=== PATIENT | male | born 1950 | race Two or more races ===

== ENCOUNTER 2017-04-16 18:09 | Inpatient (IN) | payer MEDICARE, MEDICAID ==
[~2017-04-16] VITALS: Ht 170.2 cm; Wt 62.1 kg
[2017-04-16 18:10] VITALS: BP 95/57
--- NOTE | 2017-04-16 18:13 | Emergency Room Report ---
History of Present Illness Present Illness HPI 67YOM BIBEMS for AMS. Critically low glucose. No improvement with SNF trying to give juice. History of IDDM. Not on long-acting sulfon per review of SNF paperwork Glucose improved to >200 after D10 by EMS Noted rhonchi/rales by EMS. DNR but BIPAP allowed Per EMS, mental status is at baseline. No other info from EMS, SNF. Allergies: Coded Allergies: PENICILLINS (Verified Allergy, Unknown, 04/16/17) Patient History Past Medical History: DM Past Surgical History: unable to obtain Pertinent Family History: unable to obtain Social History: Denies: alcohol use, drug use, smoking Immunizations: UTD Reviewed Nursing Documentation: PMH: Agreed, PSxH: Agreed Review of Systems All Other Systems: negative except mentioned in HPI Physical Exam Sp02 EP Interpretation: reviewed, normal General Appearance: normal inspection, well appearing, no apparent distress, alert, other - Eyes closed, chronically ill, Chronically Ill Head: normocephalic, atraumatic Eyes: bilateral eye EOMI, bilateral eye PERRL ENT: normal ENT inspection, hearing grossly normal, normal voice Neck: normal inspection, full range of motion, supple, no bony tend Respiratory: normal inspection, no respiratory distress, no retraction, rales Cardiovascular #1: regular rate, rhythm, no edema Gastrointestinal: normal inspection, normal bowel sounds, non tender, soft, no guarding, no hernia Genitourinary: no CVA tenderness Musculoskeletal: normal inspection, back normal, normal range of motion, Sharan' s Sign negative Neurologic: normal inspection, alert, responsive, speech normal Skin: normal inspection, no rash, pallor Medical Decision Making Medicare Attestation I Silvino Shoemaker MD hereby attest that the medical record entry for date of service, 08/29/16 accurately reflects signatures/notations that I made in my capacity as MD when I treated/diagnosed the above listed Medicare beneficiary. I attest that this information is true, accurate and complete to the best of my knowledge. I understand that any falsification, omission, or concealment of material fact may subject me to administrative, civil, or criminal liability. This patient warrants hospital admission for extreme of age and has a condition that cannot be treated as outpatient. Diagnostic Impression: Primary Impression: Hypoglycemia Additional Impression: CHF (congestive heart failure) Qualified Codes: I50.9 - Heart failure, unspecified ER Course Hypoglycemia - Glucose stayed WNL in ED. Downtrended to 100, was given Amp glucose again. - Labs pending at time of signout. CHF - Improved on BIPAP, lasix - CXR, labs pending at time of signout Endorsed to Dr Robin covering for Dr Gupta at 7pm Asked Dr Maldonado to followup labs, CXR at 7pm EKG Diagnostic Results Rate: normal Rhythm: NSR Other Impression Qwaves in leads v2-3 ASA given to the pt in ED: No Rhythm Strip Diag. Results EP Interpretation: yes Rate: 67 Rhythm: NSR, no PVC's, no ectopy Chest X-Ray Diagnostic Results Chest X-Ray Diagnostic Results : Chest X-Ray Ordered: Yes # of Views/Limited/Complete: 1 View Indication: Shortness of Breath EP Interpretation: Yes Interpretation: no pneumothorax, other - Bilateral pulm edema Status: improved Disposition: ADMITTED INPATIENT Condition: Serious SILVINO SHOEMAKER M.D. Apr 16, 2017 18:13
[2017-04-16 19:11] VITALS: BP 100/61
[2017-04-16 19:12] LABS: BASOPHILS % (AUTO) 1.3 % (0.0-2.0); EOSINOPHILS % (AUTO) 3.4 % (0.0-3.0); LYMPHOCYTES % (AUTO) 18.8 % (20.0-45.0); MEAN CORPUSCULAR HEMOGLOBIN 33.1 PG (27.0-31.0); MEAN CORPUSCULAR HGB CONC 33.7 G/DL (32.0-36.0); MEAN CORPUSCULAR VOLUME 98 FL (80-99); MEAN PLATELET VOLUME 7.5 FL (6.5-10.1); NEUTROPHILS % (AUTO) 69.5 % (45.0-75.0); PLATELET COUNT 248 K/UL (150-450); RED BLOOD COUNT 3.45 M/UL (4.70-6.10); RED CELL DISTRIBUTION WIDTH 12.3 % (11.6-14.8); WHITE BLOOD COUNT 8.2 K/UL (4.8-10.8)
[2017-04-16 19:29] LABS: TROPONIN I < 0.30 ng/mL (<=0.30)
[2017-04-16] MEDS ORDERED: ACETAMINOPHEN325 M1 ORAL (19:31)
[2017-04-16] MEDS ORDERED: LEVOTHYROXINE100 MCG ORAL (19:31)
[2017-04-16] MEDS ORDERED: MIRTAZAPINE15 M3 ORAL (19:31)
[2017-04-16] MEDS ORDERED: FLUCONAZOLE100 MG ORAL (19:31)
[2017-04-16] MEDS ORDERED: ACETAMINOPHEN-1 EAC1 ORAL (19:31)
[2017-04-16] MEDS ORDERED: FAMOTIDINE20 MG ORAL (19:31)
[2017-04-16] MEDS ORDERED: ASPIR 8181 MG ORAL (19:31)
[2017-04-16] MEDS ORDERED: LANTUS SOL100 UNIT/1 SUBQ (19:31)
[2017-04-16] MEDS ORDERED: HUMALOG KW200 UNIT/1 SQ ×2 (19:31)
[2017-04-16] MEDS ORDERED: CARVEDILOL3.125 MG ORAL (19:31)
[2017-04-16] MEDS ORDERED: GABAPENTIN300 MG ORAL (19:31)
[2017-04-16] MEDS ORDERED: VENLAFAXINE HCL75 MG ORAL (19:31)
[2017-04-16] MEDS ORDERED: PULMICORT FLEX90 MCG IH (19:31)
[2017-04-16] MEDS ORDERED: LEVEMIR FL100 UNIT/1 SUBQ (19:31)
[2017-04-16] MEDS ORDERED: VITAMIN C500 M1 ORAL (19:31)
[2017-04-16] MEDS ORDERED: OXYCODONE-ACET1 EAC5 ORAL (19:31)
[2017-04-16] MEDS ORDERED: PANTOPRAZOLE SO40 MG ORAL (19:31)
[2017-04-16] MEDS ORDERED: ATORVASTATIN CA40 MG ORAL (19:31)
[2017-04-16 19:32] LABS: ALANINE AMINOTRANSFERASE 10 U/L (3-41); ALBUMIN/GLOBULIN RATIO 0.9 (1.0-2.7); ANION GAP 14 (5-15); ASPARTATE AMINO TRANSFERASE 21 U/L (5-40); CARBON DIOXIDE 21 mEQ/L (20-30); CHLORIDE 101 mEQ/L (98-107); CREATININE 0.9 mg/dL (0.7-1.2); GLOMERULAR FILTRATION RATE > 60 mL/min (>60); HEMOLYSIS 21; POTASSIUM 3.7 mEQ/L (3.4-4.9); SODIUM 136 mEQ/L (135-145); TOTAL PROTEIN 6.5 g/dL (6.6-8.7)
[2017-04-16 19:42] LABS: CKMB 2.4 ng/mL (< 6.7)
[2017-04-16] MEDS ORDERED: Miralax 17gm pkt ORAL PRN (20:45)
[2017-04-16] MEDS ORDERED: Nitroglycerin Subl 0.4mg tab (Bottle Of 25) SL PRN (20:45)
[2017-04-16] MEDS ORDERED: Morphine Sulfate 2mg/ml Inj IVP PRN (20:45)
[2017-04-16] MEDS ORDERED: DuoNeb 0.5-3(2.5)mg/3ml neb HHN PRN (20:45)
[2017-04-16] MEDS ORDERED: Mylanta II UD 30ml ORAL PRN (20:45)
[2017-04-16 23:00] VITALS: BP 103/61
[2017-04-16] MEDS: D5 1/2NS 1,000 ML IV SCH (23:17)
[2017-04-16] MEDS: Heparin 5000 units/ml inj SUBQ SCH (23:24)
[2017-04-17] VITALS (12 sets, daily range): BP systolic 74–114; BP diastolic 27–64
[2017-04-17] MEDS: NovoLOG Insulin Flexpen SUBQ SCH ×5 (00:36→21:06)
[2017-04-17] MEDS: Heparin 5000 units/ml inj SUBQ SCH ×2 (09:29→21:07)
--- NOTE | 2017-04-17 11:41 | Consultation ---
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 Pt sounded congested in ER, therefore he is admitted to [facility]. Currently he is awake, without any complains. doens't talk but seems to understand. Allergies: Coded Allergies: PENICILLINS (Verified Allergy, Unknown, 04/16/17) Medication History Scheduled Ascorbic Acid* (Vitamin C*), 500 MG ORAL TWICE A DAY, (Reported) Aspirin* (Aspir 81*), 81 MG ORAL DAILY, (Reported) Atorvastatin Calcium* (Atorvastatin Calcium*), 40 MG ORAL BEDTIME, (Reported) Budesonide (Pulmicort Flexhaler), Unknown Dose IH BID, (Reported) Carvedilol* (Carvedilol*), 3.125 MG ORAL EVERY 12 HOURS, (Reported) Famotidine (Famotidine), 20 MG ORAL TWICE A DAY, (Reported) Fluconazole (Fluconazole), 200 MG ORAL DAILY, (Reported) Gabapentin* (Gabapentin*), 300 MG ORAL THREE TIMES A DAY, (Reported) Insulin Detemir (Levemir Flexpen), 8 SUBQ DAILY, (Reported) Insulin Glargine (Lantus), 20 SUBQ BEDTIME, (Reported) Insulin Lispro (Humalog Kwikpen), 18 UNIT SQ AC, (Reported) Levothyroxine Sodium* (Levothyroxine Sodium*), 100 MCG ORAL DAILY, (Reported) Mirtazapine* (Mirtazapine*), 15 MG ORAL BEDTIME, (Reported) Pantoprazole* (Pantoprazole*), 40 MG ORAL DAILY, (Reported) Venlafaxine Hcl* (Venlafaxine Hcl*), 75 MG ORAL DAILY, (Reported) Scheduled PRN Acetaminophen With Codeine (T#3) (Tylenol #3 Tab*), 1 TAB ORAL Q4H PRN for For Pain, (Reported) Acetaminophen* (Acetaminophen 325MG Tablet*), 650 MG ORAL Q6H PRN for Fever/ Headache/Mild Pain, (Reported) Oxycodone Hcl/Acetaminophen 10-325* (Oxycodone-Acetaminophen 10-325*), 1 TAB ORAL TID PRN for For Pain, (Reported) Miscellaneous Medications Insulin Lispro (Humalog Kwikpen), 200 UNIT SQ, (Reported) Patient History Healthcare decision maker Jewel Feliciano,ravi Resuscitation status Do Not Resuscitate Advanced Directive on File No Past Medical/Surgical History Past Medical/Surgical History: (1) Diabetes mellitus (2) Cardiomyopathy (3) PVD (peripheral vascular disease) (4) Hx of right BKA Review of Systems All Other Systems: negative except mentioned in HPI Physical Exam General Appearance: cachetic Lines, tubes and drains: peripheral HEENT: normocephalic, atraumatic Neck: non-tender, normal alignment Respiratory/Chest: chest wall non-tender, lungs clear Breasts: no masses Cardiovascular/Chest: normal peripheral pulses, normal rate Abdomen: normal bowel sounds, non tender Genitourinary/Rectal: normal genital exam, heme negative stool Extremities: normal range of motion, non-tender Skin Exam: normal pigmentation Neurologic: outlet manager II-XII grossly normal Last 24 Hour Vital Signs Date Time Temp Pulse Resp B/P Pulse Ox O2 Delivery O2 Flow Rate FiO2 04/17/17 08:30 76 04/17/17 08:07 6.0 04/17/17 08:00 98.6 80 22 104/64 94 Nasal Cannula 5.0 04/17/17 07:35 Nasal Cannula 4.0 04/17/17 07:34 4 Nasal Cannula 94.0 04/17/17 06:00 75 26 89/45 98 Bi-pap 04/17/17 05:03 71 28 98 Facial 60 04/17/17 05:00 70 26 91/42 96 Bi-pap 04/17/17 04:00 99.6 73 29 74/41 93 Bi-pap 04/17/17 04:00 28 04/17/17 04:00 70 04/17/17 03:13 72 26 99 Facial 60 04/17/17 03:00 71 21 82/27 98 Bi-pap 04/17/17 02:00 70 20 95/36 98 Bi-pap 04/17/17 01:11 77 18 98 Facial 70 04/17/17 01:00 80 18 90/33 98 Bi-pap 04/17/17 00:00 81 04/17/17 00:00 81 18 88/45 98 Bi-pap 28 04/17/17 00:00 28 04/16/17 23:05 87 26 100 Facial 80 04/16/17 23:00 98.6 93 22 103/61 100 Bi-pap 28 04/16/17 22:15 97.5 62 15 100/61 100 Bi-pap 100 64 04/16/17 20:46 64 16 94 Facial 100 04/16/17 19:11 97.5 64 15 100/61 100 Bi-pap 100 04/16/17 18:18 68 19 98 Facial 100 04/16/17 18:18 68 19 Bi-pap 100 04/16/17 18:10 97.5 62 17 95/57 100 Bi-pap 04/16/17 18:10 62 17 Bi-pap 04/16/17 18:08 97.3 71 21 98/62 89 Non-Rebreather Intake and Output 04/16/17 04/17/17 19:00 07:00 Intake Total 0 ml 400 ml Output Total 650 ml Balance 0 ml -250 ml Intake Oral 0 ml 0 ml IV Total 400 ml Output Urine Total 650 ml Laboratory Tests Test 04/16/17 18:45 White Blood Count 8.2 K/UL (4.8-10.8) Red Blood Count 3.45 M/UL (4.70-6.10) L Hemoglobin 11.4 G/DL (14.2-18.0) L Hematocrit 33.8 % (42.0-52.0) L Mean Corpuscular Volume 98 FL (80-99) Mean Corpuscular Hemoglobin 33.1 PG (27.0-31.0) H Mean Corpuscular Hemoglobin Concent 33.7 G/DL (32.0-36.0) Red Cell Distribution Width 12.3 % (11.6-14.8) Platelet Count 248 K/UL (150-450) Mean Platelet Volume 7.5 FL (6.5-10.1) Neutrophils (%) (Auto) 69.5 % (45.0-75.0) Lymphocytes (%) (Auto) 18.8 % (20.0-45.0) L Monocytes (%) (Auto) 7.0 % (1.0-10.0) Eosinophils (%) (Auto) 3.4 % (0.0-3.0) H Basophils (%) (Auto) 1.3 % (0.0-2.0) Sodium Level 136 mEQ/L (135-145) Potassium Level 3.7 mEQ/L (3.4-4.9) Chloride Level 101 mEQ/L (98-107) Carbon Dioxide Level 21 mEQ/L (20-30) Anion Gap 14 (5-15) Blood Urea Nitrogen 12 mg/dL (7-23) Creatinine 0.9 mg/dL (0.7-1.2) Estimat Glomerular Filtration Rate > 60 mL/min (>60) Glucose Level 234 mg/dL (74-106) H Calcium Level 9.0 mg/dL (8.6-10.2) Total Bilirubin 0.3 mg/dL (0.0-1.2) Aspartate Amino Transf (AST/SGOT) 21 U/L (5-40) Alanine Aminotransferase (ALT/SGPT) 10 U/L (3-41) Alkaline Phosphatase 110 U/L (40-129) Total Creatine Kinase 118 U/L (38-174) Creatine Kinase MB 2.4 ng/mL (< 6.7) Creatine Kinase MB Relative Index 2.0 Troponin I < 0.30 ng/mL (<=0.30) Pro-B-Type Natriuretic Peptide 7829 pg/mL (0-125) H Total Protein 6.5 g/dL (6.6-8.7) L Albumin 3.1 g/dL (3.5-5.2) L Globulin 3.4 g/dL Albumin/Globulin Ratio 0.9 (1.0-2.7) L Height (Feet): 5 Height (Inches): 7.00 Weight (Pounds): 137 Medications Current Medications Medications (Trade) Dose Ordered Sig/Eliel Route PRN Reason Start Time Stop Time Status Last Admin Dose Admin Acetaminophen (Tylenol) 650 mg Q4H PRN ORAL fever 04/16/17 20:45 05/16/17 20:44 Al Hydroxide/Mg Hydroxide (Mylanta II) 30 ml Q6H PRN ORAL dyspepsia 04/16/17 20:45 05/16/17 20:44 Albuterol/ Ipratropium (DuoNeb 0.5-3(2.5)mg/3ml) 3 ml Q4H PRN HHN Shortness of Breath 04/16/17 20:45 04/21/17 20:44 Clonidine HCl 0.1 mg 0.1 mg Q4H PRN ORAL sbp more than 160 04/16/17 20:45 05/16/17 20:44 Dextrose (Dextrose 50%) STAT PRN IV Hypoglycemia 04/16/17 20:45 05/16/17 20:44 Dextrose/Sodium Chloride (D5 0.45% NS) 1,000 ml @ 50 mls/hr Q20H IV 04/16/17 21:00 05/16/17 20:59 04/16/17 23:17 Heparin Sodium (Porcine) (Heparin 5000 units/ml) 5,000 units EVERY 12 HOURS SUBQ 04/16/17 21:00 05/16/17 20:59 04/17/17 09:29 Insulin Aspart (NovoLOG) BEFORE MEALS AND HS SUBQ 04/16/17 21:00 05/16/17 20:59 04/17/17 06:52 Levothyroxine Sodium (Synthroid) 100 mcg ACBREAKFAST ORAL 04/17/17 09:00 05/17/17 08:59 04/17/17 09:27 Morphine Sulfate (Morphine Sulfate) 2 mg Q4H PRN IVP severe pain 7-10 04/16/17 20:45 04/23/17 20:44 Nitroglycerin (Ntg) 0.4 mg Q5M X 3 DOSES PRN SL Prn Chest Pain 04/16/17 20:45 05/16/17 20:44 Ondansetron HCl (Zofran) 4 mg Q6H PRN IVP Nausea & Vomiting 04/16/17 20:45 05/16/17 20:44 Polyethylene Glycol (Miralax) 17 gm HSPRN PRN ORAL Constipation 04/16/17 20:45 05/16/17 20:44 Temazepam (Restoril) 15 mg HSPRN PRN ORAL Insomnia 04/16/17 20:45 04/23/17 20:44 Assessment/Plan Problem List: (1) Hypoglycemia ICD Codes: E16.2 - Hypoglycemia, unspecified SNOMED: 504547652 (2) Diabetes mellitus ICD Codes: E11.9 - Type 2 diabetes mellitus without complications SNOMED: 54366414 (3) Cardiomyopathy ICD Codes: I42.9 - Cardiomyopathy, unspecified SNOMED: 95729571 (4) DNR (do not resuscitate) ICD Codes: Z66 - Do not resuscitate SNOMED: 893219911 (5) Polypharmacy ICD Codes: Z79.899 - Other isotope technologist (current) drug therapy SNOMED: 956877134 (6) PVD (peripheral vascular disease) ICD Codes: I73.9 - Peripheral vascular disease, unspecified SNOMED: 878567216 Assessment/Plan D5 1/2 NS optimize cardiac meds avoid tight control of DM dvt prophylaxis respiratory treatment titrate fio2 to sat of 92% med/surg repeat Echo. KRISH ADRIAN Apr 17, 2017 11:41
--- NOTE | 2017-04-17 12:07 | Diagnostic Imaging Report ---
Indication: SOB Technique: One view of the chest Comparison: none Findings: There is some poorly demonstrated opacities in the retrocardiac region. The lungs and pleural spaces are otherwise clear. The heart is upper limits normal in size. There is right paratracheal prominence. Coronary artery stents are noted. Impression: Equivocal retrocardiac opacities. Otherwise, no acute cardio pulmonary process Right paratracheal prominence, probably on the basis of ectatic vasculature Other findings as noted
[2017-04-17 12:14] LABS: BASOPHILS % (AUTO) 0.5 % (0.0-2.0); EOSINOPHILS % (AUTO) 0.3 % (0.0-3.0); LYMPHOCYTES % (AUTO) 12.1 % (20.0-45.0); MEAN CORPUSCULAR HEMOGLOBIN 33.6 PG (27.0-31.0); MEAN CORPUSCULAR HGB CONC 34.4 G/DL (32.0-36.0); MEAN CORPUSCULAR VOLUME 98 FL (80-99); MEAN PLATELET VOLUME 7.9 FL (6.5-10.1); MONOCYTES % (AUTO) 5.1 % (1.0-10.0); PLATELET COUNT 241 K/UL (150-450); RED BLOOD COUNT 3.13 M/UL (4.70-6.10); RED CELL DISTRIBUTION WIDTH 12.4 % (11.6-14.8); WHITE BLOOD COUNT 16.4 K/UL (4.8-10.8)
[2017-04-17 12:44] LABS: ALANINE AMINOTRANSFERASE 11 U/L (3-41); ALBUMIN/GLOBULIN RATIO 0.9 (1.0-2.7); ANION GAP 15 (5-15); ASPARTATE AMINO TRANSFERASE 21 U/L (5-40); CALCIUM 8.8 mg/dL (8.6-10.2); CARBON DIOXIDE 19 mEQ/L (20-30); CHLORIDE 102 mEQ/L (98-107); CHOLESTEROL 100 mg/dL (< 200); CHOLESTEROL/HDL RATIO 4.3 (3.3-4.4); CREATININE 0.8 mg/dL (0.7-1.2); GLOMERULAR FILTRATION RATE > 60 mL/min (>60); HEMOLYSIS 5; LDL CHOLESTEROL (CALC.) 49 mg/dL (60-99); POTASSIUM 3.6 mEQ/L (3.4-4.9); SODIUM 136 mEQ/L (135-145); TOTAL PROTEIN 6.1 g/dL (6.6-8.7)
[2017-04-17 12:50] LABS: HEMOGLOBIN A1C 10.2 % (< 6.0)
[2017-04-17] MEDS ORDERED: D5 1/2NS 1000ml IV ONE (16:16)
[2017-04-17] MEDS: D5 1/2NS 1,000 ML IV SCH ×2 (16:47→23:53)
--- NOTE | 2017-04-17 18:18 | History & Physical ---
History and Physical History & Physicial Joni Robin MD Apr 17, 2017 18:18
--- NOTE | 2017-04-17 22:16 | History and Physical Report ---
DATE OF ADMISSION: 04/16/2017 CHIEF COMPLAINT: Altered mental status. HISTORY OF PRESENT ILLNESS: This is a 67-year-old gentleman with past medical history significant for severe cardiomyopathy with ejection fraction of 25%, severe peripheral vascular disease, status post right BKA with chronic diabetic ulcer on the left lower extremity as well as stump infection, history of uncontrolled diabetes type 2, and hypothyroidism who presented to the hospital from a nursing facility [facility] after he was noted to have altered mental status. The patient was noted to have low blood glucose level of 20 and the patient was noted to be congested. Shortly after initial evaluation in the emergency, the patient was admitted to [facility] on D10. Currently, the patient was awake and responsive without any complaint and able to talk. PAST MEDICAL AND SURGICAL HISTORY: As above, history of hypothyroidism, diabetes type 2 insulin dependent, severe cardiomyopathy with low ejection fraction, severe peripheral vascular disease, status post right BKA and diabetic foot ulcer. MEDICATIONS: At half-way significant for ascorbic acid, aspirin, atorvastatin, budesonide, Coreg, famotidine, Diflucan, gabapentin, Levemir insulin, Lantus, Humalog insulin, levothyroxine, mirtazapine, Protonix, Effexor, Tylenol #3, codeine and [place]. ALLERGIES: Penicillin. SOCIAL HISTORY: No smoking, alcohol, or drugs at this time, it is very limited secondary to the patient's status. The patient is a poor historian. FAMILY HISTORY: Noncontributory. REVIEW OF SYSTEMS: Mostly as above. Denies any dysuria or frequency. Denies any hemoptysis or hematochezia. Complained about weakness. Denies any loss of consciousness. Denies any double vision. PHYSICAL EXAMINATION: VITAL SIGNS: Temperature 98.6, pulse 93, respiration 22, and blood pressure 103/61. GENERAL: The patient is awake, responsive, and cachectic. HEAD AND NECK: Pupils are reactive to light. Anicteric. NECK: Supple. No JVD. LUNGS: Good air entry. Poor inspiratory effort. No wheezing or rales. HEART: S1 and S2. Distant heart sounds. No murmurs or gallops. ABDOMEN: Soft, nondistended, and nontender. EXTREMITIES: He has a right lower extremity BKA with stump infection was noted and the left lower extremity has a healed ulceration with dressing. NEUROLOGIC: Cranial nerves II through XII are grossly intact. The patient is moving all extremities spontaneously. Gait was not assessed due to the patient's status. LABORATORY AND DIAGNOSTIC DATA: On admission from the ER, WBC of 8.2, hemoglobin of 11, hematocrit 33, and platelets 246,000. Sodium 136, potassium 2.7, chloride 101, bicarbonate 21, BUN 12, creatinine 0.9, and glucose is 234. Calcium is 9.0. First troponin is less than 0.30. ProBNP of 7829. The patient's chest x-ray, retrocardiac opacification, no acute cardiopulmonary process. Right paratracheal prominence probably on the basis of the ectatic vasculature. ASSESSMENT: 1. Toxic metabolic encephalopathy most likely secondary to the hypoglycemia. 2. Poorly-controlled diabetes type 2, insulin dependent. 3. Severe cardiomyopathy with ejection fraction of 25%. 4. Severe peripheral vascular disease, status post right [id number] amputation. 5. Right below-knee amputation infection. 6. . 7. Hypothyroidism. 8. Possible sepsis with elevated white blood cells. PLAN: Admit the patient to [facility]. We will follow up laboratory. Pulmonary Critical Care Consultation with Dr. Saab. DVT prophylaxis. Heparin subcutaneous. We will resume half-way medications. Monitor laboratory. Accu-Cheks very closely. Code status is DNR. Followup with the cultures. Joni Robin M.D. DR: BEE JOB#: [id number] CC:
[2017-04-17] MEDS ORDERED: Nitroglycerin Subl 0.4mg tab (Bottle Of 25) SL PRN (23:00)
--- NOTE | 2017-04-18 00:38 | Wound Care Consultation ---
Wound Assessment Wound Assessment #1: Wound Number: #1 Wound Present on Admission: Yes New Wound: No Status Change of Wound: No Wound Location Body Site Modif: mid Wound Location Body Site: sacral Wound Type: pressure ulcer Denisse Test: Does not Denisse Pressure Ulcer Stage: IV/unstageable Wound Thickness: Full Thickness Wound Length: 4.0 Wound Width: 3.5 Wound Depth: utd Percent of Wound Bed Yellow/Wh: 100 Wound Drainage Description: Serosanguineous Wound Drainage Amount: Moderate Wound Drainage Odor: None/Absent Tissue Surrounding Wound: Erythemic Wound General Appearance: Draining Wound Assessment #2: Wound Number: #2 Wound Present on Admission: Yes New Wound: No Status Change of Wound: No Wound Location Body Site Modif: left, lateral Wound Location Body Site: malleolus/ankle Wound Type: pressure ulcer Denisse Test: Does not Denisse Pressure Ulcer Stage: deep tissue injury Wound Thickness: Full Thickness Wound Length: 2.0 Wound Width: 1.5 Wound Depth: utd Percent of Wound Black/Brown: 100 Wound Drainage Amount: None Wound Drainage Odor: None/Absent Tissue Surrounding Wound: Intact Wound General Appearance: Blackened Wound Assessment #3: Wound Number: #3 Wound Present on Admission: Yes New Wound: No Status Change of Wound: No Wound Location Body Site Modif: left Wound Location Body Site: heel Wound Type: pressure ulcer Denisse Test: Does not Denisse Pressure Ulcer Stage: IV/unstageable Wound Thickness: Full Thickness Wound Length: 5.0 Wound Width: 4.0 Wound Depth: utd Percent of Wound Black/Brown: 100 Wound Drainage Description: Serosanguineous Wound Drainage Amount: Scant Wound Drainage Odor: None/Absent Tissue Surrounding Wound: Indurated Wound General Appearance: Blackened, Draining, Necrotic Wound Assessment #4: Wound Number: #4 Wound Present on Admission: Yes New Wound: No Status Change of Wound: No Wound Location Body Site Modif: left, lateral Wound Location Body Site: toe - big Wound Type: pressure ulcer Denisse Test: Does not Denisse Pressure Ulcer Stage: deep tissue injury Wound Thickness: Full Thickness Wound Length: 1.5 Wound Width: 2.5 Wound Depth: utd Percent of Wound Black/Brown: 100 Wound Drainage Amount: None Wound Drainage Odor: None/Absent Tissue Surrounding Wound: Intact Wound General Appearance: Blackened Wound Assessment #5: Wound Number: #5 Wound Present on Admission: Yes New Wound: No Status Change of Wound: No Wound Location Body Site Modif: right, anterior Wound Location Body Site: other - BKA Wound Type: pressure ulcer Denisse Test: Does not Denisse Pressure Ulcer Stage: IV/unstageable Wound Thickness: Full Thickness Wound Length: 4.0 Wound Width: 5.5 Wound Depth: utd Percent of Wound Bed Yellow/Wh: 20 Percent of Wound Black/Brown: 80 Wound Drainage Description: Serosanguineous Wound Drainage Amount: Scant Wound Drainage Odor: None/Absent Tissue Surrounding Wound: Erythemic Wound General Appearance: Blackened Wound Assessment #6: Wound Number: #6 Wound Present on Admission: Yes New Wound: No Status Change of Wound: No Wound Location Body Site Modif: right, lateral Wound Location Body Site: other - BKA Wound Type: pressure ulcer Denisse Test: Does not Denisse Pressure Ulcer Stage: IV/unstageable Wound Thickness: Full Thickness Wound Length: 2.5 Wound Width: 2.5 Wound Depth: utd Percent of Wound Black/Brown: 100 Wound Drainage Amount: None Wound Drainage Odor: None/Absent Tissue Surrounding Wound: Erythemic Wound General Appearance: Blackened Wound Comment #1 Sacral unstageable pressure ulcer #2 Left lateral malleolus DTI pressure ulcer #3 Left heel Unstageable pressure ulcer #4 Left lateral big toe DTI pressure ulcer #5 Right lateral BKA site unstageable pressure ulcer #6 Right anterior BKA site unstageable pressure ulcer Recommendation -Sacral unstageable pressure ulcer Cleanse with saline, pat dry, apply Therahoney gel on wound bed, apply Triad to quirino wound area, cover with 4x4, secure with bordered gauze daily and PRN soiled/dislodged -Left lateral malleolus DTI pressure ulcer, Left heel Unstageable pressure ulcer , Left lateral big toe DTI pressure ulcer, Right lateral BKA site unstageable pressure ulcer and Right anterior BKA site unstageable pressure ulcer Cleanse with saline, apt dry, apply Betadine to wound bed, cover with 4x4, secure with bordered gauze daily and PRN soiled/dislodged -Keep clean and dry -Turn and reposition -Low air loss mattress -Offload left heel -Heel protector on left heel -Optimize nutrition -Assess and f/u accordingly for any changes HELGA CONDE RN Apr 18, 2017 00:38
[2017-04-18] MEDS ORDERED: DuoNeb 0.5-3(2.5)mg/3ml neb HHN PRN (00:45)
[2017-04-18] MEDS ORDERED: Mylanta II UD 30ml ORAL PRN (02:45)
[2017-04-18 04:00] VITALS: BP 124/69
[2017-04-18] MEDS: NovoLOG Insulin Flexpen SUBQ SCH ×7 (05:44→20:56)
[2017-04-18] MEDS: Levothyroxine 25mcg tab ORAL SCH (06:23)
[2017-04-18 07:23] LABS: APPEARANCE,URINE CLOUDY; KETONES,URINE 2+ (NEGATIVE); LEUKOCYTE ESTERASE ,URINE 3+ (NEGATIVE); NITRITE,URINE NEGATIVE (NEGATIVE); PH,URINE 6 (4.5-8.0); PROTEIN,URINE 2+ (NEGATIVE); UROBILINOGEN,URINE NORMAL MG/DL (0.0-1.0)
[2017-04-18 07:35] LABS: BACTERIA,URINE FEW /HPF; SQUAMOUS EPITHELIAL CELL,UR OCCASIONAL /LPF (NONE/OCC); WBC,URINE 30-40 /HPF (0 - 0); YEAST,URINE MANY /HPF
--- NOTE | 2017-04-18 08:16 | Consultation ---
DATE OF CONSULTATION: 04/17/2017 ENDOCRINOLOGY CONSULTATION CONSULTING PHYSICIAN: Michael Goode M.D. REFERRING PHYSICIAN: Joni Robin M.D. REASON FOR CONSULTATION: 1. Diabetes management. 2. Hypothyroidism. HISTORY OF PRESENT ILLNESS: The patient is a 67-year-old male with past medical history of severe cardiomyopathy with EF of 25%, severe peripheral vascular disease, status post right below-knee amputation and there is a long family history of diabetes insulin dependent, and hypothyroidism, who resides in a senior care facility. The patient was brought in with altered mental status with a glucose of 20. He was treated with dextrose and admitted to the floor for observation and treatment and transferred to the Med/Surg after stabilization. I was called to manage diabetes and hypothyroidism. PAST MEDICAL HISTORY: 1. Hypothyroidism. 2. Type 2 diabetes insulin dependent. 3. Severe cardiomyopathy with EF of 25%. 4. Peripheral vascular disease. PAST SURGICAL HISTORY: Right below-knee amputation. MEDICATIONS AT HOME: Reviewed and reconciled. ALLERGIES: To penicillin. SOCIAL HISTORY: No smoking, alcohol, or drug use. Resides in a senior care facility. FAMILY HISTORY: Noncontributory. REVIEW OF SYSTEMS: Limited, but as per history of present illness. PHYSICAL EXAMINATION: VITAL SIGNS: Blood pressure is 110/60, pulse of 82, temperature 98.2, and respiratory rate 18. HEENT: Pupils are equal and reactive to light. Sclerae are anicteric. NECK: No JVD. No thyromegaly. LUNGS: Clear. HEART: Regular rate and rhythm. ABDOMEN: Positive bowel sounds. Soft. EXTREMITIES: Right below-knee amputation with stump infection. LABORATORY VALUES: Sodium 136, potassium 3.6, chloride 102, bicarb 19, BUN 13, creatinine 0.8, glucose of 207, and A1c 10.2. TSH of 30. DIAGNOSES: 1. Diabetes, out of control. 2. Hypoglycemia. 3. Hypothyroidism with elevated TSH. 4. History of right below-knee amputation. PLAN: 1. I will resume scheduled insulin dose of Levemir and NovoLog. 2. Levemir 10 units b.i.d. start this morning. 3. NovoLog 6 units before each meal. 4. Continue IV fluids, sliding scale insulin. 5. Increase the levothyroxine dose from 100 to 125 mcg daily. 6. Repeat TSH in two months. 7. I will follow the patient during the hospital stay. Thank you, Dr. Robin, for the courtesy of this consultation. Michael Goode M.D. DR: JUSTIN JOB#: [id number] CC: KELLIE
[2017-04-18 08:35] VITALS: BP 117/69
[2017-04-18] MEDS: Heparin 5000 units/ml inj SUBQ SCH ×2 (09:00→20:58)
[2017-04-18] MEDS: Levemir Flexpen SUBQ SCH ×2 (09:42→18:09)
[2017-04-18] MEDS ORDERED: Amikacin Rx to dose MISC PRN (10:30)
[2017-04-18 11:45] LABS: BASOPHILS % (AUTO) 0.6 % (0.0-2.0); EOSINOPHILS % (AUTO) 2.2 % (0.0-3.0); LYMPHOCYTES % (AUTO) 19.2 % (20.0-45.0); MEAN CORPUSCULAR HEMOGLOBIN 31.9 PG (27.0-31.0); MEAN CORPUSCULAR HGB CONC 32.6 G/DL (32.0-36.0); MEAN CORPUSCULAR VOLUME 98 FL (80-99); MEAN PLATELET VOLUME 8.7 FL (6.5-10.1); MONOCYTES % (AUTO) 5.8 % (1.0-10.0); NEUTROPHILS % (AUTO) 72.2 % (45.0-75.0); PLATELET COUNT 291 K/UL (150-450); RED BLOOD COUNT 3.28 M/UL (4.70-6.10); WHITE BLOOD COUNT 12.3 K/UL (4.8-10.8)
[2017-04-18 12:13] VITALS: BP 123/72
[2017-04-18 12:15] LABS: ANION GAP 14 (5-15); CALCIUM 9.4 mg/dL (8.6-10.2); CARBON DIOXIDE 21 mEQ/L (20-30); CHLORIDE 100 mEQ/L (98-107); CREATININE 0.8 mg/dL (0.7-1.2); GLOMERULAR FILTRATION RATE > 60 mL/min (>60); HEMOLYSIS 1; POTASSIUM 3.4 mEQ/L (3.4-4.9); SODIUM 135 mEQ/L (135-145)
[2017-04-18] MEDS ORDERED: Vancomycin 1250mg/D5W 250ml IVPB SCH (14:00)
[2017-04-18] MEDS ORDERED: Vancomycin 1 GM in D5W 275 ML IVPB SCH (14:00)
[2017-04-18] MEDS: Aztreonam Inj 1 GM in NS 55 ML IVPB SCH ×2 (15:54→20:55)
[2017-04-18 16:08] VITALS: BP 122/76
--- NOTE | 2017-04-18 17:38 | Internal Med Progress Note ---
Subjective Date of Service: Apr 18, 2017 Physician Name Reddy Werner Attending Physician Joni Robin MD Current Medications Medications (Trade) Dose Ordered Sig/Eliel Route PRN Reason Start Time Stop Time Status Last Admin Dose Admin Acetaminophen (Tylenol) 650 mg Q4H PRN ORAL fever 04/18/17 00:45 05/18/17 00:44 Al Hydroxide/Mg Hydroxide (Mylanta II) 30 ml Q6H PRN ORAL dyspepsia 04/18/17 02:45 05/18/17 02:44 Albuterol/ Ipratropium (DuoNeb 0.5-3(2.5)mg/3ml) 3 ml Q4H PRN HHN Shortness of Breath 04/18/17 00:45 04/23/17 00:44 Aztreonam 1 gm/ Sodium Chloride 55 ml @ 110 mls/hr EVERY 8 HOURS IVPB 04/18/17 14:00 04/25/17 13:59 04/18/17 15:54 Clonidine HCl (Catapres) 0.1 mg Q4H PRN ORAL sbp more than 160 04/18/17 00:45 05/18/17 00:44 Dextrose (Dextrose 50%) STAT PRN IV Hypoglycemia 04/18/17 06:15 05/18/17 06:14 Dextrose (Dextrose 50%) STAT PRN IV Hypoglycemia 04/18/17 20:45 05/18/17 20:44 Dextrose/Sodium Chloride (D5 0.45% NS) 1,000 ml @ 50 mls/hr Q20H IV 04/17/17 23:00 05/17/17 22:59 04/17/17 23:53 Gabapentin (Neurontin) 300 mg THREE TIMES A DAY ORAL 04/18/17 09:00 05/18/17 08:59 04/18/17 14:13 Heparin Sodium (Porcine) (Heparin 5000 units/ml) 5,000 units EVERY 12 HOURS SUBQ 04/18/17 09:00 05/18/17 08:59 04/18/17 09:00 Insulin Aspart (NovoLOG) BEFORE MEALS AND HS SUBQ 04/18/17 06:30 05/18/17 06:29 04/18/17 12:39 Insulin Aspart (NovoLOG) 6 units NOVOTIAC SUBQ 04/18/17 06:30 05/18/17 06:29 04/18/17 06:27 Insulin Detemir (Levemir) 10 units BID SUBQ 04/18/17 09:00 05/18/17 08:59 04/18/17 09:42 Levofloxacin 100 ml @ 100 mls/hr Q24H IVPB 04/18/17 13:00 04/25/17 12:59 04/18/17 14:12 Levothyroxine Sodium 125 mcg 125 mcg ACBREAKFAST ORAL 04/18/17 06:30 05/18/17 06:29 Mirtazapine (Remeron) 15 mg BEDTIME ORAL 04/18/17 21:00 05/18/17 20:59 Morphine Sulfate (Morphine Sulfate) 2 mg Q4H PRN IVP severe pain 7-04/18/17 00:45 04/25/17 00:44 Nitroglycerin (Ntg) 0.4 mg Q5M X 3 DOSES PRN SL Prn Chest Pain 04/17/17 23:00 05/17/17 22:59 Ondansetron HCl (Zofran) 4 mg Q6H PRN IVP Nausea & Vomiting 04/18/17 02:45 05/18/17 02:44 Oxycodone/ Acetaminophen (Percocet 10/325) 1 tab TID PRN ORAL Moderate Pain (Pain Scale 4-6) 04/18/17 09:00 04/25/17 08:59 Polyethylene Glycol (Miralax) 17 gm HSPRN PRN ORAL Constipation 04/18/17 20:45 05/18/17 20:44 Temazepam (Restoril) 15 mg HSPRN PRN ORAL Insomnia 04/18/17 20:45 04/25/17 20:44 Vancomycin HCl/ Dextrose (Vancomycin 1250mg/D5W 250ml) 250 ml @ 166.667 mls/hr Q24H IVPB 04/18/17 17:00 04/23/17 16:59 Allergies: Coded Allergies: PENICILLINS (Verified Allergy, Unknown, 04/16/17) ROS Limited/Unobtainable: Yes Subjective 67 YO M admitted with altered mental status. Still confused. Cover for Int [facility] -Dr Robin Objective Last Vital Signs Date Time Temp Pulse Resp B/P Pulse Ox O2 Delivery O2 Flow Rate FiO2 04/18/17 16:08 97.0 76 19 122/76 98 Nasal Cannula 2.0 76 04/18/17 07:54 36 General Appearance: WD/WN, no apparent distress, alert EENT: PERRL/EOMI, normal ENT inspection, TMs normal Neck: non-tender, normal alignment, supple Cardiovascular: normal peripheral pulses, normal rate, regular rhythm, no gallop/murmur, no JVD Respiratory/Chest: chest wall non-tender, lungs clear, normal breath sounds, no respiratory distress, no accessory muscle use Abdomen: normal bowel sounds, non tender, soft, no organomegaly, no mass Extremities: normal range of motion 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, no motor/sensory deficits Skin: normal pigmentation, warm/dry Laboratory Tests Test 04/18/17 06:00 04/18/17 11:15 Urine Color Yellow Urine Appearance Cloudy Urine pH 6 (4.5-8.0) Urine Specific [place] 1.020 (1.005-1.035) Urine Protein 2+ (NEGATIVE) H Urine Glucose (UA) 4+ (NEGATIVE) H Urine Ketones 2+ (NEGATIVE) H Urine Occult Blood 3+ (NEGATIVE) H Urine Nitrite Negative (NEGATIVE) Urine Bilirubin Negative (NEGATIVE) Urine Urobilinogen Normal MG/DL (0.0-1.0) Urine Leukocyte Esterase 3+ (NEGATIVE) H Urine RBC 2-4 /HPF (0 - 0) H Urine WBC 30-40 /HPF (0 - 0) H Urine Squamous Epithelial Cells Occasional /LPF Urine Bacteria Few /HPF (NONE) Urine Yeast Many /HPF (NONE) H White Blood Count 12.3 K/UL (4.8-10.8) H Red Blood Count 3.28 M/UL (4.70-6.10) L Hemoglobin 10.5 G/DL (14.2-18.0) L Hematocrit 32.0 % (42.0-52.0) L Mean Corpuscular Volume 98 FL (80-99) Mean Corpuscular Hemoglobin 31.9 PG (27.0-31.0) H Mean Corpuscular Hemoglobin Concent 32.6 G/DL (32.0-36.0) Red Cell Distribution Width 12.0 % (11.6-14.8) Platelet Count 291 K/UL (150-450) Mean Platelet Volume 8.7 FL (6.5-10.1) Neutrophils (%) (Auto) 72.2 % (45.0-75.0) Lymphocytes (%) (Auto) 19.2 % (20.0-45.0) L Monocytes (%) (Auto) 5.8 % (1.0-10.0) Eosinophils (%) (Auto) 2.2 % (0.0-3.0) Basophils (%) (Auto) 0.6 % (0.0-2.0) Sodium Level 135 mEQ/L (135-145) Potassium Level 3.4 mEQ/L (3.4-4.9) Chloride Level 100 mEQ/L (98-107) Carbon Dioxide Level 21 mEQ/L (20-30) Anion Gap 14 (5-15) Blood Urea Nitrogen 14 mg/dL (7-23) Creatinine 0.8 mg/dL (0.7-1.2) Estimat Glomerular Filtration Rate > 60 mL/min (>60) Glucose Level 230 mg/dL (74-106) H Calcium Level 9.4 mg/dL (8.6-10.2) Microbiology Date/Time Source Procedure Growth Status 04/16/17 18:55 Blood Blood Culture - Preliminary NO GROWTH AFTER 24 HOURS Resulted 04/16/17 18:30 Blood Blood Culture - Preliminary NO GROWTH AFTER 24 HOURS Resulted 04/16/17 20:00 Nasal Nares MRSA Culture - Final NO METHICILLIN RESISTANT STAPH AUREUS... Complete 04/16/17 23:40 Sacral Wound Gram Stain - Final Resulted 04/16/17 23:40 Wound Culture - Preliminary Gram Negative Bacillus 1 Resulted 04/16/17 23:40 Knee Right Gram Stain - Final Resulted 04/16/17 23:40 Knee Right Wound Culture - Preliminary Resulted 04/16/17 20:00 Rectum VRE Culture - Final Enterococcus Faecalis - Vre Complete Intake and Output 04/17/17 04/18/17 18:59 06:59 Intake Total 50 ml 1050 ml Output Total 1000 ml Balance 50 ml 50 ml Intake Oral 100 ml IV Total 50 ml 350 ml Other 600 ml Output Urine Total 1000 ml Assessment/Plan Problem List: (1) Altered mental status (2) Diabetes mellitus type II, uncontrolled Assessment & Plan: Cont levemir and novolog sliding scale per endocrinology (3) Hypothyroidism Assessment & Plan: See endocrinology note. Cont Synthroid (4) Peripheral vascular disease (5) Status post below knee amputation of right lower extremity (6) DNR (do not resuscitate) (7) Hypoglycemia Assessment & Plan: See endocrinology note. (8) Cardiomyopathy (9) PVD (peripheral vascular disease) (10) Sepsis Assessment & Plan: Continue aztreonam, levaquin and vanco Status: not improved REDDY WERNER Apr 18, 2017 17:38
[2017-04-18] MEDS: Vancomycin 1250mg/D5W 250ml IVPB SCH (17:39)
[2017-04-18] MEDS: D5 1/2NS 1,000 ML IV SCH (17:39)
[2017-04-18 20:00] VITALS: BP 106/71
[2017-04-18] MEDS ORDERED: Miralax 17gm pkt ORAL PRN (20:45)
--- NOTE | 2017-04-18 23:25 | Pulmonology Progress Note ---
Assessment/Plan Problems: (1) Sepsis (2) Altered mental status (3) Hypoglycemia (4) Diabetes mellitus (5) Cardiomyopathy (6) DNR (do not resuscitate) (7) Polypharmacy (8) PVD (peripheral vascular disease) (9) Status post below knee amputation of right lower extremity Assessment/Plan continue abx respiratory treatment check cultures wound care dvt prophylaxis check labs in am all notes and meds reviewed Subjective ROS Limited/Unobtainable: No Constitutional: Reports: no symptoms HEENT: Repors: no symptoms Respiratory: Reports: no symptoms Allergies: Coded Allergies: PENICILLINS (Verified Allergy, Unknown, 04/16/17) Objective Last 24 Hour Vital Signs Date Time Temp Pulse Resp B/P Pulse Ox O2 Delivery O2 Flow Rate FiO2 04/18/17 20:03 Nasal Cannula 4.0 36 04/18/17 20:03 92 Nasal Cannula 4.0 36 04/18/17 20:00 97.6 70 20 106/71 95 70 04/18/17 16:08 97.0 76 19 122/76 98 Nasal Cannula 2.0 76 04/18/17 12:13 97.7 78 20 123/72 98 Room Air 78 04/18/17 08:35 97.7 49 19 117/69 96 Nasal Cannula 2.0 49 04/18/17 07:54 96 Nasal Cannula 4.0 36 04/18/17 07:49 Nasal Cannula 4.0 04/18/17 04:00 97.9 80 18 124/69 97 Room Air 04/17/17 23:47 97.7 79 18 106/54 96 Nasal Cannula 4.0 Intake and Output 04/17/17 04/18/17 19:00 07:00 Intake Total 1100 ml Output Total 1000 ml Balance 100 ml Intake Oral 100 ml IV Total 400 ml Other 600 ml Output Urine Total 1000 ml General Appearance: WD/WN HEENT: normocephalic, atraumatic Respiratory/Chest: chest wall non-tender, lungs clear Cardiovascular: normal peripheral pulses, normal rate Genitourinary: normal external genitalia Extremities: no cyanosis Microbiology Date/Time Source Procedure Growth Status 04/16/17 18:55 Blood Blood Culture - Preliminary NO GROWTH AFTER 24 HOURS Resulted 04/16/17 18:30 Blood Blood Culture - Preliminary NO GROWTH AFTER 24 HOURS Resulted 04/16/17 20:00 Nasal Nares MRSA Culture - Final NO METHICILLIN RESISTANT STAPH AUREUS... Complete 04/16/17 23:40 Sacral Wound Gram Stain - Final Resulted 04/16/17 23:40 Wound Culture - Preliminary Gram Negative Bacillus 1 Resulted 04/16/17 23:40 Knee Right Gram Stain - Final Resulted 04/16/17 23:40 Knee Right Wound Culture - Preliminary Resulted 04/16/17 20:00 Rectum VRE Culture - Final Enterococcus Faecalis - Vre Complete Laboratory Tests 04/18/17 06:00: Urine Color Yellow, Urine Appearance Cloudy, Urine pH 6, Urine Specific [place] 1.020, Urine Protein 2+H, Urine Glucose (UA) 4+H, Urine Ketones 2+H, Urine Occult Blood 3+H, Urine Nitrite Negative, Urine Bilirubin Negative, Urine Urobilinogen Normal, Urine Leukocyte Esterase 3+H, Urine RBC 2-4H, Urine WBC 30- 40H, Urine Squamous Epithelial Cells Occasional, Urine Bacteria Few, Urine Yeast ManyH 04/18/17 11:15: White Blood Count 12.3H, Red Blood Count 3.28L, Hemoglobin 10.5L, Hematocrit 32.0L, Mean Corpuscular Volume 98, Mean Corpuscular Hemoglobin 31.9H, Mean Corpuscular Hemoglobin Concent 32.6, Red Cell Distribution Width 12.0, Platelet Count 291, Mean Platelet Volume 8.7, Neutrophils (%) (Auto) 72.2, Lymphocytes (% ) (Auto) 19.2L, Monocytes (%) (Auto) 5.8, Eosinophils (%) (Auto) 2.2, Basophils (%) (Auto) 0.6, Sodium Level 135, Potassium Level 3.4, Chloride Level 100, Carbon Dioxide Level 21, Anion Gap 14, Blood Urea Nitrogen 14, Creatinine 0.8, Estimat Glomerular Filtration Rate > 60, Glucose Level 230H, Calcium Level 9.4 Current Medications Medications (Trade) Dose Ordered Sig/Eliel Route PRN Reason Start Time Stop Time Status Last Admin Dose Admin Acetaminophen (Tylenol) 650 mg Q4H PRN ORAL fever 04/18/17 00:45 05/18/17 00:44 Al Hydroxide/Mg Hydroxide (Mylanta II) 30 ml Q6H PRN ORAL dyspepsia 04/18/17 02:45 05/18/17 02:44 Albuterol/ Ipratropium (DuoNeb 0.5-3(2.5)mg/3ml) 3 ml Q4H PRN HHN Shortness of Breath 04/18/17 00:45 04/23/17 00:44 Aztreonam 1 gm/ Sodium Chloride 55 ml @ 110 mls/hr EVERY 8 HOURS IVPB 04/18/17 14:00 04/25/17 13:59 04/18/17 20:55 Clonidine HCl (Catapres) 0.1 mg Q4H PRN ORAL sbp more than 160 04/18/17 00:45 05/18/17 00:44 Dextrose (Dextrose 50%) STAT PRN IV Hypoglycemia 04/18/17 06:15 05/18/17 06:14 Dextrose (Dextrose 50%) STAT PRN IV Hypoglycemia 04/18/17 20:45 05/18/17 20:44 Dextrose/Sodium Chloride (D5 0.45% NS) 1,000 ml @ 50 mls/hr Q20H IV 04/17/17 23:00 05/17/17 22:59 04/18/17 17:39 Gabapentin (Neurontin) 300 mg THREE TIMES A DAY ORAL 04/18/17 09:00 05/18/17 08:59 04/18/17 18:08 Heparin Sodium (Porcine) (Heparin 5000 units/ml) 5,000 units EVERY 12 HOURS SUBQ 04/18/17 09:00 05/18/17 08:59 04/18/17 20:58 Insulin Aspart (NovoLOG) BEFORE MEALS AND HS SUBQ 04/18/17 06:30 05/18/17 06:29 04/18/17 20:56 Insulin Aspart (NovoLOG) 6 units NOVOTIAC SUBQ 04/18/17 06:30 05/18/17 06:29 04/18/17 17:37 Insulin Detemir (Levemir) 10 units BID SUBQ 04/18/17 09:00 05/18/17 08:59 04/18/17 18:09 Levofloxacin 100 ml @ 100 mls/hr Q24H IVPB 04/18/17 13:00 04/25/17 12:59 04/18/17 14:12 Levothyroxine Sodium 125 mcg 125 mcg ACBREAKFAST ORAL 04/18/17 06:30 05/18/17 06:29 Mirtazapine (Remeron) 15 mg BEDTIME ORAL 04/18/17 21:00 05/18/17 20:59 04/18/17 20:55 Morphine Sulfate (Morphine Sulfate) 2 mg Q4H PRN IVP severe pain 7-04/18/17 00:45 04/25/17 00:44 Nitroglycerin (Ntg) 0.4 mg Q5M X 3 DOSES PRN SL Prn Chest Pain 04/17/17 23:00 05/17/17 22:59 Ondansetron HCl (Zofran) 4 mg Q6H PRN IVP Nausea & Vomiting 04/18/17 02:45 05/18/17 02:44 Oxycodone/ Acetaminophen (Percocet 10/325) 1 tab TID PRN ORAL Moderate Pain (Pain Scale 4-6) 04/18/17 09:00 04/25/17 08:59 Polyethylene Glycol (Miralax) 17 gm HSPRN PRN ORAL Constipation 04/18/17 20:45 05/18/17 20:44 Temazepam (Restoril) 15 mg HSPRN PRN ORAL Insomnia 04/18/17 20:45 04/25/17 20:44 Vancomycin HCl/ Dextrose (Vancomycin 1250mg/D5W 250ml) 250 ml @ 166.667 mls/hr Q24H IVPB 04/18/17 17:00 04/23/17 16:59 04/18/17 17:39 KRISH ADRIAN Apr 18, 2017 23:25
[2017-04-19 00:15] VITALS: BP 119/68
[2017-04-19 04:27] VITALS: BP 116/68
[2017-04-19] MEDS: Aztreonam Inj 1 GM in NS 55 ML IVPB SCH ×3 (05:06→21:40)
[2017-04-19] MEDS: Levothyroxine 25mcg tab ORAL SCH (05:48)
[2017-04-19] MEDS: NovoLOG Insulin Flexpen SUBQ SCH ×7 (05:50→21:00)
--- NOTE | 2017-04-19 06:44 | General Progress Note ---
Assessment/Plan Problem List: (1) Hx of right BKA ICD Codes: Z89.511 - Acquired absence of right leg below knee SNOMED: 245409427, 431752624, 222238265 (2) Cardiomyopathy ICD Codes: I42.9 - Cardiomyopathy, unspecified SNOMED: 84893531 (3) CHF (congestive heart failure) ICD Codes: I50.9 - Heart failure, unspecified SNOMED: 16617466 Qualifiers: Qualified Codes: I50.9 - Heart failure, unspecified (4) Hypothyroidism ICD Codes: E03.9 - Hypothyroidism, unspecified SNOMED: 65829599 (5) Altered mental status ICD Codes: R41.82 - Altered mental status, unspecified SNOMED: 953718152 (6) Diabetes mellitus type II, uncontrolled ICD Codes: E11.65 - Type 2 diabetes mellitus with hyperglycemia SNOMED: 78092369, 381874323 Assessment/Plan increase Levemir to 15 units bid increase Novolog to 10 units ac tid continue SSI Subjective ROS Limited/Unobtainable: Yes Allergies: Coded Allergies: PENICILLINS (Verified Allergy, Unknown, 04/16/17) Subjective appetite is poor BG values are elevated Objective Last 24 Hour Vital Signs Date Time Temp Pulse Resp B/P Pulse Ox O2 Delivery O2 Flow Rate FiO2 04/19/17 04:27 97.6 80 20 116/68 96 Nasal Cannula 80 04/19/17 00:15 97.6 83 20 119/68 96 Nasal Cannula 83 04/18/17 20:03 Nasal Cannula 4.0 36 04/18/17 20:03 92 Nasal Cannula 4.0 36 04/18/17 20:00 97.6 70 20 106/71 95 70 04/18/17 16:08 97.0 76 19 122/76 98 Nasal Cannula 2.0 76 04/18/17 12:13 97.7 78 20 123/72 98 Room Air 78 04/18/17 08:35 97.7 49 19 117/69 96 Nasal Cannula 2.0 49 04/18/17 07:54 96 Nasal Cannula 4.0 36 04/18/17 07:49 Nasal Cannula 4.0 Intake and Output 04/18/17 04/19/17 19:00 07:00 Intake Total 771.667 ml 718.333 ml Output Total 250 ml Balance 771.667 ml 468.333 ml IV Total 771.667 ml 718.333 ml Output Urine Total 250 ml # Voids 1 Laboratory Tests 04/18/17 11:15: White Blood Count 12.3H, Red Blood Count 3.28L, Hemoglobin 10.5L, Hematocrit 32.0L, Mean Corpuscular Volume 98, Mean Corpuscular Hemoglobin 31.9H, Mean Corpuscular Hemoglobin Concent 32.6, Red Cell Distribution Width 12.0, Platelet Count 291, Mean Platelet Volume 8.7, Neutrophils (%) (Auto) 72.2, Lymphocytes (% ) (Auto) 19.2L, Monocytes (%) (Auto) 5.8, Eosinophils (%) (Auto) 2.2, Basophils (%) (Auto) 0.6, Sodium Level 135, Potassium Level 3.4, Chloride Level 100, Carbon Dioxide Level 21, Anion Gap 14, Blood Urea Nitrogen 14, Creatinine 0.8, Estimat Glomerular Filtration Rate > 60, Glucose Level 230H, Calcium Level 9.4 04/19/17 04:55: White Blood Count [Pending], Red Blood Count [Pending], Hemoglobin [Pending], Hematocrit [Pending], Mean Corpuscular Volume [Pending], Mean Corpuscular Hemoglobin [Pending], Mean Corpuscular Hemoglobin Concent [Pending], Red Cell Distribution Width [Pending], Platelet Count [Pending], Mean Platelet Volume [ Pending], Neutrophils (%) (Auto) [Pending], Lymphocytes (%) (Auto) [Pending], Monocytes (%) (Auto) [Pending], Eosinophils (%) (Auto) [Pending], Basophils (%) (Auto) [Pending], Sodium Level [Pending], Potassium Level [Pending], Chloride Level [Pending], Carbon Dioxide Level [Pending], Blood Urea Nitrogen [Pending], Creatinine [Pending], Estimat Glomerular Filtration Rate [Pending], Glucose Level [Pending], Calcium Level [Pending] Height (Feet): 5 Height (Inches): 7.00 Weight (Pounds): 137 General Appearance: no apparent distress Neck: normal alignment Cardiovascular: normal rate Respiratory/Chest: lungs clear Abdomen: normal bowel sounds Edema: no edema noted Arm (L), no edema noted Arm (R), no edema noted Leg (L), no edema noted Leg (R), no edema noted Pedal (L), no edema noted Pedal (R), no edema noted Generalized Objective Current Medications Medications (Trade) Dose Ordered Sig/Eliel Route PRN Reason Start Time Stop Time Status Last Admin Dose Admin Acetaminophen (Tylenol) 650 mg Q4H PRN ORAL fever 04/18/17 00:45 05/18/17 00:44 Al Hydroxide/Mg Hydroxide (Mylanta II) 30 ml Q6H PRN ORAL dyspepsia 04/18/17 02:45 05/18/17 02:44 Albuterol/ Ipratropium (DuoNeb 0.5-3(2.5)mg/3ml) 3 ml Q4H PRN HHN Shortness of Breath 04/18/17 00:45 04/23/17 00:44 Aztreonam 1 gm/ Sodium Chloride 55 ml @ 110 mls/hr EVERY 8 HOURS IVPB 04/18/17 14:00 04/25/17 13:59 04/19/17 05:06 Clonidine HCl (Catapres) 0.1 mg Q4H PRN ORAL sbp more than 160 04/18/17 00:45 05/18/17 00:44 Dextrose (Dextrose 50%) STAT PRN IV Hypoglycemia 04/18/17 06:15 05/18/17 06:14 Dextrose (Dextrose 50%) STAT PRN IV Hypoglycemia 04/18/17 20:45 05/18/17 20:44 Dextrose/Sodium Chloride (D5 0.45% NS) 1,000 ml @ 50 mls/hr Q20H IV 04/17/17 23:00 05/17/17 22:59 04/18/17 17:39 Gabapentin (Neurontin) 300 mg THREE TIMES A DAY ORAL 04/18/17 09:00 05/18/17 08:59 04/18/17 18:08 Heparin Sodium (Porcine) (Heparin 5000 units/ml) 5,000 units EVERY 12 HOURS SUBQ 04/18/17 09:00 05/18/17 08:59 04/18/17 20:58 Insulin Aspart (NovoLOG) BEFORE MEALS AND HS SUBQ 04/18/17 06:30 05/18/17 06:29 04/19/17 05:50 Insulin Aspart (NovoLOG) 6 units NOVOTIAC SUBQ 04/18/17 06:30 05/18/17 06:29 04/19/17 05:50 Insulin Detemir (Levemir) 10 units BID SUBQ 04/18/17 09:00 05/18/17 08:59 04/18/17 18:09 Levofloxacin 100 ml @ 100 mls/hr Q24H IVPB 04/18/17 13:00 04/25/17 12:59 04/18/17 14:12 Levothyroxine Sodium 125 mcg 125 mcg ACBREAKFAST ORAL 04/18/17 06:30 05/18/17 06:29 04/19/17 05:48 Mirtazapine (Remeron) 15 mg BEDTIME ORAL 04/18/17 21:00 05/18/17 20:59 04/18/17 20:55 Morphine Sulfate (Morphine Sulfate) 2 mg Q4H PRN IVP severe pain 7-04/18/17 00:45 04/25/17 00:44 Nitroglycerin (Ntg) 0.4 mg Q5M X 3 DOSES PRN SL Prn Chest Pain 04/17/17 23:00 05/17/17 22:59 Ondansetron HCl (Zofran) 4 mg Q6H PRN IVP Nausea & Vomiting 04/18/17 02:45 05/18/17 02:44 Oxycodone/ Acetaminophen (Percocet 10/325) 1 tab TID PRN ORAL Moderate Pain (Pain Scale 4-6) 04/18/17 09:00 04/25/17 08:59 Polyethylene Glycol (Miralax) 17 gm HSPRN PRN ORAL Constipation 04/18/17 20:45 05/18/17 20:44 Temazepam (Restoril) 15 mg HSPRN PRN ORAL Insomnia 04/18/17 20:45 04/25/17 20:44 Vancomycin HCl/ Dextrose (Vancomycin 1250mg/D5W 250ml) 250 ml @ 166.667 mls/hr Q24H IVPB 04/18/17 17:00 04/23/17 16:59 04/18/17 17:39 Item Value Date Time Bedside Blood Glucose 326 mg/dl H 04/19/17 0623 Bedside Blood Glucose 306 mg/dl H 04/18/172112 Bedside Blood Glucose 460 mg/dl H 04/18/17 1809 Bedside Blood Glucose 178 mg/dl H 04/18/17 1239 Bedside Blood Glucose 227 mg/dl H 04/18/17 0942 CHIDI DANIELSON Apr 19, 2017 06:44
[2017-04-19 06:50] LABS: BASOPHILS % (AUTO) 0.6 % (0.0-2.0); EOSINOPHILS % (AUTO) 3.8 % (0.0-3.0); LYMPHOCYTES % (AUTO) 17.3 % (20.0-45.0); MEAN CORPUSCULAR HEMOGLOBIN 32.6 PG (27.0-31.0); MEAN CORPUSCULAR HGB CONC 33.1 G/DL (32.0-36.0); MEAN CORPUSCULAR VOLUME 98 FL (80-99); MEAN PLATELET VOLUME 6.4 FL (6.5-10.1); MONOCYTES % (AUTO) 3.3 % (1.0-10.0); PLATELET COUNT 262 K/UL (150-450); RED BLOOD COUNT 3.05 M/UL (4.70-6.10); RED CELL DISTRIBUTION WIDTH 12.3 % (11.6-14.8); WHITE BLOOD COUNT 14.5 K/UL (4.8-10.8)
[2017-04-19 07:03] LABS: ANION GAP 14 (5-15); CALCIUM 8.8 mg/dL (8.6-10.2); CARBON DIOXIDE 20 mEQ/L (20-30); CHLORIDE 99 mEQ/L (98-107); CREATININE 0.7 mg/dL (0.7-1.2); GLOMERULAR FILTRATION RATE > 60 mL/min (>60); HEMOLYSIS 4; POTASSIUM 3.5 mEQ/L (3.4-4.9); SODIUM 133 mEQ/L (135-145)
--- NOTE | 2017-04-19 07:54 | Cardiology Report ---
APPROVED REPORT EKG Measurement Heart [id number] Normal sinus rhythm Anteroseptal infarct, age undetermined Abnormal ECG
[2017-04-19 08:04] VITALS: BP 125/75
[2017-04-19] MEDS: Heparin 5000 units/ml inj SUBQ SCH ×2 (09:37→20:46)
[2017-04-19] MEDS: Morphine Sulfate 2mg/ml Inj IVP PRN ×2 (10:28→14:27)
[2017-04-19] MEDS: Levemir Flexpen SUBQ SCH ×2 (10:32→18:00)
[2017-04-19] MEDS: D5 1/2NS 1,000 ML IV SCH (10:47)
[2017-04-19 11:57] VITALS: BP 127/74
--- NOTE | 2017-04-19 13:04 | Internal Med Progress Note ---
Subjective Date of Service: Apr 19, 2017 Physician Name Paras Werner Attending Physician Joni Robin MD Current Medications Medications (Trade) Dose Ordered Sig/Eliel Route PRN Reason Start Time Stop Time Status Last Admin Dose Admin Acetaminophen (Tylenol) 650 mg Q4H PRN ORAL fever 04/18/17 00:45 05/18/17 00:44 Al Hydroxide/Mg Hydroxide (Mylanta II) 30 ml Q6H PRN ORAL dyspepsia 04/18/17 02:45 05/18/17 02:44 Albuterol/ Ipratropium (DuoNeb 0.5-3(2.5)mg/3ml) 3 ml Q4H PRN HHN Shortness of Breath 04/18/17 00:45 04/23/17 00:44 Aztreonam 1 gm/ Sodium Chloride 55 ml @ 110 mls/hr EVERY 8 HOURS IVPB 04/18/17 14:00 04/25/17 13:59 04/19/17 05:06 Clonidine HCl (Catapres) 0.1 mg Q4H PRN ORAL sbp more than 160 04/18/17 00:45 05/18/17 00:44 Dextrose (Dextrose 50%) STAT PRN IV Hypoglycemia 04/18/17 06:15 05/18/17 06:14 Dextrose (Dextrose 50%) STAT PRN IV Hypoglycemia 04/18/17 20:45 05/18/17 20:44 Dextrose/Sodium Chloride (D5 0.45% NS) 1,000 ml @ 50 mls/hr Q20H IV 04/17/17 23:00 05/17/17 22:59 04/19/17 10:47 Gabapentin (Neurontin) 300 mg THREE TIMES A DAY ORAL 04/18/17 09:00 05/18/17 08:59 04/18/17 18:08 Heparin Sodium (Porcine) (Heparin 5000 units/ml) 5,000 units EVERY 12 HOURS SUBQ 04/18/17 09:00 05/18/17 08:59 04/19/17 09:37 Insulin Aspart (NovoLOG) BEFORE MEALS AND HS SUBQ 04/18/17 06:30 05/18/17 06:29 04/19/17 05:50 Insulin Aspart (NovoLOG) 10 units NOVOTIAC SUBQ 04/19/17 11:50 05/19/17 11:49 Insulin Detemir (Levemir) 15 units BID SUBQ 04/19/17 09:00 05/19/17 08:59 04/19/17 10:32 Levofloxacin 100 ml @ 100 mls/hr Q24H IVPB 04/18/17 13:00 04/25/17 12:59 04/18/17 14:12 Levothyroxine Sodium 125 mcg 125 mcg ACBREAKFAST ORAL 04/18/17 06:30 05/18/17 06:29 04/19/17 05:48 Mirtazapine (Remeron) 15 mg BEDTIME ORAL 04/18/17 21:00 05/18/17 20:59 04/18/17 20:55 Morphine Sulfate (Morphine Sulfate) 2 mg Q4H PRN IVP severe pain 7-04/18/17 00:45 04/25/17 00:44 04/19/17 10:28 Nitroglycerin (Ntg) 0.4 mg Q5M X 3 DOSES PRN SL Prn Chest Pain 04/17/17 23:00 05/17/17 22:59 Ondansetron HCl (Zofran) 4 mg Q6H PRN IVP Nausea & Vomiting 04/18/17 02:45 05/18/17 02:44 Oxycodone/ Acetaminophen (Percocet 10/325) 1 tab TID PRN ORAL Moderate Pain (Pain Scale 4-6) 04/18/17 09:00 04/25/17 08:59 Polyethylene Glycol (Miralax) 17 gm HSPRN PRN ORAL Constipation 04/18/17 20:45 05/18/17 20:44 Temazepam (Restoril) 15 mg HSPRN PRN ORAL Insomnia 04/18/17 20:45 04/25/17 20:44 Vancomycin HCl/ Dextrose (Vancomycin 1250mg/D5W 250ml) 250 ml @ 166.667 mls/hr Q24H IVPB 04/18/17 17:00 04/23/17 16:59 04/18/17 17:39 Allergies: Coded Allergies: PENICILLINS (Verified Allergy, Unknown, 04/16/17) ROS Limited/Unobtainable: Yes Subjective 67 YO M admitted with altered mental status. Still confused. Cover for Int Med -Dr Robin. Await ID consult. Objective Last Vital Signs Date Time Temp Pulse Resp B/P Pulse Ox O2 Delivery O2 Flow Rate FiO2 04/19/17 11:57 97.2 77 18 127/74 99 Nasal Cannula 5.0 04/19/17 07:50 36 Laboratory Tests Test 04/19/17 04:55 White Blood Count 14.5 K/UL (4.8-10.8) H Red Blood Count 3.05 M/UL (4.70-6.10) L Hemoglobin 9.9 G/DL (14.2-18.0) L Hematocrit 30.1 % (42.0-52.0) L Mean Corpuscular Volume 98 FL (80-99) Mean Corpuscular Hemoglobin 32.6 PG (27.0-31.0) H Mean Corpuscular Hemoglobin Concent 33.1 G/DL (32.0-36.0) Red Cell Distribution Width 12.3 % (11.6-14.8) Platelet Count 262 K/UL (150-450) Mean Platelet Volume 6.4 FL (6.5-10.1) L Neutrophils (%) (Auto) 75.0 % (45.0-75.0) Lymphocytes (%) (Auto) 17.3 % (20.0-45.0) L Monocytes (%) (Auto) 3.3 % (1.0-10.0) Eosinophils (%) (Auto) 3.8 % (0.0-3.0) H Basophils (%) (Auto) 0.6 % (0.0-2.0) Sodium Level 133 mEQ/L (135-145) L Potassium Level 3.5 mEQ/L (3.4-4.9) Chloride Level 99 mEQ/L (98-107) Carbon Dioxide Level 20 mEQ/L (20-30) Anion Gap 14 (5-15) Blood Urea Nitrogen 15 mg/dL (7-23) Creatinine 0.7 mg/dL (0.7-1.2) Estimat Glomerular Filtration Rate > 60 mL/min (>60) Glucose Level 355 mg/dL (74-106) #H Calcium Level 8.8 mg/dL (8.6-10.2) Microbiology Date/Time Source Procedure Growth Status 04/16/17 18:55 Blood Blood Culture - Preliminary NO GROWTH AFTER 48 HOURS Resulted 04/16/17 18:30 Blood Blood Culture - Preliminary NO GROWTH AFTER 48 HOURS Resulted 04/16/17 20:00 Nasal Nares MRSA Culture - Final NO METHICILLIN RESISTANT STAPH AUREUS... Complete 04/16/17 23:40 Sacral Wound Gram Stain - Final Resulted 04/16/17 23:40 Wound Culture - Preliminary Escherichia Coli - Esbl Resulted 04/16/17 23:40 Knee Right Gram Stain - Final Resulted 04/16/17 23:40 Wound Culture - Preliminary Diphtheroids Resulted 04/16/17 20:00 Rectum VRE Culture - Final Enterococcus Faecalis - Vre Complete Intake and Output 04/18/17 04/19/17 19:00 07:00 Intake Total 771.667 ml 768.333 ml Output Total 250 ml Balance 771.667 ml 518.333 ml IV Total 771.667 ml 768.333 ml Output Urine Total 250 ml # Voids 1 Objective General Appearance: WD/WN, no apparent distress, alert EENT: PERRL/EOMI, normal ENT inspection, TMs normal Neck: non-tender, normal alignment, supple Cardiovascular: normal peripheral pulses, normal rate, regular rhythm, no gallop/murmur, no JVD Respiratory/Chest: chest wall non-tender, lungs clear, normal breath sounds, no respiratory distress, no accessory muscle use Abdomen: normal bowel sounds, non tender, soft, no organomegaly, no mass Extremities: normal range of motion 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 Cont Synthroid (4) Peripheral vascular disease (5) Status post below knee amputation of right lower extremity (6) DNR (do not resuscitate) (7) Hypoglycemia Assessment & Plan: See endocrinology note. (8) Cardiomyopathy (9) PVD (peripheral vascular disease) (10) Sepsis Assessment & Plan: Continue aztreonam, levaquin and vanco (11) Sacral decubitus ulcer, stage II Assessment & Plan: ESBL E. Coli. Await ID consult Status: not improved PARAS WERNER Apr 19, 2017 13:04
[2017-04-19 16:10] VITALS: BP_SYST 107
[2017-04-19] MEDS: Vancomycin 1250mg/D5W 250ml IVPB SCH (17:16)
--- NOTE | 2017-04-19 19:34 | Pulmonology Progress Note ---
Assessment/Plan Problems: (1) Sepsis (2) Altered mental status (3) Hypoglycemia (4) Diabetes mellitus (5) Cardiomyopathy (6) DNR (do not resuscitate) (7) Polypharmacy (8) PVD (peripheral vascular disease) (9) Status post below knee amputation of right lower extremity Assessment/Plan continue abx respiratory treatment check cultures wound care dvt prophylaxis check labs in am check CXR in am VRE rectum all notes and meds reviewed Subjective ROS Limited/Unobtainable: Yes Constitutional: Reports: no symptoms HEENT: Repors: no symptoms Respiratory: Reports: no symptoms Allergies: Coded Allergies: PENICILLINS (Verified Allergy, Unknown, 04/16/17) Objective Last 24 Hour Vital Signs Date Time Temp Pulse Resp B/P Pulse Ox O2 Delivery O2 Flow Rate FiO2 04/19/17 16:10 97.8 94 18 107/ 98 Nasal Cannula 5.0 04/19/17 14:57 97.2 04/19/17 11:57 97.2 77 18 127/74 99 Nasal Cannula 5.0 04/19/17 08:04 96.6 79 18 125/75 99 Nasal Cannula 79 04/19/17 07:50 Nasal Cannula 4.0 36 04/19/17 07:50 99 Nasal Cannula 4.0 36 04/19/17 04:27 97.6 80 20 116/68 96 Nasal Cannula 80 04/19/17 00:15 97.6 83 20 119/68 96 Nasal Cannula 83 04/18/17 20:03 Nasal Cannula 4.0 36 04/18/17 20:03 92 Nasal Cannula 4.0 36 04/18/17 20:00 97.6 70 20 106/71 95 70 Intake and Output 04/18/17 04/19/17 19:00 07:00 Intake Total 771.667 ml 768.333 ml Output Total 250 ml Balance 771.667 ml 518.333 ml IV Total 771.667 ml 768.333 ml Output Urine Total 250 ml # Voids 1 General Appearance: WD/WN HEENT: normocephalic, atraumatic Respiratory/Chest: chest wall non-tender, lungs clear Cardiovascular: normal peripheral pulses, normal rate Abdomen: normal bowel sounds, soft, non tender Genitourinary: normal external genitalia Extremities: no cyanosis Skin: no rash, no lesions 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 Complete 04/16/17 23:40 Sacral Wound Gram Stain - Final Resulted 04/16/17 23:40 Wound Culture - Preliminary Escherichia Coli - Esbl Resulted 04/16/17 23:40 Knee Right Gram Stain - Final Resulted 04/16/17 23:40 Wound Culture - Preliminary Diphtheroids Resulted 04/16/17 20:00 Rectum VRE Culture - Final Enterococcus Faecalis - Vre Complete Laboratory Tests 04/19/17 04:55: White Blood Count 14.5H, Red Blood Count 3.05L, Hemoglobin 9.9L, Hematocrit 30.1L, Mean Corpuscular Volume 98, Mean Corpuscular Hemoglobin 32.6H, Mean Corpuscular Hemoglobin Concent 33.1, Red Cell Distribution Width 12.3, Platelet Count 262, Mean Platelet Volume 6.4L, Neutrophils (%) (Auto) 75.0, Lymphocytes ( %) (Auto) 17.3L, Monocytes (%) (Auto) 3.3, Eosinophils (%) (Auto) 3.8H, Basophils (%) (Auto) 0.6, Sodium Level 133L, Potassium Level 3.5, Chloride Level 99, Carbon Dioxide Level 20, Anion Gap 14, Blood Urea Nitrogen 15, Creatinine 0.7, Estimat Glomerular Filtration Rate > 60, Glucose Level 355#H, Calcium Level 8.8 Current Medications Medications (Trade) Dose Ordered Sig/Eliel Route PRN Reason Start Time Stop Time Status Last Admin Dose Admin Acetaminophen (Tylenol) 650 mg Q4H PRN ORAL fever 04/18/17 00:45 05/18/17 00:44 Al Hydroxide/Mg Hydroxide (Mylanta II) 30 ml Q6H PRN ORAL dyspepsia 04/18/17 02:45 05/18/17 02:44 04/19/17 14:38 Albuterol/ Ipratropium (DuoNeb 0.5-3(2.5)mg/3ml) 3 ml Q4H PRN HHN Shortness of Breath 04/18/17 00:45 04/23/17 00:44 Aztreonam 1 gm/ Sodium Chloride 55 ml @ 110 mls/hr EVERY 8 HOURS IVPB 04/18/17 14:00 04/25/17 13:59 04/19/17 14:18 Clonidine HCl (Catapres) 0.1 mg Q4H PRN ORAL sbp more than 160 04/18/17 00:45 05/18/17 00:44 Dextrose (Dextrose 50%) STAT PRN IV Hypoglycemia 04/18/17 06:15 05/18/17 06:14 Dextrose (Dextrose 50%) STAT PRN IV Hypoglycemia 04/18/17 20:45 05/18/17 20:44 04/19/17 16:39 Dextrose/Sodium Chloride (D5 0.45% NS) 1,000 ml @ 50 mls/hr Q20H IV 04/17/17 23:00 05/17/17 22:59 04/19/17 10:47 Gabapentin (Neurontin) 300 mg THREE TIMES A DAY ORAL 04/18/17 09:00 05/18/17 08:59 04/19/17 18:40 Heparin Sodium (Porcine) (Heparin 5000 units/ml) 5,000 units EVERY 12 HOURS SUBQ 04/18/17 09:00 05/18/17 08:59 04/19/17 09:37 Insulin Aspart (NovoLOG) BEFORE MEALS AND HS SUBQ 04/18/17 06:30 05/18/17 06:29 04/19/17 05:50 Insulin Aspart (NovoLOG) 10 units NOVOTIAC SUBQ 04/19/17 11:50 05/19/17 11:49 Insulin Detemir (Levemir) 15 units BID SUBQ 04/19/17 09:00 05/19/17 08:59 04/19/17 10:32 Levofloxacin 100 ml @ 100 mls/hr Q24H IVPB 04/18/17 13:00 04/25/17 12:59 04/19/17 12:50 Levothyroxine Sodium 125 mcg 125 mcg ACBREAKFAST ORAL 04/18/17 06:30 05/18/17 06:29 04/19/17 05:48 Mirtazapine (Remeron) 15 mg BEDTIME ORAL 04/18/17 21:00 05/18/17 20:59 04/18/17 20:55 Morphine Sulfate (Morphine Sulfate) 2 mg Q4H PRN IVP severe pain 7-10 04/18/17 00:45 04/25/17 00:44 04/19/17 14:27 Nitroglycerin (Ntg) 0.4 mg Q5M X 3 DOSES PRN SL Prn Chest Pain 04/17/17 23:00 05/17/17 22:59 Ondansetron HCl (Zofran) 4 mg Q6H PRN IVP Nausea & Vomiting 04/18/17 02:45 05/18/17 02:44 Oxycodone/ Acetaminophen (Percocet 10/325) 1 tab TID PRN ORAL Moderate Pain (Pain Scale 4-6) 04/18/17 09:00 04/25/17 08:59 Polyethylene Glycol (Miralax) 17 gm HSPRN PRN ORAL Constipation 04/18/17 20:45 05/18/17 20:44 Temazepam (Restoril) 15 mg HSPRN PRN ORAL Insomnia 04/18/17 20:45 04/25/17 20:44 Vancomycin HCl/ Dextrose (Vancomycin 1250mg/D5W 250ml) 250 ml @ 166.667 mls/hr Q24H IVPB 04/18/17 17:00 04/23/17 16:59 04/19/17 17:16 KRISH ADRIAN Apr 19, 2017 19:34
[2017-04-19 20:00] VITALS: BP 116/62
[2017-04-20] VITALS: BP 120/73
[2017-04-20 04:00] VITALS: BP 124/72
[2017-04-20] MEDS: Levothyroxine 25mcg tab ORAL SCH (05:48)
[2017-04-20] MEDS: D5 1/2NS 1,000 ML IV SCH (05:48)
[2017-04-20] MEDS: Aztreonam Inj 1 GM in NS 55 ML IVPB SCH ×3 (05:48→22:18)
[2017-04-20] MEDS: NovoLOG Insulin Flexpen SUBQ SCH ×7 (05:59→20:49)
--- NOTE | 2017-04-20 06:35 | General Progress Note ---
Assessment/Plan Problem List: (1) Hx of right BKA ICD Codes: Z89.511 - Acquired absence of right leg below knee SNOMED: 060870735, 198510672, 537032586 (2) Cardiomyopathy ICD Codes: I42.9 - Cardiomyopathy, unspecified SNOMED: 67643617 (3) CHF (congestive heart failure) ICD Codes: I50.9 - Heart failure, unspecified SNOMED: 95736300 Qualifiers: Qualified Codes: I50.9 - Heart failure, unspecified (4) Hypothyroidism ICD Codes: E03.9 - Hypothyroidism, unspecified SNOMED: 80344744 (5) Altered mental status ICD Codes: R41.82 - Altered mental status, unspecified SNOMED: 140854753 (6) Diabetes mellitus type II, uncontrolled ICD Codes: E11.65 - Type 2 diabetes mellitus with hyperglycemia SNOMED: 72211626, 671494080 Assessment/Plan insulin held yesterday for hypoglycemia appetite is poor reduce Levemir to 10 units bid reduce Novolog to 7 units ac tid continue SSI Subjective ROS Limited/Unobtainable: Yes Allergies: Coded Allergies: PENICILLINS (Verified Allergy, Unknown, 04/16/17) Subjective events noted Objective Last 24 Hour Vital Signs Date Time Temp Pulse Resp B/P Pulse Ox O2 Delivery O2 Flow Rate FiO2 04/20/17 04:00 98.6 70 20 124/72 98 Nasal Cannula 2.0 04/20/17 00:00 97.7 96 18 120/73 96 Nasal Cannula 2.0 04/19/17 20:17 Nasal Cannula 4.0 36 04/19/17 20:17 97 Nasal Cannula 4.0 36 04/19/17 20:00 97.9 89 20 116/62 98 Nasal Cannula 2.0 04/19/17 16:10 97.8 94 18 107/ 98 Nasal Cannula 5.0 04/19/17 14:57 97.2 04/19/17 11:57 97.2 77 18 127/74 99 Nasal Cannula 5.0 04/19/17 08:04 96.6 79 18 125/75 99 Nasal Cannula 79 04/19/17 07:50 Nasal Cannula 4.0 36 04/19/17 07:50 99 Nasal Cannula 4.0 36 Intake and Output 04/19/17 04/20/17 19:00 07:00 Intake Total 625 ml 505 ml Output Total 400 ml Balance 225 ml 505 ml Intake Oral 120 ml IV Total 505 ml 505 ml Output Urine Total 400 ml # Voids 6 # Bowel Movements 2 Height (Feet): 5 Height (Inches): 7.00 Weight (Pounds): 137 General Appearance: no apparent distress Neck: non-tender Cardiovascular: normal peripheral pulses Respiratory/Chest: lungs clear Abdomen: normal bowel sounds Pelvis: normal external exam Edema: no edema noted Arm (L), no edema noted Arm (R), no edema noted Leg (L), no edema noted Leg (R), no edema noted Pedal (L), no edema noted Pedal (R), no edema noted Generalized Objective Current Medications Medications (Trade) Dose Ordered Sig/Eliel Route PRN Reason Start Time Stop Time Status Last Admin Dose Admin Acetaminophen (Tylenol) 650 mg Q4H PRN ORAL fever 04/18/17 00:45 05/18/17 00:44 Al Hydroxide/Mg Hydroxide (Mylanta II) 30 ml Q6H PRN ORAL dyspepsia 04/18/17 02:45 05/18/17 02:44 04/19/17 14:38 Albuterol/ Ipratropium (DuoNeb 0.5-3(2.5)mg/3ml) 3 ml Q4H PRN HHN Shortness of Breath 04/18/17 00:45 04/23/17 00:44 Aztreonam 1 gm/ Sodium Chloride 55 ml @ 110 mls/hr EVERY 8 HOURS IVPB 04/18/17 14:00 04/25/17 13:59 04/20/17 05:48 Clonidine HCl (Catapres) 0.1 mg Q4H PRN ORAL sbp more than 160 04/18/17 00:45 05/18/17 00:44 Dextrose (Dextrose 50%) STAT PRN IV Hypoglycemia 04/18/17 06:15 05/18/17 06:14 Dextrose (Dextrose 50%) STAT PRN IV Hypoglycemia 04/18/17 20:45 05/18/17 20:44 04/20/17 00:13 Dextrose/Sodium Chloride (D5 0.45% NS) 1,000 ml @ 50 mls/hr Q20H IV 04/17/17 23:00 05/17/17 22:59 04/20/17 05:48 Gabapentin (Neurontin) 300 mg THREE TIMES A DAY ORAL 04/18/17 09:00 05/18/17 08:59 04/19/17 18:40 Heparin Sodium (Porcine) (Heparin 5000 units/ml) 5,000 units EVERY 12 HOURS SUBQ 04/18/17 09:00 05/18/17 08:59 04/19/17 20:46 Insulin Aspart (NovoLOG) BEFORE MEALS AND HS SUBQ 04/18/17 06:30 05/18/17 06:29 04/20/17 05:59 Insulin Aspart (NovoLOG) 10 units NOVOTIAC SUBQ 04/19/17 11:50 05/19/17 11:49 04/20/17 05:59 Insulin Detemir (Levemir) 15 units BID SUBQ 04/19/17 09:00 05/19/17 08:59 04/19/17 10:32 Levofloxacin 100 ml @ 100 mls/hr Q24H IVPB 04/18/17 13:00 04/25/17 12:59 04/19/17 12:50 Levothyroxine Sodium 125 mcg 125 mcg ACBREAKFAST ORAL 04/18/17 06:30 05/18/17 06:29 04/20/17 05:48 Mirtazapine (Remeron) 15 mg BEDTIME ORAL 04/18/17 21:00 05/18/17 20:59 04/19/17 20:45 Morphine Sulfate (Morphine Sulfate) 2 mg Q4H PRN IVP severe pain 7-10 04/18/17 00:45 04/25/17 00:44 04/19/17 14:27 Nitroglycerin (Ntg) 0.4 mg Q5M X 3 DOSES PRN SL Prn Chest Pain 04/17/17 23:00 05/17/17 22:59 Ondansetron HCl (Zofran) 4 mg Q6H PRN IVP Nausea & Vomiting 04/18/17 02:45 05/18/17 02:44 Oxycodone/ Acetaminophen (Percocet 10/325) 1 tab TID PRN ORAL Moderate Pain (Pain Scale 4-6) 04/18/17 09:00 04/25/17 08:59 Polyethylene Glycol (Miralax) 17 gm HSPRN PRN ORAL Constipation 04/18/17 20:45 05/18/17 20:44 Temazepam (Restoril) 15 mg HSPRN PRN ORAL Insomnia 04/18/17 20:45 04/25/17 20:44 Vancomycin HCl/ Dextrose (Vancomycin 1250mg/D5W 250ml) 250 ml @ 166.667 mls/hr Q24H IVPB 04/18/17 17:00 04/23/17 16:59 04/19/17 17:16 Item Value Date Time Bedside Blood Glucose 181 mg/dl H 04/20/17 0630 Bedside Blood Glucose 39 mg/dl L 04/20/17 0013 Bedside Blood Glucose 103 mg/dl 04/19/17 2100 Bedside Blood Glucose 97 mg/dl 04/19/17 1840 Bedside Blood Glucose 90 mg/dl 04/19/17 1150 Bedside Blood Glucose 326 mg/dl H 04/19/17 1032 CHIDI DANIELSON Apr 20, 2017 06:35
[2017-04-20 07:17] LABS: BASOPHILS % (AUTO) 0.8 % (0.0-2.0); EOSINOPHILS % (AUTO) 3.9 % (0.0-3.0); LYMPHOCYTES % (AUTO) 21.6 % (20.0-45.0); MEAN CORPUSCULAR HEMOGLOBIN 32.5 PG (27.0-31.0); MEAN CORPUSCULAR HGB CONC 32.6 G/DL (32.0-36.0); MEAN CORPUSCULAR VOLUME 100 FL (80-99); MEAN PLATELET VOLUME 6.9 FL (6.5-10.1); MONOCYTES % (AUTO) 4.1 % (1.0-10.0); NEUTROPHILS % (AUTO) 69.6 % (45.0-75.0); PLATELET COUNT 281 K/UL (150-450); RED BLOOD COUNT 3.36 M/UL (4.70-6.10); RED CELL DISTRIBUTION WIDTH 12.2 % (11.6-14.8)
[2017-04-20 07:40] LABS: ALANINE AMINOTRANSFERASE 11 U/L (3-41); ALBUMIN/GLOBULIN RATIO 0.8 (1.0-2.7); ANION GAP 15 (5-15); ASPARTATE AMINO TRANSFERASE 26 U/L (5-40); CALCIUM 8.9 mg/dL (8.6-10.2); CARBON DIOXIDE 21 mEQ/L (20-30); CHLORIDE 101 mEQ/L (98-107); CREATININE 0.7 mg/dL (0.7-1.2); GLOMERULAR FILTRATION RATE > 60 mL/min (>60); HEMOLYSIS 2; POTASSIUM 3.3 mEQ/L (3.4-4.9); SODIUM 137 mEQ/L (135-145); TOTAL PROTEIN 6.2 g/dL (6.6-8.7)
[2017-04-20 08:15] VITALS: BP 97/62
[2017-04-20] MEDS: Heparin 5000 units/ml inj SUBQ SCH ×2 (09:02→20:50)
--- NOTE | 2017-04-20 10:18 | Diagnostic Imaging Report ---
Indications: DYSPNEA Technique: Portable AP chest Findings: Comparison: 04/16/17 Inspiratory effort has decreased. Mild bilateral interstitial prominence persists. Linear opacity persists in left lung base. Heart size, pulmonary vasculature remain within normal limits. No pleural abnormalities detected. IMPRESSION: Stable bilateral interstitial disease, nonspecific Stable focal opacity left lung base, most likely atelectasis or scar No new abnormality
[2017-04-20] MEDS: Levemir Flexpen SUBQ SCH ×2 (10:38→17:35)
[2017-04-20] MEDS ORDERED: KCl 10% 20 mEq/15ml liquid ORAL ONE (11:30)
[2017-04-20 11:54] VITALS: BP 99/58
[2017-04-20] MEDS: Morphine Sulfate 2mg/ml Inj IVP PRN ×2 (13:12→17:13)
--- NOTE | 2017-04-20 15:05 | Consultation ---
Consult Note Consult Note ID CONSULT: Hao# [id number] Assessment/Plan ASSESSMENT: 67 y/o male with: // Possible yeast UTI - UCx pending // Sacral decubitus ulcer POA, not grossly infected - surveillance WCx ESBL(+) E.coli, C.albicans = colonizers // Right BKA stump ulcer, not grossly infected // Left heel eschar r/o osteomyelitis // Leukocytosis - resolved, afebrile // Acute on chronic systolic CHF exacerbation, EF 25% // Uncontrolled DM2 with hypoglycemia, HbA1c 10.2% // PAD // SNF resident // VRE colonized // PCN allergy // DNR PLAN: - DC IV vancomycin, levaquin, aztreonam d# 3, monitor pt off of ABX - check ESR, CRP, left heel XR - f/u final cultures - monitor CBC, temperatures - monitor BMP - wound care Thanks! Will follow COLT PINEDO Apr 20, 2017 15:05
[2017-04-20 16:00] VITALS: BP 128/72
[2017-04-20] MEDS: Vancomycin 1250mg/D5W 250ml IVPB SCH (17:13)
[2017-04-20] MEDS ORDERED: D5 1/2NS 1000ml IV ONE (17:18)
[2017-04-20] MEDS ORDERED: Tubing IV Secondary IV ONE (17:18)
--- NOTE | 2017-04-20 18:46 | Consultation ---
DATE OF CONSULTATION: 04/20/2017 REFERRING PHYSICIAN: Joni Robin M.D. REASON FOR CONSULTATION: Leukocytosis. HISTORY OF PRESENT ILLNESS: This is a 67-year-old uncontrolled diabetic male with a history of ischemic cardiomyopathy, admitted on 04/16/2017 with hypoglycemia and altered mental status. Hypoglycemia has improved and he has been treated for acute on chronic systolic congestive heart failure. He initially had leukocytosis that has now resolved and he has been afebrile. Blood cultures show no growth to date. Urine culture is pending. Wound culture is growing ESBL positive E. coli and Rebekah albicans. Sacral wound is very superficial and not grossly infected. He has been started on empiric IV vancomycin, Levaquin, and aztreonam and ID now consulted to assist in management. PAST MEDICAL HISTORY: 1. Sacral decubitus ulcer. 2. Peripheral vascular disease. 3. Diabetes type 2. Hemoglobin A1c at 10.2%. 4. Ischemic cardiomyopathy with ejection fraction of 25%. 5. Hypothyroidism, on replacement. PAST SURGICAL HISTORY: Right [id number] amputation. FAMILY HISTORY: Noncontributory. SOCIAL HISTORY: The patient is a resident of a long term facility. No active tobacco, alcohol, or illicit drug abuse. ALLERGIES: Penicillin. MEDICATIONS: 1. Vancomycin day #3. 2. Levaquin day #3. 3. Aztreonam day #3. 4. Insulin. 5. Remeron. 6. Gabapentin. 7. Subcutaneous heparin. 8. Synthroid. REVIEW OF SYSTEMS: As per history of present illness. Ten systems reviewed, all pertinent positives and negatives noted. PHYSICAL EXAMINATION: VITAL SIGNS: Maximum temperature 98.6, blood pressure 99/58, heart rate in the 60s, and respiratory rate 20. Saturation is 99% on two liters nasal cannula. GENERAL: No apparent distress. Nontoxic appearing. CARDIOVASCULAR: Regular rate and rhythm. No murmurs. PULMONARY: Clear to auscultation bilaterally. ABDOMEN: Bowel sounds present. Soft, nondistended, and nontender. EXTREMITIES: Right below the knee amputation with anterior scabbing. SKIN: Superficial sacral decubitus ulcer and left heel eschar. LABORATORY DATA: White blood cell count 10 decreased from 14.5, hemoglobin 10.9, and platelets 281,000. Sodium 137, potassium 3.3, chloride 101, bicarb 21, BUN 8, and creatinine 0.7. Liver function tests within normal limits. BNP 6969. Urinalysis with pyuria and yeast. MICROBIOLOGY: 1. 04/18/2017, blood culture no growth to date. 2. 04/18/2017, urine culture pending. 3. 04/16/2017, sacral decubitus wound culture ESBL positive E. coli and Rebekah albicans. 4. 04/16/2017, blood culture no growth to date. IMAGIN04/16/2017, chest x-ray stable bilateral interstitial disease and left lower lobe atelectasis or scar. ASSESSMENT: 1. Possible yeast urinary tract infection. Urine culture is pending. 2. Sacral decubitus ulcer present on admission, not grossly infected. Surveillance wound culture is growing ESBL positive E. coli and Rebekah albicans which represent colonization. 3. Right below-knee amputation stump ulcer, not grossly infected. 4. Left heel eschar, rule out osteomyelitis. 5. Leukocytosis, resolved and afebrile. 6. Acute on chronic systolic congestive heart failure exacerbation with an ejection fraction of 25%. 7. Uncontrolled diabetes type 2 with hyperglycemia and hemoglobin A1c of 10.2%. 8. Peripheral arterial disease. 9. [facility] facility resident. 10. Vancomycin-resistant Enterococcus colonized. 11. Penicillin allergy. 12. Do Not Resuscitate. PLAN: 1. Discontinue IV vancomycin, Levaquin, and aztreonam, day #3 and monitor the patient off of antibiotics. 2. Check ESR, CRP, and left heel x-ray. 3. Follow up on final cultures. 4. Monitor CBC and temperatures. 5. Monitor BMP. 6. Wound care. Thank you. We will follow. Ryder Tinajero M.D. DR: NITHYA JOB#: [id number] CC: Jnoi Robin M.D.; Fax#: [phone] Smith, M.D. ; Fax#: [phone] Hinojosa M.D; Fax#: [phone]
--- NOTE | 2017-04-20 19:28 | Internal Med Progress Note ---
Subjective Date of Service: Apr 20, 2017 Physician Name WernerParas Attending Physician Joni Robin MD Current Medications Medications (Trade) Dose Ordered Sig/Eliel Route PRN Reason Start Time Stop Time Status Last Admin Dose Admin Acetaminophen (Tylenol) 650 mg Q4H PRN ORAL fever 04/18/17 00:45 05/18/17 00:44 Al Hydroxide/Mg Hydroxide (Mylanta II) 30 ml Q6H PRN ORAL dyspepsia 04/18/17 02:45 05/18/17 02:44 04/19/17 14:38 Albuterol/ Ipratropium (DuoNeb 0.5-3(2.5)mg/3ml) 3 ml Q4H PRN HHN Shortness of Breath 04/18/17 00:45 04/23/17 00:44 Aztreonam 1 gm/ Sodium Chloride 55 ml @ 110 mls/hr EVERY 8 HOURS IVPB 04/18/17 14:00 04/20/17 23:59 04/20/17 13:15 Clonidine HCl (Catapres) 0.1 mg Q4H PRN ORAL sbp more than 160 04/18/17 00:45 05/18/17 00:44 Dextrose (Dextrose 50%) STAT PRN IV Hypoglycemia 04/18/17 20:45 05/18/17 20:44 04/20/17 00:13 Dextrose/Sodium Chloride (D5 0.45% NS) 1,000 ml @ 50 mls/hr Q20H IV 04/17/17 23:00 05/17/17 22:59 04/20/17 05:48 Gabapentin (Neurontin) 300 mg THREE TIMES A DAY ORAL 04/18/17 09:00 05/18/17 08:59 04/20/17 17:41 Heparin Sodium (Porcine) (Heparin 5000 units/ml) 5,000 units EVERY 12 HOURS SUBQ 04/18/17 09:00 05/18/17 08:59 04/20/17 09:02 Insulin Aspart (NovoLOG) BEFORE MEALS AND HS SUBQ 04/18/17 06:30 05/18/17 06:29 04/20/17 17:34 Insulin Aspart (NovoLOG) 7 units NOVOTIAC SUBQ 04/20/17 11:50 05/20/17 11:49 04/20/17 17:35 Insulin Detemir (Levemir) 10 units BID SUBQ 04/20/17 09:00 05/20/17 08:59 04/20/17 17:35 Levofloxacin 100 ml @ 100 mls/hr Q24H IVPB 04/18/17 13:00 04/20/17 23:59 04/20/17 12:10 Levothyroxine Sodium 125 mcg 125 mcg ACBREAKFAST ORAL 04/18/17 06:30 05/18/17 06:29 04/20/17 05:48 Mirtazapine (Remeron) 15 mg BEDTIME ORAL 04/18/17 21:00 05/18/17 20:59 04/19/17 20:45 Morphine Sulfate (Morphine Sulfate) 2 mg Q4H PRN IVP severe pain 7-04/18/17 00:45 04/25/17 00:44 04/20/17 17:13 Nitroglycerin (Ntg) 0.4 mg Q5M X 3 DOSES PRN SL Prn Chest Pain 04/17/17 23:00 05/17/17 22:59 Ondansetron HCl (Zofran) 4 mg Q6H PRN IVP Nausea & Vomiting 04/18/17 02:45 05/18/17 02:44 Oxycodone/ Acetaminophen (Percocet 10/325) 1 tab TID PRN ORAL Moderate Pain (Pain Scale 4-6) 04/18/17 09:00 04/25/17 08:59 Polyethylene Glycol (Miralax) 17 gm HSPRN PRN ORAL Constipation 04/18/17 20:45 05/18/17 20:44 Temazepam (Restoril) 15 mg HSPRN PRN ORAL Insomnia 04/18/17 20:45 04/25/17 20:44 Vancomycin HCl/ Dextrose (Vancomycin 1250mg/D5W 250ml) 250 ml @ 166.667 mls/hr Q24H IVPB 04/18/17 17:00 04/20/17 23:59 04/20/17 17:13 Allergies: Coded Allergies: PENICILLINS (Verified Allergy, Unknown, 04/16/17) ROS Limited/Unobtainable: Yes Subjective 67 YO M admitted with altered mental status. Still confused. Cover for Int Med -Dr Robin. Objective Last Vital Signs Date Time Temp Pulse Resp B/P Pulse Ox O2 Delivery O2 Flow Rate FiO2 7/27/17 16:00 97.2 73 19 128/72 100 Nasal Cannula 04/20/17 11:54 2.0 04/20/17 07:35 28 Laboratory Tests Test 04/20/17 06:00 04/20/17 15:35 White Blood Count 10.0 K/UL (4.8-10.8) Red Blood Count 3.36 M/UL (4.70-6.10) L Hemoglobin 10.9 G/DL (14.2-18.0) L Hematocrit 33.5 % (42.0-52.0) L Mean Corpuscular Volume 100 FL (80-99) H Mean Corpuscular Hemoglobin 32.5 PG (27.0-31.0) H Mean Corpuscular Hemoglobin Concent 32.6 G/DL (32.0-36.0) Red Cell Distribution Width 12.2 % (11.6-14.8) Platelet Count 281 K/UL (150-450) Mean Platelet Volume 6.9 FL (6.5-10.1) Neutrophils (%) (Auto) 69.6 % (45.0-75.0) Lymphocytes (%) (Auto) 21.6 % (20.0-45.0) Monocytes (%) (Auto) 4.1 % (1.0-10.0) Eosinophils (%) (Auto) 3.9 % (0.0-3.0) H Basophils (%) (Auto) 0.8 % (0.0-2.0) Sodium Level 137 mEQ/L (135-145) Potassium Level 3.3 mEQ/L (3.4-4.9) L Chloride Level 101 mEQ/L (98-107) Carbon Dioxide Level 21 mEQ/L (20-30) Anion Gap 15 (5-15) Blood Urea Nitrogen 8 mg/dL (7-23) Creatinine 0.7 mg/dL (0.7-1.2) Estimat Glomerular Filtration Rate > 60 mL/min (>60) Glucose Level 196 mg/dL (74-106) #H Calcium Level 8.9 mg/dL (8.6-10.2) Total Bilirubin 0.3 mg/dL (0.0-1.2) Aspartate Amino Transf (AST/SGOT) 26 U/L (5-40) Alanine Aminotransferase (ALT/SGPT) 11 U/L (3-41) Alkaline Phosphatase 279 U/L (40-129) H Pro-B-Type Natriuretic Peptide 6967 pg/mL (0-125) H Total Protein 6.2 g/dL (6.6-8.7) L Albumin 2.8 g/dL (3.5-5.2) L Globulin 3.4 g/dL Albumin/Globulin Ratio 0.8 (1.0-2.7) L Vancomycin Level Trough 9.2 ug/mL (5.0-12.0) Microbiology Date/Time Source Procedure Growth Status 04/18/17 11:30 Blood Blood Culture - Preliminary NO GROWTH AFTER 24 HOURS Resulted 04/18/17 11:15 Blood Blood Culture - Preliminary NO GROWTH AFTER 24 HOURS Resulted 04/18/17 06:00 Urine,Clean Catch Urine Culture - Preliminary Resulted Intake and Output 04/19/17 04/20/17 19:00 07:00 Intake Total 625 ml 610 ml Output Total 400 ml Balance 225 ml 610 ml Intake Oral 120 ml IV Total 505 ml 610 ml Output Urine Total 400 ml # Voids 6 # Bowel Movements 2 Objective General Appearance: WD/WN, no apparent distress, alert EENT: PERRL/EOMI, normal ENT inspection, TMs normal Neck: non-tender, normal alignment, supple Cardiovascular: normal peripheral pulses, normal rate, regular rhythm, no gallop/murmur, no JVD Respiratory/Chest: chest wall non-tender, lungs clear, normal breath sounds, no respiratory distress, no accessory muscle use Abdomen: normal bowel sounds, non tender, soft, no organomegaly, no mass Extremities: normal range of motion 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 Cont Synthroid (4) Peripheral vascular disease (5) Status post below knee amputation of right lower extremity (6) DNR (do not resuscitate) (7) Hypoglycemia Assessment & Plan: See endocrinology note. (8) Cardiomyopathy (9) PVD (peripheral vascular disease) (10) Sepsis Assessment & Plan: D/C aztreonam, levaquin and vanco per ID (11) Sacral decubitus ulcer, stage II Assessment & Plan: ESBL E. Coli. Monitor off antibiotics per ID Status: progressing PARAS WERNER Apr 20, 2017 19:28
--- NOTE | 2017-04-20 19:37 | Pulmonology Progress Note ---
Assessment/Plan Problems: (1) Sepsis (2) Altered mental status (3) Hypoglycemia (4) Diabetes mellitus (5) Cardiomyopathy (6) DNR (do not resuscitate) (7) Polypharmacy (8) PVD (peripheral vascular disease) (9) Status post below knee amputation of right lower extremity Assessment/Plan improivng continue abx respiratory treatment check cultures wound care dvt prophylaxis check labs in am check CXR showed interstitials changes VRE rectum all notes and meds reviewed ok to dc to previous setting Subjective ROS Limited/Unobtainable: No Constitutional: Reports: no symptoms HEENT: Repors: no symptoms Respiratory: Reports: no symptoms Allergies: Coded Allergies: PENICILLINS (Verified Allergy, Unknown, 04/16/17) Objective Last 24 Hour Vital Signs Date Time Temp Pulse Resp B/P Pulse Ox O2 Delivery O2 Flow Rate FiO2 04/20/17 16:00 97.2 73 19 128/72 100 Nasal Cannula 04/20/17 11:54 97.5 69 19 99/58 99 Nasal Cannula 2.0 04/20/17 08:15 97.2 64 21 97/62 98 Nasal Cannula 2.0 04/20/17 07:35 74 18 Nasal Cannula 2.0 28 04/20/17 07:34 Nasal Cannula 2.0 28 04/20/17 07:34 99 Nasal Cannula 2.0 28 04/20/17 04:00 98.6 70 20 124/72 98 Nasal Cannula 2.0 04/20/17 00:00 97.7 96 18 120/73 96 Nasal Cannula 2.0 04/19/17 20:17 Nasal Cannula 4.0 36 04/19/17 20:17 97 Nasal Cannula 4.0 36 04/19/17 20:00 97.9 89 20 116/62 98 Nasal Cannula 2.0 Intake and Output 04/19/17 04/20/17 19:00 07:00 Intake Total 625 ml 610 ml Output Total 400 ml Balance 225 ml 610 ml Intake Oral 120 ml IV Total 505 ml 610 ml Output Urine Total 400 ml # Voids 6 # Bowel Movements 2 Objective General Appearance: WD/WN HEENT: normocephalic, atraumatic Respiratory/Chest: chest wall non-tender, lungs clear Cardiovascular: normal peripheral pulses, normal rate Abdomen: normal bowel sounds, soft, non tender Extremities: no cyanosis, no clubbing General Appearance: WD/WN Microbiology Date/Time Source Procedure Growth Status 04/18/17 11:30 Blood Blood Culture - Preliminary NO GROWTH AFTER 24 HOURS Resulted 04/18/17 11:15 Blood Blood Culture - Preliminary NO GROWTH AFTER 24 HOURS Resulted 04/18/17 06:00 Urine,Clean Catch Urine Culture - Preliminary Resulted Laboratory Tests 04/20/17 06:00: White Blood Count 10.0, Red Blood Count 3.36L, Hemoglobin 10.9L, Hematocrit 33.5L, Mean Corpuscular Volume 100H, Mean Corpuscular Hemoglobin 32.5H, Mean Corpuscular Hemoglobin Concent 32.6, Red Cell Distribution Width 12.2, Platelet Count 281, Mean Platelet Volume 6.9, Neutrophils (%) (Auto) 69.6, Lymphocytes (% ) (Auto) 21.6, Monocytes (%) (Auto) 4.1, Eosinophils (%) (Auto) 3.9H, Basophils (%) (Auto) 0.8, Sodium Level 137, Potassium Level 3.3L, Chloride Level 101, Carbon Dioxide Level 21, Anion Gap 15, Blood Urea Nitrogen 8, Creatinine 0.7, Estimat Glomerular Filtration Rate > 60, Glucose Level 196#H, Calcium Level 8.9 , Total Bilirubin 0.3, Aspartate Amino Transf (AST/SGOT) 26, Alanine Aminotransferase (ALT/SGPT) 11, Alkaline Phosphatase 279H, Pro-B-Type Natriuretic Peptide 6967H, Total Protein 6.2L, Albumin 2.8L, Globulin 3.4, Albumin/Globulin Ratio 0.8L 04/20/17 15:35: Vancomycin Level Trough 9.2 Current Medications Medications (Trade) Dose Ordered Sig/Eliel Route PRN Reason Start Time Stop Time Status Last Admin Dose Admin Acetaminophen (Tylenol) 650 mg Q4H PRN ORAL fever 04/18/17 00:45 05/18/17 00:44 Al Hydroxide/Mg Hydroxide (Mylanta II) 30 ml Q6H PRN ORAL dyspepsia 04/18/17 02:45 05/18/17 02:44 04/19/17 14:38 Albuterol/ Ipratropium (DuoNeb 0.5-3(2.5)mg/3ml) 3 ml Q4H PRN HHN Shortness of Breath 04/18/17 00:45 04/23/17 00:44 Aztreonam 1 gm/ Sodium Chloride 55 ml @ 110 mls/hr EVERY 8 HOURS IVPB 04/18/17 14:00 04/20/17 23:59 04/20/17 13:15 Clonidine HCl (Catapres) 0.1 mg Q4H PRN ORAL sbp more than 160 04/18/17 00:45 05/18/17 00:44 Dextrose (Dextrose 50%) STAT PRN IV Hypoglycemia 04/18/17 20:45 05/18/17 20:44 04/20/17 00:13 Dextrose/Sodium Chloride (D5 0.45% NS) 1,000 ml @ 50 mls/hr Q20H IV 04/17/17 23:00 05/17/17 22:59 04/20/17 05:48 Gabapentin (Neurontin) 300 mg THREE TIMES A DAY ORAL 04/18/17 09:00 05/18/17 08:59 04/20/17 17:41 Heparin Sodium (Porcine) (Heparin 5000 units/ml) 5,000 units EVERY 12 HOURS SUBQ 04/18/17 09:00 05/18/17 08:59 04/20/17 09:02 Insulin Aspart (NovoLOG) BEFORE MEALS AND HS SUBQ 04/18/17 06:30 05/18/17 06:29 04/20/17 17:34 Insulin Aspart (NovoLOG) 7 units NOVOTIAC SUBQ 04/20/17 11:50 05/20/17 11:49 04/20/17 17:35 Insulin Detemir (Levemir) 10 units BID SUBQ 04/20/17 09:00 05/20/17 08:59 04/20/17 17:35 Levofloxacin 100 ml @ 100 mls/hr Q24H IVPB 04/18/17 13:00 04/20/17 23:59 04/20/17 12:10 Levothyroxine Sodium 125 mcg 125 mcg ACBREAKFAST ORAL 04/18/17 06:30 05/18/17 06:29 04/20/17 05:48 Mirtazapine (Remeron) 15 mg BEDTIME ORAL 04/18/17 21:00 05/18/17 20:59 04/19/17 20:45 Morphine Sulfate (Morphine Sulfate) 2 mg Q4H PRN IVP severe pain 7-04/18/17 00:45 04/25/17 00:44 04/20/17 17:13 Nitroglycerin (Ntg) 0.4 mg Q5M X 3 DOSES PRN SL Prn Chest Pain 04/17/17 23:00 05/17/17 22:59 Ondansetron HCl (Zofran) 4 mg Q6H PRN IVP Nausea & Vomiting 04/18/17 02:45 05/18/17 02:44 Oxycodone/ Acetaminophen (Percocet 10/325) 1 tab TID PRN ORAL Moderate Pain (Pain Scale 4-6) 04/18/17 09:00 04/25/17 08:59 Polyethylene Glycol (Miralax) 17 gm HSPRN PRN ORAL Constipation 04/18/17 20:45 05/18/17 20:44 Temazepam (Restoril) 15 mg HSPRN PRN ORAL Insomnia 04/18/17 20:45 04/25/17 20:44 Vancomycin HCl/ Dextrose (Vancomycin 1250mg/D5W 250ml) 250 ml @ 166.667 mls/hr Q24H IVPB 04/18/17 17:00 04/20/17 23:59 04/20/17 17:13 KRISH ADRIAN Apr 20, 2017 19:37
[2017-04-20 20:00] VITALS: BP 96/55
[2017-04-21 00:17] VITALS: BP 100/69
[2017-04-21] MEDS: Morphine Sulfate 2mg/ml Inj IVP PRN ×3 (03:56→15:25)
[2017-04-21 04:19] VITALS: BP 116/76
[2017-04-21] MEDS: Levothyroxine 25mcg tab ORAL SCH (05:58)
[2017-04-21] MEDS: NovoLOG Insulin Flexpen SUBQ SCH ×5 (05:59→17:25)
[2017-04-21] MEDS: D5 1/2NS 1,000 ML IV SCH ×2 (06:01→18:13)
[2017-04-21 07:41] LABS: ANION GAP 13 (5-15); CALCIUM 8.4 mg/dL (8.6-10.2); CARBON DIOXIDE 21 mEQ/L (20-30); CHLORIDE 101 mEQ/L (98-107); CREATININE 0.5 mg/dL (0.7-1.2); GLOMERULAR FILTRATION RATE > 60 mL/min (>60); HEMOLYSIS 4; POTASSIUM 3.7 mEQ/L (3.4-4.9); SODIUM 135 mEQ/L (135-145)
[2017-04-21 07:48] LABS: EOSINOPHILS % (AUTO) 6.1 % (0.0-3.0); LYMPHOCYTES % (AUTO) 26.4 % (20.0-45.0); MEAN CORPUSCULAR HEMOGLOBIN 32.4 PG (27.0-31.0); MEAN CORPUSCULAR HGB CONC 32.3 G/DL (32.0-36.0); MEAN CORPUSCULAR VOLUME 100 FL (80-99); MEAN PLATELET VOLUME 6.8 FL (6.5-10.1); MONOCYTES % (AUTO) 6.3 % (1.0-10.0); NEUTROPHILS % (AUTO) 60.2 % (45.0-75.0); PLATELET COUNT 254 K/UL (150-450); RED BLOOD COUNT 3.08 M/UL (4.70-6.10); RED CELL DISTRIBUTION WIDTH 12.6 % (11.6-14.8); WHITE BLOOD COUNT 9.2 K/UL (4.8-10.8)
[2017-04-21] MEDS: Heparin 5000 units/ml inj SUBQ SCH (08:34)
[2017-04-21] MEDS: Levemir Flexpen SUBQ SCH (08:35)
[2017-04-21 08:39] VITALS: BP 97/68
[2017-04-21] MEDS ORDERED: NOVOLOG100 UNIT/4 SQ ×2 (11:50)
[2017-04-21] MEDS ORDERED: LEVEMIR100 UNIT/1 SUBQ (11:50)
--- NOTE | 2017-04-21 12:20 | Infectious Diseases Prog Note ---
Assessment/Plan Assessment/Plan ASSESSMENT: 67 y/o male with: // Yeast UTI // Sacral decubitus ulcer POA, not grossly infected - surveillance WCx ESBL(+) E.coli, C.albicans = colonizers // Right BKA stump ulcer, not grossly infected // Left heel eschar r/o osteomyelitis - XR pending - elevated ESR, CRP // Leukocytosis - resolved, afebrile // Acute on chronic systolic CHF exacerbation, EF 25% // Uncontrolled DM2 with hypoglycemia, HbA1c 10.2% // PAD // SNF resident // VRE colonized // PCN allergy // DNR PLAN: - ok to DC on PO fluconazole x7d ( 04/20 SP IV vancomycin, levaquin, aztreonam d# 3 ) - f/u left heel XR, treat as indicated - f/u final cultures - monitor CBC, temperatures - monitor BMP - wound care Subjective Allergies: Coded Allergies: PENICILLINS (Verified Allergy, Unknown, 04/16/17) Subjective remains afebrile for possible DC Objective Vital Signs Last 24 Hour Vital Signs Date Time Temp Pulse Resp B/P Pulse Ox O2 Delivery O2 Flow Rate FiO2 04/21/17 08:39 97.6 77 19 97/68 100 Nasal Cannula 04/21/17 07:37 98 Nasal Cannula 2.0 04/21/17 07:37 Nasal Cannula 2.0 04/21/17 07:37 75 18 Nasal Cannula 2.0 04/21/17 04:19 97.2 82 18 116/76 99 Nasal Cannula 2.0 04/21/17 00:17 98.2 85 19 100/69 97 Nasal Cannula 2.0 04/20/17 21:30 Nasal Cannula 2.0 04/20/17 21:30 99 Nasal Cannula 2.0 04/20/17 21:30 79 18 Nasal Cannula 2.0 04/20/17 20:00 98.1 80 18 96/55 98 Room Air 04/20/17 16:00 97.2 73 19 128/72 100 Nasal Cannula Height (Feet): 5 Height (Inches): 7.00 Weight (Pounds): 137 General Appearance: no acute distress Respiratory/Chest: no respiratory distress Cardiovascular: normal rate, regular rhythm Abdomen: normal bowel sounds, soft, non tender, non distended Laboratory Tests Test 04/20/17 15:35 04/21/17 05:50 Vancomycin Level Trough 9.2 ug/mL (5.0-12.0) White Blood Count 9.2 K/UL (4.8-10.8) Red Blood Count 3.08 M/UL (4.70-6.10) L Hemoglobin 10.0 G/DL (14.2-18.0) L Hematocrit 30.9 % (42.0-52.0) L Mean Corpuscular Volume 100 FL (80-99) H Mean Corpuscular Hemoglobin 32.4 PG (27.0-31.0) H Mean Corpuscular Hemoglobin Concent 32.3 G/DL (32.0-36.0) Red Cell Distribution Width 12.6 % (11.6-14.8) Platelet Count 254 K/UL (150-450) Mean Platelet Volume 6.8 FL (6.5-10.1) Neutrophils (%) (Auto) 60.2 % (45.0-75.0) Lymphocytes (%) (Auto) 26.4 % (20.0-45.0) Monocytes (%) (Auto) 6.3 % (1.0-10.0) Eosinophils (%) (Auto) 6.1 % (0.0-3.0) H Basophils (%) (Auto) 1.0 % (0.0-2.0) Erythrocyte Sedimentation Rate 70 MM/HR (0-20) H Sodium Level 135 mEQ/L (135-145) Potassium Level 3.7 mEQ/L (3.4-4.9) Chloride Level 101 mEQ/L (98-107) Carbon Dioxide Level 21 mEQ/L (20-30) Anion Gap 13 (5-15) Blood Urea Nitrogen 6 mg/dL (7-23) L Creatinine 0.5 mg/dL (0.7-1.2) L Estimat Glomerular Filtration Rate > 60 mL/min (>60) Glucose Level 272 mg/dL (74-106) H Calcium Level 8.4 mg/dL (8.6-10.2) L C-Reactive Protein, Quantitative 2.8 mg/dL (< 0.5) H Current Medications Medications (Trade) Dose Ordered Sig/Eliel Route PRN Reason Start Time Stop Time Status Last Admin Dose Admin Acetaminophen (Tylenol) 650 mg Q4H PRN ORAL fever 04/18/17 00:45 05/18/17 00:44 Al Hydroxide/Mg Hydroxide (Mylanta II) 30 ml Q6H PRN ORAL dyspepsia 04/18/17 02:45 05/18/17 02:44 04/19/17 14:38 Albuterol/ Ipratropium (DuoNeb 0.5-3(2.5)mg/3ml) 3 ml Q4H PRN HHN Shortness of Breath 04/18/17 00:45 04/23/17 00:44 Clonidine HCl (Catapres) 0.1 mg Q4H PRN ORAL sbp more than 160 04/18/17 00:45 05/18/17 00:44 Dextrose (Dextrose 50%) STAT PRN IV Hypoglycemia 04/18/17 20:45 05/18/17 20:44 04/20/17 00:13 Dextrose/Sodium Chloride (D5 0.45% NS) 1,000 ml @ 50 mls/hr Q20H IV 04/17/17 23:00 05/17/17 22:59 04/21/17 06:01 Gabapentin (Neurontin) 300 mg THREE TIMES A DAY ORAL 04/18/17 09:00 05/18/17 08:59 04/21/17 08:30 Heparin Sodium (Porcine) (Heparin 5000 units/ml) 5,000 units EVERY 12 HOURS SUBQ 04/18/17 09:00 05/18/17 08:59 04/21/17 08:34 Insulin Aspart (NovoLOG) BEFORE MEALS AND HS SUBQ 04/18/17 06:30 05/18/17 06:29 04/21/17 11:36 Insulin Aspart (NovoLOG) 7 units NOVOTIAC SUBQ 04/20/17 11:50 05/20/17 11:49 04/21/17 11:35 Insulin Detemir (Levemir) 10 units BID SUBQ 04/20/17 09:00 05/20/17 08:59 04/21/17 08:35 Levothyroxine Sodium (Synthroid) 125 mcg ACBREAKFAST ORAL 04/18/17 06:30 05/18/17 06:29 04/21/17 05:58 Mirtazapine (Remeron) 15 mg BEDTIME ORAL 04/18/17 21:00 05/18/17 20:59 04/20/17 20:50 Morphine Sulfate (Morphine Sulfate) 2 mg Q4H PRN IVP severe pain 7-10 04/18/17 00:45 04/25/17 00:44 04/21/17 09:19 Nitroglycerin (Ntg) 0.4 mg Q5M X 3 DOSES PRN SL Prn Chest Pain 04/17/17 23:00 05/17/17 22:59 Ondansetron HCl (Zofran) 4 mg Q6H PRN IVP Nausea & Vomiting 04/18/17 02:45 05/18/17 02:44 Oxycodone/ Acetaminophen (Percocet 10/325) 1 tab TID PRN ORAL Moderate Pain (Pain Scale 4-6) 04/18/17 09:00 04/25/17 08:59 Polyethylene Glycol (Miralax) 17 gm HSPRN PRN ORAL Constipation 04/18/17 20:45 05/18/17 20:44 Temazepam (Restoril) 15 mg HSPRN PRN ORAL Insomnia 04/18/17 20:45 04/25/17 20:44 COLT PINEDO Apr 21, 2017 12:20
[2017-04-21] MEDS ORDERED: Fluconazole 100mg tab ORAL SCH (12:45)
[2017-04-21] MEDS ORDERED: FLUCONAZOLE100 MG ORAL ×3 (12:51→12:53)
[2017-04-21] MEDS ORDERED: NovoLOG Insulin Flexpen SUBQ ONE ×2 (13:00→14:30)
--- NOTE | 2017-04-21 14:09 | Consultation ---
History of Present Illness General Chief Complaint: Altered Mental Status Referring physician: Present Illness HPI 67 year old male with hx of End stage Heart disease with EF of 25%, PVD, DM on insulin, skilled nursing resident, was brought in by paramedics with CC of ALOC. the pt was seen with his son in the room. he was a poor historian and was disorganized. per son he has history of opioid dependence and recently admitted to [place] the pt has been depressed and progressively more confused. Allergies: Coded Allergies: PENICILLINS (Verified Allergy, Unknown, 04/16/17) Medication History Scheduled Ascorbic Acid* (Vitamin C*), 500 MG ORAL TWICE A DAY, (Reported) Aspirin* (Aspir 81*), 81 MG ORAL DAILY, (Reported) Atorvastatin Calcium* (Atorvastatin Calcium*), 40 MG ORAL BEDTIME, (Reported) Budesonide (Pulmicort Flexhaler), Unknown Dose IH BID, (Reported) Carvedilol* (Carvedilol*), 3.125 MG ORAL EVERY 12 HOURS, (Reported) Famotidine (Famotidine), 20 MG ORAL TWICE A DAY, (Reported) Fluconazole (Fluconazole), 200 MG ORAL DAILY, (Reported) Gabapentin* (Gabapentin*), 300 MG ORAL THREE TIMES A DAY, (Reported) Insulin Aspart (Novolog), 100 UNIT SQ AC+HS, (Reported) Insulin Aspart (Novolog), 7 UNIT SQ AC, (Reported) Insulin Detemir (Levemir Flexpen), 8 SUBQ DAILY, (Reported) Insulin Detemir (Levemir), 10 SUBQ BID, (Reported) Insulin Glargine (Lantus), 20 SUBQ BEDTIME, (Reported) Insulin Lispro (Humalog Kwikpen), 18 UNIT SQ AC, (Reported) Levothyroxine Sodium* (Levothyroxine Sodium*), 100 MCG ORAL DAILY, (Reported) Mirtazapine* (Mirtazapine*), 15 MG ORAL BEDTIME, (Reported) Pantoprazole* (Pantoprazole*), 40 MG ORAL DAILY, (Reported) Venlafaxine Hcl* (Venlafaxine Hcl*), 75 MG ORAL DAILY, (Reported) Scheduled PRN Acetaminophen With Codeine (T#3) (Tylenol #3 Tab*), 1 TAB ORAL Q4H PRN for For Pain, (Reported) Acetaminophen* (Acetaminophen 325MG Tablet*), 650 MG ORAL Q6H PRN for Fever/ Headache/Mild Pain, (Reported) Oxycodone Hcl/Acetaminophen 10-325* (Oxycodone-Acetaminophen 10-325*), 1 TAB ORAL TID PRN for For Pain, (Reported) Miscellaneous Medications Insulin Lispro (Humalog Kwikpen), 200 UNIT SQ, (Reported) Discontinued Medications Fluconazole (Fluconazole), 200 MG ORAL DAILY, (Reported) Discontinued Reason: MD discontinued med Fluconazole (Fluconazole), 200 MG ORAL DAILY, (Reported) Discontinued Reason: Medication dose changed Fluconazole (Fluconazole), 200 MG ORAL DAILY, (Reported) Discontinued Reason: Medication dose changed Patient History Limited by: medical condition History Provided By: Patient, Family Member, Medical Record, PMD Healthcare decision maker Jewel Feliciano,son Resuscitation status Do Not Resuscitate Advanced Directive on File No Past Medical/Surgical History Past Medical/Surgical History: (1) CHF (congestive heart failure) (2) Diabetes mellitus (3) PVD (peripheral vascular disease) (4) Cardiomyopathy (5) Hx of right BKA (6) Hypoglycemia (7) Polypharmacy (8) DNR (do not resuscitate) (9) Hypothyroidism (10) Peripheral vascular disease (11) Altered mental status (12) Diabetes mellitus type II, uncontrolled (13) Sepsis (14) Sacral decubitus ulcer, stage II Review of Systems Constitutional: Reports: malaise, weakness Psychiatric: Reports: anxiety, depressed feelings, emotional problems, hallucinations, prior hx Physical Exam General Appearance: alert, confused, thin Neurologic: alert, disoriented, depressed affect Last 24 Hour Vital Signs Date Time Temp Pulse Resp B/P Pulse Ox O2 Delivery O2 Flow Rate FiO2 04/21/17 08:39 97.6 77 19 97/68 100 Nasal Cannula 04/21/17 07:37 98 Nasal Cannula 2.0 04/21/17 07:37 Nasal Cannula 2.0 04/21/17 07:37 75 18 Nasal Cannula 2.0 04/21/17 04:19 97.2 82 18 116/76 99 Nasal Cannula 2.0 04/21/17 00:17 98.2 85 19 100/69 97 Nasal Cannula 2.0 04/20/17 21:30 Nasal Cannula 2.0 04/20/17 21:30 99 Nasal Cannula 2.0 28 04/20/17 21:30 79 18 Nasal Cannula 2.0 28 04/20/17 20:00 98.1 80 18 96/55 98 Room Air 04/20/17 16:00 97.2 73 19 128/72 100 Nasal Cannula Intake and Output 04/20/17 04/21/17 19:00 07:00 Intake Total 1095.000 ml 795 ml Output Total 300 ml 1100 ml Balance 795.000 ml -305 ml Intake Oral 390 ml 240 ml IV Total 705.000 ml 555 ml Output Urine Total 300 ml 1100 ml # Voids 2 Laboratory Tests Test 04/20/17 15:35 04/21/17 05:50 Vancomycin Level Trough 9.2 ug/mL (5.0-12.0) White Blood Count 9.2 K/UL (4.8-10.8) Red Blood Count 3.08 M/UL (4.70-6.10) L Hemoglobin 10.0 G/DL (14.2-18.0) L Hematocrit 30.9 % (42.0-52.0) L Mean Corpuscular Volume 100 FL (80-99) H Mean Corpuscular Hemoglobin 32.4 PG (27.0-31.0) H Mean Corpuscular Hemoglobin Concent 32.3 G/DL (32.0-36.0) Red Cell Distribution Width 12.6 % (11.6-14.8) Platelet Count 254 K/UL (150-450) Mean Platelet Volume 6.8 FL (6.5-10.1) Neutrophils (%) (Auto) 60.2 % (45.0-75.0) Lymphocytes (%) (Auto) 26.4 % (20.0-45.0) Monocytes (%) (Auto) 6.3 % (1.0-10.0) Eosinophils (%) (Auto) 6.1 % (0.0-3.0) H Basophils (%) (Auto) 1.0 % (0.0-2.0) Erythrocyte Sedimentation Rate 70 MM/HR (0-20) H Sodium Level 135 mEQ/L (135-145) Potassium Level 3.7 mEQ/L (3.4-4.9) Chloride Level 101 mEQ/L (98-107) Carbon Dioxide Level 21 mEQ/L (20-30) Anion Gap 13 (5-15) Blood Urea Nitrogen 6 mg/dL (7-23) L Creatinine 0.5 mg/dL (0.7-1.2) L Estimat Glomerular Filtration Rate > 60 mL/min (>60) Glucose Level 272 mg/dL (74-106) H Calcium Level 8.4 mg/dL (8.6-10.2) L C-Reactive Protein, Quantitative 2.8 mg/dL (< 0.5) H Height (Feet): 5 Height (Inches): 7.00 Weight (Pounds): 137 Medications Current Medications Medications (Trade) Dose Ordered Sig/Eliel Route PRN Reason Start Time Stop Time Status Last Admin Dose Admin Acetaminophen (Tylenol) 650 mg Q4H PRN ORAL fever 04/18/17 00:45 05/18/17 00:44 Al Hydroxide/Mg Hydroxide (Mylanta II) 30 ml Q6H PRN ORAL dyspepsia 04/18/17 02:45 05/18/17 02:44 04/19/17 14:38 Albuterol/ Ipratropium (DuoNeb 0.5-3(2.5)mg/3ml) 3 ml Q4H PRN HHN Shortness of Breath 04/18/17 00:45 04/23/17 00:44 Clonidine HCl (Catapres) 0.1 mg Q4H PRN ORAL sbp more than 160 04/18/17 00:45 05/18/17 00:44 Dextrose (Dextrose 50%) STAT PRN IV Hypoglycemia 04/18/17 20:45 05/18/17 20:44 04/20/17 00:13 Dextrose/Sodium Chloride (D5 0.45% NS) 1,000 ml @ 50 mls/hr Q20H IV 04/17/17 23:00 05/17/17 22:59 04/21/17 06:01 Fluconazole (Diflucan) 200 mg DAILY ORAL 04/21/17 12:45 04/28/17 12:44 04/21/17 13:02 Gabapentin (Neurontin) 300 mg THREE TIMES A DAY ORAL 04/18/17 09:00 05/18/17 08:59 04/21/17 13:02 Heparin Sodium (Porcine) (Heparin 5000 units/ml) 5,000 units EVERY 12 HOURS SUBQ 04/18/17 09:00 05/18/17 08:59 04/21/17 08:34 Insulin Aspart (NovoLOG) BEFORE MEALS AND HS SUBQ 04/18/17 06:30 05/18/17 06:29 04/21/17 11:36 Insulin Aspart (NovoLOG) 4 units ONCE ONCE SUBQ 04/21/17 14:00 04/21/17 14:01 UNV Insulin Aspart (NovoLOG) 7 units NOVOTIAC SUBQ 04/20/17 11:50 05/20/17 11:49 04/21/17 11:35 Insulin Detemir (Levemir) 10 units BID SUBQ 04/20/17 09:00 05/20/17 08:59 04/21/17 08:35 Levothyroxine Sodium (Synthroid) 125 mcg ACBREAKFAST ORAL 04/18/17 06:30 05/18/17 06:29 04/21/17 05:58 Mirtazapine (Remeron) 15 mg BEDTIME ORAL 04/18/17 21:00 05/18/17 20:59 04/20/17 20:50 Morphine Sulfate (Morphine Sulfate) 2 mg Q4H PRN IVP severe pain 7-04/18/17 00:45 04/25/17 00:44 04/21/17 09:19 Nitroglycerin (Ntg) 0.4 mg Q5M X 3 DOSES PRN SL Prn Chest Pain 04/17/17 23:00 05/17/17 22:59 Ondansetron HCl (Zofran) 4 mg Q6H PRN IVP Nausea & Vomiting 04/18/17 02:45 05/18/17 02:44 Oxycodone/ Acetaminophen (Percocet 10/325) 1 tab TID PRN ORAL Moderate Pain (Pain Scale 4-6) 04/18/17 09:00 04/25/17 08:59 Polyethylene Glycol (Miralax) 17 gm HSPRN PRN ORAL Constipation 04/18/17 20:45 05/18/17 20:44 Temazepam (Restoril) 15 mg HSPRN PRN ORAL Insomnia 04/18/17 20:45 04/25/17 20:44 Assessment/Plan Status: stable Assessment/Plan opioid dep, mdd remeron 15mg po qhs Chanel Richards M.D. Apr 21, 2017 14:08
--- NOTE | 2017-04-21 15:01 | General Progress Note ---
Assessment/Plan Problem List: (1) Hx of right BKA ICD Codes: Z89.511 - Acquired absence of right leg below knee SNOMED: 178374350, 529095345, 713303864 (2) Cardiomyopathy ICD Codes: I42.9 - Cardiomyopathy, unspecified SNOMED: 87674523 (3) CHF (congestive heart failure) ICD Codes: I50.9 - Heart failure, unspecified SNOMED: 00758390 Qualifiers: Qualified Codes: I50.9 - Heart failure, unspecified (4) Hypothyroidism ICD Codes: E03.9 - Hypothyroidism, unspecified SNOMED: 27922375 (5) Altered mental status ICD Codes: R41.82 - Altered mental status, unspecified SNOMED: 569122190 (6) Diabetes mellitus type II, uncontrolled ICD Codes: E11.65 - Type 2 diabetes mellitus with hyperglycemia SNOMED: 08581476, 100002546 Assessment/Plan BG values elevated still on dextrose increase Levemir to 15 units bid increase Novolog to 10 units ac tid + SSI Subjective ROS Limited/Unobtainable: Yes Allergies: Coded Allergies: PENICILLINS (Verified Allergy, Unknown, 04/16/17) Subjective events noted Objective Last 24 Hour Vital Signs Date Time Temp Pulse Resp B/P Pulse Ox O2 Delivery O2 Flow Rate FiO2 04/21/17 08:39 97.6 77 19 97/68 100 Nasal Cannula 04/21/17 07:37 98 Nasal Cannula 2.0 04/21/17 07:37 Nasal Cannula 2.0 04/21/17 07:37 75 18 Nasal Cannula 2.0 04/21/17 04:19 97.2 82 18 116/76 99 Nasal Cannula 2.0 04/21/17 00:17 98.2 85 19 100/69 97 Nasal Cannula 2.0 04/20/17 21:30 Nasal Cannula 2.0 04/20/17 21:30 99 Nasal Cannula 2.0 04/20/17 21:30 79 18 Nasal Cannula 2.0 04/20/17 20:00 98.1 80 18 96/55 98 Room Air 04/20/17 16:00 97.2 73 19 128/72 100 Nasal Cannula Intake and Output 04/20/17 04/21/17 19:00 07:00 Intake Total 1095.000 ml 795 ml Output Total 300 ml 1100 ml Balance 795.000 ml -305 ml Intake Oral 390 ml 240 ml IV Total 705.000 ml 555 ml Output Urine Total 300 ml 1100 ml # Voids 2 Laboratory Tests 04/20/17 15:35: Vancomycin Level Trough 9.2 04/21/17 05:50: White Blood Count 9.2, Red Blood Count 3.08L, Hemoglobin 10.0L, Hematocrit 30.9L , Mean Corpuscular Volume 100H, Mean Corpuscular Hemoglobin 32.4H, Mean Corpuscular Hemoglobin Concent 32.3, Red Cell Distribution Width 12.6, Platelet Count 254, Mean Platelet Volume 6.8, Neutrophils (%) (Auto) 60.2, Lymphocytes (% ) (Auto) 26.4, Monocytes (%) (Auto) 6.3, Eosinophils (%) (Auto) 6.1H, Basophils (%) (Auto) 1.0, Erythrocyte Sedimentation Rate 70H, Sodium Level 135, Potassium Level 3.7, Chloride Level 101, Carbon Dioxide Level 21, Anion Gap 13, Blood Urea Nitrogen 6L, Creatinine 0.5L, Estimat Glomerular Filtration Rate > 60, Glucose Level 272H, Calcium Level 8.4L, C-Reactive Protein, Quantitative 2.8H Height (Feet): 5 Height (Inches): 7.00 Weight (Pounds): 137 General Appearance: no apparent distress Neck: normal alignment Cardiovascular: regular rhythm Respiratory/Chest: lungs clear Abdomen: normal bowel sounds Pelvis: normal external exam Edema: 1+ Arm (L), 1+ Arm (R), 1+ Leg (L), 1+ Leg (R), 1+ Pedal (L), 1+ Pedal ( R), 1+ Generalized Objective Current Medications Medications (Trade) Dose Ordered Sig/Eliel Route PRN Reason Start Time Stop Time Status Last Admin Dose Admin Acetaminophen (Tylenol) 650 mg Q4H PRN ORAL fever 04/18/17 00:45 05/18/17 00:44 Al Hydroxide/Mg Hydroxide (Mylanta II) 30 ml Q6H PRN ORAL dyspepsia 04/18/17 02:45 05/18/17 02:44 04/19/17 14:38 Albuterol/ Ipratropium (DuoNeb 0.5-3(2.5)mg/3ml) 3 ml Q4H PRN HHN Shortness of Breath 04/18/17 00:45 04/23/17 00:44 Clonidine HCl (Catapres) 0.1 mg Q4H PRN ORAL sbp more than 160 04/18/17 00:45 05/18/17 00:44 Dextrose (Dextrose 50%) STAT PRN IV Hypoglycemia 04/18/17 20:45 05/18/17 20:44 04/20/17 00:13 Dextrose/Sodium Chloride (D5 0.45% NS) 1,000 ml @ 50 mls/hr Q20H IV 04/17/17 23:00 05/17/17 22:59 04/21/17 06:01 Fluconazole (Diflucan) 200 mg DAILY ORAL 04/21/17 12:45 04/28/17 12:44 04/21/17 13:02 Gabapentin (Neurontin) 300 mg THREE TIMES A DAY ORAL 04/18/17 09:00 05/18/17 08:59 04/21/17 13:02 Heparin Sodium (Porcine) (Heparin 5000 units/ml) 5,000 units EVERY 12 HOURS SUBQ 04/18/17 09:00 05/18/17 08:59 04/21/17 08:34 Insulin Aspart (NovoLOG) BEFORE MEALS AND HS SUBQ 04/18/17 06:30 05/18/17 06:29 04/21/17 11:36 Insulin Aspart (NovoLOG) 7 units NOVOTIAC SUBQ 04/20/17 11:50 05/20/17 11:49 04/21/17 11:35 Insulin Detemir (Levemir) 10 units BID SUBQ 04/20/17 09:00 05/20/17 08:59 04/21/17 08:35 Levothyroxine Sodium (Synthroid) 125 mcg ACBREAKFAST ORAL 04/18/17 06:30 05/18/17 06:29 04/21/17 05:58 Mirtazapine (Remeron) 15 mg BEDTIME ORAL 04/18/17 21:00 05/18/17 20:59 04/20/17 20:50 Morphine Sulfate (Morphine Sulfate) 2 mg Q4H PRN IVP severe pain 7-10 04/18/17 00:45 04/25/17 00:44 04/21/17 09:19 Nitroglycerin (Ntg) 0.4 mg Q5M X 3 DOSES PRN SL Prn Chest Pain 04/17/17 23:00 05/17/17 22:59 Ondansetron HCl (Zofran) 4 mg Q6H PRN IVP Nausea & Vomiting 04/18/17 02:45 05/18/17 02:44 Oxycodone/ Acetaminophen (Percocet 10/325) 1 tab TID PRN ORAL Moderate Pain (Pain Scale 4-6) 04/18/17 09:00 04/25/17 08:59 Polyethylene Glycol (Miralax) 17 gm HSPRN PRN ORAL Constipation 04/18/17 20:45 05/18/17 20:44 Temazepam (Restoril) 15 mg HSPRN PRN ORAL Insomnia 04/18/17 20:45 04/25/17 20:44 Item Value Date Time Bedside Blood Glucose 424 mg/dl H 04/21/17 1428 Bedside Blood Glucose 256 mg/dl H 04/21/17 0835 Bedside Blood Glucose 256 mg/dl H 04/21/17 0630 Bedside Blood Glucose 184 mg/dl H 04/20/17 2055 CHIDI DANIELSON Apr 21, 2017 15:01
[2017-04-21 16:00] VITALS: BP 107/66
[2017-04-21] MEDS ORDERED: NovoLOG Insulin Flexpen SUBQ SCH (16:50)
[2017-04-21] MEDS ORDERED: LEVEMIR FL100 UNIT/1 SUBQ (17:00)
[2017-04-21] MEDS ORDERED: NOVOLOG100 UNITS1 SQ (17:06)
[2017-04-21] MEDS ORDERED: Levemir Flexpen SUBQ SCH (18:00)
--- NOTE | 2017-04-21 18:17 | Internal Med Progress Note ---
Subjective Date of Service: Apr 21, 2017 Physician Name Reddy Werner Attending Physician Joni Robin MD Current Medications Medications (Trade) Dose Ordered Sig/Eliel Route PRN Reason Start Time Stop Time Status Last Admin Dose Admin Acetaminophen (Tylenol) 650 mg Q4H PRN ORAL fever 04/18/17 00:45 05/18/17 00:44 Al Hydroxide/Mg Hydroxide (Mylanta II) 30 ml Q6H PRN ORAL dyspepsia 04/18/17 02:45 05/18/17 02:44 04/19/17 14:38 Albuterol/ Ipratropium (DuoNeb 0.5-3(2.5)mg/3ml) 3 ml Q4H PRN HHN Shortness of Breath 04/18/17 00:45 04/23/17 00:44 Clonidine HCl (Catapres) 0.1 mg Q4H PRN ORAL sbp more than 160 04/18/17 00:45 05/18/17 00:44 Dextrose (Dextrose 50%) STAT PRN IV Hypoglycemia 04/18/17 20:45 05/18/17 20:44 04/20/17 00:13 Dextrose/Sodium Chloride (D5 0.45% NS) 1,000 ml @ 50 mls/hr Q20H IV 04/17/17 23:00 05/17/17 22:59 04/21/17 18:13 Fluconazole (Diflucan) 200 mg DAILY ORAL 04/21/17 12:45 04/28/17 12:44 04/21/17 13:02 Gabapentin (Neurontin) 300 mg THREE TIMES A DAY ORAL 04/18/17 09:00 05/18/17 08:59 04/21/17 18:15 Heparin Sodium (Porcine) (Heparin 5000 units/ml) 5,000 units EVERY 12 HOURS SUBQ 04/18/17 09:00 05/18/17 08:59 04/21/17 08:34 Insulin Aspart (NovoLOG) BEFORE MEALS AND HS SUBQ 04/18/17 06:30 05/18/17 06:29 04/21/17 17:25 Insulin Aspart (NovoLOG) 10 units NOVOTIAC SUBQ 04/21/17 16:50 05/21/17 16:49 Insulin Detemir (Levemir) 15 units BID SUBQ 04/21/17 18:00 05/21/17 17:59 Levothyroxine Sodium (Synthroid) 125 mcg ACBREAKFAST ORAL 04/18/17 06:30 05/18/17 06:29 04/21/17 05:58 Mirtazapine (Remeron) 15 mg BEDTIME ORAL 04/18/17 21:00 05/18/17 20:59 04/20/17 20:50 Morphine Sulfate (Morphine Sulfate) 2 mg Q4H PRN IVP severe pain 7-10 04/18/17 00:45 04/25/17 00:44 04/21/17 15:25 Nitroglycerin (Ntg) 0.4 mg Q5M X 3 DOSES PRN SL Prn Chest Pain 04/17/17 23:00 05/17/17 22:59 Ondansetron HCl (Zofran) 4 mg Q6H PRN IVP Nausea & Vomiting 04/18/17 02:45 05/18/17 02:44 Oxycodone/ Acetaminophen (Percocet 10/325) 1 tab TID PRN ORAL Moderate Pain (Pain Scale 4-6) 04/18/17 09:00 04/25/17 08:59 Polyethylene Glycol (Miralax) 17 gm HSPRN PRN ORAL Constipation 04/18/17 20:45 05/18/17 20:44 Temazepam (Restoril) 15 mg HSPRN PRN ORAL Insomnia 04/18/17 20:45 04/25/17 20:44 Allergies: Coded Allergies: PENICILLINS (Verified Allergy, Unknown, 04/16/17) ROS Limited/Unobtainable: No Constitutional: Reports: no symptoms HEENT: Reports: no symptoms Cardiovascular: Reports: no symptoms Respiratory: Reports: no symptoms Gastrointestinal/Abdominal: Reports: no symptoms Genitourinary: Reports: no symptoms Neurologic/Psychiatric: Reports: no symptoms Subjective 67 YO M admitted with altered mental status. Still confused. Cover for Int [facility] -Dr Robin. Objective Last Vital Signs Date Time Temp Pulse Resp B/P Pulse Ox O2 Delivery O2 Flow Rate FiO2 04/21/17 16:00 97.9 71 20 107/66 98 Room Air 04/21/17 07:37 2.0 28 Laboratory Tests Test 04/21/17 05:50 White Blood Count 9.2 K/UL (4.8-10.8) Red Blood Count 3.08 M/UL (4.70-6.10) L Hemoglobin 10.0 G/DL (14.2-18.0) L Hematocrit 30.9 % (42.0-52.0) L Mean Corpuscular Volume 100 FL (80-99) H Mean Corpuscular Hemoglobin 32.4 PG (27.0-31.0) H Mean Corpuscular Hemoglobin Concent 32.3 G/DL (32.0-36.0) Red Cell Distribution Width 12.6 % (11.6-14.8) Platelet Count 254 K/UL (150-450) Mean Platelet Volume 6.8 FL (6.5-10.1) Neutrophils (%) (Auto) 60.2 % (45.0-75.0) Lymphocytes (%) (Auto) 26.4 % (20.0-45.0) Monocytes (%) (Auto) 6.3 % (1.0-10.0) Eosinophils (%) (Auto) 6.1 % (0.0-3.0) H Basophils (%) (Auto) 1.0 % (0.0-2.0) Erythrocyte Sedimentation Rate 70 MM/HR (0-20) H Sodium Level 135 mEQ/L (135-145) Potassium Level 3.7 mEQ/L (3.4-4.9) Chloride Level 101 mEQ/L (98-107) Carbon Dioxide Level 21 mEQ/L (20-30) Anion Gap 13 (5-15) Blood Urea Nitrogen 6 mg/dL (7-23) L Creatinine 0.5 mg/dL (0.7-1.2) L Estimat Glomerular Filtration Rate > 60 mL/min (>60) Glucose Level 272 mg/dL (74-106) H Calcium Level 8.4 mg/dL (8.6-10.2) L C-Reactive Protein, Quantitative 2.8 mg/dL (< 0.5) H Intake and Output 04/20/17 04/21/17 19:00 07:00 Intake Total 1095.000 ml 795 ml Output Total 300 ml 1100 ml Balance 795.000 ml -305 ml Intake Oral 390 ml 240 ml IV Total 705.000 ml 555 ml Output Urine Total 300 ml 1100 ml # Voids 2 Objective General Appearance: WD/WN, no apparent distress, alert EENT: PERRL/EOMI, normal ENT inspection, TMs normal Neck: non-tender, normal alignment, supple Cardiovascular: normal peripheral pulses, normal rate, regular rhythm, no gallop/murmur, no JVD Respiratory/Chest: chest wall non-tender, lungs clear, normal breath sounds, no respiratory distress, no accessory muscle use Abdomen: normal bowel sounds, non tender, soft, no organomegaly, no mass Extremities: normal range of motion 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 Cont Synthroid (4) Peripheral vascular disease (5) Status post below knee amputation of right lower extremity (6) DNR (do not resuscitate) (7) Hypoglycemia Assessment & Plan: See endocrinology note. (8) Cardiomyopathy (9) PVD (peripheral vascular disease) (10) Sepsis Assessment & Plan: D/C aztreonam, levaquin and vanco per ID (11) Sacral decubitus ulcer, stage II Assessment & Plan: ESBL E. Coli. Monitor off antibiotics per ID (12) Major depression Assessment & Plan: see psych note. Start remeron Status: progressing REDDY WERNER Apr 21, 2017 18:17
[2017-04-21] MEDS ORDERED: D5 1/2NS 1000ml IV ONE (19:19)
--- NOTE | 2017-04-21 20:15 | Pulmonology Progress Note ---
Assessment/Plan Problems: (1) Sepsis (2) Altered mental status (3) Hypoglycemia (4) Diabetes mellitus (5) Cardiomyopathy (6) DNR (do not resuscitate) (7) Polypharmacy (8) PVD (peripheral vascular disease) (9) Status post below knee amputation of right lower extremity Assessment/Plan no new events improivng continue abx respiratory treatment check cultures wound care dvt prophylaxis check labs in am check CXR showed interstitials changes VRE rectum all notes and meds reviewed ok to dc to previous setting Subjective ROS Limited/Unobtainable: No Allergies: Coded Allergies: PENICILLINS (Verified Allergy, Unknown, 04/16/17) Objective Last 24 Hour Vital Signs Date Time Temp Pulse Resp B/P Pulse Ox O2 Delivery O2 Flow Rate FiO2 04/21/17 16:00 97.9 71 20 107/66 98 Room Air 04/21/17 08:39 97.6 77 19 97/68 100 Nasal Cannula 04/21/17 07:37 98 Nasal Cannula 2.0 04/21/17 07:37 Nasal Cannula 2.0 04/21/17 07:37 75 18 Nasal Cannula 2.0 04/21/17 04:19 97.2 82 18 116/76 99 Nasal Cannula 2.0 04/21/17 00:17 98.2 85 19 100/69 97 Nasal Cannula 2.0 04/20/17 21:30 Nasal Cannula 2.0 04/20/17 21:30 99 Nasal Cannula 2.0 04/20/17 21:30 79 18 Nasal Cannula 2.0 Intake and Output 04/20/17 04/21/17 19:00 07:00 Intake Total 1095.000 ml 795 ml Output Total 300 ml 1100 ml Balance 795.000 ml -305 ml Intake Oral 390 ml 240 ml IV Total 705.000 ml 555 ml Output Urine Total 300 ml 1100 ml # Voids 2 Objective General Appearance: WD/WN HEENT: normocephalic, atraumatic Respiratory/Chest: chest wall non-tender, lungs clear Cardiovascular: normal peripheral pulses, normal rate Abdomen: normal bowel sounds, soft, non tender Extremities: no cyanosis, no clubbing Laboratory Tests 04/21/17 05:50: White Blood Count 9.2, Red Blood Count 3.08L, Hemoglobin 10.0L, Hematocrit 30.9L , Mean Corpuscular Volume 100H, Mean Corpuscular Hemoglobin 32.4H, Mean Corpuscular Hemoglobin Concent 32.3, Red Cell Distribution Width 12.6, Platelet Count 254, Mean Platelet Volume 6.8, Neutrophils (%) (Auto) 60.2, Lymphocytes (% ) (Auto) 26.4, Monocytes (%) (Auto) 6.3, Eosinophils (%) (Auto) 6.1H, Basophils (%) (Auto) 1.0, Erythrocyte Sedimentation Rate 70H, Sodium Level 135, Potassium Level 3.7, Chloride Level 101, Carbon Dioxide Level 21, Anion Gap 13, Blood Urea Nitrogen 6L, Creatinine 0.5L, Estimat Glomerular Filtration Rate > 60, Glucose Level 272H, Calcium Level 8.4L, C-Reactive Protein, Quantitative 2.8H KRISH ADRIAN Apr 21, 2017 20:15
--- NOTE | 2017-04-24 09:50 | Discharge Summary ---
Discharge Summary Hospital Course Date of Admission Apr 16, 2017 at 19:05 Date of Discharge Apr 21, 2017 at 19:20 Admitting Diagnosis CHF/hypoglycemia HPI Ankit Feliciano is a 67 year old male who was admitted on Apr 16, 2017 at 19:05 for Congestive Heart Failure, Hypoglycemia Hospital Course dc summary #[id number] Discharge Medications Continued Medications: Acetaminophen With Codeine (T#3) (Tylenol #3 Tab*) Y Tab 1 TAB ORAL Q4H PRN for For Pain, TAB Acetaminophen* (Acetaminophen 325MG Tablet*) 325 Mg Tablet 650 MG ORAL Q6H PRN for Fever/Headache/Mild Pain, TAB Ascorbic Acid* (Vitamin C*) 500 Mg Tablet 500 MG ORAL TWICE A DAY, TAB Aspirin* (Aspir 81*) 81 Mg Tablet. 81 MG ORAL DAILY, TAB Atorvastatin Calcium* (Atorvastatin Calcium*) 40 Mg Tablet 40 MG ORAL BEDTIME, TAB Budesonide (Pulmicort Flexhaler) 90 Mcg Aer.pow.ba Unknown Dose IH BID Carvedilol* (Carvedilol*) 3.125 Mg Tablet 3.125 MG ORAL EVERY 12 HOURS, TAB Famotidine (Famotidine) 20 Mg Tablet 20 MG ORAL TWICE A DAY, #60 TAB 0 Refills Fluconazole (Fluconazole) 100 Mg Tablet 200 MG ORAL DAILY for 7 Days, #7 TAB 0 Refills Gabapentin* (Gabapentin*) 300 Mg Capsule 300 MG ORAL THREE TIMES A DAY, CAP 0 Refills Insulin Aspart (Novolog) 100 Unit/1 Ml Cartridge 100 UNIT SQ AC+HS Insulin Aspart (Novolog Flexpen) 100 Unit/1 Ml Insuln.pen 10 SQ BEFORE MEALS Hold if patient eats less than 50% or NPO. Do not administer insulin Insulin Detemir (Levemir Flexpen) 100 Unit/1 Ml Insuln.pen 15 SUBQ Q12HR, #300 UNITS 0 Refills Levothyroxine Sodium* (Levothyroxine Sodium*) 100 Mcg Tablet 100 MCG ORAL DAILY, TAB Take in the morning on an empty stomach, at least 30 minutes before food. Mirtazapine* (Mirtazapine*) 15 Mg Tablet 15 MG ORAL BEDTIME, TAB Oxycodone Hcl/Acetaminophen 10-325* (Oxycodone-Acetaminophen 10-325*) 1 Each Tablet 1 TAB ORAL TID PRN for For Pain, TAB Pantoprazole* (Pantoprazole*) 40 Mg Tablet. 40 MG ORAL DAILY, TAB Venlafaxine Hcl* (Venlafaxine Hcl*) 75 Mg Tablet 75 MG ORAL DAILY, TAB Discontinued Medications: Fluconazole (Fluconazole) 100 Mg Tablet 200 MG ORAL DAILY, #7 TAB 0 Refills Fluconazole (Fluconazole) 100 Mg Tablet 200 MG ORAL DAILY for 7 Days, #7 TAB 0 Refills Fluconazole (Fluconazole) 100 Mg Tablet 200 MG ORAL DAILY for 7 Days, #7 TAB 0 Refills Insulin Aspart (Novolog) 100 Unit/1 Ml Cartridge 7 UNIT SQ AC Insulin Detemir (Levemir) 100 Unit/1 Ml Vial 10 SUBQ BID, VIAL Discharge Condition Upon Discharge: stable Discharge Disposition Patient was discharged to SNF/Subacute Facility(03) Discharge Diagnoses: Discharge Instructions Discharge Instructions Special Instructions I have been assigned to complete a D/C Summary on this account. I was not involved in the patient management Miriam Brizuela NP ([facility]) Apr 24, 2017 09:50
--- NOTE | 2017-04-25 00:45 | Discharge Summary 2 SIG ---
DATE OF ADMISSION: 04/16/2017 DATE OF DISCHARGE: 04/21/2017 REASON FOR ADMISSION: This is a 67-year-old male with DNR status, was brought to emergency department for altered mental status with critically low glucose with no improvement at the half-way facility while trying to give juice. The patient with history of insulin dependent diabetes mellitus, cardiomyopathy, peripheral vascular disease, and right BKA. The patient was given D10. Glucose improved to over 200. Glucose stayed within normal limits in the emergency department, but then downtrended to 100. An amp of glucose given again. The patient started on BiPAP. Chest x-ray revealed mild pulmonary congestion. Lasix one dose was given. EKG revealed normal sinus rhythm. No premature ventricular contraction. No ectopy. Urinalysis revealed pyuria and few bacteria. The patient was initially without fever, but then next day fever of . The patient is admitted for further management. ADMITTING DIAGNOSES: 1. Hypoglycemia. 2. Acute toxic metabolic encephalopathy due to hypoglycemia. 3. Congestive heart failure, acute on chronic, systolic. 4. Diabetes mellitus, not controlled. 5. Severe cardiomyopathy. 6. Severe peripheral vascular disease. 7. Status post below-knee amputation. 8. Urinary tract infection. HOSPITAL COURSE: The patient was admitted to [facility]. Critical care consult along with surg nurse, ID, and psychiatrist were requested. Gold Stamper placed the patient, when blood sugar stabilized and hemoglobin A1c out of goal at 10.2, the patient started on long-acting Levemir, premeal NovoLog and sliding scale as needed. Dose titrated by surg nurse and was stable prior to discharge. The patient also noted to have elevated TSH. The patient has a known history of hypothyroidism. Dose of levothyroxine was increased and surg nurse recommended to repeat TSH level in two months. After initial dose of the Lasix given in the emergency room, the patient stable last ejection fraction 25%. ProBNP down from 7829 to 6967. Lipid panel was stable. Cardiac medication including beta-elvie were continued. The patient is a DNR status. Urine culture revealed yeast. Leukocytosis resolved. The patient was on antibiotic as per ID who closely followed the patient. The patient had left heel decubitus sacral decubitus present on admission along with right BKA anterior and lateral decubitus present on admission. Wound care provided as per wound care nurse recommendation. DVT prophylaxis provided. SNF medications were resumed. As the patient's clinical condition improved, leukocytosis resolved, and mental status back to baseline, the patient was stable to be discharged back to half-way facility and follow up with medical doctor at the facility. DISCHARGE DIAGNOSES: 1. Acute toxic metabolic encephalopathy secondary to hypoglycemia. 2. Hypoglycemia. 3. Acute on chronic systolic heart failure. 4. Diabetes mellitus, poorly controlled. 5. Severe cardiomyopathy with ejection fraction 25%. 6. Severe peripheral vascular disease with right BKA. 7. Status post right BKA. 8. Yeast urinary tract infection. 9. Hypothyroidism with elevated TSH. 10. Right BKA, anterior and lateral unstageable decubitus ulcer, present on admission. 11. Left heel decubitus ulcer, present on admission. 12. Sacral decubitus, unstageable present on admission. 13. Major depressive disorder. Of note, according to psychiatrist, who had seen and evaluated the patient, the patient has major depressive disorder. The patient is started on Remeron. DISCHARGE MEDICATIONS: See medication reconciliation list. DISCHARGE INSTRUCTIONS: The patient is discharged to half-way facility and follow up with medical doctor at the facility. Joni Robin M.D. I have been assigned to dictate discharge summary on this account and I was not involved in the patient's management. Miriam fernandodorothy NMannPMann CHAN: THALIA JOB#: [id number] CC:
== END 2017-04-21 19:20 | DRG 871 ==
LOC: EDBD 18:09 → EMR 18:58 → ICU 19:05 → EDBEDREQ 19:06 → 2W 04-17 06:48 → 4W 04-17 20:25
DX: A41.9 Sepsis, unspecified organism (principal); I50.23 Acute on chronic systolic (congestive) heart failure; L89.150 Pressure ulcer of sacral region, unstageable; G92 Toxic encephalopathy; E11.649 Type 2 diabetes mellitus with hypoglycemia without coma; I50.9 Heart failure, unspecified; L89.629 Pressure ulcer of left heel, unspecified stage; L89.520 Pressure ulcer of left ankle, unstageable; B37.49 Other urogenital candidiasis; I25.5 Ischemic cardiomyopathy; I73.9 Peripheral vascular disease, unspecified; Z89.511 Acquired absence of right leg below knee; E03.9 Hypothyroidism, unspecified; Z66 Do not resuscitate; L89.890 Pressure ulcer of other site, unstageable; F32.9 Major depressive disorder, single episode, unspecified; Z79.4 Long term (current) use of insulin; Z88.0 Allergy status to penicillin; B96.20 Unspecified Escherichia coli [E. coli] as the cause of diseases classified elsewhere; Z16.12 Extended spectrum beta lactamase (ESBL) resistance
CPT/HCPCS: 36415; 71010; 80048; 80053; 80061; 80202; 81001; 82550; 82553; 82962; 83036; 83880; 84443; 84484; 85025; 85651; 86140; 87040; 87070; 87081; 87086; 87181; 87205; 93005; 94660; 94664; 94760; J1815; S5561

== ENCOUNTER 2018-02-06 16:42 | Inpatient (IN) | payer MEDICAID, MEDICARE ==
[~2018-02-06] VITALS: Ht 170.2 cm; Wt 88.9 kg
[~2018-02-06 16:42] MED LIST: ACETAMINOPHEN-1 EAC1 ORAL; ACETAMINOPHEN325 M1 ORAL; ASPIR 8181 MG ORAL; ATORVASTATIN CA40 MG ORAL; CARVEDILOL3.125 MG ORAL; FAMOTIDINE20 MG ORAL; FLUCONAZOLE100 MG ORAL; GABAPENTIN300 MG ORAL; HUMALOG KW200 UNIT/1 SQ; LANTUS SOL100 UNIT/1 SUBQ; LEVEMIR FL100 UNIT/1 SUBQ; LEVEMIR100 UNIT/1 SUBQ; LEVOTHYROXINE100 MCG ORAL; MIRTAZAPINE15 M3 ORAL; NOVOLOG100 UNIT/4 SQ; NOVOLOG100 UNITS1 SQ; OXYCODONE-ACET1 EAC5 ORAL; PANTOPRAZOLE SO40 MG ORAL; PULMICORT FLEX90 MCG IH; VENLAFAXINE HCL75 MG ORAL; VITAMIN C500 M1 ORAL
[2018-02-06] MEDS ORDERED: DIGOXIN0.25 MG/5 PO (16:58)
[2018-02-06] MEDS ORDERED: CATAPRES0.1 MG ORAL (16:58)
[2018-02-06] MEDS ORDERED: CYMBALTA60 MG ORAL (16:58)
[2018-02-06] MEDS ORDERED: DIPHENHYDRAMINE25 M1 ORAL (16:58)
[2018-02-06] MEDS ORDERED: ALAWAY10 ML OP (16:58)
[2018-02-06] MEDS ORDERED: ELIQUIS5 MG PO (16:58)
[2018-02-06] MEDS ORDERED: ARTIFICIAL TEAR15 ML BOTH EYES ×2 (16:58→18:58)
[2018-02-06] MEDS ORDERED: VITAMIN D1000 UNI1 ORAL (16:58)
[2018-02-06] MEDS ORDERED: DUONEB 0.5-3(2.53 ML HHN (16:58)
[2018-02-06] MEDS ORDERED: Mylanta II UD 30ml ORAL ONE (17:00)
[2018-02-06] MEDS ORDERED: Lidocaine 2% Visc 15ml soln ORAL ONE (17:00)
[2018-02-06] MEDS ORDERED: POLYETHYLENE GL17 GM ORAL (17:12)
[2018-02-06] MEDS ORDERED: GUAIFENESIN-CO118 M1 ORAL (17:12)
[2018-02-06] MEDS ORDERED: MAGNESIUM400 M1 PO (17:12)
[2018-02-06] MEDS ORDERED: POTASSIUM CHLO20 ME1 ORAL (17:12)
[2018-02-06] MEDS ORDERED: PANTOPRAZOLE SO40 MG ORAL (17:12)
[2018-02-06] MEDS ORDERED: TRAMADOL HCL50 MG ORAL (17:12)
[2018-02-06] MEDS ORDERED: MIRTAZAPINE15 M3 ORAL (17:12)
[2018-02-06] MEDS ORDERED: OMEGA-31000 M1 PO (17:12)
[2018-02-06] MEDS ORDERED: METOPROLOL TART25 MG ORAL (17:12)
[2018-02-06] MEDS ORDERED: FUROSEMIDE20 M1 ORAL (17:12)
[2018-02-06] MEDS ORDERED: LACTULOSE20 GM/301 ORAL (17:12)
[2018-02-06] MEDS ORDERED: LEVOTHYROXINE125 MCG ORAL (17:12)
[2018-02-06] MEDS ORDERED: TEMAZEPAM30 MG ORAL (17:12)
[2018-02-06 17:25] LABS: BASOPHILS % (AUTO) 1.4 % (0.0-2.0); EOSINOPHILS % (AUTO) 0.1 % (0.0-3.0); HEMATOCRIT 39.2 % (42.0-52.0); HEMOGLOBIN 12.5 G/DL (14.2-18.0); LYMPHOCYTES % (AUTO) 9.1 % (20.0-45.0); MEAN CORPUSCULAR VOLUME 85 FL (80-99); MONOCYTES % (AUTO) 8.9 % (1.0-10.0); NEUTROPHILS % (AUTO) 80.5 % (45.0-75.0); PLATELET COUNT 227 K/UL (150-450); RED CELL DISTRIBUTION WIDTH 13.2 % (11.6-14.8)
[2018-02-06] MEDS ORDERED: Norco 5mg/325mg tab ORAL ONE (17:30)
[2018-02-06] MEDS ORDERED: NS 1000ml 2,200 ML IVLG ONE (17:30)
[2018-02-06] MEDS ORDERED: Cefepime HCl 1 GM in NS 55 ML IV SCH (17:30)
[2018-02-06] MEDS ORDERED: Isovue-300 100ml vial INJ PRN (17:30)
[2018-02-06 17:31] VITALS: BP 119/77
[2018-02-06 17:31] LABS: INR 1.1 (0.9-1.1)
[2018-02-06 17:44] LABS: ANION GAP 22 mmol/L (5-15); BLOOD UREA NITROGEN 23 mg/dL (7-18); CALCIUM 9.7 MG/DL (8.5-10.1); CARBON DIOXIDE 15 MMOL/L (21-32); CHLORIDE 92 MMOL/L (98-107); CREATININE 1.2 MG/DL (0.55-1.30); POTASSIUM 5.4 MMOL/L (3.5-5.1); SODIUM 129 MMOL/L (136-145)
[2018-02-06 18:00] LABS: ALANINE AMINOTRANSFERASE 31 U/L (12-78); ALBUMIN 3.4 G/DL (3.4-5.0); ALBUMIN/GLOBULIN RATIO 0.7 (1.0-2.7); ALKALINE PHOSPHATASE 119 U/L (46-116); ASPARTATE AMINO TRANSFERASE 62 U/L (15-37); BILIRUBIN,TOTAL 1.3 MG/DL (0.2-1.0); CKMB 3.7 NG/ML (0.0-3.6); CREATINE KINASE 146 U/L (26-308)
[2018-02-06 18:02] LABS: BILIRUBIN,DIRECT 0.3 MG/DL (0.0-0.3)
[2018-02-06 18:26] LABS: APPEARANCE,URINE SLIGHTLY CLOUDY; BILIRUBIN, URINE NEGATIVE (NEGATIVE); COLOR,URINE PALE YELLOW; GLUCOSE, URINE (UA) 4+ (NEGATIVE); KETONES,URINE 4+ (NEGATIVE); LEUKOCYTE ESTERASE ,URINE 3+ (NEGATIVE); NITRITE,URINE NEGATIVE (NEGATIVE); PH,URINE 5 (4.5-8.0); PROTEIN,URINE 2+ (NEGATIVE); UROBILINOGEN,URINE NORMAL MG/DL (0.0-1.0)
[2018-02-06] MEDS ORDERED: Aspirin Baby 81mg ORAL ONE (18:30)
[2018-02-06] MEDS ORDERED: Enoxaparin 80mg Inj SUBQ ONE (18:30)
[2018-02-06] MEDS ORDERED: Nitroglycerin Subl 0.4mg tab SL PRN (18:45)
[2018-02-06] MEDS ORDERED: Albuterol/Ipratropium 3ml neb HHN PRN (18:45)
[2018-02-06] MEDS ORDERED: Miralax 17gm pkt ORAL PRN (18:45)
[2018-02-06] MEDS ORDERED: ACETAMINOPHEN-1 EAC1 ORAL (18:52)
[2018-02-06 18:58] VITALS: BP 96/56
[2018-02-06] MEDS ORDERED: ASCORBIC ACID500 MG ORAL (18:59)
--- NOTE | 2018-02-06 19:00 | Emergency Room Report ---
History of Present Illness General Chief Complaint: Chest Pain Source: Patient, Medical Record Present Illness HPI Patient presents from a snf facility. He presents for chest pain and all over body pain. He has a history of diabetes. He also has a history of renal disease. He has a history of coronary artery disease. The EMS report that he was sent for chest pain. The patient himself states he has all over body pain and aches. He is demanding [place] for his pain. He states he has shoulder pain. Otherwise he has no other complaints. Allergies: Coded Allergies: PENICILLINS (Verified Allergy, Unknown, 04/16/17) Patient History Past Medical History: see triage record, DM, HTN, AL, CAD, dementia, psych hx, renal disease Past Surgical History: other - R. BKA Social History: Denies: smoking, alcohol use, drug use Reviewed Nursing Documentation: PMH: Agreed; PSxH: Agreed Nursing Documentation-PMH Past Medical History: No History, Except For Hx Cardiac Problems: Yes Hx Diabetes: Yes Hx Cancer: No Hx Gastrointestinal Problems: No Hx Dialysis: No - CKD Hx Neurological Problems: Yes Hx Memory Loss: Yes Hx Concentration Difficulty: Yes Hx Weakness: Yes Hx Fatigue: Yes Review of Systems All Other Systems: negative except mentioned in HPI Physical Exam Vital Signs Date Time Temp Pulse Resp B/P (MAP) Pulse Ox O2 Delivery O2 Flow Rate FiO2 02/06/18 16:41 98.1 120 18 104/64 98 Room Air 98.1 02/06/18 16:48 2.0 Sp02 EP Interpretation: reviewed, normal General Appearance: no apparent distress, alert, GCS 15, non-toxic Head: normocephalic, atraumatic Eyes: bilateral eye normal inspection, bilateral eye PERRL ENT: hearing grossly normal, normal pharynx, no angioedema, normal voice Neck: full range of motion, supple/symm/no masses Respiratory: chest non-tender, lungs clear, normal breath sounds, no respiratory distress, no retraction, no accessory muscle use, speaking full sentences Cardiovascular #1: no edema, tachycardia Gastrointestinal: normal bowel sounds, soft, non-distended, no guarding, no rebound, tenderness - Diffusely TTP Rectal: deferred Musculoskeletal: back normal, gait/station normal, normal range of motion, non- tender Neurologic: alert, oriented x3, responsive, motor strength/tone normal, sensory intact, speech normal Psychiatric: judgement/insight normal, memory normal, mood/affect normal, no suicidal/homicidal ideation Skin: normal color, no rash, warm/dry, well hydrated Medical Decision Making Diagnostic Impression: Primary Impression: NSTEMI (non-ST elevated myocardial infarction) Additional Impressions: Sepsis Diabetes mellitus type II, uncontrolled Hyponatremia UTI (urinary tract infection) ER Course This patient presents with all over body pain and chest pain. He is found to have an NSTEMI is a troponin of 2.7. He was given aspirin, Plavix, Lovenox. He is also septic with a temp of 102 on arrival. He is tachycardic with a heart rate in the 120s. The patient also has a blood glucose of over 400 on arrival. He has uncontrolled diabetes. This may be related to his ongoing sepsis. He was given broad-spectrum empiric antibiotics and aggressive IV fluids. Chest x-ray did had diffuse patchy opacities with some heavier consolidation in the right lower lobe could be a pneumonia. The patient also had abdominal tenderness, so I did obtain a CT of the abdomen and pelvis which showed a thickened bladder but no other acute findings. Given the patient's troponin and chronic medical conditions in addition to sepsis, this patient is admitted to the ICU step down. This patient is critically ill. This patient required complex medical decision- making, aggressive intervention, extensive laboratory workup and monitoring. Critical care time: 40 minutes. Laboratory Tests Test 02/06/18 17:04 02/06/18 17:10 02/06/18 18:05 02/06/18 18:14 White Blood Count 13.0 K/UL (4.8-10.8) H Red Blood Count 4.60 M/UL (4.70-6.10) L Hemoglobin 12.5 G/DL (14.2-18.0) L Hematocrit 39.2 % (42.0-52.0) L Mean Corpuscular Volume 85 FL (80-99) Mean Corpuscular Hemoglobin 27.2 PG (27.0-31.0) Mean Corpuscular Hemoglobin Concent 32.0 G/DL (32.0-36.0) Red Cell Distribution Width 13.2 % (11.6-14.8) Platelet Count 227 K/UL (150-450) Mean Platelet Volume 7.3 FL (6.5-10.1) Neutrophils (%) (Auto) 80.5 % (45.0-75.0) H Lymphocytes (%) (Auto) 9.1 % (20.0-45.0) L Monocytes (%) (Auto) 8.9 % (1.0-10.0) Eosinophils (%) (Auto) 0.1 % (0.0-3.0) Basophils (%) (Auto) 1.4 % (0.0-2.0) Sodium Level 129 MMOL/L (136-145) L Potassium Level 5.4 MMOL/L (3.5-5.1) H Chloride Level 92 MMOL/L (98-107) L Carbon Dioxide Level 15 MMOL/L (21-32) L Anion Gap 22 mmol/L (5-15) H Blood Urea Nitrogen 23 mg/dL (7-18) H Creatinine 1.2 MG/DL (0.55-1.30) Estimate Glomerular Filtration Rate > 60 mL/min (>60) Glucose Level 470 MG/DL (74-106) H Calcium Level 9.7 MG/DL (8.5-10.1) Total Bilirubin 1.3 MG/DL (0.2-1.0) H Direct Bilirubin 0.3 MG/DL (0.0-0.3) Aspartate Amino Transferase (AST) 62 U/L (15-37) H Alanine Aminotransferase (ALT) 31 U/L (12-78) Alkaline Phosphatase 119 U/L (46-116) H Total Creatine Kinase 146 U/L (26-308) Creatine Kinase MB 3.7 NG/ML (0.0-3.6) H Creatine Kinase MB Relative Index 2.5 Troponin I 2.741 ng/mL (0.000-0.056) Total Protein 8.0 G/DL (6.4-8.2) Albumin 3.4 G/DL (3.4-5.0) Globulin 4.6 g/dL Albumin/Globulin Ratio 0.7 (1.0-2.7) L Prothrombin Time 10.8 SEC (9.30-11.50) Prothrombin Time INR 1.1 (0.9-1.1) PTT 29 SEC (23-33) Lactic Acid Level 2.80 mmol/L (0.66-2.22) H Urine Color Pale yellow Urine Appearance Slightly cloudy Urine pH 5 (4.5-8.0) Urine Specific [place] 1.020 (1.005-1.035) Urine Protein 2+ (NEGATIVE) H Urine Glucose (UA) 4+ (NEGATIVE) H Urine Ketones 4+ (NEGATIVE) H Urine Occult Blood 3+ (NEGATIVE) H Urine Nitrite Negative (NEGATIVE) Urine Bilirubin Negative (NEGATIVE) Urine Urobilinogen Normal MG/DL (0.0-1.0) Urine Leukocyte Esterase 3+ (NEGATIVE) H Urine RBC 2-4 /HPF (0 - 0) H Urine WBC 10-15 /HPF (0 - 0) H Urine Squamous Epithelial Cells None /LPF (NONE/OCC) Urine Bacteria Few /HPF (NONE) Urine Yeast Few /HPF (NONE) H Microbiology Date/Time Source Procedure Growth Status 02/06/18 18:10 Nasal Nares Influenza Types A,B Antigen (MAKENNA) - Final Complete EKG Diagnostic Results Rate: tachycardiac Rhythm: other - S.tachycardia ST Segments: no acute changes Other Impression LBBB Rhythm Strip Diag. Results EP Interpretation: yes Rate: 120's Rhythm: no PVC's, no ectopy, other - S.tachycardia Chest X-Ray Diagnostic Results Chest X-Ray Diagnostic Results : Chest X-Ray Ordered: Yes # of Views/Limited/Complete: 1 View Indication: Chest Pain EP Interpretation: Yes Interpretation: other - Diffuse patchy opacities Impression: Other - See above Electronically Signed by: Cosme CT/MRI/US Diagnostic Results CT/MRI/US Diagnostic Results : Imaging Test Ordered: CT abd/pelvis Impression Thickened bladder which may be underdistention versus cystitis. No other acute findings. See official report. Last Vital Signs Date Time Temp Pulse Resp B/P (MAP) Pulse Ox O2 Delivery O2 Flow Rate FiO2 02/06/18 17:54 101.8 02/06/18 17:31 124 32 119/77 98 Nasal Cannula 2.0 Disposition: ADMITTED INPATIENT Condition: Critical Referrals: SHAINA GUALLPA (PCP) KAILEY MAGALLANES D.O. February 06, 2018 19:00
[2018-02-06] MEDS ORDERED: DIGOXIN250 MCG ORAL (19:09)
[2018-02-06] MEDS ORDERED: ADULT WAL-100 MG/5 M ORAL (19:16)
[2018-02-06] MEDS ORDERED: LEVEMIR FL100 UNIT/1 SUBQ (19:20)
[2018-02-06] MEDS ORDERED: HUMULIN R100 UNIT/1 SUBQ (19:24)
[2018-02-06 19:36] VITALS: BP 100/62
[2018-02-06] MEDS ORDERED: B COMPLEX WITH1 EACH ORAL (19:38)
[2018-02-06 20:40] VITALS: BP 96/48
[2018-02-06] MEDS ORDERED: Vancomycin 1.5 GM/D5W 250ML IVPB ONE (21:00)
[2018-02-06] MEDS: NovoLOG Insulin Flexpen SUBQ SCH (21:00)
[2018-02-06] MEDS ORDERED: Heparin 5000 units/ml inj SUBQ SCH (21:00)
[2018-02-06] MEDS: Aztreonam Inj 1 GM in NS 50 ML IVPB SCH (23:32)
[2018-02-07] VITALS (14 sets, daily range): BP systolic 88–127; BP diastolic 51–77
--- NOTE | 2018-02-07 00:08 | History & Physical ---
History and Physical History & Physicial job # [id number] Joni Robin MD February 07, 2018 00:08
[2018-02-07] MEDS ORDERED: Vancomycin 1 GM in D5W 275 ML IV SCH (00:30)
[2018-02-07] MEDS ORDERED: Heparin 25,000u/D5W 500ml 500 ML IV ONE (03:19)
--- NOTE | 2018-02-07 03:30 | History and Physical Report ---
DATE OF ADMISSION: 02/06/2018 CHIEF COMPLAINT: Chest pain. HISTORY OF PRESENT ILLNESS: This is a 67 years old gentleman with past medical history significant for diabetes type 2, hypertension, coronary artery disease, prior history of myocardial infarction, dementia, and history of peripheral vascular disease, status post right [id number] amputation, who was presented to the hospital from [facility], [facility] after was complaining about chest pain for several days. The patient stated that his chest pain is retrosternal area, radiated to the shoulder, and associated with nausea, no vomiting. He was demanding for the [place] for pain medication because the pain is thought that is mostly skeletal muscle pain, however, his status did not improve and subsequently after initial evaluation in the emergency room, was noted to have elevated troponin with troponin level of 2.741 and the patient was admitted to the hospital with acute myocardial infarction with non-ST elevation myocardial infarction. PAST MEDICAL HISTORY/PAST SURGICAL HISTORY: As above, history of coronary artery disease with a prior history of myocardial infarction, history of , hypertension, acute kidney injury, atherosclerotic heart disease, iron deficiency anemia, dyslipidemia, peripheral vascular disease, history of dyslipidemia, anxiety disorder, acute respiratory distress syndrome, chronic kidney disease, cognitive disorder, dysphagia with history of oropharyngeal disease, diabetes type 2, hypothyroidism, major depression, history of toxic metabolic encephalopathy with dilated cardiomyopathy, gastroesophageal reflux disease, and dementia. MEDICATIONS: Please refer to medication reconciliation list. ALLERGIES: Allergic to penicillin. 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 No smoking, alcohol, or drugs. FAMILY HISTORY: Noncontributory. REVIEW OF SYSTEMS: Mostly as above. Denies any dysuria, frequency, or hematuria. Complaining about abdominal pain, chest pain, and shoulder pain. Denies any hematuria. Denies any hemoptysis. Denies any bright red blood per rectum. Denies any loss of consciousness. Denies any chest or abdomen trauma. PHYSICAL EXAMINATION: VITAL SIGNS: On admission, temperature 98.1, pulse of 120, respirations 18, and blood pressure 104/64. GENERAL: The patient is awake, responsive, and anxious. HEAD AND NECK: Pupils are equal and reactive to light. Extraocular movements intact. NECK: Supple. No JVD. LUNGS: Good air entry. No wheezing or rales. Poor inspiratory effort. HEART: S1, S2. Distant heart sounds. No murmur or gallop. ABDOMEN: Soft, nondistended, and nontender. Positive bowel sounds. EXTREMITIES: No cyanosis, clubbing. Edema on the left lower extremity. 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 NEUROLOGIC: Cranial nerves II through XII are grossly intact. The patient is moving all the extremities. Gait was not assessed due to the patient's status. LABORATORY AND DIAGNOSTIC DATA: Laboratory on admission from the ER, WBC of 13, hemoglobin 12, hematocrit 39, and platelets is 227. Sodium 129, potassium 5.4, chloride 92, bicarbonate is 15, BUN 23, creatinine 1.2, and glucose is 470. Lactic acid is 2.8, repeat one is at 4.10. Total bilirubin is 1.3. Troponin is 2.741. PT of 10, INR 1.1, and PTT of 29. UA is +4 protein, +4 glucose, +4 ketones, 10 to 15 WBC, +3 leukocytes, and few yeast. The patient's influenza A and B, nasal swab is negative. EKG noted wide complex tachycardia with premature ventricular complex, left bundle branch block, and no ST elevation was identified. ASSESSMENT: 1. Acute myocardial infarction with non-ST elevation myocardial infarction. 2. Diabetic type 2, uncontrolled. 3. Coronary artery disease. 4. Dementia. 5. Hypernatremia. 6. Hyperkalemia. 7. Dehydration. 8. Right AKA with peripheral vascular disease. 9. History of dementia. 10. Atherosclerotic heart disease. 11. Acute kidney injury. 12. Peripheral vascular disease. 13. Hypothyroidism. PLAN: Admit the patient to [facility]. We will follow up laboratory. CT of the abdomen and pelvic was done showed that the thickened bladder maybe underdistended versus cystitis, no appendicitis, SBP, or diverticulitis, distended gallbladder with possible small cholelithiasis, no pericholecystic stranding to sclerosis, chronic vertebral compression, bibasilar mild atelectasis. We will start the patient on heparin drip, IV hydration, and follow up with Dr. Saab, Pulmonary, Critical Care. Consider Cardiology consultation in the morning. Code Status at this time is Full Code as per POLST in the chart from nursing facility. Activity, as tolerated once the patient's status improved. Start the patient on broad-spectrum antibiotic with vancomycin as well as cefepime for urinary tract infection. Joni Robin M.D. DR: BRANDON JOB#: [id number] CC:
[2018-02-07 04:06] LABS: HEMATOCRIT 37.6 % (42.0-52.0); HEMOGLOBIN 11.6 G/DL (14.2-18.0); MEAN CORPUSCULAR VOLUME 89 FL (80-99); PLATELET COUNT 215 K/UL (150-450); RED CELL DISTRIBUTION WIDTH 13.9 % (11.6-14.8); WHITE BLOOD COUNT 18.6 K/UL (4.8-10.8)
[2018-02-07 05:00] LABS: ALANINE AMINOTRANSFERASE 41 U/L (12-78); ALBUMIN 2.8 G/DL (3.4-5.0); ALBUMIN/GLOBULIN RATIO 0.8 (1.0-2.7); ALKALINE PHOSPHATASE 110 U/L (46-116); ANION GAP 25 mmol/L (5-15); ASPARTATE AMINO TRANSFERASE 165 U/L (15-37); BILIRUBIN,TOTAL 1.4 MG/DL (0.2-1.0); BLOOD UREA NITROGEN 28 mg/dL (7-18); CALCIUM 7.9 MG/DL (8.5-10.1); CHLORIDE 99 MMOL/L (98-107); CHOLESTEROL 130 MG/DL (< 200); CREATININE 2.2 MG/DL (0.55-1.30); POTASSIUM 5.8 MMOL/L (3.5-5.1); SODIUM 133 MMOL/L (136-145)
[2018-02-07] MEDS ORDERED: Heparin 25,000u/D5W 500ml 500 ML IV SCH ×4 (05:00→17:15)
[2018-02-07 05:22] LABS: CARBON DIOXIDE 9 MMOL/L (21-32)
[2018-02-07 05:53] LABS: BILIRUBIN,DIRECT 0.9 MG/DL (0.0-0.3)
[2018-02-07] MEDS: Aztreonam Inj 1 GM in NS 50 ML IVPB SCH ×4 (06:20→22:37)
[2018-02-07 06:21] LABS: PHOSPHORUS 6.9 MG/DL (2.5-4.9)
[2018-02-07] MEDS: NovoLOG Insulin Flexpen SUBQ SCH ×2 (06:22→12:23)
--- NOTE | 2018-02-07 08:54 | Diagnostic Imaging Report ---
Indication: Chest pain Technique: One view of the chest Comparison: 04/20/2017 Findings: The lungs and pleural spaces are clear. The heart is upper limits of normal in size. The aorta is tortuous and calcified. There is some atelectasis at the left lateral lung base Impression: Left basilar atelectasis. No acute process otherwise
[2018-02-07] MEDS ORDERED: Vancomycin 750mg/NS 250ml IVPB SCH (09:00)
--- NOTE | 2018-02-07 09:20 | Diagnostic Imaging Report ---
Clinical Indication: Abdominal pain Technique: No oral contrast utilized, per emergency room physician request IV administration nonionic contrast. Venous phase spiral acquisition obtained through the abdomen and pelvis. Multiplanar reconstructions were generated. Total dose length product 830.78 mGycm. CTDIvol(s) 15.23 mGy. Dose reduction achieved using automated exposure control Comparison: none Findings: A short but normal caliber appendix is demonstrated. No evidence of diverticulosis or diverticulitis. No small bowel distention. No free or loculated intraperitoneal air or fluid. There is a tiny fat-containing umbilical hernia. There is a tiny fat-containing left inguinal hernia. No free or loculated intraperitoneal air or fluid is evident. Distal esophagus, stomach, duodenum are unremarkable. The gallbladder contains tiny gallstones. No biliary ductal dilatation. The liver demonstrates some focal fatty infiltration in the usual location in segment IVb. The pancreas is atrophic. The spleen, adrenals, kidneys are unremarkable. No retroperitoneal or mesenteric mass or adenopathy. No pelvic mass or adenopathy. The bladder is nondistended; apparent wall thickening is probably an artifact of under distention The included lung bases demonstrate posterior dependent atelectatic changes as well as interstitial thickening and bronchial wall thickening.. The heart is enlarged. There is a burst/compression fracture deformity of the T12 vertebral body, with slight posterior retropulsion of the upper posterior wall. There are also compression fracture deformities of T9 and T8, as well as possibly T7, the latter incompletely included in the imaging volume. There is extensive vascular calcification. There is surgical hardware in both hips reducing old healed intertrochanteric fractures Impression: No definite acute abdominal pelvic abnormality Mild bladder wall thickening, presumably an artifact of under distention. The possibility of cystitis should be entertained, however, and correlation with laboratory clinical findings is recommended Cholelithiasis Multiple thoracic vertebral body compression fractures. Acuity indeterminate but suspect old. Cardiomegaly Bilateral basilar pulmonary atelectasis. There is also interstitial thickening and bronchial wall thickening, acuity of which is indeterminate. Correlation with clinical findings is recommended Other findings as noted, including evidence of prior bilateral hip surgical repair, tiny fat-containing umbilical hernia, tiny fat-containing left inguinal hernia, focal fatty hepatic infiltration This agrees with the preliminary interpretation provided overnight by [facility] teleradiology service. The CT scanner at [facility] is accredited by the [employer] and the scans are performed using protocols designed to limit radiation exposure to as low as reasonably achievable to attain images of sufficient resolution adequate for diagnostic evaluation.
--- NOTE | 2018-02-07 09:52 | Consultation ---
Consult Note Consult Note asked to eval for kidney failure Patient presents from a long-term facility. He presents for chest pain and all over body pain. He has a history of diabetes. He also has a history of renal disease. He has a history of coronary artery disease. The EMS report that he was sent for chest pain. The patient himself states he has all over body pain and aches. He is demanding [place] for his pain. He states he has shoulder pain. Otherwise he has no other complaints. Allergies: PENICILLINS (Verified Allergy, Unknown, 04/16/17) Patient History Past Medical History: see triage record, DM, HTN, [place], CAD, dementia, psych hx, renal disease Past Surgical History: other - R. BKA Past Medical History: No History, Except For Hx Cardiac Problems: Yes Hx Diabetes: Yes Hx Dialysis: No - + CKD Hx Neurological Problems: Yes Hx Memory Loss: Yes Hx Concentration Difficulty: Yes Hx Weakness: Yes Hx Fatigue: Yes examined- lethargic data reviewed Assessment/Plan Acute renal failure- Dehydration ? CKD DM and Nephropathy DKA ME Dementia HypoThyroidism PVD Rt AKA NPO- NS bollous NS 100 cc h [facility] KP Urine studies 2D Echo LAKESHA Hendricks February 07, 2018 09:52
[2018-02-07] MEDS ORDERED: Sodium Citrate 30ml ORAL ONE (10:00)
[2018-02-07] MEDS ORDERED: Sodium Chloride 500ML 500 ML IV ONE (10:00)
[2018-02-07] MEDS ORDERED: Pantoprazole Inj IVP SCH (10:30)
[2018-02-07] MEDS ORDERED: Sodium Polystyrene Sulfonate 15gm Powder ORAL SCH (10:35)
[2018-02-07] MEDS ORDERED: Aluminum Hydroxide Gel Susp 15ml ORAL SCH (11:00)
--- NOTE | 2018-02-07 11:11 | Consultation ---
History of Present Illness General Date patient seen: February 07, 2018 Chief Complaint: Chest Pain Present Illness HPI 67 year old male with hx of CAD, HTN, DM, AKA, [place] [facility] presented to ER with CC of chest pain and all over body pain. The patient himself states he has all over body pain and aches. His troponin was elevated, BS was out of control. therefore he was admitted to [facility] for further evaluation. Allergies: Coded Allergies: PENICILLINS (Verified Allergy, Unknown, 04/16/17) Medication History Scheduled Apixaban (Eliquis), 5 MG PO EVERY 12 HOURS, (Reported) Ascorbic Acid* (Ascorbic Acid*), 500 MG ORAL DAILY, (Reported) Aspirin* (Aspir 81*), 81 MG ORAL DAILY, (Reported) Atorvastatin Calcium* (Atorvastatin Calcium*), 40 MG ORAL BEDTIME, (Reported) Cholecalciferol (Vitamin D3)* (Vitamin D*), 1,000 UNIT ORAL DAILY, (Reported) Clonidine Hcl* (Catapres*), 0.1 MG ORAL EVERY 8 HOURS, (Reported) Dextran 70/Hypromellose (Artificial Tears Eye Drops*), 1 DROP BOTH EYES TID, ( Reported) Digoxin* (Digoxin*), 0.25 MG ORAL DAILY, (Reported) Duloxetine Hcl* (Cymbalta*), 60 MG ORAL DAILY, (Reported) Furosemide* (Lasix*), 20 MG ORAL DAILY, (Reported) Gabapentin* (Gabapentin*), 300 MG ORAL THREE TIMES A DAY, (Reported) Guaifenesin* (Adult [employer]-Tussin*), 10 ML ORAL Q8HR, (Reported) Insulin Detemir (Levemir Flexpen), 14 SUBQ Q12HR, (Reported) Ipratropium/Albuterol Sulfate (DuoNeb 0.5-3(2.5)mg/3ml), 3 ML HHN EVERY 6 HOURS, (Reported) Ketotifen Fumarate (Alaway), 10 ML OP DAILY, (Reported) Lactulose (Lactulose*), 30 ML ORAL PRN, (Reported) Levothyroxine Sodium* (Levothyroxine Sodium*), 250 MCG ORAL DAILY, (Reported) Magnesium Oxide (Magnesium), 400 MG PO DAILY, (Reported) Metoprolol Tartrate* (Metoprolol Tartrate*), 12.5 MG ORAL EVERY 12 HOURS, ( Reported) Mirtazapine* (Mirtazapine*), 30 MG ORAL BEDTIME, (Reported) [place]-3 Fatty Acids ([place]-3), 2,000 MG PO DAILY, (Reported) Pantoprazole* (Pantoprazole*), 40 MG ORAL DAILY, (Reported) Potassium Chloride* (K-Dur*), 20 MEQ ORAL DAILY, (Reported) Vitamin B Complex & Vit C No.3 (B Complex With Vitamin C), 1 TAB ORAL DAILY, ( Reported) Scheduled PRN Acetaminophen With Codeine (T#3) (Tylenol #3 Tab*), 1 TAB ORAL Q6HR PRN for For Pain, (Reported) Acetaminophen* (Acetaminophen 325MG Tablet*), 650 MG ORAL Q6H PRN for Fever/ Headache/Mild Pain, (Reported) Diphenhydramine Hcl* (Diphenhydramine Hcl*), 25 MG ORAL Q8H PRN for Itching, ( Reported) Insulin Regular, Human (Humulin R), 0 SUBQ for Sliding scale, (Reported) Polyethylene Glycol 3350* (Polyethylene Glycol 3350*), 17 GM ORAL BEDTIME PRN for Constipation, (Reported) Temazepam* (Temazepam*), 15 MG ORAL BEDTIME PRN for Insomnia, (Reported) Tramadol Hcl* (Ultram*), 50 MG ORAL Q6H PRN for For Pain, (Reported) Discontinued Medications Budesonide (Pulmicort Flexhaler), Unknown Dose IH BID, (Reported) Discontinued Reason: Pt stopped taking med Carvedilol* (Carvedilol*), 3.125 MG ORAL EVERY 12 HOURS, (Reported) Discontinued Reason: Pt stopped taking med Famotidine (Famotidine), 20 MG ORAL TWICE A DAY, (Reported) Discontinued Reason: Pt stopped taking med Fluconazole (Fluconazole), 200 MG ORAL DAILY, (Reported) Discontinued Reason: Pt stopped taking med Guaifenesin/Codeine Phos* (Robitussin Ac*), 2 TSP ORAL Q8HR PRN for For Cough, ( Reported) Discontinued Reason: Pt stopped taking med Insulin Aspart (Novolog), 100 UNIT SQ AC+HS, (Reported) Discontinued Reason: Pt stopped taking med Insulin Aspart (Novolog Flexpen), 10 SQ BEFORE MEALS, (Reported) Discontinued Reason: Pt stopped taking med Insulin Detemir (Levemir Flexpen), 8 SUBQ DAILY, (Reported) Discontinued Reason: Pt stopped taking med Insulin Detemir (Levemir Flexpen), 15 SUBQ Q12HR, (Reported) Discontinued Reason: Pt stopped taking med Insulin Glargine (Lantus), 20 SUBQ BEDTIME, (Reported) Discontinued Reason: Pt stopped taking med Insulin Lispro (Humalog Kwikpen), 18 UNIT SQ AC, (Reported) Discontinued Reason: Pt stopped taking med Insulin Lispro (Humalog Kwikpen), 200 UNIT SQ, (Reported) Discontinued Reason: Pt stopped taking med Levothyroxine Sodium* (Levothyroxine Sodium*), 100 MCG ORAL DAILY, (Reported) Discontinued Reason: Medication dose changed Mirtazapine* (Mirtazapine*), 15 MG ORAL BEDTIME, (Reported) Discontinued Reason: Medication dose changed Oxycodone Hcl/Acetaminophen 10-325* (Oxycodone-Acetaminophen 10-325*), 1 TAB ORAL TID PRN for For Pain, (Reported) Discontinued Reason: Pt stopped taking med Venlafaxine Hcl* (Venlafaxine Hcl*), 75 MG ORAL DAILY, (Reported) Discontinued Reason: Pt stopped taking med Patient History Healthcare decision maker Resuscitation status Full Code Advanced Directive on File Yes Past Medical/Surgical History Past Medical/Surgical History: (1) Status post below knee amputation of right lower extremity (2) Major depression (3) Diabetes mellitus (4) PVD (peripheral vascular disease) (5) Hx of right BKA (6) Polypharmacy Review of Systems All Other Systems: negative except mentioned in HPI Physical Exam General Appearance: WD/WN Lines, tubes and drains: peripheral HEENT: normocephalic, atraumatic Neck: non-tender, normal alignment Respiratory/Chest: chest wall non-tender, lungs clear Cardiovascular/Chest: normal peripheral pulses, normal rate Abdomen: normal bowel sounds Genitourinary/Rectal: normal genital exam Extremities: normal range of motion Skin Exam: normal pigmentation Last 24 Hour Vital Signs Date Time Temp Pulse Resp B/P (MAP) Pulse Ox O2 Delivery O2 Flow Rate FiO2 02/07/18 08:00 91 02/07/18 08:00 98.4 94 21 109/61 97 Nasal Cannula 2.0 98.4 5/16/18 04:16 97 02/07/18 04:00 97.9 101 20 127/77 97 Nasal Cannula 2.0 97.9 02/07/18 00:00 98.3 101 20 104/59 98 Nasal Cannula 2.0 98.3 02/06/18 23:24 103 02/06/18 20:55 98.3 110 26 96/48 100 Nasal Cannula 2.0 02/06/18 20:40 98.3 110 26 96/48 100 Nasal Cannula 2.0 98.3 02/06/18 20:23 91 02/06/18 19:36 99.6 114 29 100/62 98 Nasal Cannula 2.0 99.6 02/06/18 18:58 100.3 101 26 96/56 97 Nasal Cannula 2.0 100.3 02/06/18 18:53 100.3 02/06/18 17:54 101.8 02/06/18 17:31 101.8 124 32 119/77 98 Nasal Cannula 2.0 101.8 02/06/18 16:48 124 22 Nasal Cannula 2.0 02/06/18 16:41 98.1 120 18 104/64 98 Room Air 98.1 Intake and Output 02/06/18 02/07/18 19:00 07:00 Intake Total 2255 ml 833.529 ml Output Total 150 ml 0 ml Balance 2105 ml 833.529 ml Intake Oral 0 ml 450 ml IV Total 2255 ml 383.529 ml Output Urine Total 150 ml 0 ml # Voids 1 Laboratory Tests Test 02/06/18 17:04 02/06/18 17:10 02/06/18 18:05 02/06/18 18:14 White Blood Count 13.0 K/UL (4.8-10.8) H Red Blood Count 4.60 M/UL (4.70-6.10) L Hemoglobin 12.5 G/DL (14.2-18.0) L Hematocrit 39.2 % (42.0-52.0) L Mean Corpuscular Volume 85 FL (80-99) Mean Corpuscular Hemoglobin 27.2 PG (27.0-31.0) Mean Corpuscular Hemoglobin Concent 32.0 G/DL (32.0-36.0) Red Cell Distribution Width 13.2 % (11.6-14.8) Platelet Count 227 K/UL (150-450) Mean Platelet Volume 7.3 FL (6.5-10.1) Neutrophils (%) (Auto) 80.5 % (45.0-75.0) H Lymphocytes (%) (Auto) 9.1 % (20.0-45.0) L Monocytes (%) (Auto) 8.9 % (1.0-10.0) Eosinophils (%) (Auto) 0.1 % (0.0-3.0) Basophils (%) (Auto) 1.4 % (0.0-2.0) Sodium Level 129 MMOL/L (136-145) L Potassium Level 5.4 MMOL/L (3.5-5.1) H Chloride Level 92 MMOL/L (98-107) L Carbon Dioxide Level 15 MMOL/L (21-32) L Anion Gap 22 mmol/L (5-15) H Blood Urea Nitrogen 23 mg/dL (7-18) H Creatinine 1.2 MG/DL (0.55-1.30) Estimat Glomerular Filtration Rate > 60 mL/min (>60) Glucose Level 470 MG/DL (74-106) H Calcium Level 9.7 MG/DL (8.5-10.1) Total Bilirubin 1.3 MG/DL (0.2-1.0) H Direct Bilirubin 0.3 MG/DL (0.0-0.3) Aspartate Amino Transf (AST/SGOT) 62 U/L (15-37) H Alanine Aminotransferase (ALT/SGPT) 31 U/L (12-78) Alkaline Phosphatase 119 U/L (46-116) H Total Creatine Kinase 146 U/L (26-308) Creatine Kinase MB 3.7 NG/ML (0.0-3.6) H Creatine Kinase MB Relative Index 2.5 Troponin I 2.741 ng/mL (0.000-0.056) Total Protein 8.0 G/DL (6.4-8.2) Albumin 3.4 G/DL (3.4-5.0) Globulin 4.6 g/dL Albumin/Globulin Ratio 0.7 (1.0-2.7) L Prothrombin Time 10.8 SEC (9.30-11.50) Prothromb Time International Ratio 1.1 (0.9-1.1) Activated Partial Thromboplast Time 29 SEC (23-33) Lactic Acid Level 2.80 mmol/L (0.66-2.22) H Urine Color Pale yellow Urine Appearance Slightly cloudy Urine pH 5 (4.5-8.0) Urine Specific [place] 1.020 (1.005-1.035) Urine Protein 2+ (NEGATIVE) H Urine Glucose (UA) 4+ (NEGATIVE) H Urine Ketones 4+ (NEGATIVE) H Urine Occult Blood 3+ (NEGATIVE) H Urine Nitrite Negative (NEGATIVE) Urine Bilirubin Negative (NEGATIVE) Urine Urobilinogen Normal MG/DL (0.0-1.0) Urine Leukocyte Esterase 3+ (NEGATIVE) H Urine RBC 2-4 /HPF (0 - 0) H Urine WBC 10-15 /HPF (0 - 0) H Urine Squamous Epithelial Cells None /LPF (NONE/OCC) Urine Bacteria Few /HPF (NONE) Urine Yeast Few /HPF (NONE) H Test 02/06/18 19:10 02/07/18 01:10 02/07/18 03:10 Lactic Acid Level 4.10 mmol/L (0.66-2.22) H Activated Partial Thromboplast Time 38 SEC (23-33) H White Blood Count 18.6 K/UL (4.8-10.8) H Red Blood Count 4.20 M/UL (4.70-6.10) L Hemoglobin 11.6 G/DL (14.2-18.0) L Hematocrit 37.6 % (42.0-52.0) L Mean Corpuscular Volume 89 FL (80-99) Mean Corpuscular Hemoglobin 27.5 PG (27.0-31.0) Mean Corpuscular Hemoglobin Concent 30.8 G/DL (32.0-36.0) L Red Cell Distribution Width 13.9 % (11.6-14.8) Platelet Count 215 K/UL (150-450) Mean Platelet Volume 7.8 FL (6.5-10.1) Neutrophils (%) (Auto) % (45.0-75.0) Lymphocytes (%) (Auto) % (20.0-45.0) Monocytes (%) (Auto) % (1.0-10.0) Eosinophils (%) (Auto) % (0.0-3.0) Basophils (%) (Auto) % (0.0-2.0) Differential Total Cells Counted 100 Neutrophils % (Manual) 77 % (45-75) H Lymphocytes % (Manual) 8 % (20-45) L Monocytes % (Manual) 5 % (1-10) Eosinophils % (Manual) 0 % (0-3) Basophils % (Manual) 0 % (0-2) Band Neutrophils 10 % (0-8) H Platelet Estimate Adequate Platelet Morphology Normal Jose G Cells 1+ Sodium Level 133 MMOL/L (136-145) L Potassium Level 5.8 MMOL/L (3.5-5.1) H Chloride Level 99 MMOL/L (98-107) Carbon Dioxide Level 9 MMOL/L (21-32) *L Anion Gap 25 mmol/L (5-15) H Blood Urea Nitrogen 28 mg/dL (7-18) H Creatinine 2.2 MG/DL (0.55-1.30) #H Estimat Glomerular Filtration Rate 30.2 mL/min (>60) Glucose Level 559 MG/DL (74-106) *H Calcium Level 7.9 MG/DL (8.5-10.1) L Phosphorus Level 6.9 MG/DL (2.5-4.9) H Magnesium Level 1.9 MG/DL (1.8-2.4) Total Bilirubin 1.4 MG/DL (0.2-1.0) H Direct Bilirubin 0.9 MG/DL (0.0-0.3) H Aspartate Amino Transf (AST/SGOT) 165 U/L (15-37) H Alanine Aminotransferase (ALT/SGPT) 41 U/L (12-78) Alkaline Phosphatase 110 U/L (46-116) Troponin I 27.278 ng/mL (0.000-0.056) Total Protein 6.3 G/DL (6.4-8.2) L Albumin 2.8 G/DL (3.4-5.0) L Globulin 3.5 g/dL Albumin/Globulin Ratio 0.8 (1.0-2.7) L Cholesterol Level 130 MG/DL (< 200) Microbiology Date/Time Source Procedure Growth Status 02/06/18 18:10 Nasal Nares Influenza Types A,B Antigen (MAKENNA) - Final Complete 02/06/18 18:14 Urine,Clean Catch Urine Culture - Preliminary NO GROWTH Resulted Height (Feet): 5 Height (Inches): 7.00 Weight (Pounds): 165 Medications Current Medications Medications (Trade) Dose Ordered Sig/Eliel Route PRN Reason Start Time Stop Time Status Last Admin Dose Admin Acetaminophen (Tylenol) 650 mg Q4H PRN ORAL T>100.5 02/06/18 18:45 03/08/18 18:44 Albuterol/ Ipratropium (Albuterol/ Ipratropium) 3 ml Q4H PRN HHN Shortness of Breath 02/06/18 18:45 02/11/18 18:44 Aluminum Hydroxide (Amphojel) 960 mg Q6H ORAL 02/07/18 11:00 03/09/18 10:59 Aztreonam 1 gm/ Sodium Chloride 50 ml @ 100 mls/hr Q8H IVPB 02/06/18 22:30 02/13/18 22:29 02/07/18 06:20 Clonidine HCl (Catapres Tab) 0.1 mg Q8H PRN ORAL SBP > 160mmHg 02/06/18 19:00 03/08/18 18:59 Dextrose (Dextrose 50%) 25 ml ONCE PRN IV Hypoglycemia 02/06/18 18:45 03/08/18 18:44 Dextrose (Dextrose 50%) 50 ml ONCE PRN IV hypoglycemia 02/06/18 18:45 03/08/18 18:44 Gabapentin (Neurontin) 300 mg Q8HR ORAL 02/06/18 22:00 03/08/18 21:59 02/07/18 06:19 Heparin Sodium/ Dextrose 500 ml @ 17.962 mls/ hr adjust per protocol IV 02/07/18 05:00 03/09/18 04:59 02/07/18 05:08 Insulin Aspart (NovoLOG) BEFORE MEALS AND HS SUBQ 02/06/18 21:00 03/08/18 20:59 02/07/18 06:22 Iopamidol (Isovue-300 100ml) 100 ml NOW PRN INJ Radiology Procedure 02/06/18 17:30 Levothyroxine Sodium (Synthroid) 100 mcg ACBREAKFAST ORAL 02/07/18 06:30 03/09/18 06:29 02/07/18 06:19 Mirtazapine (Remeron) 15 mg BEDTIME ORAL 02/06/18 21:00 03/08/18 20:59 02/06/18 22:04 Nitroglycerin (Ntg) 0.4 mg Q5M PRN SL Prn Chest Pain 02/07/18 00:00 03/09/18 00:00 Nitroglycerin (Ntg) 0.4 mg Q5MIN X 3 DOSES PRN SL Prn Chest Pain 02/06/18 18:45 03/08/18 18:44 Ondansetron HCl (Zofran) 4 mg Q6H PRN IVP Nausea & Vomiting 02/06/18 18:45 03/08/18 18:44 02/07/18 10:48 Pantoprazole (Protonix) 40 mg EVERY 12 HOURS IVP 02/07/18 10:30 03/09/18 10:29 02/07/18 10:48 Polyethylene Glycol (Miralax) 17 gm DAILYPRN PRN ORAL Constipation 02/06/18 18:45 03/08/18 18:44 Sodium Polystyrene Sulfonate (Kayexalate) 30 gm ONCE ORAL 02/07/18 10:35 02/07/18 11:35 Sodium Chloride 1,000 ml @ 100 mls/hr Q10H IV 02/07/18 10:00 03/09/18 09:59 02/07/18 10:34 Sodium Citrate (Bicitra) 30 ml EVERY 6 HOURS ORAL 02/07/18 12:00 03/09/18 11:59 Temazepam (Restoril) 15 mg HSPRN PRN ORAL Insomnia 02/06/18 21:00 02/13/18 20:59 Assessment/Plan Problem List: (1) NSTEMI (non-ST elevated myocardial infarction) ICD Codes: I21.4 - Non-ST elevation (NSTEMI) myocardial infarction SNOMED: 855701085 (2) Sepsis ICD Codes: A41.9 - Sepsis, unspecified organism SNOMED: 35319686 (3) Diabetes mellitus type II, uncontrolled ICD Codes: E11.65 - Type 2 diabetes mellitus with hyperglycemia SNOMED: 84481039, 287557431 (4) Cardiomyopathy ICD Codes: I42.9 - Cardiomyopathy, unspecified SNOMED: 19249913 (5) Hx of right BKA ICD Codes: Z89.511 - Acquired absence of right leg below knee SNOMED: 089716744, 485023833, 419462793 (6) Major depression ICD Codes: F32.9 - Major depressive disorder, single episode, unspecified SNOMED: 024683593 Assessment/Plan serial ekg, troponin, Echo sliding scale diabetic diet renal evaluation started on IV heparin echo result noted. cardiology to see. Walker Saab MD February 07, 2018 11:11
[2018-02-07] MEDS ORDERED: Lidocaine 1% Plain 30 ml INJ ONE (12:00)
[2018-02-07] MEDS ORDERED: Sodium Citrate 30ml ORAL SCH (12:00)
[2018-02-07] MEDS ORDERED: Heparin 2000 units/Ns 1000ml INJ ONE (12:00)
--- NOTE | 2018-02-07 13:52 | Diagnostic Imaging Report ---
Indication: Acute renal failure Technique: Grayscale and duplex images of the kidneys, retroperitoneum, and bladder were obtained. Comparison: No comparison ultrasounds. Reference made to abdomen pelvis CT 02/06/2018 Findings: Right kidney measures 11.4 cm in length. Left kidney measures 10.2 cm in length. Both kidneys demonstrate normal echogenicity. No hydronephrosis. There are apparent bilateral renal cysts incidentally noted. Normal inferior vena cava. Bladder is empty, contains a Antonio catheter. There is incidental finding of gallstones Impression: Negative for hydronephrosis Empty bladder with a Antonio catheter Apparent bilateral renal cysts. However, these are not evident on CT scan of 02/06/2018, even in retrospect. May be artifactual, possibly prominent pyramids, or could be real and just occult on CT. Cholelithiasis incidentally noted, also reported on recent CT scan .
[2018-02-07 14:26] LABS: HEMATOCRIT 35.7 % (42.0-52.0); MEAN CORPUSCULAR VOLUME 89 FL (80-99); PLATELET COUNT 251 K/UL (150-450); RED BLOOD COUNT 4.01 M/UL (4.70-6.10); RED CELL DISTRIBUTION WIDTH 13.5 % (11.6-14.8)
[2018-02-07 14:44] LABS: ALANINE AMINOTRANSFERASE 147 U/L (12-78); ALBUMIN 2.9 G/DL (3.4-5.0); ALBUMIN/GLOBULIN RATIO 0.8 (1.0-2.7); ALKALINE PHOSPHATASE 106 U/L (46-116); ANION GAP 29 mmol/L (5-15); ASPARTATE AMINO TRANSFERASE 523 U/L (15-37); BILIRUBIN,TOTAL 1.5 MG/DL (0.2-1.0); BLOOD UREA NITROGEN 37 mg/dL (7-18); CALCIUM 7.9 MG/DL (8.5-10.1); CHLORIDE 95 MMOL/L (98-107); CREATININE 2.9 MG/DL (0.55-1.30); PHOSPHORUS 8.3 MG/DL (2.5-4.9); SODIUM 131 MMOL/L (136-145)
[2018-02-07 14:45] LABS: POTASSIUM 6.1 MMOL/L (3.5-5.1)
[2018-02-07 14:46] LABS: CARBON DIOXIDE 6 MMOL/L (21-32)
[2018-02-07 14:47] LABS: BILIRUBIN,DIRECT 1.2 MG/DL (0.0-0.3)
--- NOTE | 2018-02-07 15:17 | Diagnostic Imaging Report ---
Indications: Needs long-term IV access Technique: Procedure performed at bedside. Procedural timeout performed. Ultrasound confirms patent compressible left brachiobasilic vein. Total sterile technique, including sterile probe cover and sterile gel, sterile gloves, hand hygiene, hat, mask,, sterile gown, large sterile drape, and preparation with 2% chlorhexidine utilized. Local anesthesia with 1% lidocaine. Under real-time ultrasound guidance, puncture vein using 21-gauge needle, passage 0.018 guidewire, exchange for 5 Dominican peel-away sheath. 5 Dominican Bard dual-lumen power PICC cut to 41 cm. It was inserted through the peel-away sheath. Peel-away sheath and guidewire removed. Catheter fixed to the skin. Both catheter ports aspirated and flushed. Patient tolerated procedure well, without immediate complication. Followup chest x-ray obtained, documents catheter tip position at the high right atrium Impression: Successful bedside placement of left arm PICC under sonographic guidance, as described above.
--- NOTE | 2018-02-07 15:54 | Cardiology Report ---
APPROVED REPORT EXAM: Two-dimensional and M-mode echocardiogram with Doppler and color Doppler. INDICATION Acute NV M-Mode DIMENSIONS IVSd1.1 (0.7-1.1cm)Left Atrium (MM)5.2 (1.6-4.0cm) LVDd6.7 (3.5-5.6cm)Aortic Root3.7 (2.0-3.7cm) PWd1.0 (0.7-1.1cm)Aortic Cusp Exc.2.0 (1.5-2.0cm) LVDs5.7 (2.5-4.0cm) PWs0.9 cm Technically difficult study due to pts position. Moderate four chamber enlargement. Severe global left ventricular hypokinesis. Mid to distal septal, posterior wall and apical akinesis. Left ventricular ejection fraction estimated to be 15-20 %. Increased E point-interventricular septal separation c/w left ventricular dysfunction. Study quality precludes accurate assessment of regional wall motion. Mild left ventricular hypertrophy by 2-D. No evidence of pericardial effusion. All other cardiac chamber sizes are within normal limits. Focal aortic valve sclerosis with adequate cusp excursion. Thickened mitral valve leaflets with normal excursion. Mitral annulus and aortic root calcification. Pulmonic valve not well visualized. Normal tricuspid valve structure. IVC dilated at 2.4 cm without physiologic collapse suggestive of increased RA pressure. A color flow and spectral Doppler study was performed and revealed: Trace to mild aortic regurgitation. Moderate mitral regurgitation. Mitral inflow indicates restrictive pattern, implying severely elevated left atrial pressure (Grade III ). Moderate tricuspid regurgitation. Tricuspid systolic velocities suggests peak right ventricular systolic pressure of 89 mmHg, consistent with severe pulmonary hypertension. Trace pulmonic regurgitation present.
[2018-02-07] MEDS ORDERED: Metoclopramide 10mg/2ml Inj IVP SCH (17:00)
[2018-02-07] MEDS ORDERED: Nitroglycerin Subl 0.4mg tab SL PRN ×3 (17:15)
[2018-02-07] MEDS ORDERED: Sodium Polystyrene Sulfonate 15gm Powder ORAL ONE ×2 (17:30)
[2018-02-07] MEDS: Sodium Citrate 30ml ORAL SCH ×2 (18:00→23:50)
[2018-02-07] MEDS ORDERED: Albuterol/Ipratropium 3ml neb HHN PRN (18:00)
[2018-02-07] MEDS: Insulin Rate Change 1 Each MISC PRN ×5 (18:03→23:02)
[2018-02-07] MEDS ORDERED: Miralax 17gm pkt ORAL PRN (18:45)
--- NOTE | 2018-02-07 19:30 | Consultation ---
Consult Note Consult Note Dic # [id number] Josr Hinojosa MD February 07, 2018 19:30
[2018-02-07] MEDS ORDERED: Dyna-Hex 2% Top Sol 2oz TOPIC SCH ×3 (20:00)
[2018-02-07] MEDS: Dyna-Hex 2% Top Sol 2oz TOPIC SCH (20:16)
--- NOTE | 2018-02-07 21:07 | Cardiology Progress Note ---
Assessment/Plan Assessment/Plan new lbbb comapred to 03/2017 cm previously ef 25% mi late presentation renal faileur pvd prior cad detail unknown [facility] encephalopathy pvd at this time too late for any intervention risk benefit ration is not work would keep on Ecotrin / statin / anticoagulation for 1-2 days for now coreg and acei in future Objective Last 24 Hour Vital Signs Date Time Temp Pulse Resp B/P (MAP) Pulse Ox O2 Delivery O2 Flow Rate FiO2 02/07/18 19:37 Nasal Cannula 2.0 28 02/07/18 19:36 102 22 Nasal Cannula 2.0 02/07/18 19:36 100 Nasal Cannula 2.0 28 02/07/18 19:00 98.0 100 25 97/58 98 Nasal Cannula 3.0 98.0 02/07/18 18:00 98.1 100 18 111/58 100 Nasal Cannula 3.0 98.1 02/07/18 17:00 98.1 99 19 99/58 100 Nasal Cannula 3.0 98.1 02/07/18 16:00 97 02/07/18 16:00 98.1 98 19 99/54 100 Nasal Cannula 3.0 98.1 02/07/18 15:00 98.7 94 17 94/51 100 Nasal Cannula 3.0 98.7 02/07/18 14:00 98.7 92 18 93/57 100 Nasal Cannula 3.0 98.7 02/07/18 13:00 98.4 77 21 105/60 97 Nasal Cannula 2.0 98.4 02/07/18 12:00 69 02/07/18 08:00 91 02/07/18 08:00 98.4 94 21 109/61 97 Nasal Cannula 2.0 98.4 02/07/18 04:16 97 02/07/18 04:00 97.9 101 20 127/77 97 Nasal Cannula 2.0 97.9 02/07/18 00:00 98.3 101 20 104/59 98 Nasal Cannula 2.0 98.3 02/06/18 23:24 103 Intake and Output 02/06/18 02/07/18 19:00 07:00 Intake Total 2255 ml 833.529 ml Output Total 150 ml 0 ml Balance 2105 ml 833.529 ml Intake Oral 0 ml 450 ml IV Total 2255 ml 383.529 ml Output Urine Total 150 ml 0 ml # Voids 1 Laboratory Tests Test 02/07/18 01:10 02/07/18 03:10 02/07/18 14:00 02/07/18 17:17 Activated Partial Thromboplast Time 38 SEC (23-33) H 106 SEC (23-33) H White Blood Count 18.6 K/UL (4.8-10.8) H 21.0 K/UL (4.8-10.8) H Red Blood Count 4.20 M/UL (4.70-6.10) L 4.01 M/UL (4.70-6.10) L Hemoglobin 11.6 G/DL (14.2-18.0) L 11.0 G/DL (14.2-18.0) L Hematocrit 37.6 % (42.0-52.0) L 35.7 % (42.0-52.0) L Mean Corpuscular Volume 89 FL (80-99) 89 FL (80-99) Mean Corpuscular Hemoglobin 27.5 PG (27.0-31.0) 27.6 PG (27.0-31.0) Mean Corpuscular Hemoglobin Concent 30.8 G/DL (32.0-36.0) L 30.9 G/DL (32.0-36.0) L Red Cell Distribution Width 13.9 % (11.6-14.8) 13.5 % (11.6-14.8) Platelet Count 215 K/UL (150-450) 251 K/UL (150-450) Mean Platelet Volume 7.8 FL (6.5-10.1) 9.5 FL (6.5-10.1) Neutrophils (%) (Auto) % (45.0-75.0) % (45.0-75.0) Lymphocytes (%) (Auto) % (20.0-45.0) % (20.0-45.0) Monocytes (%) (Auto) % (1.0-10.0) % (1.0-10.0) Eosinophils (%) (Auto) % (0.0-3.0) % (0.0-3.0) Basophils (%) (Auto) % (0.0-2.0) % (0.0-2.0) Differential Total Cells Counted 100 100 Neutrophils % (Manual) 77 % (45-75) H 78 % (45-75) H Lymphocytes % (Manual) 8 % (20-45) L 12 % (20-45) L Monocytes % (Manual) 5 % (1-10) 5 % (1-10) Eosinophils % (Manual) 0 % (0-3) 1 % (0-3) Basophils % (Manual) 0 % (0-2) 0 % (0-2) Band Neutrophils 10 % (0-8) H 4 % (0-8) Platelet Estimate Adequate Adequate Platelet Morphology Normal Normal Jose G Cells 1+ Sodium Level 133 MMOL/L (136-145) L 131 MMOL/L (136-145) L Potassium Level 5.8 MMOL/L (3.5-5.1) H 6.1 MMOL/L (3.5-5.1) *H Chloride Level 99 MMOL/L (98-107) 95 MMOL/L (98-107) L Carbon Dioxide Level 9 MMOL/L (21-32) *L 6 MMOL/L (21-32) *L Anion Gap 25 mmol/L (5-15) H 29 mmol/L (5-15) H Blood Urea Nitrogen 28 mg/dL (7-18) H 37 mg/dL (7-18) H Creatinine 2.2 MG/DL (0.55-1.30) #H 2.9 MG/DL (0.55-1.30) H Estimat Glomerular Filtration Rate 30.2 mL/min (>60) 21.9 mL/min (>60) Glucose Level 559 MG/DL (74-106) *H 567 MG/DL (74-106) *H Calcium Level 7.9 MG/DL (8.5-10.1) L 7.9 MG/DL (8.5-10.1) L Phosphorus Level 6.9 MG/DL (2.5-4.9) H 8.3 MG/DL (2.5-4.9) H Magnesium Level 1.9 MG/DL (1.8-2.4) 2.4 MG/DL (1.8-2.4) Total Bilirubin 1.4 MG/DL (0.2-1.0) H 1.5 MG/DL (0.2-1.0) H Direct Bilirubin 0.9 MG/DL (0.0-0.3) H 1.2 MG/DL (0.0-0.3) H Aspartate Amino Transf (AST/SGOT) 165 U/L (15-37) H 523 U/L (15-37) H Alanine Aminotransferase (ALT/SGPT) 41 U/L (12-78) 147 U/L (12-78) H Alkaline Phosphatase 110 U/L (46-116) 106 U/L (46-116) Troponin I 27.278 ng/mL (0.000-0.056) 32.795 ng/mL (0.000-0.056) Total Protein 6.3 G/DL (6.4-8.2) L 6.7 G/DL (6.4-8.2) Albumin 2.8 G/DL (3.4-5.0) L 2.9 G/DL (3.4-5.0) L Globulin 3.5 g/dL 3.8 g/dL Albumin/Globulin Ratio 0.8 (1.0-2.7) L 0.8 (1.0-2.7) L Cholesterol Level 130 MG/DL (< 200) Hypochromasia 1+ Anisocytosis 1+ Hemoglobin A1c 9.3 % (4.3-6.0) H Uric Acid 11.2 MG/DL (2.6-7.2) H C-Reactive Protein, Quantitative 22.7 mg/dL (0.00-0.90) H Arterial Blood pH 7.233 (7.350-7.450) Arterial Blood Partial Pressure CO2 25.4 mmHg (35.0-45.0) L Arterial Blood Partial Pressure O2 130.8 mmHg (75.0-100.0) H Arterial Blood HCO3 10.5 mmol/L (22.0-26.0) L Arterial Blood Oxygen Saturation 97.4 % (92.0-98.0) Arterial Blood Base Excess -15.4 Jam Test Positive Microbiology Date/Time Source Procedure Growth Status 02/06/18 18:10 Nasal Nares Influenza Types A,B Antigen ([facility]) - Final Complete 02/06/18 18:14 Urine,Clean Catch Urine Culture - Preliminary NO GROWTH Resulted Darnell Belcher MD February 07, 2018 21:07
[2018-02-07] MEDS: Pantoprazole Inj IVP SCH (21:28)
--- NOTE | 2018-02-07 21:45 | Consultation ---
DATE OF CONSULTATION: 02/07/2018 INFECTIOUS DISEASE CONSULTATION CONSULTING PHYSICIAN: Josr Hinojosa M.D. REQUESTING PHYSICIANS: 1. Walker Saab M.D. 2. Joni Robin M.D. REASON FOR CONSULTATION: Evaluation of the patient for sepsis, pneumonia, possible urinary tract infection, and antibiotic management. HISTORY OF PRESENT ILLNESS: The patient is a 67-year-old male with multiple medical problems as listed below, who was brought to this medical center because of chest discomfort, cough, shortness of breath, and chest congestion. The patient has also been complaining of dysuria. Infectious Disease consultation has been requested for further evaluation of the patient and antibiotic management. The patient was found to have borderline blood pressure and was lethargic. He was placed in the ICU for further monitoring. PAST MEDICAL HISTORY: 1. CAD/myocardial infarction. 2. Hypertension. 3. Diabetes. 4. Anemia. 5. Hyperlipidemia. 6. Peripheral vascular disease. 7. Anxiety. 8. Degenerative joint disease. 9. Hyperthyroidism. 10. Dilated cardiomyopathy. 11. GERD. 12. Dementia. MEDICATIONS: Aztreonam. ALLERGIES: Penicillin. SOCIAL HISTORY: The patient lives in a alf. FAMILY HISTORY: Not contributing. REVIEW OF SYSTEMS: HEENT: No recent change in vision or hearing. PULMONARY: Cough. CARDIOVASCULAR: As mentioned above. GASTROINTESTINAL: Some epigastric pain. GENITOURINARY: As mentioned above. PHYSICAL EXAMINATION: VITAL SIGNS: Temperature 98, blood pressure 97/58, pulse 86, and respiratory rate 18. T-max. 101.8. HEENT: No pale conjunctivae. No icterus. NECK: No lymphadenopathy. CHEST: Bilateral wheezes. HEART: S1 and S2. ABDOMEN: Obese and nontender at the time of exam. EXTREMITIES: No cyanosis. The patient has right above knee amputation. NEUROLOGIC: He is lethargic. LABORATORY AND DIAGNOSTIC DATA: White blood cells 21, hemoglobin 11, and platelets 251,000. UA unremarkable. BUN and creatinine 2.9. ALT and AST are elevated. Alkaline phosphatase is 106. Cardiac enzyme positive. Influenza negative. Urine culture is pending. Blood culture is pending. Sputum culture is pending. Chest x-ray, left basilar atelectasis, no acute process. CT of the abdomen, mild bladder wall thickening, possible cystitis, cholelithiasis, cardiomegaly, and bibasilar pulmonary atelectasis. Ultrasound of the kidney, negative for hydronephrosis. ASSESSMENT: The patient is a 67-year-old male with, 1. Fever. 2. Leukocytosis. 3. Transaminitis (probably due to right-sided heart failure, also rule out chronic hepatitis.) 4. Possible cystitis. 5. Bronchitis. PLAN: 1. We will continue the patient on aztreonam day #1, add Levaquin day #1. 2. Monitor CBC. 3. Monitor BMP. 4. Monitor cultures (blood, urine, sputum). 5. Hepatitis panel. 6. Monitor chest x-ray. 7. Monitor the patient's clinical course. 8. We will follow Cardiology recommendations for acute myocardial infarction. 9. Based on the patient's clinical course and labs, we will do further recommendations. Thank you, Dr. Robin and Dr. Saab, for allowing me to participate in the care of this patient. I will follow the patient with you during this hospitalization. Josr Hinojosa M.D. DR: ENMANUEL JOB#: [id number] CC:
[2018-02-07] MEDS ORDERED: Atorvastatin 80mg tab ORAL SCH (22:00)
[2018-02-07 22:08] LABS: ANION GAP 18 mmol/L (5-15); BLOOD UREA NITROGEN 39 mg/dL (7-18); CALCIUM 8.2 MG/DL (8.5-10.1); CARBON DIOXIDE 16 MMOL/L (21-32); CHLORIDE 102 MMOL/L (98-107); CREATININE 2.9 MG/DL (0.55-1.30); POTASSIUM 3.4 MMOL/L (3.5-5.1); SODIUM 136 MMOL/L (136-145)
[2018-02-07] MEDS ORDERED: Tubing IV Secondary IV ONE (22:21)
[2018-02-07] MEDS ORDERED: NS 275ml ONE (22:21)
[2018-02-07] MEDS: Aluminum Hydroxide Gel Susp 15ml ORAL SCH (22:28)
[2018-02-07] MEDS: Aspirin EC 81mg tab ORAL SCH (22:42)
[2018-02-07] MEDS ORDERED: Heparin 5000 units/ml inj IV SCH (23:15)
--- NOTE | 2018-02-07 23:57 | Internal Med Progress Note ---
Subjective Physician Name Joni Robin Attending Physician Joni Robin MD Current Medications Medications (Trade) Dose Ordered Sig/Eliel Route PRN Reason Start Time Stop Time Status Last Admin Dose Admin Acetaminophen (Tylenol) 650 mg Q4H PRN ORAL T>100.5 02/07/18 18:00 03/08/18 17:59 Albuterol/ Ipratropium (Albuterol/ Ipratropium) 3 ml Q4H PRN HHN Shortness of Breath 02/07/18 18:00 02/11/18 17:59 Aluminum Hydroxide (Amphojel) 960 mg Q6H ORAL 02/07/18 23:00 03/09/18 10:59 02/07/18 22:28 Aspirin (Ecotrin) 81 mg DAILY ORAL 02/07/18 22:00 03/09/18 21:59 02/07/18 22:42 Atorvastatin Calcium (Lipitor) 80 mg BEDTIME ORAL 02/07/18 22:00 03/09/18 21:59 02/07/18 22:43 Aztreonam 1 gm/ Sodium Chloride 50 ml @ 100 mls/hr Q8H IVPB 02/07/18 22:30 02/13/18 22:29 02/07/18 22:37 Chlorhexidine Gluconate (Laura-Hex 2%) 1 applic DAILY@2000 TOPIC 02/07/18 20:00 03/09/18 19:59 02/07/18 20:16 Clonidine HCl (Catapres Tab) 0.1 mg Q8H PRN ORAL SBP > 160mmHg 02/07/18 18:00 03/08/18 17:59 Dextrose (Dextrose 50%) 25 ml PRN PRN IV HYPOGLYCEMIA 02/07/18 14:00 03/09/18 13:59 Dextrose (Dextrose 50%) 50 ml PRN PRN IV HYPOGLYCEMIA 02/07/18 14:00 03/09/18 13:59 Gabapentin (Neurontin) 300 mg Q8HR ORAL 02/07/18 22:00 03/08/18 21:59 02/07/18 22:24 Heparin Sodium (Porcine) (Heparin 5000 units/ml) 6,000 units 02/07/18 IV 02/07/18 23:15 02/08/18 00:15 Heparin Sodium/ Dextrose 500 ml @ 19.459 mls/ hr adjust per protocol IV 02/07/18 22:45 03/09/18 15:29 Insulin Human Regular (NovoLIN R) 5 units PRN PRN IV BS 200-299 02/07/18 14:00 03/09/18 13:59 02/07/18 19:15 Insulin Human Regular (NovoLIN R) 10 units PRN PRN IV BS=>300 02/07/18 14:00 03/09/18 13:59 02/07/18 18:09 Insulin Human Regular 100 units/ Sodium Chloride 101 ml @ 0 mls/hr Q24H IV 02/07/18 16:01 03/09/18 16:00 02/07/18 18:08 Levofloxacin 150 ml @ 100 mls/hr Q48H IVPB 02/07/18 21:00 02/14/18 20:59 02/07/18 21:31 Levothyroxine Sodium (Synthroid) 100 mcg ACBREAKFAST ORAL 02/08/18 06:30 03/09/18 06:29 Metoclopramide HCl (Reglan) 10 mg Q8H IVP 02/07/18 17:00 03/09/18 16:59 02/07/18 17:26 Mirtazapine (Remeron) 15 mg BEDTIME ORAL 02/07/18 21:00 03/08/18 20:59 02/07/18 21:29 Miscellaneous Medication (Insulin Rate Change) 1 ea PRN PRN MISC Hypoglycemia 02/07/18 14:00 03/09/18 13:59 02/07/18 23:02 Nitroglycerin (Ntg) 0.4 mg Q5MIN X 3 DOSES PRN SL Prn Chest Pain 02/07/18 17:15 03/08/18 18:44 Ondansetron HCl (Zofran) 4 mg Q6H PRN IVP Nausea & Vomiting 02/07/18 18:45 03/08/18 18:44 Pantoprazole (Protonix) 40 mg EVERY 12 HOURS IVP 02/07/18 21:00 03/09/18 10:29 02/07/18 21:28 Polyethylene Glycol (Miralax) 17 gm DAILYPRN PRN ORAL Constipation 02/07/18 18:45 03/08/18 18:44 Sodium Chloride 1,000 ml @ 150 mls/hr Q6H40M IV 02/07/18 17:15 03/09/18 16:59 02/07/18 21:13 Sodium Citrate (Bicitra) 30 ml EVERY 6 HOURS ORAL 02/07/18 18:00 03/09/18 11:59 02/07/18 18:00 Temazepam (Restoril) 15 mg HSPRN PRN ORAL Insomnia 02/07/18 21:00 02/13/18 20:59 Allergies: Coded Allergies: PENICILLINS (Verified Allergy, Unknown, 04/16/17) Subjective transfer to ICU , alter than usual, confuse, WBC: 21.0, Troponin 27.27 Objective Last Vital Signs Date Time Temp Pulse Resp B/P (MAP) Pulse Ox O2 Delivery O2 Flow Rate FiO2 02/07/18 19:37 Nasal Cannula 2.0 28 02/07/18 19:36 102 22 02/07/18 19:36 100 02/07/18 19:00 98.0 97/58 98.0 Laboratory Tests Test 02/07/18 01:10 02/07/18 03:10 02/07/18 14:00 02/07/18 17:17 Activated Partial Thromboplast Time 38 SEC (23-33) H 106 SEC (23-33) H White Blood Count 18.6 K/UL (4.8-10.8) H 21.0 K/UL (4.8-10.8) H Red Blood Count 4.20 M/UL (4.70-6.10) L 4.01 M/UL (4.70-6.10) L Hemoglobin 11.6 G/DL (14.2-18.0) L 11.0 G/DL (14.2-18.0) L Hematocrit 37.6 % (42.0-52.0) L 35.7 % (42.0-52.0) L Mean Corpuscular Volume 89 FL (80-99) 89 FL (80-99) Mean Corpuscular Hemoglobin 27.5 PG (27.0-31.0) 27.6 PG (27.0-31.0) Mean Corpuscular Hemoglobin Concent 30.8 G/DL (32.0-36.0) L 30.9 G/DL (32.0-36.0) L Red Cell Distribution Width 13.9 % (11.6-14.8) 13.5 % (11.6-14.8) Platelet Count 215 K/UL (150-450) 251 K/UL (150-450) Mean Platelet Volume 7.8 FL (6.5-10.1) 9.5 FL (6.5-10.1) Neutrophils (%) (Auto) % (45.0-75.0) % (45.0-75.0) Lymphocytes (%) (Auto) % (20.0-45.0) % (20.0-45.0) Monocytes (%) (Auto) % (1.0-10.0) % (1.0-10.0) Eosinophils (%) (Auto) % (0.0-3.0) % (0.0-3.0) Basophils (%) (Auto) % (0.0-2.0) % (0.0-2.0) Differential Total Cells Counted 100 100 Neutrophils % (Manual) 77 % (45-75) H 78 % (45-75) H Lymphocytes % (Manual) 8 % (20-45) L 12 % (20-45) L Monocytes % (Manual) 5 % (1-10) 5 % (1-10) Eosinophils % (Manual) 0 % (0-3) 1 % (0-3) Basophils % (Manual) 0 % (0-2) 0 % (0-2) Band Neutrophils 10 % (0-8) H 4 % (0-8) Platelet Estimate Adequate Adequate Platelet Morphology Normal Normal [place] Cells 1+ Sodium Level 133 MMOL/L (136-145) L 131 MMOL/L (136-145) L Potassium Level 5.8 MMOL/L (3.5-5.1) H 6.1 MMOL/L (3.5-5.1) *H Chloride Level 99 MMOL/L (98-107) 95 MMOL/L (98-107) L Carbon Dioxide Level 9 MMOL/L (21-32) *L 6 MMOL/L (21-32) *L Anion Gap 25 mmol/L (5-15) H 29 mmol/L (5-15) H Blood Urea Nitrogen 28 mg/dL (7-18) H 37 mg/dL (7-18) H Creatinine 2.2 MG/DL (0.55-1.30) #H 2.9 MG/DL (0.55-1.30) H Estimat Glomerular Filtration Rate 30.2 mL/min (>60) 21.9 mL/min (>60) Glucose Level 559 MG/DL (74-106) *H 567 MG/DL (74-106) *H Calcium Level 7.9 MG/DL (8.5-10.1) L 7.9 MG/DL (8.5-10.1) L Phosphorus Level 6.9 MG/DL (2.5-4.9) H 8.3 MG/DL (2.5-4.9) H Magnesium Level 1.9 MG/DL (1.8-2.4) 2.4 MG/DL (1.8-2.4) Total Bilirubin 1.4 MG/DL (0.2-1.0) H 1.5 MG/DL (0.2-1.0) H Direct Bilirubin 0.9 MG/DL (0.0-0.3) H 1.2 MG/DL (0.0-0.3) H Aspartate Amino Transf (AST/SGOT) 165 U/L (15-37) H 523 U/L (15-37) H Alanine Aminotransferase (ALT/SGPT) 41 U/L (12-78) 147 U/L (12-78) H Alkaline Phosphatase 110 U/L (46-116) 106 U/L (46-116) Troponin I 27.278 ng/mL (0.000-0.056) 32.795 ng/mL (0.000-0.056) Total Protein 6.3 G/DL (6.4-8.2) L 6.7 G/DL (6.4-8.2) Albumin 2.8 G/DL (3.4-5.0) L 2.9 G/DL (3.4-5.0) L Globulin 3.5 g/dL 3.8 g/dL Albumin/Globulin Ratio 0.8 (1.0-2.7) L 0.8 (1.0-2.7) L Cholesterol Level 130 MG/DL (< 200) Hypochromasia 1+ Anisocytosis 1+ Hemoglobin A1c 9.3 % (4.3-6.0) H Uric Acid 11.2 MG/DL (2.6-7.2) H C-Reactive Protein, Quantitative 22.7 mg/dL (0.00-0.90) H Arterial Blood pH 7.233 (7.350-7.450) Arterial Blood Partial Pressure CO2 25.4 mmHg (35.0-45.0) L Arterial Blood Partial Pressure O2 130.8 mmHg (75.0-100.0) H Arterial Blood HCO3 10.5 mmol/L (22.0-26.0) L Arterial Blood Oxygen Saturation 97.4 % (92.0-98.0) Arterial Blood Base Excess -15.4 Jam Test Positive Test 02/07/18 21:40 Activated Partial Thromboplast Time 45 SEC (23-33) H Sodium Level 136 MMOL/L (136-145) Potassium Level 3.4 MMOL/L (3.5-5.1) L Chloride Level 102 MMOL/L (98-107) Carbon Dioxide Level 16 MMOL/L (21-32) L Anion Gap 18 mmol/L (5-15) H Blood Urea Nitrogen 39 mg/dL (7-18) H Creatinine 2.9 MG/DL (0.55-1.30) H Estimat Glomerular Filtration Rate 21.9 mL/min (>60) Glucose Level 78 MG/DL (74-106) # Calcium Level 8.2 MG/DL (8.5-10.1) L Microbiology Date/Time Source Procedure Growth Status 02/06/18 18:10 Nasal Nares Influenza Types A,B Antigen (MAKENNA) - Final Complete 02/06/18 18:14 Urine,Clean Catch Urine Culture - Preliminary NO GROWTH Resulted Intake and Output 02/06/18 02/07/18 19:00 07:00 Intake Total 2255 ml 833.529 ml Output Total 150 ml 0 ml Balance 2105 ml 833.529 ml Intake Oral 0 ml 450 ml IV Total 2255 ml 383.529 ml Output Urine Total 150 ml 0 ml # Voids 1 Objective GENERAL: The patient is awake, responsive, but sleepy and somnolence. HEAD: Pupils are equal and reactive to light. Extraocular movements intact. NECK: Supple. No JVD. LUNGS: Poor air entry. No wheezing or rales. Poor inspiratory effort. HEART: S1, S2. Distant heart sounds. No murmur. ABDOMEN: Soft, nondistended, and nontender. Positive bowel sounds. EXTREMITIES: No cyanosis, clubbing. Edema on the left lower extremity. 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 Piccline on Left UE's. NEUROLOGIC: Cranial nerves II through XII are grossly intact. The patient is moving all the extremities. Gait was not assessed due to the patient's status. Assessment/Plan Assessment/Plan 1. Acute myocardial infarction with non-ST elevation myocardial , No Left BBB 2. DKA with Diabetic type 2, uncontrolled. 3. Metabolic Acidosis 4. Dementia. 5. Hypernatremia. 6. Hyperkalemia. 7. Dehydration. 8. Right AKA with peripheral vascular disease. 9. History of dementia. 10. Atherosclerotic heart disease with ischemic cardiomyopathy. 11. Acute kidney injury. 12. Peripheral vascular disease. 13. Hypothyroidism. 14. PCN allergy. PLAN: Transfer from [facility] to ICU. Monitor laboratory and cultures. on heparin drip, IV hydration, Dr. Saab, Pulmonary, Critical Care. Dr. Jones, Cardiology consultation Dr. Jessica, Nephrology Consult. Code Status: Full Code as per [facility] Broad-spectrum antibiotic: Levaquin and Aztreonam 2D Echo: Technically difficult study due to pts position. Moderate four chamber enlargement. Severe global left ventricular hypokinesis. Mid to distal septal, posterior wall and apical akinesis. Left ventricular ejection fraction estimated to be 15-20 %. Increased E point-interventricular septal separation c/w left ventricular dysfunction. Study quality precludes accurate assessment of regional wall motion. Mild left ventricular hypertrophy by 2-D. No evidence of pericardial effusion. All other cardiac chamber sizes are within normal limits. Focal aortic valve sclerosis with adequate cusp excursion. Thickened mitral valve leaflets with normal excursion. Mitral annulus and aortic root calcification. Pulmonic valve not well visualized. Normal tricuspid valve structure. IVC dilated at 2.4 cm without physiologic collapse suggestive of increased RA pressure. A color flow and spectral Doppler study was performed and revealed: Trace to mild aortic regurgitation. Moderate mitral regurgitation. Mitral inflow indicates restrictive pattern, implying severely elevated left atrial pressure (Grade III ). Moderate tricuspid regurgitation. Tricuspid systolic velocities suggests peak right ventricular systolic pressure of 89 mmHg, consistent with severe pulmonary hypertension. Trace pulmonic regurgitation present. Joni Robin MD February 07, 2018 23:57
[2018-02-08] VITALS (30 sets, daily range): BP systolic 75–120; BP diastolic 6–83
[2018-02-08] MEDS: Heparin 25,000u/D5W 500ml 500 ML IV SCH ×2 (00:25→09:31)
[2018-02-08] MEDS ORDERED: Metoclopramide 10mg/2ml Inj IVP SCH (01:00)
[2018-02-08] MEDS: Metoclopramide 10mg/2ml Inj IVP SCH ×2 (01:53→09:21)
[2018-02-08] MEDS: Insulin Rate Change 1 Each MISC PRN ×12 (04:15→20:26)
--- NOTE | 2018-02-08 06:00 | Consultation ---
DATE OF CONSULTATION: 02/07/2018 CARDIOLOGY CONSULTATION CONSULTING PHYSICIAN: Darnell Belcher M.D. REQUESTING PHYSICIAN: 1. Walker Saab M.D. 2. Joni Robin M.D. REASON FOR REFERRAL: Abnormal cardiac enzymes and chest pain. HISTORY OF PRESENT ILLNESS: This is a 67-year-old gentleman, who is really unable to provide any meaningful history whatsoever at this moment. The patient is in the intensive care unit and information is obtained from review of the patient's chart, emergency room, as well as physician's note. He is a resident of an extended care facility. Apparently, he was brought to the emergency room because of chest pain and pain all over. He does have a history of renal insufficiency with diabetes and history of coronary disease which are unknown and in the emergency room, he is demanding [place] for his pain. He stated that he had apparently shoulder pain as well. No other information is obtained from the patient at the moment of this evaluation. On review of Dr. Robin's note, it appears that he is complaining of chest pain at [facility] for several days, retrosternal area radiating to the shoulder associated with some nausea and vomiting. He was demanding [place]. Because the pain was thought to be musculoskeletal, he was given, that apparently did not improve and was subsequently transferred to the emergency room. Initial troponin was 2.74 and subsequently levels have increased to 27 and subsequently in the 30s. At the moment of this evaluation, the patient is unable to provide any meaningful history whatsoever. PAST MEDICAL HISTORY: Extensive and history of coronary artery disease with known prior myocardial infarction, history of hypertension, acute renal insufficiency, iron deficiency anemia, hyperlipidemia, peripheral vascular disease, anxiety, acute respiratory distress syndrome, chronic kidney disease, cognitive dysfunction, dysphagia, oropharyngeal disease, diabetes mellitus, hypothyroidism, major depression, toxic metabolic encephalopathy, dilated cardiomyopathy, gastroesophageal reflux disease and dementia. In 03/2017, when he was admitted, the records indicated that he has had significant severe cardiomyopathy with ejection fraction of 25% at that time. ALLERGIES: He is allergic to sulfa. SOCIAL HISTORY: He is a resident of a convalescent facility. No smoking or drinking at this time. REVIEW OF SYSTEMS: Unable to obtain. PHYSICAL EXAMINATION: GENERAL: Shows to be an elderly gentleman, confused, noncommunicative, arousable. NECK: Supple. No jugular venous distention is noted. LUNGS: Show decreased breath sounds at the bases, however, this is effort dependent. CARDIAC: Regular rhythm. ABDOMEN: Soft. Obese. Positive bowel sounds. EXTREMITIES: There is right above-knee amputation. The left shows evidence of edema. LABORATORY AND DIAGNOSTIC DATA: Echocardiogram was performed, interpreted as global hypokinesis of distal septal posterior wall and apical akinesis, ejection fraction of 15% to 20%, technically difficult study. Dilated IVC, moderate mitral regurgitation, moderate tricuspid regurgitation, pulmonary artery systolic pressure in the 80s. Renal ultrasound apparently shows no hydronephrosis, bilateral renal cysts. Chest x-ray shows left basal atelectasis. No acute process seen otherwise. Electrocardiogram performed shows evidence of intraventricular conduction delay, possible left bundle chronicity of which is unknown; however, it appears that in 03/2016, the patient was admitted here and left bundle-branch conduction defect was not present at that time. Urine culture so far negative and an influenza swab up from 02/06/2018 appears negative as well. ASSESSMENT AND PLAN: 1. Acute myocardial infarction with subacute presentation. 2. History of coronary artery disease. 3. Known cardiomyopathy. 4. Pulmonary hypertension. 5. Metabolic encephalopathy. 6. Peripheral vascular disease status post amputation. This patient was seen in cardiac consultation. Unfortunately, the patient is not able to provide any meaningful history. He sounds like he has had major medical problems. I am not sure if the patient is a candidate for any interventional therapy or conservative therapy at this time and the patient should be continued on heparin for the time being. Repeat EKG will be ordered. Repeat cardiac enzymes will be ordered. I suspect that at this time, even an interventional treatment may be too late to perform given that his pain was over the past few days prior to admission and his troponin is already at 37. Nevertheless, with a known history of cardiomyopathy and significant myocardial infarction, the patient would probably worsen his status further and he would probably require treatment for congestive heart failure. He should be on aspirin. He should be on beta-blockers as blood pressure allows and nitrates as blood pressure allows. It appears that the patient has been given a bolus of albumin so far for 06:07 blood pressure hovering between 97 to 115 systolic. Darnell Belcher M.D. DR: JUVENCIO JOB#: [id number] CC:
[2018-02-08] MEDS: Aluminum Hydroxide Gel Susp 15ml ORAL SCH ×3 (06:07→18:14)
[2018-02-08] MEDS: Sodium Citrate 30ml ORAL SCH ×3 (06:16→18:13)
[2018-02-08 06:22] LABS: BASOPHILS % (AUTO) 0.4 % (0.0-2.0); HEMATOCRIT 30.4 % (42.0-52.0); HEMOGLOBIN 9.9 G/DL (14.2-18.0); LYMPHOCYTES % (AUTO) 9.7 % (20.0-45.0); MEAN CORPUSCULAR VOLUME 84 FL (80-99); MONOCYTES % (AUTO) 6.9 % (1.0-10.0); NEUTROPHILS % (AUTO) 82.9 % (45.0-75.0); PLATELET COUNT 181 K/UL (150-450); RED BLOOD COUNT 3.62 M/UL (4.70-6.10); RED CELL DISTRIBUTION WIDTH 13.2 % (11.6-14.8); WHITE BLOOD COUNT 13.5 K/UL (4.8-10.8)
[2018-02-08] MEDS: Aztreonam Inj 1 GM in NS 50 ML IVPB SCH ×3 (06:23→22:50)
[2018-02-08 08:32] LABS: CHOLESTEROL 83 MG/DL (< 200); HDL CHOLESTEROL 32 MG/DL (40-60); TRIGLYCERIDES 62 MG/DL (30-150)
[2018-02-08 08:56] LABS: CREATINE KINASE 598 U/L (26-308)
[2018-02-08] MEDS: Aspirin EC 81mg tab ORAL SCH (09:21)
[2018-02-08] MEDS: Pantoprazole Inj IVP SCH (09:21)
[2018-02-08 09:51] LABS: ANION GAP 18 mmol/L (5-15); BLOOD UREA NITROGEN 41 mg/dL (7-18); CALCIUM 7.7 MG/DL (8.5-10.1); CARBON DIOXIDE 19 MMOL/L (21-32); CHLORIDE 102 MMOL/L (98-107); CREATININE 2.9 MG/DL (0.55-1.30); SODIUM 139 MMOL/L (136-145)
[2018-02-08 10:05] LABS: ALANINE AMINOTRANSFERASE 1326 U/L (12-78); ALBUMIN 2.9 G/DL (3.4-5.0); ALBUMIN/GLOBULIN RATIO 0.8 (1.0-2.7); ALKALINE PHOSPHATASE 90 U/L (46-116); ASPARTATE AMINO TRANSFERASE 1113 U/L (15-37); PHOSPHORUS 4.9 MG/DL (2.5-4.9)
--- NOTE | 2018-02-08 10:12 | Pulmonolgy Critical Care Note ---
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 Critical Care - Objective Last 24 Hour Vital Signs Date Time Temp Pulse Resp B/P (MAP) Pulse Ox O2 Delivery O2 Flow Rate FiO2 02/08/18 07:00 106 22 103/75 100 Nasal Cannula 3.0 02/08/18 06:51 Nasal Cannula 2.0 28 02/08/18 06:51 100 Nasal Cannula 2.0 28 02/08/18 06:50 106 18 Nasal Cannula 2.0 28 02/08/18 06:00 98.4 102 21 101/67 100 Nasal Cannula 3.0 98.4 02/08/18 05:00 101 19 101/62 100 Nasal Cannula 3.0 02/08/18 04:00 101 17 99/57 100 Nasal Cannula 3.0 02/08/18 04:00 99 02/08/18 03:00 100 18 98/60 100 Nasal Cannula 3.0 02/08/18 02:00 99 20 102/59 100 Nasal Cannula 3.0 02/08/18 01:00 98 19 101/62 100 Nasal Cannula 3.0 02/08/18 00:00 98 20 104/65 100 Nasal Cannula 3.0 02/08/18 00:00 99 02/07/18 23:00 98 19 90/57 100 Nasal Cannula 3.0 02/07/18 22:00 94 19 88/53 100 Nasal Cannula 3.0 02/07/18 21:00 97 20 98/55 100 Nasal Cannula 3.0 02/07/18 20:00 98.0 99 22 96/64 100 Nasal Cannula 3.0 98.0 02/07/18 19:37 Nasal Cannula 2.0 28 02/07/18 19:36 102 22 Nasal Cannula 2.0 02/07/18 19:36 100 Nasal Cannula 2.0 28 02/07/18 19:00 98.0 100 25 97/58 98 Nasal Cannula 3.0 98.0 02/07/18 18:00 98.1 100 18 111/58 100 Nasal Cannula 3.0 98.1 02/07/18 17:00 98.1 99 19 99/58 100 Nasal Cannula 3.0 98.1 02/07/18 16:00 97 02/07/18 16:00 98.1 98 19 99/54 100 Nasal Cannula 3.0 98.1 02/07/18 15:00 98.7 94 17 94/51 100 Nasal Cannula 3.0 98.7 02/07/18 14:00 98.7 92 18 93/57 100 Nasal Cannula 3.0 98.7 02/07/18 13:00 98.4 77 21 105/60 97 Nasal Cannula 2.0 98.4 02/07/18 12:00 69 Status: awake Condition: critical HEENT: atraumatic Neck: full ROM Lungs: rhonchi Heart: HR/BP stable Abdomen: soft, non-tender Extremities: no C/C/E Micro: Microbiology Date/Time Source Procedure Growth Status 02/06/18 18:05 Blood Blood Culture - Preliminary NO GROWTH AFTER 24 HOURS Resulted 02/06/18 17:45 Blood Blood Culture - Preliminary NO GROWTH AFTER 24 HOURS Resulted 02/06/18 18:10 Nasal Nares Influenza Types A,B Antigen (MAKENNA) - Final Complete 02/06/18 18:14 Urine,Clean Catch Urine Culture - Preliminary Resulted Accucheck: 104 Critical Care - Subjective ROS Limited/Unobtainable: No ICU Day: 2 Condition: critical EKG Rhythm: Sinus Rhythm FI02: 28 Sputum Amount: None Drips: insulin drip I&O: Intake and Output 02/07/18 02/08/18 19:00 07:00 Intake Total 1193.232 ml 2709.254 ml Output Total 110 ml 50 ml Balance 1083.232 ml 2659.254 ml IV Total 1193.232 ml 2709.254 ml Output Urine Total 110 ml 50 ml # Bowel Movements 1 CXR: cardiomegaly Labs: Laboratory Tests Test 02/07/18 14:00 5/16/18 17:17 02/07/18 21:40 02/08/18 04:00 White Blood Count 21.0 K/UL (4.8-10.8) H Red Blood Count 4.01 M/UL (4.70-6.10) L Hemoglobin 11.0 G/DL (14.2-18.0) L Hematocrit 35.7 % (42.0-52.0) L Mean Corpuscular Volume 89 FL (80-99) Mean Corpuscular Hemoglobin 27.6 PG (27.0-31.0) Mean Corpuscular Hemoglobin Concent 30.9 G/DL (32.0-36.0) L Red Cell Distribution Width 13.5 % (11.6-14.8) Platelet Count 251 K/UL (150-450) Mean Platelet Volume 9.5 FL (6.5-10.1) Neutrophils (%) (Auto) % (45.0-75.0) Lymphocytes (%) (Auto) % (20.0-45.0) Monocytes (%) (Auto) % (1.0-10.0) Eosinophils (%) (Auto) % (0.0-3.0) Basophils (%) (Auto) % (0.0-2.0) Differential Total Cells Counted 100 Neutrophils % (Manual) 78 % (45-75) H Lymphocytes % (Manual) 12 % (20-45) L Monocytes % (Manual) 5 % (1-10) Eosinophils % (Manual) 1 % (0-3) Basophils % (Manual) 0 % (0-2) Band Neutrophils 4 % (0-8) Platelet Estimate Adequate Platelet Morphology Normal Hypochromasia 1+ Anisocytosis 1+ Activated Partial Thromboplast Time 106 SEC (23-33) H 45 SEC (23-33) H Sodium Level 131 MMOL/L (136-145) L 136 MMOL/L (136-145) Potassium Level 6.1 MMOL/L (3.5-5.1) *H 3.4 MMOL/L (3.5-5.1) L Chloride Level 95 MMOL/L (98-107) L 102 MMOL/L (98-107) Carbon Dioxide Level 6 MMOL/L (21-32) *L 16 MMOL/L (21-32) L Anion Gap 29 mmol/L (5-15) H 18 mmol/L (5-15) H Blood Urea Nitrogen 37 mg/dL (7-18) H 39 mg/dL (7-18) H Creatinine 2.9 MG/DL (0.55-1.30) H 2.9 MG/DL (0.55-1.30) H Estimat Glomerular Filtration Rate 21.9 mL/min (>60) 21.9 mL/min (>60) Glucose Level 567 MG/DL (74-106) *H 78 MG/DL (74-106) # Hemoglobin A1c 9.3 % (4.3-6.0) H Uric Acid 11.2 MG/DL (2.6-7.2) H 12.0 MG/DL (2.6-7.2) H Calcium Level 7.9 MG/DL (8.5-10.1) L 8.2 MG/DL (8.5-10.1) L Phosphorus Level 8.3 MG/DL (2.5-4.9) H Magnesium Level 2.4 MG/DL (1.8-2.4) Total Bilirubin 1.5 MG/DL (0.2-1.0) H Direct Bilirubin 1.2 MG/DL (0.0-0.3) H Aspartate Amino Transf (AST/SGOT) 523 U/L (15-37) H Alanine Aminotransferase (ALT/SGPT) 147 U/L (12-78) H Alkaline Phosphatase 106 U/L (46-116) Troponin I 32.795 ng/mL (0.000-0.056) C-Reactive Protein, Quantitative 22.7 mg/dL (0.00-0.90) H Total Protein 6.7 G/DL (6.4-8.2) Albumin 2.9 G/DL (3.4-5.0) L Globulin 3.8 g/dL Albumin/Globulin Ratio 0.8 (1.0-2.7) L Arterial Blood pH 7.233 (7.350-7.450) Arterial Blood Partial Pressure CO2 25.4 mmHg (35.0-45.0) L Arterial Blood Partial Pressure O2 130.8 mmHg (75.0-100.0) H Arterial Blood HCO3 10.5 mmol/L (22.0-26.0) L Arterial Blood Oxygen Saturation 97.4 % (92.0-98.0) Arterial Blood Base Excess -15.4 Jam Test Positive Urine Eosinophils Pending Pro-B-Type Natriuretic Peptide > 97780 pg/mL (0-125) H Thyroid Stimulating Hormone (TSH) 0.093 uiU/mL (0.358-3.740) Test 02/08/18 05:50 02/08/18 08:45 02/08/18 08:50 White Blood Count 13.5 K/UL (4.8-10.8) H Red Blood Count 3.62 M/UL (4.70-6.10) L Hemoglobin 9.9 G/DL (14.2-18.0) L Hematocrit 30.4 % (42.0-52.0) L Mean Corpuscular Volume 84 FL (80-99) Mean Corpuscular Hemoglobin 27.5 PG (27.0-31.0) Mean Corpuscular Hemoglobin Concent 32.7 G/DL (32.0-36.0) Red Cell Distribution Width 13.2 % (11.6-14.8) Platelet Count 181 K/UL (150-450) Mean Platelet Volume 10.3 FL (6.5-10.1) H Neutrophils (%) (Auto) 82.9 % (45.0-75.0) H Lymphocytes (%) (Auto) 9.7 % (20.0-45.0) L Monocytes (%) (Auto) 6.9 % (1.0-10.0) Eosinophils (%) (Auto) 0.0 % (0.0-3.0) Basophils (%) (Auto) 0.4 % (0.0-2.0) Erythrocyte Sedimentation Rate 35 MM/HR (0-20) H Activated Partial Thromboplast Time 66 SEC (23-33) H Total Creatine Kinase 598 U/L (26-308) H Troponin I 22.697 ng/mL (0.000-0.056) Triglycerides Level 62 MG/DL (30-150) Cholesterol Level 83 MG/DL (< 200) LDL Cholesterol 41 mg/dL (<100) HDL Cholesterol 32 MG/DL (40-60) L Cholesterol/HDL Ratio 2.6 (3.3-4.4) L Hepatitis A IgM Antibody Pending Hepatitis B Surface Antigen Pending Hepatitis B Core IgM Antibody Pending Hepatitis C Antibody Pending Sodium Level 139 MMOL/L (136-145) Potassium Level 3.0 MMOL/L (3.5-5.1) L Chloride Level 102 MMOL/L (98-107) Carbon Dioxide Level 19 MMOL/L (21-32) L Anion Gap 18 mmol/L (5-15) H Blood Urea Nitrogen 41 mg/dL (7-18) H Creatinine 2.9 MG/DL (0.55-1.30) H Estimat Glomerular Filtration Rate 21.9 mL/min (>60) Glucose Level 99 MG/DL (74-106) Calcium Level 7.7 MG/DL (8.5-10.1) L Phosphorus Level 4.9 MG/DL (2.5-4.9) Magnesium Level 2.0 MG/DL (1.8-2.4) Total Bilirubin 1.0 MG/DL (0.2-1.0) Aspartate Amino Transf (AST/SGOT) 1113 U/L (15-37) H Alanine Aminotransferase (ALT/SGPT) 1326 U/L (12-78) H Alkaline Phosphatase 90 U/L (46-116) Total Protein 6.4 G/DL (6.4-8.2) Albumin 2.9 G/DL (3.4-5.0) L Globulin 3.5 g/dL Albumin/Globulin Ratio 0.8 (1.0-2.7) L Vancomycin Level Trough Pending Arterial Blood pH 7.357 (7.350-7.450) Arterial Blood Partial Pressure CO2 30.6 mmHg (35.0-45.0) L Arterial Blood Partial Pressure O2 108.1 mmHg (75.0-100.0) H Arterial Blood HCO3 16.8 mmol/L (22.0-26.0) L Arterial Blood Oxygen Saturation 96.9 % (92.0-98.0) Arterial Blood Base Excess -7.7 Jam Test Positive Walker Saab MD February 08, 2018 10:12
--- NOTE | 2018-02-08 11:23 | Infectious Diseases Prog Note ---
Assessment/Plan Assessment/Plan ASSESSMENT: The patient is a 67-year-old male with, +ve blood cX : 09/28 GPC ( m/l contaminant ) Fever, DP Leukocytosis, improving Transaminitis worsening (probably due to right-sided heart failure, also rule out chronic hepatitis.) Possible UTI / cystitis. Bronchitis MRSA colonization XAVIER CAD/myocardial infarction. Hypertension. Diabetes. Anemia. Hyperlipidemia. Peripheral vascular disease. Anxiety. Degenerative joint disease. Hyperthyroidism. Dilated cardiomyopathy. GERD. Dementia PLAN: continue the patient on aztreonam and levaquin day #2,add IV Vanco day #1 Monitor CBC. Monitor BMP. Monitor cultures (blood, urine, sputum). Hepatitis panel. Monitor chest x-ray. Monitor the patient's clinical course. Subjective Allergies: Coded Allergies: PENICILLINS (Verified Allergy, Unknown, 04/16/17) Subjective Afebrile Objective Vital Signs Last 24 Hour Vital Signs Date Time Temp Pulse Resp B/P (MAP) Pulse Ox O2 Delivery O2 Flow Rate FiO2 02/08/18 10:00 107 21 111/63 100 Nasal Cannula 3.0 02/08/18 09:00 105 21 108/60 100 Nasal Cannula 3.0 02/08/18 08:00 108 02/08/18 08:00 97.9 108 21 110/71 100 Nasal Cannula 3.0 97.9 02/08/18 07:00 106 22 103/75 100 Nasal Cannula 3.0 02/08/18 06:51 Nasal Cannula 2.0 28 02/08/18 06:51 100 Nasal Cannula 2.0 28 02/08/18 06:50 106 18 Nasal Cannula 2.0 28 02/08/18 06:00 98.4 102 21 101/67 100 Nasal Cannula 3.0 98.4 02/08/18 05:00 101 19 101/62 100 Nasal Cannula 3.0 02/08/18 04:00 101 17 99/57 100 Nasal Cannula 3.0 02/08/18 04:00 99 02/08/18 03:00 100 18 98/60 100 Nasal Cannula 3.0 02/08/18 02:00 99 20 102/59 100 Nasal Cannula 3.0 02/08/18 01:00 98 19 101/62 100 Nasal Cannula 3.0 02/08/18 00:00 98 20 104/65 100 Nasal Cannula 3.0 02/08/18 00:00 99 02/07/18 23:00 98 19 90/57 100 Nasal Cannula 3.0 02/07/18 22:00 94 19 88/53 100 Nasal Cannula 3.0 02/07/18 21:00 97 20 98/55 100 Nasal Cannula 3.0 02/07/18 20:00 98.0 99 22 96/64 100 Nasal Cannula 3.0 98.0 02/07/18 19:37 Nasal Cannula 2.0 28 02/07/18 19:36 102 22 Nasal Cannula 2.0 02/07/18 19:36 100 Nasal Cannula 2.0 28 02/07/18 19:00 98.0 100 25 97/58 98 Nasal Cannula 3.0 98.0 02/07/18 18:00 98.1 100 18 111/58 100 Nasal Cannula 3.0 98.1 02/07/18 17:00 98.1 99 19 99/58 100 Nasal Cannula 3.0 98.1 02/07/18 16:00 97 02/07/18 16:00 98.1 98 19 99/54 100 Nasal Cannula 3.0 98.1 02/07/18 15:00 98.7 94 17 94/51 100 Nasal Cannula 3.0 98.7 02/07/18 14:00 98.7 92 18 93/57 100 Nasal Cannula 3.0 98.7 02/07/18 13:00 98.4 77 21 105/60 97 Nasal Cannula 2.0 98.4 02/07/18 12:00 69 Height (Feet): 5 Height (Inches): 7.00 Weight (Pounds): 165 HEENT: mucous membranes moist Respiratory/Chest: no respiratory distress Cardiovascular: regularly irregular Abdomen: non distended Microbiology Date/Time Source Procedure Growth Status 02/06/18 18:05 Blood Blood Culture - Preliminary NO GROWTH AFTER 24 HOURS Resulted 02/06/18 17:45 Blood Blood Culture - Preliminary Resulted 02/06/18 18:46 Nasal Nares MRSA Culture - Final Staphylococcus Aureus - Mrsa Complete 02/06/18 18:10 Nasal Nares Influenza Types A,B Antigen (MAKENNA) - Final Complete 02/06/18 18:14 Urine,Clean Catch Urine Culture - Preliminary Resulted Laboratory Tests Test 02/07/18 14:00 02/07/18 17:17 02/07/18 21:40 02/08/18 04:00 White Blood Count 21.0 K/UL (4.8-10.8) H Red Blood Count 4.01 M/UL (4.70-6.10) L Hemoglobin 11.0 G/DL (14.2-18.0) L Hematocrit 35.7 % (42.0-52.0) L Mean Corpuscular Volume 89 FL (80-99) Mean Corpuscular Hemoglobin 27.6 PG (27.0-31.0) Mean Corpuscular Hemoglobin Concent 30.9 G/DL (32.0-36.0) L Red Cell Distribution Width 13.5 % (11.6-14.8) Platelet Count 251 K/UL (150-450) Mean Platelet Volume 9.5 FL (6.5-10.1) Neutrophils (%) (Auto) % (45.0-75.0) Lymphocytes (%) (Auto) % (20.0-45.0) Monocytes (%) (Auto) % (1.0-10.0) Eosinophils (%) (Auto) % (0.0-3.0) Basophils (%) (Auto) % (0.0-2.0) Differential Total Cells Counted 100 Neutrophils % (Manual) 78 % (45-75) H Lymphocytes % (Manual) 12 % (20-45) L Monocytes % (Manual) 5 % (1-10) Eosinophils % (Manual) 1 % (0-3) Basophils % (Manual) 0 % (0-2) Band Neutrophils 4 % (0-8) Platelet Estimate Adequate Platelet Morphology Normal Hypochromasia 1+ Anisocytosis 1+ Activated Partial Thromboplast Time 106 SEC (23-33) H 45 SEC (23-33) H Sodium Level 131 MMOL/L (136-145) L 136 MMOL/L (136-145) Potassium Level 6.1 MMOL/L (3.5-5.1) *H 3.4 MMOL/L (3.5-5.1) L Chloride Level 95 MMOL/L (98-107) L 102 MMOL/L (98-107) Carbon Dioxide Level 6 MMOL/L (21-32) *L 16 MMOL/L (21-32) L Anion Gap 29 mmol/L (5-15) H 18 mmol/L (5-15) H Blood Urea Nitrogen 37 mg/dL (7-18) H 39 mg/dL (7-18) H Creatinine 2.9 MG/DL (0.55-1.30) H 2.9 MG/DL (0.55-1.30) H Estimat Glomerular Filtration Rate 21.9 mL/min (>60) 21.9 mL/min (>60) Glucose Level 567 MG/DL (74-106) *H 78 MG/DL (74-106) # Hemoglobin A1c 9.3 % (4.3-6.0) H Uric Acid 11.2 MG/DL (2.6-7.2) H 12.0 MG/DL (2.6-7.2) H Calcium Level 7.9 MG/DL (8.5-10.1) L 8.2 MG/DL (8.5-10.1) L Phosphorus Level 8.3 MG/DL (2.5-4.9) H Magnesium Level 2.4 MG/DL (1.8-2.4) Total Bilirubin 1.5 MG/DL (0.2-1.0) H Direct Bilirubin 1.2 MG/DL (0.0-0.3) H Aspartate Amino Transf (AST/SGOT) 523 U/L (15-37) H Alanine Aminotransferase (ALT/SGPT) 147 U/L (12-78) H Alkaline Phosphatase 106 U/L (46-116) Troponin I 32.795 ng/mL (0.000-0.056) C-Reactive Protein, Quantitative 22.7 mg/dL (0.00-0.90) H Total Protein 6.7 G/DL (6.4-8.2) Albumin 2.9 G/DL (3.4-5.0) L Globulin 3.8 g/dL Albumin/Globulin Ratio 0.8 (1.0-2.7) L Arterial Blood pH 7.233 (7.350-7.450) Arterial Blood Partial Pressure CO2 25.4 mmHg (35.0-45.0) L Arterial Blood Partial Pressure O2 130.8 mmHg (75.0-100.0) H Arterial Blood HCO3 10.5 mmol/L (22.0-26.0) L Arterial Blood Oxygen Saturation 97.4 % (92.0-98.0) Arterial Blood Base Excess -15.4 Jam Test Positive Urine Eosinophils None seen Pro-B-Type Natriuretic Peptide > 91729 pg/mL (0-125) H Thyroid Stimulating Hormone (TSH) 0.093 uiU/mL (0.358-3.740) Test 02/08/18 05:50 02/08/18 08:45 02/08/18 08:50 White Blood Count 13.5 K/UL (4.8-10.8) H Red Blood Count 3.62 M/UL (4.70-6.10) L Hemoglobin 9.9 G/DL (14.2-18.0) L Hematocrit 30.4 % (42.0-52.0) L Mean Corpuscular Volume 84 FL (80-99) Mean Corpuscular Hemoglobin 27.5 PG (27.0-31.0) Mean Corpuscular Hemoglobin Concent 32.7 G/DL (32.0-36.0) Red Cell Distribution Width 13.2 % (11.6-14.8) Platelet Count 181 K/UL (150-450) Mean Platelet Volume 10.3 FL (6.5-10.1) H Neutrophils (%) (Auto) 82.9 % (45.0-75.0) H Lymphocytes (%) (Auto) 9.7 % (20.0-45.0) L Monocytes (%) (Auto) 6.9 % (1.0-10.0) Eosinophils (%) (Auto) 0.0 % (0.0-3.0) Basophils (%) (Auto) 0.4 % (0.0-2.0) Erythrocyte Sedimentation Rate 35 MM/HR (0-20) H Activated Partial Thromboplast Time 66 SEC (23-33) H Total Creatine Kinase 598 U/L (26-308) H Troponin I 22.697 ng/mL (0.000-0.056) Triglycerides Level 62 MG/DL (30-150) Cholesterol Level 83 MG/DL (< 200) LDL Cholesterol 41 mg/dL (<100) HDL Cholesterol 32 MG/DL (40-60) L Cholesterol/HDL Ratio 2.6 (3.3-4.4) L Hepatitis A IgM Antibody Pending Hepatitis B Surface Antigen Pending Hepatitis B Core IgM Antibody Pending Hepatitis C Antibody Pending Sodium Level 139 MMOL/L (136-145) Potassium Level 3.0 MMOL/L (3.5-5.1) L Chloride Level 102 MMOL/L (98-107) Carbon Dioxide Level 19 MMOL/L (21-32) L Anion Gap 18 mmol/L (5-15) H Blood Urea Nitrogen 41 mg/dL (7-18) H Creatinine 2.9 MG/DL (0.55-1.30) H Estimat Glomerular Filtration Rate 21.9 mL/min (>60) Glucose Level 99 MG/DL (74-106) Calcium Level 7.7 MG/DL (8.5-10.1) L Phosphorus Level 4.9 MG/DL (2.5-4.9) Magnesium Level 2.0 MG/DL (1.8-2.4) Total Bilirubin 1.0 MG/DL (0.2-1.0) Aspartate Amino Transf (AST/SGOT) 1113 U/L (15-37) H Alanine Aminotransferase (ALT/SGPT) 1326 U/L (12-78) H Alkaline Phosphatase 90 U/L (46-116) Total Protein 6.4 G/DL (6.4-8.2) Albumin 2.9 G/DL (3.4-5.0) L Globulin 3.5 g/dL Albumin/Globulin Ratio 0.8 (1.0-2.7) L Vancomycin Level Trough 20.6 ug/mL (5.0-12.0) H Arterial Blood pH 7.357 (7.350-7.450) Arterial Blood Partial Pressure CO2 30.6 mmHg (35.0-45.0) L Arterial Blood Partial Pressure O2 108.1 mmHg (75.0-100.0) H Arterial Blood HCO3 16.8 mmol/L (22.0-26.0) L Arterial Blood Oxygen Saturation 96.9 % (92.0-98.0) Arterial Blood Base Excess -7.7 Jam Test Positive Current Medications Medications (Trade) Dose Ordered Sig/Eliel Route PRN Reason Start Time Stop Time Status Last Admin Dose Admin Acetaminophen (Tylenol) 650 mg Q4H PRN ORAL T>100.5 02/07/18 18:00 03/08/18 17:59 Albuterol/ Ipratropium (Albuterol/ Ipratropium) 3 ml Q4H PRN HHN Shortness of Breath 02/07/18 18:00 02/11/18 17:59 Aluminum Hydroxide (Amphojel) 960 mg Q6H ORAL 02/07/18 23:00 03/09/18 10:59 02/08/18 06:07 Aspirin (Ecotrin) 81 mg DAILY ORAL 02/07/18 22:00 03/09/18 21:59 02/08/18 09:21 Atorvastatin Calcium (Lipitor) 80 mg BEDTIME ORAL 02/07/18 22:00 03/09/18 21:59 02/07/18 22:43 Aztreonam 1 gm/ Sodium Chloride 50 ml @ 100 mls/hr Q8H IVPB 02/07/18 22:30 02/13/18 22:29 02/08/18 06:23 Chlorhexidine Gluconate (Laura-Hex 2%) 1 applic DAILY@2000 TOPIC 02/07/18 20:00 03/09/18 19:59 02/07/18 20:16 Clonidine HCl (Catapres Tab) 0.1 mg Q8H PRN ORAL SBP > 160mmHg 02/07/18 18:00 03/08/18 17:59 Dextrose (Dextrose 50%) 25 ml PRN PRN IV HYPOGLYCEMIA 02/07/18 14:00 03/09/18 13:59 Dextrose (Dextrose 50%) 50 ml PRN PRN IV HYPOGLYCEMIA 02/07/18 14:00 03/09/18 13:59 Duloxetine HCl (Cymbalta) 30 mg DAILY ORAL 02/09/18 09:00 03/11/18 08:59 UNV Gabapentin (Neurontin) 300 mg Q8HR ORAL 02/07/18 22:00 03/08/18 21:59 02/08/18 06:21 Heparin Sodium/ Dextrose 500 ml @ 19.459 mls/ hr adjust per protocol IV 02/07/18 22:45 03/09/18 15:29 02/08/18 09:31 Insulin Human Regular (NovoLIN R) 5 units PRN PRN IV BS 200-299 02/07/18 14:00 03/09/18 13:59 02/07/18 19:15 Insulin Human Regular (NovoLIN R) 10 units PRN PRN IV BS=>300 02/07/18 14:00 03/09/18 13:59 02/07/18 18:09 Insulin Human Regular 100 units/ Sodium Chloride 101 ml @ 0 mls/hr Q24H IV 02/07/18 16:01 03/09/18 16:00 02/07/18 18:08 Levofloxacin 150 ml @ 100 mls/hr Q48H IVPB 02/07/18 21:00 02/14/18 20:59 02/07/18 21:31 Levothyroxine Sodium (Synthroid) 100 mcg ACBREAKFAST ORAL 02/08/18 06:30 03/09/18 06:29 02/08/18 06:28 Metoclopramide HCl (Reglan) 10 mg Q8H IVP 02/08/18 02:00 03/10/18 01:59 02/08/18 09:21 Mirtazapine (Remeron) 15 mg BEDTIME ORAL 02/07/18 21:00 03/08/18 20:59 02/07/18 21:29 Miscellaneous Medication (Insulin Rate Change) 1 ea PRN PRN MISC Hypoglycemia 02/07/18 14:00 03/09/18 13:59 02/08/18 10:53 Nitroglycerin (Ntg) 0.4 mg Q5MIN X 3 DOSES PRN SL Prn Chest Pain 02/07/18 17:15 03/08/18 18:44 Ondansetron HCl (Zofran) 4 mg Q6H PRN IVP Nausea & Vomiting 02/07/18 18:45 03/08/18 18:44 Pantoprazole (Protonix) 40 mg EVERY 12 HOURS IVP 02/07/18 21:00 03/09/18 10:29 02/08/18 09:21 Polyethylene Glycol (Miralax) 17 gm DAILYPRN PRN ORAL Constipation 02/07/18 18:45 03/08/18 18:44 Sodium Chloride 1,000 ml @ 150 mls/hr Q6H40M IV 02/07/18 17:15 03/09/18 16:59 02/08/18 04:08 Sodium Citrate (Bicitra) 30 ml EVERY 6 HOURS ORAL 02/07/18 18:00 03/09/18 11:59 02/08/18 06:16 Temazepam (Restoril) 15 mg HSPRN PRN ORAL Insomnia 02/07/18 21:00 02/13/18 20:59 Josr Hinojosa MD February 08, 2018 11:23
[2018-02-08] MEDS ORDERED: DULoxetine 30mg cap ORAL SCH (11:45)
[2018-02-08] MEDS ORDERED: Aluminum Hydroxide Gel Susp 15ml ORAL SCH (13:00)
--- NOTE | 2018-02-08 13:13 | Nephrology Progress Note ---
Assessment/Plan Problem List: (1) Acute on chronic renal failure (2) Diabetic keto-acidosis (3) Peripheral vascular disease (4) Cardiomyopathy (5) Sepsis (6) Elevated liver enzymes Assessment Acute renal failure- Dehydration ? CKD DM and Nephropathy Cardiomyopathy with low EjFx DKA [place] Dementia HypoThyroidism PVD Rt AKA Plan change NPO- stop statins in view of high lfts stop IV add coreg Antonio Kidney KP Urine studies 2D Echo 20% EjFx ABG K supplement Subjective ROS Limited/Unobtainable: No Constitutional: Reports: malaise Objective Objective Last 24 Hour Vital Signs Date Time Temp Pulse Resp B/P (MAP) Pulse Ox O2 Delivery O2 Flow Rate FiO2 02/08/18 12:35 103 20 99 Nasal Cannula 2.0 28 02/08/18 12:25 108 28 100 Nasal Cannula 2.0 28 02/08/18 10:00 107 21 111/63 100 Nasal Cannula 3.0 02/08/18 09:00 105 21 108/60 100 Nasal Cannula 3.0 02/08/18 08:00 108 02/08/18 08:00 97.9 108 21 110/71 100 Nasal Cannula 3.0 97.9 02/08/18 07:00 106 22 103/75 100 Nasal Cannula 3.0 02/08/18 06:51 Nasal Cannula 2.0 28 02/08/18 06:51 100 Nasal Cannula 2.0 28 02/08/18 06:50 106 18 Nasal Cannula 2.0 28 02/08/18 06:00 98.4 102 21 101/67 100 Nasal Cannula 3.0 98.4 02/08/18 05:00 101 19 101/62 100 Nasal Cannula 3.0 02/08/18 04:00 101 17 99/57 100 Nasal Cannula 3.0 02/08/18 04:00 99 02/08/18 03:00 100 18 98/60 100 Nasal Cannula 3.0 02/08/18 02:00 99 20 102/59 100 Nasal Cannula 3.0 02/08/18 01:00 98 19 101/62 100 Nasal Cannula 3.0 02/08/18 00:00 98 20 104/65 100 Nasal Cannula 3.0 02/08/18 00:00 99 02/07/18 23:00 98 19 90/57 100 Nasal Cannula 3.0 02/07/18 22:00 94 19 88/53 100 Nasal Cannula 3.0 02/07/18 21:00 97 20 98/55 100 Nasal Cannula 3.0 02/07/18 20:00 98.0 99 22 96/64 100 Nasal Cannula 3.0 98.0 02/07/18 19:37 Nasal Cannula 2.0 28 02/07/18 19:36 102 22 Nasal Cannula 2.0 02/07/18 19:36 100 Nasal Cannula 2.0 28 02/07/18 19:00 98.0 100 25 97/58 98 Nasal Cannula 3.0 98.0 02/07/18 18:00 98.1 100 18 111/58 100 Nasal Cannula 3.0 98.1 02/07/18 17:00 98.1 99 19 99/58 100 Nasal Cannula 3.0 98.1 02/07/18 16:00 97 02/07/18 16:00 98.1 98 19 99/54 100 Nasal Cannula 3.0 98.1 02/07/18 15:00 98.7 94 17 94/51 100 Nasal Cannula 3.0 98.7 02/07/18 14:00 98.7 92 18 93/57 100 Nasal Cannula 3.0 98.7 Intake and Output 02/07/18 02/08/18 19:00 07:00 Intake Total 1193.232 ml 2709.254 ml Output Total 110 ml 50 ml Balance 1083.232 ml 2659.254 ml IV Total 1193.232 ml 2709.254 ml Output Urine Total 110 ml 50 ml # Bowel Movements 1 Laboratory Tests 02/07/18 14:00: White Blood Count 21.0H, Red Blood Count 4.01L, Hemoglobin 11.0L, Hematocrit 35.7L, Mean Corpuscular Volume 89, Mean Corpuscular Hemoglobin 27.6, Mean Corpuscular Hemoglobin Concent 30.9L, Red Cell Distribution Width 13.5, Platelet Count 251, Mean Platelet Volume 9.5, Neutrophils (%) (Auto) , Lymphocytes (%) (Auto) , Monocytes (%) (Auto) , Eosinophils (%) (Auto) , Basophils (%) (Auto) , Differential Total Cells Counted 100, Neutrophils % ( Manual) 78H, Lymphocytes % (Manual) 12L, Monocytes % (Manual) 5, Eosinophils % ( Manual) 1, Basophils % (Manual) 0, Band Neutrophils 4, Platelet Estimate Adequate, Platelet Morphology Normal, Hypochromasia 1+, Anisocytosis 1+, Activated Partial Thromboplast Time 106H, Sodium Level 131L, Potassium Level 6.1 *H, Chloride Level 95L, Carbon Dioxide Level 6*L, Anion Gap 29H, Blood Urea Nitrogen 37H, Creatinine 2.9H, Estimat Glomerular Filtration Rate 21.9, Glucose Level 567*H, Hemoglobin A1c 9.3H, Uric Acid 11.2H, Calcium Level 7.9L, Phosphorus Level 8.3H, Magnesium Level 2.4, Total Bilirubin 1.5H, Direct Bilirubin 1.2H, Aspartate Amino Transf (AST/SGOT) 523H, Alanine Aminotransferase (ALT/SGPT) 147H, Alkaline Phosphatase 106, Troponin I 32.795H, C-Reactive Protein, Quantitative 22.7H, Total Protein 6.7, Albumin 2.9L, Globulin 3.8, Albumin/Globulin Ratio 0.8L 02/07/18 17:17: Arterial Blood pH 7.233*L, Arterial Blood Partial Pressure CO2 25.4L, Arterial Blood Partial Pressure O2 130.8H, Arterial Blood HCO3 10.5L, Arterial Blood Oxygen Saturation 97.4, Arterial Blood Base Excess -15.4, Jam Test Positive 02/07/18 21:40: Activated Partial Thromboplast Time 45H, Sodium Level 136, Potassium Level 3.4L , Chloride Level 102, Carbon Dioxide Level 16L, Anion Gap 18H, Blood Urea Nitrogen 39H, Creatinine 2.9H, Estimat Glomerular Filtration Rate 21.9, Glucose Level 78#, Calcium Level 8.2L 02/08/18 04:00: Uric Acid 12.0H, Urine Eosinophils None seen, Pro-B-Type Natriuretic Peptide > 06064V, Thyroid Stimulating Hormone (TSH) 0.093L 02/08/18 05:50: White Blood Count 13.5H, Red Blood Count 3.62L, Hemoglobin 9.9L, Hematocrit 30.4L, Mean Corpuscular Volume 84, Mean Corpuscular Hemoglobin 27.5, Mean Corpuscular Hemoglobin Concent 32.7, Red Cell Distribution Width 13.2, Platelet Count 181, Mean Platelet Volume 10.3H, Neutrophils (%) (Auto) 82.9H, Lymphocytes (%) (Auto) 9.7L, Monocytes (%) (Auto) 6.9, Eosinophils (%) (Auto) 0.0, Basophils (%) (Auto) 0.4, Erythrocyte Sedimentation Rate 35H, Activated Partial Thromboplast Time 66H, Total Creatine Kinase 598H, Troponin I 22.697H, Triglycerides Level 62, Cholesterol Level 83, LDL Cholesterol 41, HDL Cholesterol 32L, Cholesterol/HDL Ratio 2.6L, Hepatitis A IgM Antibody [Pending] , Hepatitis B Surface Antigen [Pending], Hepatitis B Core IgM Antibody [Pending] , Hepatitis C Antibody [Pending] 02/08/18 08:45: Sodium Level 139, Potassium Level 3.0L, Chloride Level 102, Carbon Dioxide Level 19L, Anion Gap 18H, Blood Urea Nitrogen 41H, Creatinine 2.9H, Estimat Glomerular Filtration Rate 21.9, Glucose Level 99, Calcium Level 7.7L, Phosphorus Level 4.9, Magnesium Level 2.0, Total Bilirubin 1.0, Aspartate Amino Transf (AST/SGOT) 1113H, Alanine Aminotransferase (ALT/SGPT) 1326H, Alkaline Phosphatase 90, Total Protein 6.4, Albumin 2.9L, Globulin 3.5, Albumin/Globulin Ratio 0.8L, Vancomycin Level Trough 20.6H 02/08/18 08:50: Arterial Blood pH 7.357, Arterial Blood Partial Pressure CO2 30.6L, Arterial Blood Partial Pressure O2 108.1H, Arterial Blood HCO3 16.8L, Arterial Blood Oxygen Saturation 96.9, Arterial Blood Base Excess -7.7, Jma Test Positive Height (Feet): 5 Height (Inches): 7.00 Weight (Pounds): 165 General Appearance: no apparent distress Cardiovascular: tachycardia Respiratory/Chest: decreased breath sounds Abdomen: distended LAKESHA BAR February 08, 2018 13:13
[2018-02-08] MEDS ORDERED: Insulin Rate Change 1 Each MISC PRN (14:00)
--- NOTE | 2018-02-08 14:44 | Internal Med Progress Note ---
Subjective Physician Name Joni Robin Attending Physician Joni Robin MD Current Medications Medications (Trade) Dose Ordered Sig/Eliel Route PRN Reason Start Time Stop Time Status Last Admin Dose Admin Acetaminophen (Tylenol) 650 mg Q4H PRN ORAL T>100.5 02/07/18 18:00 03/08/18 17:59 Albuterol/ Ipratropium (Albuterol/ Ipratropium) 3 ml Q4H PRN HHN Shortness of Breath 02/07/18 18:00 02/11/18 17:59 02/08/18 12:24 Aluminum Hydroxide (Amphojel) 960 mg TID ORAL 02/08/18 18:00 03/10/18 17:59 Aspirin (ASA) 325 mg DAILY ORAL 02/09/18 09:00 03/09/18 21:59 Aztreonam 1 gm/ Sodium Chloride 50 ml @ 100 mls/hr Q8H IVPB 02/07/18 22:30 02/13/18 22:29 02/08/18 13:56 Carvedilol (Coreg) 3.125 mg EVERY 12 HOURS ORAL 02/08/18 21:00 03/10/18 20:59 Chlorhexidine Gluconate (Laura-Hex 2%) 1 applic DAILY@2000 TOPIC 02/07/18 20:00 03/09/18 19:59 02/07/18 20:16 Clonidine HCl (Catapres Tab) 0.1 mg Q8H PRN ORAL SBP > 160mmHg 02/07/18 18:00 03/08/18 17:59 Dextrose (Dextrose 50%) 25 ml PRN PRN IV HYPOGLYCEMIA 02/07/18 14:00 03/09/18 13:59 Dextrose (Dextrose 50%) 50 ml PRN PRN IV HYPOGLYCEMIA 02/07/18 14:00 03/09/18 13:59 Heparin Sodium/ Dextrose 500 ml @ 19.459 mls/ hr adjust per protocol IV 02/07/18 22:45 03/09/18 15:29 02/08/18 09:31 Insulin Human Regular (NovoLIN R) 5 units PRN PRN IV BS 200-299 02/07/18 14:00 03/09/18 13:59 02/07/18 19:15 Insulin Human Regular (NovoLIN R) 10 units PRN PRN IV BS=>300 02/07/18 14:00 03/09/18 13:59 02/07/18 18:09 Insulin Human Regular 100 units/ Sodium Chloride 101 ml @ 0 mls/hr Q24H IV 02/07/18 16:01 03/09/18 16:00 02/07/18 18:08 Levofloxacin 150 ml @ 100 mls/hr Q48H IVPB 02/07/18 21:00 02/14/18 20:59 02/07/18 21:31 Metoclopramide HCl (Reglan) 5 mg THREE TIMES A DAY ORAL 02/08/18 13:00 03/10/18 12:59 Mirtazapine (Remeron) 15 mg BEDTIME ORAL 02/07/18 21:00 03/08/18 20:59 02/07/18 21:29 Miscellaneous Medication (Insulin Rate Change) 1 ea PRN PRN MISC Hypoglycemia 02/07/18 14:00 03/09/18 13:59 02/08/18 13:53 Nitroglycerin (Ntg) 0.4 mg Q5MIN X 3 DOSES PRN SL Prn Chest Pain 02/07/18 17:15 03/08/18 18:44 Ondansetron HCl (Zofran) 4 mg Q6H PRN IVP Nausea & Vomiting 02/07/18 18:45 03/08/18 18:44 Pantoprazole (Protonix) 40 mg EVERY 12 HOURS ORAL 02/08/18 21:00 03/10/18 20:59 Polyethylene Glycol (Miralax) 17 gm DAILYPRN PRN ORAL Constipation 02/07/18 18:45 03/08/18 18:44 Potassium Chloride 100 ml @ 100 mls/hr Q1H IVPB 02/08/18 13:00 02/08/18 16:59 Sodium Citrate (Bicitra) 30 ml TID ORAL 02/08/18 18:00 03/09/18 11:59 Temazepam (Restoril) 15 mg HSPRN PRN ORAL Insomnia 02/07/18 21:00 02/13/18 20:59 Vancomycin HCl (Vanco rx to dose) 1 ea DAILY PRN MISC Per rx protocol 02/08/18 11:30 03/10/18 11:29 Allergies: Coded Allergies: PENICILLINS (Verified Allergy, Unknown, 04/16/17) Subjective in ICU , awake,more responsive, No CP but still SOB, WBC: 13.5, K: 3.0 Objective Last Vital Signs Date Time Temp Pulse Resp B/P (MAP) Pulse Ox O2 Delivery O2 Flow Rate FiO2 02/08/18 12:35 103 20 99 Nasal Cannula 2.0 28 02/08/18 10:00 111/63 02/08/18 08:00 97.9 97.9 Laboratory Tests Test 02/07/18 17:17 02/07/18 21:40 02/08/18 04:00 02/08/18 05:50 Arterial Blood pH 7.233 (7.350-7.450) Arterial Blood Partial Pressure CO2 25.4 mmHg (35.0-45.0) L Arterial Blood Partial Pressure O2 130.8 mmHg (75.0-100.0) H Arterial Blood HCO3 10.5 mmol/L (22.0-26.0) L Arterial Blood Oxygen Saturation 97.4 % (92.0-98.0) Arterial Blood Base Excess -15.4 Jam Test Positive Activated Partial Thromboplast Time 45 SEC (23-33) H 66 SEC (23-33) H Sodium Level 136 MMOL/L (136-145) Potassium Level 3.4 MMOL/L (3.5-5.1) L Chloride Level 102 MMOL/L (98-107) Carbon Dioxide Level 16 MMOL/L (21-32) L Anion Gap 18 mmol/L (5-15) H Blood Urea Nitrogen 39 mg/dL (7-18) H Creatinine 2.9 MG/DL (0.55-1.30) H Estimat Glomerular Filtration Rate 21.9 mL/min (>60) Glucose Level 78 MG/DL (74-106) # Calcium Level 8.2 MG/DL (8.5-10.1) L Urine Eosinophils None seen Uric Acid 12.0 MG/DL (2.6-7.2) H Pro-B-Type Natriuretic Peptide > 00670 pg/mL (0-125) H Thyroid Stimulating Hormone (TSH) 0.093 uiU/mL (0.358-3.740) White Blood Count 13.5 K/UL (4.8-10.8) H Red Blood Count 3.62 M/UL (4.70-6.10) L Hemoglobin 9.9 G/DL (14.2-18.0) L Hematocrit 30.4 % (42.0-52.0) L Mean Corpuscular Volume 84 FL (80-99) Mean Corpuscular Hemoglobin 27.5 PG (27.0-31.0) Mean Corpuscular Hemoglobin Concent 32.7 G/DL (32.0-36.0) Red Cell Distribution Width 13.2 % (11.6-14.8) Platelet Count 181 K/UL (150-450) Mean Platelet Volume 10.3 FL (6.5-10.1) H Neutrophils (%) (Auto) 82.9 % (45.0-75.0) H Lymphocytes (%) (Auto) 9.7 % (20.0-45.0) L Monocytes (%) (Auto) 6.9 % (1.0-10.0) Eosinophils (%) (Auto) 0.0 % (0.0-3.0) Basophils (%) (Auto) 0.4 % (0.0-2.0) Erythrocyte Sedimentation Rate 35 MM/HR (0-20) H Total Creatine Kinase 598 U/L (26-308) H Troponin I 22.697 ng/mL (0.000-0.056) Triglycerides Level 62 MG/DL (30-150) Cholesterol Level 83 MG/DL (< 200) LDL Cholesterol 41 mg/dL (<100) HDL Cholesterol 32 MG/DL (40-60) L Cholesterol/HDL Ratio 2.6 (3.3-4.4) L Hepatitis A IgM Antibody Pending Hepatitis B Surface Antigen Pending Hepatitis B Core IgM Antibody Pending Hepatitis C Antibody Pending Test 02/08/18 08:45 02/08/18 08:50 Sodium Level 139 MMOL/L (136-145) Potassium Level 3.0 MMOL/L (3.5-5.1) L Chloride Level 102 MMOL/L (98-107) Carbon Dioxide Level 19 MMOL/L (21-32) L Anion Gap 18 mmol/L (5-15) H Blood Urea Nitrogen 41 mg/dL (7-18) H Creatinine 2.9 MG/DL (0.55-1.30) H Estimat Glomerular Filtration Rate 21.9 mL/min (>60) Glucose Level 99 MG/DL (74-106) Calcium Level 7.7 MG/DL (8.5-10.1) L Phosphorus Level 4.9 MG/DL (2.5-4.9) Magnesium Level 2.0 MG/DL (1.8-2.4) Total Bilirubin 1.0 MG/DL (0.2-1.0) Aspartate Amino Transf (AST/SGOT) 1113 U/L (15-37) H Alanine Aminotransferase (ALT/SGPT) 1326 U/L (12-78) H Alkaline Phosphatase 90 U/L (46-116) C-Reactive Protein, Quantitative 31.6 mg/dL (0.00-0.90) H Total Protein 6.4 G/DL (6.4-8.2) Albumin 2.9 G/DL (3.4-5.0) L Globulin 3.5 g/dL Albumin/Globulin Ratio 0.8 (1.0-2.7) L Vancomycin Level Trough 20.6 ug/mL (5.0-12.0) H Arterial Blood pH 7.357 (7.350-7.450) Arterial Blood Partial Pressure CO2 30.6 mmHg (35.0-45.0) L Arterial Blood Partial Pressure O2 108.1 mmHg (75.0-100.0) H Arterial Blood HCO3 16.8 mmol/L (22.0-26.0) L Arterial Blood Oxygen Saturation 96.9 % (92.0-98.0) Arterial Blood Base Excess -7.7 Jam Test Positive Microbiology Date/Time Source Procedure Growth Status 02/06/18 18:05 Blood Blood Culture - Preliminary NO GROWTH AFTER 24 HOURS Resulted 02/06/18 17:45 Blood Blood Culture - Preliminary Resulted 02/06/18 18:46 Nasal Nares MRSA Culture - Final Staphylococcus Aureus - Mrsa Complete 02/06/18 18:10 Nasal Nares Influenza Types A,B Antigen (MAKENNA) - Final Complete 02/06/18 18:14 Urine,Clean Catch Urine Culture - Preliminary Resulted Intake and Output 02/07/18 02/08/18 19:00 07:00 Intake Total 1193.232 ml 2709.254 ml Output Total 110 ml 50 ml Balance 1083.232 ml 2659.254 ml IV Total 1193.232 ml 2709.254 ml Output Urine Total 110 ml 50 ml # Bowel Movements 1 Objective GENERAL: awake, more responsive, NAD HEAD: Pupils are equal and reactive to light. Extraocular movements intact. NECK: Supple. No JVD. LUNGS: Poor air entry. + Expiratory wheezing, No rales. fair inspiratory effort. HEART: S1, S2. Distant heart sounds. No murmur. ABDOMEN: Soft, nondistended, and nontender. Positive bowel sounds. EXTREMITIES: No cyanosis, clubbing. More Edema on the left lower extremity. 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 Piccline on Left UE's. NEUROLOGIC: Cranial nerves II through XII are grossly intact. The patient is moving all the extremities. Assessment/Plan Assessment/Plan 1. Acute myocardial infarction with non-ST elevation myocardial , New Left BBB 2. DKA with Diabetic type 2, uncontrolled. 3. Metabolic Acidosis 4. Dementia. 5. Hypernatremia. 6. Hyperkalemia. 7. Dehydration. 8. Right AKA with peripheral vascular disease. 9. History of dementia. 10. Atherosclerotic heart disease with ischemic cardiomyopathy. 11. Acute kidney injury. 12. Peripheral vascular disease. 13. Hypothyroidism. 14. PCN allergy. 15. Liver shock. PLAN: In ICU. Monitor laboratory and cultures. on heparin drip, IV hydration, Dr. Saab, Pulmonary, Critical Care. Dr. Jones, Cardiology consultation Dr. Jessica, Nephrology Consult. Code Status: Full Code as per POLST Broad-spectrum antibiotic: Levaquin and Aztreonam CXR 2D Echo: Technically difficult study due to pts position. Moderate four chamber enlargement. Severe global left ventricular hypokinesis. Mid to distal septal, posterior wall and apical akinesis. Left ventricular ejection fraction estimated to be 15-20 %. Increased E point-interventricular septal separation c/w left ventricular dysfunction. Study quality precludes accurate assessment of regional wall motion. Mild left ventricular hypertrophy by 2-D. No evidence of pericardial effusion. All other cardiac chamber sizes are within normal limits. Focal aortic valve sclerosis with adequate cusp excursion. Thickened mitral valve leaflets with normal excursion. Mitral annulus and aortic root calcification. Pulmonic valve not well visualized. Normal tricuspid valve structure. IVC dilated at 2.4 cm without physiologic collapse suggestive of increased RA pressure. A color flow and spectral Doppler study was performed and revealed: Trace to mild aortic regurgitation. Moderate mitral regurgitation. Mitral inflow indicates restrictive pattern, implying severely elevated left atrial pressure (Grade III ). Moderate tricuspid regurgitation. Tricuspid systolic velocities suggests peak right ventricular systolic pressure of 89 mmHg, consistent with severe pulmonary hypertension. Trace pulmonic regurgitation present. Joni Robin MD February 08, 2018 14:44
--- NOTE | 2018-02-08 15:35 | Consultation ---
History of Present Illness General Date patient seen: February 07, 2018 Chief Complaint: Chest Pain Present Illness HPI This is a late entry 67-year-old male, with mmp and hx of depression and anxiety who is really unable to provide history whatsoever at this moment. The patient is in the intensive care unit and information is obtained from review of the chart, emergency room. The pt is pw waxing and waning of consciousness and is disoriented Allergies: Coded Allergies: PENICILLINS (Verified Allergy, Unknown, 04/16/17) Medication History Scheduled Apixaban (Eliquis), 5 MG PO EVERY 12 HOURS, (Reported) Ascorbic Acid* (Ascorbic Acid*), 500 MG ORAL DAILY, (Reported) Aspirin* (Aspir 81*), 81 MG ORAL DAILY, (Reported) Atorvastatin Calcium* (Atorvastatin Calcium*), 40 MG ORAL BEDTIME, (Reported) Cholecalciferol (Vitamin D3)* (Vitamin D*), 1,000 UNIT ORAL DAILY, (Reported) Clonidine Hcl* (Catapres*), 0.1 MG ORAL EVERY 8 HOURS, (Reported) Dextran 70/Hypromellose (Artificial Tears Eye Drops*), 1 DROP BOTH EYES TID, ( Reported) Digoxin* (Digoxin*), 0.25 MG ORAL DAILY, (Reported) Duloxetine Hcl* (Cymbalta*), 60 MG ORAL DAILY, (Reported) Furosemide* (Lasix*), 20 MG ORAL DAILY, (Reported) Gabapentin* (Gabapentin*), 300 MG ORAL THREE TIMES A DAY, (Reported) Guaifenesin* (Adult Wal-Tussin*), 10 ML ORAL Q8HR, (Reported) Insulin Detemir (Levemir Flexpen), 14 SUBQ Q12HR, (Reported) Ipratropium/Albuterol Sulfate (DuoNeb 0.5-3(2.5)mg/3ml), 3 ML HHN EVERY 6 HOURS, (Reported) Ketotifen Fumarate (Alaway), 10 ML OP DAILY, (Reported) Lactulose (Lactulose*), 30 ML ORAL PRN, (Reported) Levothyroxine Sodium* (Levothyroxine Sodium*), 250 MCG ORAL DAILY, (Reported) Magnesium Oxide (Magnesium), 400 MG PO DAILY, (Reported) Metoprolol Tartrate* (Metoprolol Tartrate*), 12.5 MG ORAL EVERY 12 HOURS, ( Reported) Mirtazapine* (Mirtazapine*), 30 MG ORAL BEDTIME, (Reported) Han[place]i-3 Fatty Acids (Hanalei-3), 2,000 MG PO DAILY, (Reported) Pantoprazole* (Pantoprazole*), 40 MG ORAL DAILY, (Reported) Potassium Chloride* (K-Dur*), 20 MEQ ORAL DAILY, (Reported) Vitamin B Complex & Vit C No.3 (B Complex With Vitamin C), 1 TAB ORAL DAILY, ( Reported) Scheduled PRN Acetaminophen With Codeine (T#3) (Tylenol #3 Tab*), 1 TAB ORAL Q6HR PRN for For Pain, (Reported) Acetaminophen* (Acetaminophen 325MG Tablet*), 650 MG ORAL Q6H PRN for Fever/ Headache/Mild Pain, (Reported) Diphenhydramine Hcl* (Diphenhydramine Hcl*), 25 MG ORAL Q8H PRN for Itching, ( Reported) Insulin Regular, Human (Humulin R), 0 SUBQ for Sliding scale, (Reported) Polyethylene Glycol 3350* (Polyethylene Glycol 3350*), 17 GM ORAL BEDTIME PRN for Constipation, (Reported) Temazepam* (Temazepam*), 15 MG ORAL BEDTIME PRN for Insomnia, (Reported) Tramadol Hcl* (Ultram*), 50 MG ORAL Q6H PRN for For Pain, (Reported) Discontinued Medications Budesonide (Pulmicort Flexhaler), Unknown Dose IH BID, (Reported) Discontinued Reason: Pt stopped taking med Carvedilol* (Carvedilol*), 3.125 MG ORAL EVERY 12 HOURS, (Reported) Discontinued Reason: Pt stopped taking med Famotidine (Famotidine), 20 MG ORAL TWICE A DAY, (Reported) Discontinued Reason: Pt stopped taking med Fluconazole (Fluconazole), 200 MG ORAL DAILY, (Reported) Discontinued Reason: Pt stopped taking med Guaifenesin/Codeine Phos* (Robitussin Ac*), 2 TSP ORAL Q8HR PRN for For Cough, ( Reported) Discontinued Reason: Pt stopped taking med Insulin Aspart (Novolog), 100 UNIT SQ AC+HS, (Reported) Discontinued Reason: Pt stopped taking med Insulin Aspart (Novolog Flexpen), 10 SQ BEFORE MEALS, (Reported) Discontinued Reason: Pt stopped taking med Insulin Detemir (Levemir Flexpen), 8 SUBQ DAILY, (Reported) Discontinued Reason: Pt stopped taking med Insulin Detemir (Levemir Flexpen), 15 SUBQ Q12HR, (Reported) Discontinued Reason: Pt stopped taking med Insulin Glargine (Lantus), 20 SUBQ BEDTIME, (Reported) Discontinued Reason: Pt stopped taking med Insulin Lispro (Humalog Kwikpen), 18 UNIT SQ AC, (Reported) Discontinued Reason: Pt stopped taking med Insulin Lispro (Humalog Kwikpen), 200 UNIT SQ, (Reported) Discontinued Reason: Pt stopped taking med Levothyroxine Sodium* (Levothyroxine Sodium*), 100 MCG ORAL DAILY, (Reported) Discontinued Reason: Medication dose changed Mirtazapine* (Mirtazapine*), 15 MG ORAL BEDTIME, (Reported) Discontinued Reason: Medication dose changed Oxycodone Hcl/Acetaminophen 10-325* (Oxycodone-Acetaminophen 10-325*), 1 TAB ORAL TID PRN for For Pain, (Reported) Discontinued Reason: Pt stopped taking med Venlafaxine Hcl* (Venlafaxine Hcl*), 75 MG ORAL DAILY, (Reported) Discontinued Reason: Pt stopped taking med Patient History Healthcare decision maker Resuscitation status Full Code Advanced Directive on File Yes Review of Systems Psychiatric: Reports: prior hx, depressed feelings, emotional problems Physical Exam General Appearance: no apparent distress, alert, confused Last 24 Hour Vital Signs Date Time Temp Pulse Resp B/P (MAP) Pulse Ox O2 Delivery O2 Flow Rate FiO2 02/08/18 15:05 106 113/83 02/08/18 12:35 103 20 99 Nasal Cannula 2.0 28 02/08/18 12:25 108 28 100 Nasal Cannula 2.0 28 02/08/18 10:00 107 21 111/63 100 Nasal Cannula 3.0 02/08/18 09:00 105 21 108/60 100 Nasal Cannula 3.0 02/08/18 08:00 108 02/08/18 08:00 97.9 108 21 110/71 100 Nasal Cannula 3.0 97.9 02/08/18 07:00 106 22 103/75 100 Nasal Cannula 3.0 02/08/18 06:51 Nasal Cannula 2.0 28 02/08/18 06:51 100 Nasal Cannula 2.0 28 02/08/18 06:50 106 18 Nasal Cannula 2.0 28 02/08/18 06:00 98.4 102 21 101/67 100 Nasal Cannula 3.0 98.4 02/08/18 05:00 101 19 101/62 100 Nasal Cannula 3.0 02/08/18 04:00 101 17 99/57 100 Nasal Cannula 3.0 02/08/18 04:00 99 02/08/18 03:00 100 18 98/60 100 Nasal Cannula 3.0 02/08/18 02:00 99 20 102/59 100 Nasal Cannula 3.0 02/08/18 01:00 98 19 101/62 100 Nasal Cannula 3.0 02/08/18 00:00 98 20 104/65 100 Nasal Cannula 3.0 02/08/18 00:00 99 02/07/18 23:00 98 19 90/57 100 Nasal Cannula 3.0 02/07/18 22:00 94 19 88/53 100 Nasal Cannula 3.0 02/07/18 21:00 97 20 98/55 100 Nasal Cannula 3.0 02/07/18 20:00 98.0 99 22 96/64 100 Nasal Cannula 3.0 98.0 02/07/18 19:37 Nasal Cannula 2.0 28 02/07/18 19:36 102 22 Nasal Cannula 2.0 02/07/18 19:36 100 Nasal Cannula 2.0 28 02/07/18 19:00 98.0 100 25 97/58 98 Nasal Cannula 3.0 98.0 02/07/18 18:00 98.1 100 18 111/58 100 Nasal Cannula 3.0 98.1 02/07/18 17:00 98.1 99 19 99/58 100 Nasal Cannula 3.0 98.1 02/07/18 16:00 97 02/07/18 16:00 98.1 98 19 99/54 100 Nasal Cannula 3.0 98.1 Intake and Output 02/07/18 02/08/18 19:00 07:00 Intake Total 1193.232 ml 2709.254 ml Output Total 110 ml 50 ml Balance 1083.232 ml 2659.254 ml IV Total 1193.232 ml 2709.254 ml Output Urine Total 110 ml 50 ml # Bowel Movements 1 Laboratory Tests Test 02/07/18 17:17 02/07/18 21:40 02/08/18 04:00 02/08/18 05:50 Arterial Blood pH 7.233 (7.350-7.450) Arterial Blood Partial Pressure CO2 25.4 mmHg (35.0-45.0) L Arterial Blood Partial Pressure O2 130.8 mmHg (75.0-100.0) H Arterial Blood HCO3 10.5 mmol/L (22.0-26.0) L Arterial Blood Oxygen Saturation 97.4 % (92.0-98.0) Arterial Blood Base Excess -15.4 Jam Test Positive Activated Partial Thromboplast Time 45 SEC (23-33) H 66 SEC (23-33) H Sodium Level 136 MMOL/L (136-145) Potassium Level 3.4 MMOL/L (3.5-5.1) L Chloride Level 102 MMOL/L (98-107) Carbon Dioxide Level 16 MMOL/L (21-32) L Anion Gap 18 mmol/L (5-15) H Blood Urea Nitrogen 39 mg/dL (7-18) H Creatinine 2.9 MG/DL (0.55-1.30) H Estimat Glomerular Filtration Rate 21.9 mL/min (>60) Glucose Level 78 MG/DL (74-106) # Calcium Level 8.2 MG/DL (8.5-10.1) L Urine Eosinophils None seen Uric Acid 12.0 MG/DL (2.6-7.2) H Pro-B-Type Natriuretic Peptide > 62997 pg/mL (0-125) H Thyroid Stimulating Hormone (TSH) 0.093 uiU/mL (0.358-3.740) White Blood Count 13.5 K/UL (4.8-10.8) H Red Blood Count 3.62 M/UL (4.70-6.10) L Hemoglobin 9.9 G/DL (14.2-18.0) L Hematocrit 30.4 % (42.0-52.0) L Mean Corpuscular Volume 84 FL (80-99) Mean Corpuscular Hemoglobin 27.5 PG (27.0-31.0) Mean Corpuscular Hemoglobin Concent 32.7 G/DL (32.0-36.0) Red Cell Distribution Width 13.2 % (11.6-14.8) Platelet Count 181 K/UL (150-450) Mean Platelet Volume 10.3 FL (6.5-10.1) H Neutrophils (%) (Auto) 82.9 % (45.0-75.0) H Lymphocytes (%) (Auto) 9.7 % (20.0-45.0) L Monocytes (%) (Auto) 6.9 % (1.0-10.0) Eosinophils (%) (Auto) 0.0 % (0.0-3.0) Basophils (%) (Auto) 0.4 % (0.0-2.0) Erythrocyte Sedimentation Rate 35 MM/HR (0-20) H Total Creatine Kinase 598 U/L (26-308) H Troponin I 22.697 ng/mL (0.000-0.056) Triglycerides Level 62 MG/DL (30-150) Cholesterol Level 83 MG/DL (< 200) LDL Cholesterol 41 mg/dL (<100) HDL Cholesterol 32 MG/DL (40-60) L Cholesterol/HDL Ratio 2.6 (3.3-4.4) L Hepatitis A IgM Antibody Pending Hepatitis B Surface Antigen Pending Hepatitis B Core IgM Antibody Pending Hepatitis C Antibody Pending Test 02/08/18 08:45 02/08/18 08:50 Sodium Level 139 MMOL/L (136-145) Potassium Level 3.0 MMOL/L (3.5-5.1) L Chloride Level 102 MMOL/L (98-107) Carbon Dioxide Level 19 MMOL/L (21-32) L Anion Gap 18 mmol/L (5-15) H Blood Urea Nitrogen 41 mg/dL (7-18) H Creatinine 2.9 MG/DL (0.55-1.30) H Estimat Glomerular Filtration Rate 21.9 mL/min (>60) Glucose Level 99 MG/DL (74-106) Calcium Level 7.7 MG/DL (8.5-10.1) L Phosphorus Level 4.9 MG/DL (2.5-4.9) Magnesium Level 2.0 MG/DL (1.8-2.4) Total Bilirubin 1.0 MG/DL (0.2-1.0) Aspartate Amino Transf (AST/SGOT) 1113 U/L (15-37) H Alanine Aminotransferase (ALT/SGPT) 1326 U/L (12-78) H Alkaline Phosphatase 90 U/L (46-116) C-Reactive Protein, Quantitative 31.6 mg/dL (0.00-0.90) H Total Protein 6.4 G/DL (6.4-8.2) Albumin 2.9 G/DL (3.4-5.0) L Globulin 3.5 g/dL Albumin/Globulin Ratio 0.8 (1.0-2.7) L Vancomycin Level Trough 20.6 ug/mL (5.0-12.0) H Arterial Blood pH 7.357 (7.350-7.450) Arterial Blood Partial Pressure CO2 30.6 mmHg (35.0-45.0) L Arterial Blood Partial Pressure O2 108.1 mmHg (75.0-100.0) H Arterial Blood HCO3 16.8 mmol/L (22.0-26.0) L Arterial Blood Oxygen Saturation 96.9 % (92.0-98.0) Arterial Blood Base Excess -7.7 Jam Test Positive Height (Feet): 5 Height (Inches): 7.00 Weight (Pounds): 165 Medications Current Medications Medications (Trade) Dose Ordered Sig/Eliel Route PRN Reason Start Time Stop Time Status Last Admin Dose Admin Acetaminophen (Tylenol) 650 mg Q4H PRN ORAL T>100.5 02/07/18 18:00 03/08/18 17:59 Albuterol/ Ipratropium (Albuterol/ Ipratropium) 3 ml Q4H PRN HHN Shortness of Breath 02/07/18 18:00 02/11/18 17:59 02/08/18 12:24 Aluminum Hydroxide (Amphojel) 960 mg TID ORAL 02/08/18 18:00 03/10/18 17:59 Aspirin (ASA) 325 mg DAILY ORAL 02/09/18 09:00 03/09/18 21:59 Aztreonam 1 gm/ Sodium Chloride 50 ml @ 100 mls/hr Q8H IVPB 02/07/18 22:30 02/13/18 22:29 02/08/18 13:56 Carvedilol (Coreg) 3.125 mg EVERY 12 HOURS ORAL 02/08/18 21:00 03/10/18 20:59 Chlorhexidine Gluconate (Laura-Hex 2%) 1 applic DAILY@2000 TOPIC 02/07/18 20:00 03/09/18 19:59 02/07/18 20:16 Clonidine HCl (Catapres Tab) 0.1 mg Q8H PRN ORAL SBP > 160mmHg 02/07/18 18:00 03/08/18 17:59 Dextrose (Dextrose 50%) 25 ml PRN PRN IV HYPOGLYCEMIA 02/07/18 14:00 03/09/18 13:59 Dextrose (Dextrose 50%) 50 ml PRN PRN IV HYPOGLYCEMIA 02/07/18 14:00 03/09/18 13:59 Heparin Sodium/ Dextrose 500 ml @ 19.459 mls/ hr adjust per protocol IV 02/07/18 22:45 03/09/18 15:29 02/08/18 09:31 Insulin Human Regular (NovoLIN R) 5 units PRN PRN IV BS 200-299 02/07/18 14:00 03/09/18 13:59 02/07/18 19:15 Insulin Human Regular (NovoLIN R) 10 units PRN PRN IV BS=>300 02/07/18 14:00 03/09/18 13:59 02/07/18 18:09 Insulin Human Regular 100 units/ Sodium Chloride 101 ml @ 0 mls/hr Q24H IV 02/07/18 16:01 03/09/18 16:00 02/07/18 18:08 Levofloxacin 150 ml @ 100 mls/hr Q48H IVPB 02/07/18 21:00 02/14/18 20:59 02/07/18 21:31 Metoclopramide HCl (Reglan) 5 mg THREE TIMES A DAY ORAL 02/08/18 13:00 03/10/18 12:59 Mirtazapine (Remeron) 15 mg BEDTIME ORAL 02/07/18 21:00 03/08/18 20:59 02/07/18 21:29 Miscellaneous Medication (Insulin Rate Change) 1 ea PRN PRN MISC Hypoglycemia 02/07/18 14:00 03/09/18 13:59 02/08/18 14:56 Nitroglycerin (Ntg) 0.4 mg Q5MIN X 3 DOSES PRN SL Prn Chest Pain 02/07/18 17:15 03/08/18 18:44 Ondansetron HCl (Zofran) 4 mg Q6H PRN IVP Nausea & Vomiting 02/07/18 18:45 03/08/18 18:44 Pantoprazole (Protonix) 40 mg EVERY 12 HOURS ORAL 02/08/18 21:00 03/10/18 20:59 Polyethylene Glycol (Miralax) 17 gm DAILYPRN PRN ORAL Constipation 02/07/18 18:45 03/08/18 18:44 Potassium Chloride 100 ml @ 100 mls/hr Q1H IVPB 02/08/18 13:00 02/08/18 16:59 Sodium Citrate (Bicitra) 30 ml TID ORAL 02/08/18 18:00 03/09/18 11:59 Temazepam (Restoril) 15 mg HSPRN PRN ORAL Insomnia 02/07/18 21:00 02/13/18 20:59 Vancomycin HCl (Vanco rx to dose) 1 ea DAILY PRN MISC Per rx protocol 02/08/18 11:30 03/10/18 11:29 Assessment/Plan Assessment/Plan encephalopathy MDD Anxiety Cymbalta decrease Chanel Beltran M.D. February 08, 2018 15:35
--- NOTE | 2018-02-08 15:36 | General Progress Note ---
Assessment/Plan Status: stable Assessment/Plan encephalopathy MDD Anxiety Bee phillips Subjective Date patient seen: February 08, 2018 Neurologic/Psychiatric: Reports: anxiety, depressed, emotional problems Allergies: Coded Allergies: PENICILLINS (Verified Allergy, Unknown, 04/16/17) Objective Last 24 Hour Vital Signs Date Time Temp Pulse Resp B/P (MAP) Pulse Ox O2 Delivery O2 Flow Rate FiO2 02/08/18 15:05 106 113/83 02/08/18 12:35 103 20 99 Nasal Cannula 2.0 28 02/08/18 12:25 108 28 100 Nasal Cannula 2.0 28 02/08/18 10:00 107 21 111/63 100 Nasal Cannula 3.0 02/08/18 09:00 105 21 108/60 100 Nasal Cannula 3.0 02/08/18 08:00 108 02/08/18 08:00 97.9 108 21 110/71 100 Nasal Cannula 3.0 97.9 02/08/18 07:00 106 22 103/75 100 Nasal Cannula 3.0 02/08/18 06:51 Nasal Cannula 2.0 28 02/08/18 06:51 100 Nasal Cannula 2.0 28 02/08/18 06:50 106 18 Nasal Cannula 2.0 28 02/08/18 06:00 98.4 102 21 101/67 100 Nasal Cannula 3.0 98.4 02/08/18 05:00 101 19 101/62 100 Nasal Cannula 3.0 02/08/18 04:00 101 17 99/57 100 Nasal Cannula 3.0 02/08/18 04:00 99 02/08/18 03:00 100 18 98/60 100 Nasal Cannula 3.0 02/08/18 02:00 99 20 102/59 100 Nasal Cannula 3.0 02/08/18 01:00 98 19 101/62 100 Nasal Cannula 3.0 02/08/18 00:00 98 20 104/65 100 Nasal Cannula 3.0 02/08/18 00:00 99 02/07/18 23:00 98 19 90/57 100 Nasal Cannula 3.0 02/07/18 22:00 94 19 88/53 100 Nasal Cannula 3.0 02/07/18 21:00 97 20 98/55 100 Nasal Cannula 3.0 02/07/18 20:00 98.0 99 22 96/64 100 Nasal Cannula 3.0 98.0 02/07/18 19:37 Nasal Cannula 2.0 28 02/07/18 19:36 102 22 Nasal Cannula 2.0 02/07/18 19:36 100 Nasal Cannula 2.0 28 02/07/18 19:00 98.0 100 25 97/58 98 Nasal Cannula 3.0 98.0 02/07/18 18:00 98.1 100 18 111/58 100 Nasal Cannula 3.0 98.1 02/07/18 17:00 98.1 99 19 99/58 100 Nasal Cannula 3.0 98.1 02/07/18 16:00 97 02/07/18 16:00 98.1 98 19 99/54 100 Nasal Cannula 3.0 98.1 Intake and Output 02/07/18 02/08/18 19:00 07:00 Intake Total 1193.232 ml 2709.254 ml Output Total 110 ml 50 ml Balance 1083.232 ml 2659.254 ml IV Total 1193.232 ml 2709.254 ml Output Urine Total 110 ml 50 ml # Bowel Movements 1 Laboratory Tests 02/07/18 17:17: Arterial Blood pH 7.233*L, Arterial Blood Partial Pressure CO2 25.4L, Arterial Blood Partial Pressure O2 130.8H, Arterial Blood HCO3 10.5L, Arterial Blood Oxygen Saturation 97.4, Arterial Blood Base Excess -15.4, Jam Test Positive 02/07/18 21:40: Activated Partial Thromboplast Time 45H, Sodium Level 136, Potassium Level 3.4L , Chloride Level 102, Carbon Dioxide Level 16L, Anion Gap 18H, Blood Urea Nitrogen 39H, Creatinine 2.9H, Estimat Glomerular Filtration Rate 21.9, Glucose Level 78#, Calcium Level 8.2L 02/08/18 04:00: Urine Eosinophils None seen, Uric Acid 12.0H, Pro-B-Type Natriuretic Peptide > 24102S, Thyroid Stimulating Hormone (TSH) 0.093L 02/08/18 05:50: Activated Partial Thromboplast Time 66H, White Blood Count 13.5H, Red Blood Count 3.62L, Hemoglobin 9.9L, Hematocrit 30.4L, Mean Corpuscular Volume 84, Mean Corpuscular Hemoglobin 27.5, Mean Corpuscular Hemoglobin Concent 32.7, Red Cell Distribution Width 13.2, Platelet Count 181, Mean Platelet Volume 10.3H, Neutrophils (%) (Auto) 82.9H, Lymphocytes (%) (Auto) 9.7L, Monocytes (%) (Auto) 6.9, Eosinophils (%) (Auto) 0.0, Basophils (%) (Auto) 0.4, Erythrocyte Sedimentation Rate 35H, Total Creatine Kinase 598H, Troponin I 22.697H, Triglycerides Level 62, Cholesterol Level 83, LDL Cholesterol 41, HDL Cholesterol 32L, Cholesterol/HDL Ratio 2.6L, Hepatitis A IgM Antibody [Pending] , Hepatitis B Surface Antigen [Pending], Hepatitis B Core IgM Antibody [Pending] , Hepatitis C Antibody [Pending] 02/08/18 08:45: Sodium Level 139, Potassium Level 3.0L, Chloride Level 102, Carbon Dioxide Level 19L, Anion Gap 18H, Blood Urea Nitrogen 41H, Creatinine 2.9H, Estimat Glomerular Filtration Rate 21.9, Glucose Level 99, Calcium Level 7.7L, Phosphorus Level 4.9, Magnesium Level 2.0, Total Bilirubin 1.0, Aspartate Amino Transf (AST/SGOT) 1113H, Alanine Aminotransferase (ALT/SGPT) 1326H, Alkaline Phosphatase 90, C-Reactive Protein, Quantitative 31.6H, Total Protein 6.4, Albumin 2.9L, Globulin 3.5, Albumin/Globulin Ratio 0.8L, Vancomycin Level Trough 20.6H 02/08/18 08:50: Arterial Blood pH 7.357, Arterial Blood Partial Pressure CO2 30.6L, Arterial Blood Partial Pressure O2 108.1H, Arterial Blood HCO3 16.8L, Arterial Blood Oxygen Saturation 96.9, Arterial Blood Base Excess -7.7, Jam Test Positive Height (Feet): 5 Height (Inches): 7.00 Weight (Pounds): 165 General Appearance: WD/WN, no apparent distress, lethargic, confused Chanel Richards M.D. February 08, 2018 15:36
--- NOTE | 2018-02-08 17:41 | Diagnostic Imaging Report ---
Indication: Shortness of breath and abnormal breath sounds Technique: One view of the chest Comparison: 02/06/2018 Findings: . Development of right-sided pleural fluid. There is increasing atelectasis at the left lung base. The heart is enlarged. There is suggestion of mild interstitial congestion which is not evident previously Impression: New right-sided pleural effusion Suspect mild interstitial congestion Left basilar atelectasis
[2018-02-08] MEDS: Dyna-Hex 2% Top Sol 2oz TOPIC SCH (20:18)
--- NOTE | 2018-02-08 20:36 | Cardiology Progress Note ---
Assessment/Plan Assessment/Plan 1. Acute myocardial infarction with subacute presentation. 2. History of coronary artery disease. 3. Known cardiomyopathy. 4. Pulmonary hypertension. 5. Metabolic encephalopathy. 6. Peripheral vascular disease status post amputation 7. cardiogenic shock 8. chf 9. Acute on chronic renal fialrue 10. New LBBB bp low started him on levophed for bp support will avoid dobutamine and dopamine in light o f recent mi will not be agle to diurese much at this time due to low bp keep i icu on antiplat and statin avoid coreg in setting of acute chf prognosis is guarded cr seems to have plateaued continue supportive care follow trop trend tel reviwed ekg reviewed qrs complex now back to normal duration no furth LBBB is apparent critically ill d/w rn Subjective Cardiovascular: Denies: chest pain Respiratory: Reports: shortness of breath Gastrointestinal/Abdominal: Denies: abdominal pain Subjective very sleepy Objective Last 24 Hour Vital Signs Date Time Temp Pulse Resp B/P (MAP) Pulse Ox O2 Delivery O2 Flow Rate FiO2 02/08/18 20:06 80/61 02/08/18 19:09 Nasal Cannula 2.0 28 02/08/18 19:09 100 Nasal Cannula 2.0 28 02/08/18 19:09 96 21 Nasal Cannula 2.0 28 02/08/18 19:00 88 22 81/51 100 Nasal Cannula 3.0 02/08/18 18:00 85 22 82/36 100 Nasal Cannula 3.0 02/08/18 17:00 89 22 85/49 100 Nasal Cannula 3.0 02/08/18 16:00 98.3 112 22 88/65 100 Nasal Cannula 3.0 98.3 02/08/18 16:00 94 02/08/18 15:05 106 113/83 02/08/18 15:00 114 23 113/83 100 Nasal Cannula 3.0 02/08/18 14:00 109 22 104/67 100 Nasal Cannula 3.0 02/08/18 13:00 111 23 119/67 100 Nasal Cannula 3.0 02/08/18 12:35 103 20 99 Nasal Cannula 2.0 28 02/08/18 12:25 108 28 100 Nasal Cannula 2.0 28 02/08/18 12:00 112 02/08/18 12:00 97.9 112 23 118/57 100 Nasal Cannula 3.0 97.9 02/08/18 11:00 108 21 96/79 100 Nasal Cannula 3.0 02/08/18 10:00 107 21 111/63 100 Nasal Cannula 3.0 02/08/18 09:00 105 21 108/60 100 Nasal Cannula 3.0 02/08/18 08:00 108 02/08/18 08:00 97.9 108 21 110/71 100 Nasal Cannula 3.0 97.9 02/08/18 07:00 106 22 103/75 100 Nasal Cannula 3.0 02/08/18 06:51 Nasal Cannula 2.0 28 02/08/18 06:51 100 Nasal Cannula 2.0 28 02/08/18 06:50 106 18 Nasal Cannula 2.0 28 02/08/18 06:00 98.4 102 21 101/67 100 Nasal Cannula 3.0 98.4 02/08/18 05:00 101 19 101/62 100 Nasal Cannula 3.0 02/08/18 04:00 101 17 99/57 100 Nasal Cannula 3.0 02/08/18 04:00 99 02/08/18 03:00 100 18 98/60 100 Nasal Cannula 3.0 02/08/18 02:00 99 20 102/59 100 Nasal Cannula 3.0 02/08/18 01:00 98 19 101/62 100 Nasal Cannula 3.0 02/08/18 00:00 98 20 104/65 100 Nasal Cannula 3.0 02/08/18 00:00 99 02/07/18 23:00 98 19 90/57 100 Nasal Cannula 3.0 02/07/18 22:00 94 19 88/53 100 Nasal Cannula 3.0 02/07/18 21:00 97 20 98/55 100 Nasal Cannula 3.0 General Appearance: no apparent distress, lethargic Neck: supple Cardiovascular: normal rate Respiratory/Chest: decreased breath sounds Abdomen: normal bowel sounds, non tender, soft Extremities: moderate edema Intake and Output 02/07/18 02/08/18 19:00 07:00 Intake Total 1193.232 ml 2709.254 ml Output Total 110 ml 50 ml Balance 1083.232 ml 2659.254 ml IV Total 1193.232 ml 2709.254 ml Output Urine Total 110 ml 50 ml # Bowel Movements 1 Laboratory Tests Test 02/07/18 21:40 02/08/18 04:00 02/08/18 05:50 02/08/18 08:45 Activated Partial Thromboplast Time 45 SEC (23-33) H 66 SEC (23-33) H Sodium Level 136 MMOL/L (136-145) 139 MMOL/L (136-145) Potassium Level 3.4 MMOL/L (3.5-5.1) L 3.0 MMOL/L (3.5-5.1) L Chloride Level 102 MMOL/L (98-107) 102 MMOL/L (98-107) Carbon Dioxide Level 16 MMOL/L (21-32) L 19 MMOL/L (21-32) L Anion Gap 18 mmol/L (5-15) H 18 mmol/L (5-15) H Blood Urea Nitrogen 39 mg/dL (7-18) H 41 mg/dL (7-18) H Creatinine 2.9 MG/DL (0.55-1.30) H 2.9 MG/DL (0.55-1.30) H Estimat Glomerular Filtration Rate 21.9 mL/min (>60) 21.9 mL/min (>60) Glucose Level 78 MG/DL (74-106) # 99 MG/DL (74-106) Calcium Level 8.2 MG/DL (8.5-10.1) L 7.7 MG/DL (8.5-10.1) L Urine Eosinophils None seen Uric Acid 12.0 MG/DL (2.6-7.2) H Pro-B-Type Natriuretic Peptide > 74912 pg/mL (0-125) H Thyroid Stimulating Hormone (TSH) 0.093 uiU/mL (0.358-3.740) White Blood Count 13.5 K/UL (4.8-10.8) H Red Blood Count 3.62 M/UL (4.70-6.10) L Hemoglobin 9.9 G/DL (14.2-18.0) L Hematocrit 30.4 % (42.0-52.0) L Mean Corpuscular Volume 84 FL (80-99) Mean Corpuscular Hemoglobin 27.5 PG (27.0-31.0) Mean Corpuscular Hemoglobin Concent 32.7 G/DL (32.0-36.0) Red Cell Distribution Width 13.2 % (11.6-14.8) Platelet Count 181 K/UL (150-450) Mean Platelet Volume 10.3 FL (6.5-10.1) H Neutrophils (%) (Auto) 82.9 % (45.0-75.0) H Lymphocytes (%) (Auto) 9.7 % (20.0-45.0) L Monocytes (%) (Auto) 6.9 % (1.0-10.0) Eosinophils (%) (Auto) 0.0 % (0.0-3.0) Basophils (%) (Auto) 0.4 % (0.0-2.0) Erythrocyte Sedimentation Rate 35 MM/HR (0-20) H Total Creatine Kinase 598 U/L (26-308) H Troponin I 22.697 ng/mL (0.000-0.056) Triglycerides Level 62 MG/DL (30-150) Cholesterol Level 83 MG/DL (< 200) LDL Cholesterol 41 mg/dL (<100) HDL Cholesterol 32 MG/DL (40-60) L Cholesterol/HDL Ratio 2.6 (3.3-4.4) L Hepatitis A IgM Antibody Pending Hepatitis B Surface Antigen Pending Hepatitis B Core IgM Antibody Pending Hepatitis C Antibody Pending Phosphorus Level 4.9 MG/DL (2.5-4.9) Magnesium Level 2.0 MG/DL (1.8-2.4) Total Bilirubin 1.0 MG/DL (0.2-1.0) Aspartate Amino Transf (AST/SGOT) 1113 U/L (15-37) H Alanine Aminotransferase (ALT/SGPT) 1326 U/L (12-78) H Alkaline Phosphatase 90 U/L (46-116) C-Reactive Protein, Quantitative 31.6 mg/dL (0.00-0.90) H Total Protein 6.4 G/DL (6.4-8.2) Albumin 2.9 G/DL (3.4-5.0) L Globulin 3.5 g/dL Albumin/Globulin Ratio 0.8 (1.0-2.7) L Vancomycin Level Trough 20.6 ug/mL (5.0-12.0) H Test 02/08/18 08:50 Arterial Blood pH 7.357 (7.350-7.450) Arterial Blood Partial Pressure CO2 30.6 mmHg (35.0-45.0) L Arterial Blood Partial Pressure O2 108.1 mmHg (75.0-100.0) H Arterial Blood HCO3 16.8 mmol/L (22.0-26.0) L Arterial Blood Oxygen Saturation 96.9 % (92.0-98.0) Arterial Blood Base Excess -7.7 Jam Test Positive Microbiology Date/Time Source Procedure Growth Status 02/06/18 18:05 Blood Blood Culture - Preliminary NO GROWTH AFTER 24 HOURS Resulted 02/06/18 17:45 Blood Blood Culture - Preliminary Resulted 02/06/18 18:46 Nasal Nares MRSA Culture - Final Staphylococcus Aureus - Mrsa Complete 02/06/18 18:10 Nasal Nares Influenza Types A,B Antigen (MAKENNA) - Final Complete 02/06/18 18:14 Urine,Clean Catch Urine Culture - Preliminary Resulted Darnell Belcher MD February 08, 2018 20:36
[2018-02-08] MEDS ORDERED: Vancomycin 1gm/D5W 275ml IVPB ONE ×2 (21:00)
[2018-02-09] VITALS (31 sets, daily range): BP systolic 89–124; BP diastolic 47–75
[2018-02-09 05:04] LABS: BASOPHILS % (AUTO) 0.6 % (0.0-2.0); EOSINOPHILS % (AUTO) 0.1 % (0.0-3.0); HEMATOCRIT 30.2 % (42.0-52.0); HEMOGLOBIN 9.9 G/DL (14.2-18.0); LYMPHOCYTES % (AUTO) 14.4 % (20.0-45.0); MEAN CORPUSCULAR VOLUME 84 FL (80-99); MONOCYTES % (AUTO) 8.5 % (1.0-10.0); NEUTROPHILS % (AUTO) 76.4 % (45.0-75.0); PLATELET COUNT 195 K/UL (150-450); RED BLOOD COUNT 3.59 M/UL (4.70-6.10); RED CELL DISTRIBUTION WIDTH 13.6 % (11.6-14.8); WHITE BLOOD COUNT 14.3 K/UL (4.8-10.8)
[2018-02-09 05:44] LABS: GAMMA GLUTAMYL TRANSPEPTIDASE 123 U/L (5-85)
[2018-02-09 05:49] LABS: ALANINE AMINOTRANSFERASE 1354 U/L (12-78); ALBUMIN 2.6 G/DL (3.4-5.0); ALBUMIN/GLOBULIN RATIO 0.7 (1.0-2.7); ALKALINE PHOSPHATASE 105 U/L (46-116); ANION GAP 17 mmol/L (5-15); ASPARTATE AMINO TRANSFERASE 1569 U/L (15-37); BILIRUBIN,TOTAL 0.9 MG/DL (0.2-1.0); BLOOD UREA NITROGEN 49 mg/dL (7-18); CALCIUM 7.6 MG/DL (8.5-10.1); CARBON DIOXIDE 20 MMOL/L (21-32); CHLORIDE 101 MMOL/L (98-107); CREATININE 3.5 MG/DL (0.55-1.30); PHOSPHORUS 5.5 MG/DL (2.5-4.9); POTASSIUM 3.2 MMOL/L (3.5-5.1); SODIUM 137 MMOL/L (136-145)
[2018-02-09 05:52] LABS: AMMONIA 58 umol/L (11-32)
[2018-02-09 06:05] LABS: FERRITIN 697 NG/ML (8-388)
[2018-02-09 06:07] LABS: IRON 50 ug/dL (50-175); TOTAL IRON BINDING CAPACITY 154 ug/dL (250-450)
[2018-02-09] MEDS: Aztreonam Inj 1 GM in NS 50 ML IVPB SCH ×3 (06:25→21:59)
[2018-02-09 06:32] LABS: % IRON SATURATION 32 % (15-50)
[2018-02-09] MEDS ORDERED: Heparin 5000 units/ml inj IV SCH (07:30)
[2018-02-09] MEDS: Sodium Citrate 30ml ORAL SCH ×3 (08:02→17:45)
[2018-02-09] MEDS: Aluminum Hydroxide Gel Susp 15ml ORAL SCH ×4 (08:03→17:45)
[2018-02-09] MEDS ORDERED: DULoxetine 30mg cap ORAL SCH (09:00)
[2018-02-09 10:18] LABS: ANION GAP 17 mmol/L (5-15); BLOOD UREA NITROGEN 51 mg/dL (7-18); CALCIUM 7.5 MG/DL (8.5-10.1); CARBON DIOXIDE 18 MMOL/L (21-32); CHLORIDE 101 MMOL/L (98-107); CREATININE 3.7 MG/DL (0.55-1.30); SODIUM 136 MMOL/L (136-145)
[2018-02-09 10:30] LABS: INR 1.4 (0.9-1.1)
[2018-02-09] MEDS: Heparin 25,000u/D5W 500ml 500 ML IV SCH (11:39)
--- NOTE | 2018-02-09 11:48 | Pulmonolgy Critical Care Note ---
Critical Care - Asmt/Plan Problems: (1) Diabetic keto-acidosis (2) Sepsis (3) NSTEMI (non-ST elevated myocardial infarction) (4) EF 15% (5) ATN (acute tubular necrosis) Respiratory: monitor respiratory rate, adjust FIO2, CXR Cardiac: continue pressors, continue to monitor HR/BP Renal: F/U I&O, keep IV fluid Infectious Disease: check cultures Gastrointestinal: continue feedings/current rate Endocrine: monitor blood sugar, check TSH Neurologic: PRN Morphine Disposition: keep in ICU Notes Reviewed: cardio, renal, ID Discussed with: nurses, consultants, casework specialistcomplex human resources manager - Objective Last 24 Hour Vital Signs Date Time Temp Pulse Resp B/P (MAP) Pulse Ox O2 Delivery O2 Flow Rate FiO2 02/09/18 11:00 81 24 89/62 100 Nasal Cannula 3.0 02/09/18 10:00 83 23 97/53 100 Nasal Cannula 3.0 02/09/18 09:00 87 23 108/58 100 Nasal Cannula 3.0 02/09/18 08:20 Nasal Cannula 2.0 28 02/09/18 08:20 100 Nasal Cannula 2.0 28 02/09/18 08:19 91 20 Nasal Cannula 2.0 28 02/09/18 08:00 91 19 111/71 100 Nasal Cannula 3.0 02/09/18 08:00 85 02/09/18 07:00 98.2 96 21 120/73 100 Nasal Cannula 3.0 98.2 02/09/18 06:30 87 16 110/73 100 Nasal Cannula 3.0 02/09/18 06:00 92 20 102/62 100 Nasal Cannula 3.0 02/09/18 06:00 102/62 02/09/18 05:30 89 20 114/68 100 Nasal Cannula 3.0 02/09/18 05:00 88 20 113/60 100 Nasal Cannula 3.0 02/09/18 05:00 113/60 02/09/18 04:30 92 19 89/65 100 Nasal Cannula 3.0 02/09/18 04:00 98.1 91 19 112/75 100 Nasal Cannula 3.0 98.1 02/09/18 04:00 112/75 02/09/18 04:00 91 02/09/18 03:33 108/73 02/09/18 03:30 91 19 108/73 100 Nasal Cannula 3.0 02/09/18 03:00 115/70 02/09/18 03:00 92 11 115/70 100 Nasal Cannula 3.0 02/09/18 02:30 91 20 113/57 100 Nasal Cannula 3.0 02/09/18 02:00 92 18 98/60 100 Nasal Cannula 3.0 02/09/18 02:00 98/60 02/09/18 01:30 91 20 99/63 100 Nasal Cannula 3.0 02/09/18 01:00 98 22 103/55 100 Nasal Cannula 3.0 02/09/18 01:00 103/55 02/09/18 00:30 99 22 110/62 100 Nasal Cannula 3.0 02/09/18 00:00 98.5 96 21 124/59 99 Nasal Cannula 3.0 98.5 02/09/18 00:00 110/62 02/08/18 23:30 98 22 120/59 100 Nasal Cannula 3.0 02/08/18 23:00 97 24 115/71 100 Nasal Cannula 3.0 02/08/18 23:00 115/71 02/08/18 22:30 97 22 119/66 100 Nasal Cannula 3.0 02/08/18 22:00 98 23 108/6 100 Nasal Cannula 3.0 02/08/18 22:00 108/62 02/08/18 21:00 99 22 108/74 100 Nasal Cannula 3.0 02/08/18 21:00 108/74 02/08/18 20:30 93 23 84/54 100 Nasal Cannula 3.0 02/08/18 20:15 94 20 98/64 100 Nasal Cannula 3.0 02/08/18 20:06 80/61 18 20:00 98.5 94 22 80/61 100 Nasal Cannula 3.0 98.5 02/08/18 20:00 94 02/08/18 19:45 92 22 97/60 100 Nasal Cannula 3.0 02/08/18 19:30 93 21 75/46 100 Nasal Cannula 3.0 02/08/18 19:09 Nasal Cannula 2.0 28 02/08/18 19:09 100 Nasal Cannula 2.0 28 02/08/18 19:09 96 21 Nasal Cannula 2.0 28 02/08/18 19:00 88 22 81/51 100 Nasal Cannula 3.0 02/08/18 18:00 85 22 82/36 100 Nasal Cannula 3.0 02/08/18 17:00 89 22 85/49 100 Nasal Cannula 3.0 02/08/18 16:00 98.3 112 22 88/65 100 Nasal Cannula 3.0 98.3 02/08/18 16:00 94 02/08/18 15:05 106 113/83 02/08/18 15:00 114 23 113/83 100 Nasal Cannula 3.0 02/08/18 14:00 109 22 104/67 100 Nasal Cannula 3.0 02/08/18 13:00 111 23 119/67 100 Nasal Cannula 3.0 02/08/18 12:35 103 20 99 Nasal Cannula 2.0 28 02/08/18 12:25 108 28 100 Nasal Cannula 2.0 28 02/08/18 12:00 112 02/08/18 12:00 97.9 112 23 118/57 100 Nasal Cannula 3.0 97.9 Micro: Microbiology Date/Time Source Procedure Growth Status 02/06/18 18:05 Blood Blood Culture - Preliminary NO GROWTH AFTER 48 HOURS Resulted 02/06/18 17:45 Blood Blood Culture - Preliminary Staphylococcus Sp Coag Neg Resulted 02/06/18 18:46 Nasal Nares MRSA Culture - Final Staphylococcus Aureus - Mrsa Complete 02/06/18 18:10 Nasal Nares Influenza Types A,B Antigen (MAKENNA) - Final Complete 02/06/18 18:14 Urine,Clean Catch Urine Culture - Preliminary YEAST Resulted Accucheck: 96 Critical Care - Subjective ROS Limited/Unobtainable: Yes ICU Day: 3 Intubation Day: 3 Condition: critical EKG Rhythm: Sinus Rhythm FI02: 28 Sputum Amount: None I&O: Intake and Output 02/08/18 02/09/18 19:00 07:00 Intake Total 1428.907 ml 991.549 ml Output Total 215 ml 210 ml Balance 1213.907 ml 781.549 ml Intake Oral 310 ml 190 ml IV Total 1118.907 ml 801.549 ml Output Urine Total 215 ml 210 ml CXR: no change Labs: Laboratory Tests Test 02/08/18 20:30 02/09/18 03:55 02/09/18 09:45 Troponin I 17.972 ng/mL (0.000-0.056) 16.313 ng/mL (0.000-0.056) White Blood Count 14.3 K/UL (4.8-10.8) H Red Blood Count 3.59 M/UL (4.70-6.10) L Hemoglobin 9.9 G/DL (14.2-18.0) L Hematocrit 30.2 % (42.0-52.0) L Mean Corpuscular Volume 84 FL (80-99) Mean Corpuscular Hemoglobin 27.5 PG (27.0-31.0) Mean Corpuscular Hemoglobin Concent 32.8 G/DL (32.0-36.0) Red Cell Distribution Width 13.6 % (11.6-14.8) Platelet Count 195 K/UL (150-450) Mean Platelet Volume 9.9 FL (6.5-10.1) Neutrophils (%) (Auto) 76.4 % (45.0-75.0) H Lymphocytes (%) (Auto) 14.4 % (20.0-45.0) L Monocytes (%) (Auto) 8.5 % (1.0-10.0) Eosinophils (%) (Auto) 0.1 % (0.0-3.0) Basophils (%) (Auto) 0.6 % (0.0-2.0) Erythrocyte Sedimentation Rate 26 MM/HR (0-20) H Activated Partial Thromboplast Time 57 SEC (23-33) H 102 SEC (23-33) H Sodium Level 137 MMOL/L (136-145) 136 MMOL/L (136-145) Potassium Level 3.2 MMOL/L (3.5-5.1) L 3.0 MMOL/L (3.5-5.1) L Chloride Level 101 MMOL/L (98-107) 101 MMOL/L (98-107) Carbon Dioxide Level 20 MMOL/L (21-32) L 18 MMOL/L (21-32) L Anion Gap 17 mmol/L (5-15) H 17 mmol/L (5-15) H Blood Urea Nitrogen 49 mg/dL (7-18) H 51 mg/dL (7-18) H Creatinine 3.5 MG/DL (0.55-1.30) H 3.7 MG/DL (0.55-1.30) H Estimat Glomerular Filtration Rate 17.7 mL/min (>60) 16.6 mL/min (>60) Glucose Level 103 MG/DL (74-106) 111 MG/DL (74-106) H Lactic Acid Level 3.00 mmol/L (0.66-2.22) H Uric Acid 12.7 MG/DL (2.6-7.2) H Calcium Level 7.6 MG/DL (8.5-10.1) L 7.5 MG/DL (8.5-10.1) L Phosphorus Level 5.5 MG/DL (2.5-4.9) H Magnesium Level 2.0 MG/DL (1.8-2.4) Iron Level 50 ug/dL (50-175) Total Iron Binding Capacity 154 ug/dL (250-450) L Percent Iron Saturation 32 % (15-50) Unsaturated Iron Binding 104 ug/dL (112-346) L Ferritin 697 NG/ML (8-388) H Total Bilirubin 0.9 MG/DL (0.2-1.0) Gamma Glutamyl Transpeptidase 123 U/L (5-85) H Aspartate Amino Transf (AST/SGOT) 1569 U/L (15-37) H Alanine Aminotransferase (ALT/SGPT) 1354 U/L (12-78) H Alkaline Phosphatase 105 U/L (46-116) Ammonia 58 umol/L (11-32) H Pro-B-Type Natriuretic Peptide 56179 pg/mL (0-125) H Total Protein 6.1 G/DL (6.4-8.2) L Albumin 2.6 G/DL (3.4-5.0) L Globulin 3.5 g/dL Albumin/Globulin Ratio 0.7 (1.0-2.7) L Vitamin B12 Level > 2000 PG/ML (193-986) H Folate 23.6 NG/ML (8.6-58.9) Random Vancomycin Level 30.9 ug/mL Prothrombin Time 14.8 SEC (9.30-11.50) H Prothromb Time International Ratio 1.4 (0.9-1.1) H Walker Saab MD February 09, 2018 11:48
--- NOTE | 2018-02-09 13:34 | Internal Med Progress Note ---
Subjective Physician Name Joni Robin Attending Physician Joni Robin MD Current Medications Medications (Trade) Dose Ordered Sig/Eliel Route PRN Reason Start Time Stop Time Status Last Admin Dose Admin Acetaminophen (Tylenol) 650 mg Q4H PRN ORAL T>100.5 02/07/18 18:00 03/08/18 17:59 Albuterol/ Ipratropium (Albuterol/ Ipratropium) 3 ml Q4H PRN HHN Shortness of Breath 02/07/18 18:00 02/11/18 17:59 02/08/18 12:24 Aluminum Hydroxide (Amphojel) 1,920 mg TID ORAL 02/09/18 09:00 03/10/18 17:59 02/09/18 13:06 Aspirin (ASA) 325 mg DAILY ORAL 02/09/18 09:00 03/09/18 21:59 02/09/18 09:26 Aztreonam 1 gm/ Sodium Chloride 50 ml @ 100 mls/hr Q8H IVPB 02/07/18 22:30 02/13/18 22:29 02/09/18 06:25 Chlorhexidine Gluconate (Laura-Hex 2%) 1 applic DAILY@2000 TOPIC 02/07/18 20:00 03/09/18 19:59 02/08/18 20:18 Clonidine HCl (Catapres Tab) 0.1 mg Q8H PRN ORAL SBP > 160mmHg 02/07/18 18:00 03/08/18 17:59 Dextrose (Dextrose 50%) 25 ml PRN PRN IV HYPOGLYCEMIA 02/08/18 23:00 03/10/18 22:59 Heparin Sodium/ Dextrose 500 ml @ 22.453 mls/ hr adjust per protocol IV 02/09/18 07:00 03/09/18 15:29 02/09/18 11:39 Insulin Human Regular (NovoLIN R) 5 units PRN PRN IV BS 200-299 02/08/18 23:00 03/10/18 22:59 Insulin Human Regular (NovoLIN R) 10 units PRN PRN IV BS=>300 02/08/18 23:00 03/10/18 22:59 Insulin Human Regular 100 units/ Sodium Chloride 101 ml @ 0 mls/hr Q24H IV 02/08/18 23:00 03/10/18 22:59 02/08/18 22:00 Levofloxacin 150 ml @ 100 mls/hr Q48H IVPB 02/07/18 21:00 02/14/18 20:59 02/07/18 21:31 Metoclopramide HCl (Reglan) 5 mg THREE TIMES A DAY ORAL 02/08/18 13:00 03/10/18 12:59 02/09/18 13:06 Mirtazapine (Remeron) 7.5 mg BEDTIME ORAL 02/08/18 21:00 03/10/18 20:59 02/08/18 20:58 Miscellaneous Medication (Insulin Rate Change) 1 ea PRN PRN MISC Hypoglycemia 02/07/18 14:00 03/09/18 13:59 02/08/18 20:26 Nitroglycerin (Ntg) 0.4 mg Q5MIN X 3 DOSES PRN SL Prn Chest Pain 02/07/18 17:15 03/08/18 18:44 Norepinephrine Bitartrate 4 mg/ Dextrose 250 ml @ 0 mls/hr Q24H IV 02/08/18 19:45 03/10/18 19:44 02/09/18 03:33 Ondansetron HCl (Zofran) 4 mg Q6H PRN IVP Nausea & Vomiting 02/07/18 18:45 03/08/18 18:44 Pantoprazole (Protonix) 40 mg EVERY 12 HOURS ORAL 02/08/18 21:00 03/10/18 20:59 02/09/18 08:03 Polyethylene Glycol (Miralax) 17 gm DAILYPRN PRN ORAL Constipation 02/07/18 18:45 03/08/18 18:44 Sodium Citrate (Bicitra) 30 ml TID ORAL 02/08/18 18:00 03/09/18 11:59 02/09/18 13:06 Temazepam (Restoril) 15 mg HSPRN PRN ORAL Insomnia 02/08/18 21:00 02/15/18 20:59 Allergies: Coded Allergies: PENICILLINS (Verified Allergy, Unknown, 04/16/17) Subjective in ICU, awake, responsive, feeling weak, No CP but still SOB, WBC: 14.3, Troponin: 16.31 trending down Objective Last Vital Signs Date Time Temp Pulse Resp B/P (MAP) Pulse Ox O2 Delivery O2 Flow Rate FiO2 02/09/18 12:00 82 02/09/18 12:00 19 90/59 100 Nasal Cannula 3.0 02/09/18 08:20 28 02/09/18 07:00 98.2 98.2 Laboratory Tests Test 02/08/18 20:30 02/09/18 03:55 02/09/18 09:45 Troponin I 17.972 ng/mL (0.000-0.056) 16.313 ng/mL (0.000-0.056) White Blood Count 14.3 K/UL (4.8-10.8) H Red Blood Count 3.59 M/UL (4.70-6.10) L Hemoglobin 9.9 G/DL (14.2-18.0) L Hematocrit 30.2 % (42.0-52.0) L Mean Corpuscular Volume 84 FL (80-99) Mean Corpuscular Hemoglobin 27.5 PG (27.0-31.0) Mean Corpuscular Hemoglobin Concent 32.8 G/DL (32.0-36.0) Red Cell Distribution Width 13.6 % (11.6-14.8) Platelet Count 195 K/UL (150-450) Mean Platelet Volume 9.9 FL (6.5-10.1) Neutrophils (%) (Auto) 76.4 % (45.0-75.0) H Lymphocytes (%) (Auto) 14.4 % (20.0-45.0) L Monocytes (%) (Auto) 8.5 % (1.0-10.0) Eosinophils (%) (Auto) 0.1 % (0.0-3.0) Basophils (%) (Auto) 0.6 % (0.0-2.0) Erythrocyte Sedimentation Rate 26 MM/HR (0-20) H Activated Partial Thromboplast Time 57 SEC (23-33) H 102 SEC (23-33) H Sodium Level 137 MMOL/L (136-145) 136 MMOL/L (136-145) Potassium Level 3.2 MMOL/L (3.5-5.1) L 3.0 MMOL/L (3.5-5.1) L Chloride Level 101 MMOL/L (98-107) 101 MMOL/L (98-107) Carbon Dioxide Level 20 MMOL/L (21-32) L 18 MMOL/L (21-32) L Anion Gap 17 mmol/L (5-15) H 17 mmol/L (5-15) H Blood Urea Nitrogen 49 mg/dL (7-18) H 51 mg/dL (7-18) H Creatinine 3.5 MG/DL (0.55-1.30) H 3.7 MG/DL (0.55-1.30) H Estimat Glomerular Filtration Rate 17.7 mL/min (>60) 16.6 mL/min (>60) Glucose Level 103 MG/DL (74-106) 111 MG/DL (74-106) H Lactic Acid Level 3.00 mmol/L (0.66-2.22) H Uric Acid 12.7 MG/DL (2.6-7.2) H Calcium Level 7.6 MG/DL (8.5-10.1) L 7.5 MG/DL (8.5-10.1) L Phosphorus Level 5.5 MG/DL (2.5-4.9) H Magnesium Level 2.0 MG/DL (1.8-2.4) Iron Level 50 ug/dL (50-175) Total Iron Binding Capacity 154 ug/dL (250-450) L Percent Iron Saturation 32 % (15-50) Unsaturated Iron Binding 104 ug/dL (112-346) L Ferritin 697 NG/ML (8-388) H Total Bilirubin 0.9 MG/DL (0.2-1.0) Gamma Glutamyl Transpeptidase 123 U/L (5-85) H Aspartate Amino Transf (AST/SGOT) 1569 U/L (15-37) H Alanine Aminotransferase (ALT/SGPT) 1354 U/L (12-78) H Alkaline Phosphatase 105 U/L (46-116) Ammonia 58 umol/L (11-32) H Pro-B-Type Natriuretic Peptide 20418 pg/mL (0-125) H Total Protein 6.1 G/DL (6.4-8.2) L Albumin 2.6 G/DL (3.4-5.0) L Globulin 3.5 g/dL Albumin/Globulin Ratio 0.7 (1.0-2.7) L Vitamin B12 Level > 2000 PG/ML (193-986) H Folate 23.6 NG/ML (8.6-58.9) Random Vancomycin Level 30.9 ug/mL Prothrombin Time 14.8 SEC (9.30-11.50) H Prothromb Time International Ratio 1.4 (0.9-1.1) H Microbiology Date/Time Source Procedure Growth Status 02/06/18 18:05 Blood Blood Culture - Preliminary NO GROWTH AFTER 48 HOURS Resulted 02/06/18 17:45 Blood Blood Culture - Preliminary Staphylococcus Sp Coag Neg Resulted 02/06/18 18:46 Nasal Nares MRSA Culture - Final Staphylococcus Aureus - Mrsa Complete 02/06/18 18:10 Nasal Nares Influenza Types A,B Antigen (MAKENNA) - Final Complete 02/06/18 18:14 Urine,Clean Catch Urine Culture - Preliminary YEAST Resulted Intake and Output 02/08/18 02/09/18 19:00 07:00 Intake Total 1428.907 ml 1086.502 ml Output Total 215 ml 210 ml Balance 1213.907 ml 876.502 ml Intake Oral 310 ml 190 ml IV Total 1118.907 ml 896.502 ml Output Urine Total 215 ml 210 ml Objective GENERAL: awake, more responsive, NAD HEAD: Pupils are equal and reactive to light. Extraocular movements intact. NECK: Supple. No JVD. LUNGS: Poor air entry. + Expiratory wheezing, No rales. fair inspiratory effort. HEART: S1, S2. Distant heart sounds. No murmur. ABDOMEN: Soft, nondistended, and nontender. Positive bowel sounds. EXTREMITIES: No cyanosis, clubbing. More Edema on the left lower extremity. 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 Piccline on Left UE's. NEUROLOGIC: Cranial nerves II through XII are grossly intact. The patient is moving all the extremities. Assessment/Plan Assessment/Plan 1. Acute myocardial infarction with non-ST elevation myocardial , New Left BBB 2. DKA with Diabetic type 2, uncontrolled. 3. Metabolic Acidosis 4. Dementia. 5. Hypernatremia. 6. Hyperkalemia. 7. Dehydration. 8. Right AKA with peripheral vascular disease. 9. History of dementia. 10. Atherosclerotic heart disease with ischemic cardiomyopathy. 11. Acute kidney injury. 12. Peripheral vascular disease. 13. Hypothyroidism. 14. PCN allergy. 15. Liver shock. 16. Right-sided pleural effusion. PLAN: In ICU. Monitor laboratory and cultures. on heparin drip, IV hydration, Dr. Saab, Pulmonary, Critical Care. Dr. Jones, Cardiology consultation Dr. Jessica, Nephrology Consult. Code Status: Full Code as per POLST Broad-spectrum antibiotic: Levaquin and Aztreonam consider thoracocentesis. 2D Echo: Technically difficult study due to pts position. Moderate four chamber enlargement. Severe global left ventricular hypokinesis. Mid to distal septal, posterior wall and apical akinesis. Left ventricular ejection fraction estimated to be 15-20 %. Increased E point-interventricular septal separation c/w left ventricular dysfunction. Study quality precludes accurate assessment of regional wall motion. Mild left ventricular hypertrophy by 2-D. No evidence of pericardial effusion. All other cardiac chamber sizes are within normal limits. Focal aortic valve sclerosis with adequate cusp excursion. Thickened mitral valve leaflets with normal excursion. Mitral annulus and aortic root calcification. Pulmonic valve not well visualized. Normal tricuspid valve structure. IVC dilated at 2.4 cm without physiologic collapse suggestive of increased RA pressure. A color flow and spectral Doppler study was performed and revealed: Trace to mild aortic regurgitation. Moderate mitral regurgitation. Mitral inflow indicates restrictive pattern, implying severely elevated left atrial pressure (Grade III ). Moderate tricuspid regurgitation. Tricuspid systolic velocities suggests peak right ventricular systolic pressure of 89 mmHg, consistent with severe pulmonary hypertension. Trace pulmonic regurgitation present. Joni Robin MD February 09, 2018 13:34
--- NOTE | 2018-02-09 15:21 | General Progress Note ---
Assessment/Plan Status: stable, progressing Assessment/Plan encephalopathy MDD Anxiety Bee phillips Subjective Date patient seen: February 09, 2018 Neurologic/Psychiatric: Reports: anxiety, depressed Allergies: Coded Allergies: PENICILLINS (Verified Allergy, Unknown, 04/16/17) Objective Last 24 Hour Vital Signs Date Time Temp Pulse Resp B/P (MAP) Pulse Ox O2 Delivery O2 Flow Rate FiO2 02/09/18 14:00 83 20 101/53 100 Nasal Cannula 3.0 02/09/18 13:00 98.6 80 19 100/62 100 Nasal Cannula 3.0 98.6 02/09/18 12:00 82 02/09/18 12:00 82 19 90/59 100 Nasal Cannula 3.0 02/09/18 11:00 81 24 89/62 100 Nasal Cannula 3.0 02/09/18 10:00 83 23 97/53 100 Nasal Cannula 3.0 02/09/18 09:00 87 23 108/58 100 Nasal Cannula 3.0 02/09/18 09:00 108/58 02/09/18 08:20 Nasal Cannula 2.0 28 02/09/18 08:20 100 Nasal Cannula 2.0 28 02/09/18 08:19 91 20 Nasal Cannula 2.0 28 02/09/18 08:00 91 19 111/71 100 Nasal Cannula 3.0 02/09/18 08:00 85 02/09/18 08:00 130/64 02/09/18 07:00 103/55 02/09/18 07:00 98.2 96 21 120/73 100 Nasal Cannula 3.0 98.2 02/09/18 06:30 87 16 110/73 100 Nasal Cannula 3.0 02/09/18 06:00 92 20 102/62 100 Nasal Cannula 3.0 02/09/18 06:00 102/62 02/09/18 05:30 89 20 114/68 100 Nasal Cannula 3.0 02/09/18 05:00 88 20 113/60 100 Nasal Cannula 3.0 02/09/18 05:00 113/60 02/09/18 04:30 92 19 89/65 100 Nasal Cannula 3.0 02/09/18 04:00 98.1 91 19 112/75 100 Nasal Cannula 3.0 98.1 02/09/18 04:00 112/75 02/09/18 04:00 91 02/09/18 03:33 108/73 02/09/18 03:30 91 19 108/73 100 Nasal Cannula 3.0 02/09/18 03:00 115/70 02/09/18 03:00 92 11 115/70 100 Nasal Cannula 3.0 02/09/18 02:30 91 20 113/57 100 Nasal Cannula 3.0 02/09/18 02:00 92 18 98/60 100 Nasal Cannula 3.0 02/09/18 02:00 98/60 02/09/18 01:30 91 20 99/63 100 Nasal Cannula 3.0 02/09/18 01:00 98 22 103/55 100 Nasal Cannula 3.0 02/09/18 01:00 103/55 02/09/18 00:30 99 22 110/62 100 Nasal Cannula 3.0 02/09/18 00:00 98.5 96 21 124/59 99 Nasal Cannula 3.0 98.5 02/09/18 00:00 110/62 02/08/18 23:30 98 22 120/59 100 Nasal Cannula 3.0 02/08/18 23:00 97 24 115/71 100 Nasal Cannula 3.0 02/08/18 23:00 115/71 02/08/18 22:30 97 22 119/66 100 Nasal Cannula 3.0 02/08/18 22:00 98 23 108/6 100 Nasal Cannula 3.0 02/08/18 22:00 108/62 02/08/18 21:00 99 22 108/74 100 Nasal Cannula 3.0 02/08/18 21:00 108/74 02/08/18 20:30 93 23 84/54 100 Nasal Cannula 3.0 02/08/18 20:15 94 20 98/64 100 Nasal Cannula 3.0 02/08/18 20:06 80/61 18 20:00 98.5 94 22 80/61 100 Nasal Cannula 3.0 98.5 02/08/18 20:00 94 02/08/18 19:45 92 22 97/60 100 Nasal Cannula 3.0 02/08/18 19:30 93 21 75/46 100 Nasal Cannula 3.0 02/08/18 19:09 Nasal Cannula 2.0 28 02/08/18 19:09 100 Nasal Cannula 2.0 28 02/08/18 19:09 96 21 Nasal Cannula 2.0 28 02/08/18 19:00 88 22 81/51 100 Nasal Cannula 3.0 02/08/18 18:00 85 22 82/36 100 Nasal Cannula 3.0 02/08/18 17:00 89 22 85/49 100 Nasal Cannula 3.0 02/08/18 16:00 98.3 112 22 88/65 100 Nasal Cannula 3.0 98.3 02/08/18 16:00 94 Intake and Output 02/08/18 02/09/18 19:00 07:00 Intake Total 1428.907 ml 1086.502 ml Output Total 215 ml 210 ml Balance 1213.907 ml 876.502 ml Intake Oral 310 ml 190 ml IV Total 1118.907 ml 896.502 ml Output Urine Total 215 ml 210 ml Laboratory Tests 02/08/18 20:30: Troponin I 17.972H 02/09/18 03:55: Troponin I 16.313H, White Blood Count 14.3H, Red Blood Count 3.59L, Hemoglobin 9.9L, Hematocrit 30.2L, Mean Corpuscular Volume 84, Mean Corpuscular Hemoglobin 27.5, Mean Corpuscular Hemoglobin Concent 32.8, Red Cell Distribution Width 13.6 , Platelet Count 195, Mean Platelet Volume 9.9, Neutrophils (%) (Auto) 76.4H, Lymphocytes (%) (Auto) 14.4L, Monocytes (%) (Auto) 8.5, Eosinophils (%) (Auto) 0.1, Basophils (%) (Auto) 0.6, Erythrocyte Sedimentation Rate 26H, Activated Partial Thromboplast Time 57H, Sodium Level 137, Potassium Level 3.2L, Chloride Level 101, Carbon Dioxide Level 20L, Anion Gap 17H, Blood Urea Nitrogen 49H, Creatinine 3.5H, Estimat Glomerular Filtration Rate 17.7, Glucose Level 103, Lactic Acid Level 3.00H, Uric Acid 12.7H, Calcium Level 7.6L, Phosphorus Level 5.5H, Magnesium Level 2.0, Iron Level 50, Total Iron Binding Capacity 154L, Percent Iron Saturation 32, Unsaturated Iron Binding 104L, Ferritin 697H, Total Bilirubin 0.9, Gamma Glutamyl Transpeptidase 123H, Aspartate Amino Transf (AST/ SGOT) 1569H, Alanine Aminotransferase (ALT/SGPT) 1354H, Alkaline Phosphatase 105 , Ammonia 58H, Pro-B-Type Natriuretic Peptide 05213P, Total Protein 6.1L, Albumin 2.6L, Globulin 3.5, Albumin/Globulin Ratio 0.7L, Vitamin B12 Level > 2000H, Folate 23.6, Random Vancomycin Level 30.9 02/09/18 09:45: Activated Partial Thromboplast Time 102H, Sodium Level 136, Potassium Level 3.0L , Chloride Level 101, Carbon Dioxide Level 18L, Anion Gap 17H, Blood Urea Nitrogen 51H, Creatinine 3.7H, Estimat Glomerular Filtration Rate 16.6, Glucose Level 111H, Calcium Level 7.5L, Prothrombin Time 14.8H, Prothromb Time International Ratio 1.4H 02/09/18 13:00: Troponin I 15.069H, Activated Partial Thromboplast Time 92H, Lactic Acid Level 2.00 Height (Feet): 5 Height (Inches): 7.00 Weight (Pounds): 179 General Appearance: no apparent distress, alert, confused Chanel Richards M.D. February 09, 2018 15:21
--- NOTE | 2018-02-09 15:35 | Pre-Procedure Note/Attestation ---
Pre-Procedure Note/Attestation Complete Prior to Procedure Planned Procedure: not applicable Procedure Narrative: US guided thoracentesis Indications for Procedure Pre-Operative Diagnosis: pleural effusion Attestation I attest that I discussed the nature of the procedure; its benefits; risks and complications; and alternatives (and the risks and benefits of such alternatives ), prior to the procedure, with the patient (or the patient's legal representative personal service). I attest that, if there was a reasonable possibility of needing a blood transfusion, the patient (or the patient's legal representative personal service) was given the [facility] standardized written summary, pursuant to the Ankit Satish Blood Safety Act ([place] Health and Safety Code # 1645, as amended). I attest that I re-evaluated the patient just prior to the surgery and that there has been no change in the patient's H&P, except as documented below: RIAZ MURDOCK M.D. February 09, 2018 15:35
--- NOTE | 2018-02-09 16:44 | Nephrology Progress Note ---
Assessment/Plan Problem List: (1) Acute on chronic renal failure (2) Diabetic keto-acidosis (3) Peripheral vascular disease (4) Cardiomyopathy (5) Sepsis (6) Elevated liver enzymes Assessment Acute renal failure- Dehydration serum Cr rising ? CKD DM and Nephropathy Cardiomyopathy with low EjFx DKA NE Dementia HypoThyroidism PVD Rt AKA Plan stop statins in view of high lfts stop IV add coreg Antonio Kidney KP Negative for hydronephrosis Urine studies 2D Echo 20% EjFx ABG K supplement as needed may require HD Subjective ROS Limited/Unobtainable: No Constitutional: Reports: malaise, weakness Objective Objective Last 24 Hour Vital Signs Date Time Temp Pulse Resp B/P (MAP) Pulse Ox O2 Delivery O2 Flow Rate FiO2 02/09/18 16:27 82 02/09/18 16:00 98.2 88 21 92/66 100 Nasal Cannula 3.0 98.2 02/09/18 15:00 85 23 96/47 100 Nasal Cannula 3.0 02/09/18 14:00 83 20 101/53 100 Nasal Cannula 3.0 02/09/18 13:00 98.6 80 19 100/62 100 Nasal Cannula 3.0 98.6 02/09/18 12:00 82 02/09/18 12:00 82 19 90/59 100 Nasal Cannula 3.0 02/09/18 11:00 81 24 89/62 100 Nasal Cannula 3.0 02/09/18 10:00 83 23 97/53 100 Nasal Cannula 3.0 02/09/18 09:00 87 23 108/58 100 Nasal Cannula 3.0 02/09/18 09:00 108/58 02/09/18 08:20 Nasal Cannula 2.0 28 02/09/18 08:20 100 Nasal Cannula 2.0 28 02/09/18 08:19 91 20 Nasal Cannula 2.0 28 02/09/18 08:00 91 19 111/71 100 Nasal Cannula 3.0 02/09/18 08:00 85 02/09/18 08:00 130/64 02/09/18 07:00 103/55 02/09/18 07:00 98.2 96 21 120/73 100 Nasal Cannula 3.0 98.2 02/09/18 06:30 87 16 110/73 100 Nasal Cannula 3.0 02/09/18 06:00 92 20 102/62 100 Nasal Cannula 3.0 02/09/18 06:00 102/62 02/09/18 05:30 89 20 114/68 100 Nasal Cannula 3.0 02/09/18 05:00 88 20 113/60 100 Nasal Cannula 3.0 02/09/18 05:00 113/60 02/09/18 04:30 92 19 89/65 100 Nasal Cannula 3.0 02/09/18 04:00 98.1 91 19 112/75 100 Nasal Cannula 3.0 98.1 02/09/18 04:00 112/75 02/09/18 04:00 91 02/09/18 03:33 108/73 02/09/18 03:30 91 19 108/73 100 Nasal Cannula 3.0 02/09/18 03:00 115/70 02/09/18 03:00 92 11 115/70 100 Nasal Cannula 3.0 02/09/18 02:30 91 20 113/57 100 Nasal Cannula 3.0 02/09/18 02:00 92 18 98/60 100 Nasal Cannula 3.0 02/09/18 02:00 98/60 02/09/18 01:30 91 20 99/63 100 Nasal Cannula 3.0 02/09/18 01:00 98 22 103/55 100 Nasal Cannula 3.0 02/09/18 01:00 103/55 02/09/18 00:30 99 22 110/62 100 Nasal Cannula 3.0 02/09/18 00:00 98.5 96 21 124/59 99 Nasal Cannula 3.0 98.5 02/09/18 00:00 110/62 02/08/18 23:30 98 22 120/59 100 Nasal Cannula 3.0 02/08/18 23:00 97 24 115/71 100 Nasal Cannula 3.0 02/08/18 23:00 115/71 02/08/18 22:30 97 22 119/66 100 Nasal Cannula 3.0 02/08/18 22:00 98 23 108/6 100 Nasal Cannula 3.0 02/08/18 22:00 108/62 02/08/18 21:00 99 22 108/74 100 Nasal Cannula 3.0 02/08/18 21:00 108/74 02/08/18 20:30 93 23 84/54 100 Nasal Cannula 3.0 02/08/18 20:15 94 20 98/64 100 Nasal Cannula 3.0 02/08/18 20:06 80/61 02/08/18 20:00 98.5 94 22 80/61 100 Nasal Cannula 3.0 98.5 02/08/18 20:00 94 02/08/18 19:45 92 22 97/60 100 Nasal Cannula 3.0 02/08/18 19:30 93 21 75/46 100 Nasal Cannula 3.0 02/08/18 19:09 Nasal Cannula 2.0 28 02/08/18 19:09 100 Nasal Cannula 2.0 28 02/08/18 19:09 96 21 Nasal Cannula 2.0 28 02/08/18 19:00 88 22 81/51 100 Nasal Cannula 3.0 02/08/18 18:00 85 22 82/36 100 Nasal Cannula 3.0 02/08/18 17:00 89 22 85/49 100 Nasal Cannula 3.0 Intake and Output 02/08/18 02/09/18 19:00 07:00 Intake Total 1428.907 ml 1086.502 ml Output Total 215 ml 210 ml Balance 1213.907 ml 876.502 ml Intake Oral 310 ml 190 ml IV Total 1118.907 ml 896.502 ml Output Urine Total 215 ml 210 ml Laboratory Tests 02/08/18 20:30: Troponin I 17.972H 02/09/18 03:55: Troponin I 16.313H, White Blood Count 14.3H, Red Blood Count 3.59L, Hemoglobin 9.9L, Hematocrit 30.2L, Mean Corpuscular Volume 84, Mean Corpuscular Hemoglobin 27.5, Mean Corpuscular Hemoglobin Concent 32.8, Red Cell Distribution Width 13.6 , Platelet Count 195, Mean Platelet Volume 9.9, Neutrophils (%) (Auto) 76.4H, Lymphocytes (%) (Auto) 14.4L, Monocytes (%) (Auto) 8.5, Eosinophils (%) (Auto) 0.1, Basophils (%) (Auto) 0.6, Erythrocyte Sedimentation Rate 26H, Activated Partial Thromboplast Time 57H, Sodium Level 137, Potassium Level 3.2L, Chloride Level 101, Carbon Dioxide Level 20L, Anion Gap 17H, Blood Urea Nitrogen 49H, Creatinine 3.5H, Estimat Glomerular Filtration Rate 17.7, Glucose Level 103, Lactic Acid Level 3.00H, Uric Acid 12.7H, Calcium Level 7.6L, Phosphorus Level 5.5H, Magnesium Level 2.0, Iron Level 50, Total Iron Binding Capacity 154L, Percent Iron Saturation 32, Unsaturated Iron Binding 104L, Ferritin 697H, Total Bilirubin 0.9, Gamma Glutamyl Transpeptidase 123H, Aspartate Amino Transf (AST/ SGOT) 1569H, Alanine Aminotransferase (ALT/SGPT) 1354H, Alkaline Phosphatase 105 , Ammonia 58H, Pro-B-Type Natriuretic Peptide 84848Q, Total Protein 6.1L, Albumin 2.6L, Globulin 3.5, Albumin/Globulin Ratio 0.7L, Vitamin B12 Level > 2000H, Folate 23.6, Random Vancomycin Level 30.9 02/09/18 09:45: Activated Partial Thromboplast Time 102H, Sodium Level 136, Potassium Level 3.0L , Chloride Level 101, Carbon Dioxide Level 18L, Anion Gap 17H, Blood Urea Nitrogen 51H, Creatinine 3.7H, Estimat Glomerular Filtration Rate 16.6, Glucose Level 111H, Calcium Level 7.5L, Prothrombin Time 14.8H, Prothromb Time International Ratio 1.4H 02/09/18 13:00: Troponin I 15.069H, Activated Partial Thromboplast Time 92H, Lactic Acid Level 2.00 Height (Feet): 5 Height (Inches): 7.00 Weight (Pounds): 179 General Appearance: no apparent distress, lethargic Respiratory/Chest: decreased breath sounds Abdomen: distended LAKESHA BAR February 09, 2018 16:44
--- NOTE | 2018-02-09 16:45 | Brief Operative Note ---
Immediate Post Operative Note Operative Note Chief Complaint: SOB Pre-op Diagnosis: pleural effusion Procedure: US guided R thoracentesis Post-op Diagnosis: same as pre-op Findings: consistent w/pre-op dx studies Surgeon: Rachna MURDOCK Anesthesia: local Specimen: yes - 60 ml fluid sent to lab Complications: none Fluids: none Implant(s) used?: No RIAZ MURDOCK M.D. February 09, 2018 16:45
--- NOTE | 2018-02-09 16:49 | Diagnostic Imaging Report ---
Indication: Post thoracentesis Technique: One view of the chest Comparison: 02/08/2018 Findings: Interim resolution of previously demonstrated right-sided pleural effusion. Left basilar atelectasis and patchy consolidative changes are stable. The heart is borderline enlarged. No pneumothorax is demonstrated.. Left arm PICC is again demonstrated Impression: No evidence of post thoracentesis pneumothorax Other findings as noted
--- NOTE | 2018-02-09 16:57 | Diagnostic Imaging Report ---
Indications: Pleural effusion Technique: Ultrasound used to localize optimal puncture site. Sterile prepping and draping right chest. Local anesthesia with 1% lidocaine. Under real-time ultrasound guidance, puncture pleural space using thoracentesis needle. Stylet removed. Catheter placed to vacuum bottle suction. Total 400 milliliters of fluid aspirated. Patient tolerated procedure well, without immediate complication. Findings: Followup sonography demonstrates complete resolution of pleural fluid. Impression: Successful ultrasound-guided thoracentesis, yielding 400 milliliters of fluid
--- NOTE | 2018-02-09 18:57 | Cardiology Progress Note ---
Assessment/Plan Assessment/Plan 1. Acute myocardial infarction with subacute presentation. 2. History of coronary artery disease. 3. Known cardiomyopathy ef previosuly 25% . 4. Pulmonary hypertension. 5. Metabolic encephalopathy. 6. Peripheral vascular disease status post amputation 7. hypotension improved 8. chf 9. Acute on chronic renal fialrue 10. New LBBB resolved 11. afib new onset 02/09/2018 bp improved now off levophed s/p thoracentesis 400 cc removed keep in icu on antiplat and statin avoid coreg in setting of acute chf prognosis is guarded cr worsening continue supportive care trop trending down tel reviewed now afib ekg reviewed qrs complex now back to normal duration no further LBBB is apparent critically ill d/w rn keep on iv heparin for nwo stroke prevention may need cardioversion if converts spont would consider starting on amiod to prevent recurrence pressor are off at this time has wheezing is on hhn if bp improves need to consider isordil hydralazine combination as cannot take acie with renal insuf Subjective Cardiovascular: Denies: chest pain Respiratory: Reports: shortness of breath Gastrointestinal/Abdominal: Reports: abdominal pain Subjective more awake Objective Last 24 Hour Vital Signs Date Time Temp Pulse Resp B/P (MAP) Pulse Ox O2 Delivery O2 Flow Rate FiO2 02/09/18 18:00 84 19 108/62 100 Nasal Cannula 3.0 02/09/18 17:00 82 23 96/66 100 Nasal Cannula 3.0 02/09/18 16:27 82 02/09/18 16:00 98.2 88 21 92/66 100 Nasal Cannula 3.0 98.2 02/09/18 15:00 85 23 96/47 100 Nasal Cannula 3.0 02/09/18 14:00 83 20 101/53 100 Nasal Cannula 3.0 02/09/18 13:00 98.6 80 19 100/62 100 Nasal Cannula 3.0 98.6 02/09/18 12:00 82 02/09/18 12:00 82 19 90/59 100 Nasal Cannula 3.0 02/09/18 11:00 81 24 89/62 100 Nasal Cannula 3.0 02/09/18 10:00 83 23 97/53 100 Nasal Cannula 3.0 02/09/18 09:00 87 23 108/58 100 Nasal Cannula 3.0 02/09/18 09:00 108/58 02/09/18 08:20 Nasal Cannula 2.0 28 02/09/18 08:20 100 Nasal Cannula 2.0 28 02/09/18 08:19 91 20 Nasal Cannula 2.0 28 02/09/18 08:00 91 19 111/71 100 Nasal Cannula 3.0 02/09/18 08:00 85 02/09/18 08:00 130/64 02/09/18 07:00 103/55 02/09/18 07:00 98.2 96 21 120/73 100 Nasal Cannula 3.0 98.2 02/09/18 06:30 87 16 110/73 100 Nasal Cannula 3.0 02/09/18 06:00 92 20 102/62 100 Nasal Cannula 3.0 02/09/18 06:00 102/62 02/09/18 05:30 89 20 114/68 100 Nasal Cannula 3.0 02/09/18 05:00 88 20 113/60 100 Nasal Cannula 3.0 02/09/18 05:00 113/60 02/09/18 04:30 92 19 89/65 100 Nasal Cannula 3.0 02/09/18 04:00 98.1 91 19 112/75 100 Nasal Cannula 3.0 98.1 02/09/18 04:00 112/75 02/09/18 04:00 91 02/09/18 03:33 108/73 02/09/18 03:30 91 19 108/73 100 Nasal Cannula 3.0 02/09/18 03:00 115/70 02/09/18 03:00 92 11 115/70 100 Nasal Cannula 3.0 02/09/18 02:30 91 20 113/57 100 Nasal Cannula 3.0 02/09/18 02:00 92 18 98/60 100 Nasal Cannula 3.0 02/09/18 02:00 98/60 02/09/18 01:30 91 20 99/63 100 Nasal Cannula 3.0 02/09/18 01:00 98 22 103/55 100 Nasal Cannula 3.0 02/09/18 01:00 103/55 02/09/18 00:30 99 22 110/62 100 Nasal Cannula 3.0 02/09/18 00:00 98.5 96 21 124/59 99 Nasal Cannula 3.0 98.5 02/09/18 00:00 110/62 5/17/18 23:30 98 22 120/59 100 Nasal Cannula 3.0 02/08/18 23:00 97 24 115/71 100 Nasal Cannula 3.0 02/08/18 23:00 115/71 02/08/18 22:30 97 22 119/66 100 Nasal Cannula 3.0 02/08/18 22:00 98 23 108/6 100 Nasal Cannula 3.0 02/08/18 22:00 108/62 02/08/18 21:00 99 22 108/74 100 Nasal Cannula 3.0 02/08/18 21:00 108/74 02/08/18 20:30 93 23 84/54 100 Nasal Cannula 3.0 02/08/18 20:15 94 20 98/64 100 Nasal Cannula 3.0 02/08/18 20:06 80/61 02/08/18 20:00 98.5 94 22 80/61 100 Nasal Cannula 3.0 98.5 02/08/18 20:00 94 02/08/18 19:45 92 22 97/60 100 Nasal Cannula 3.0 02/08/18 19:30 93 21 75/46 100 Nasal Cannula 3.0 02/08/18 19:09 Nasal Cannula 2.0 28 02/08/18 19:09 100 Nasal Cannula 2.0 28 02/08/18 19:09 96 21 Nasal Cannula 2.0 28 02/08/18 19:00 88 22 81/51 100 Nasal Cannula 3.0 General Appearance: no apparent distress, alert Neck: supple Cardiovascular: irregularly irregular Respiratory/Chest: decreased breath sounds Abdomen: normal bowel sounds, non tender, soft Extremities: moderate edema Intake and Output 02/08/18 02/09/18 19:00 07:00 Intake Total 1428.907 ml 1086.502 ml Output Total 215 ml 210 ml Balance 1213.907 ml 876.502 ml Intake Oral 310 ml 190 ml IV Total 1118.907 ml 896.502 ml Output Urine Total 215 ml 210 ml Laboratory Tests Test 02/08/18 20:30 02/09/18 03:55 02/09/18 09:45 02/09/18 13:00 Troponin I 17.972 ng/mL (0.000-0.056) 16.313 ng/mL (0.000-0.056) 15.069 ng/mL (0.000-0.056) White Blood Count 14.3 K/UL (4.8-10.8) H Red Blood Count 3.59 M/UL (4.70-6.10) L Hemoglobin 9.9 G/DL (14.2-18.0) L Hematocrit 30.2 % (42.0-52.0) L Mean Corpuscular Volume 84 FL (80-99) Mean Corpuscular Hemoglobin 27.5 PG (27.0-31.0) Mean Corpuscular Hemoglobin Concent 32.8 G/DL (32.0-36.0) Red Cell Distribution Width 13.6 % (11.6-14.8) Platelet Count 195 K/UL (150-450) Mean Platelet Volume 9.9 FL (6.5-10.1) Neutrophils (%) (Auto) 76.4 % (45.0-75.0) H Lymphocytes (%) (Auto) 14.4 % (20.0-45.0) L Monocytes (%) (Auto) 8.5 % (1.0-10.0) Eosinophils (%) (Auto) 0.1 % (0.0-3.0) Basophils (%) (Auto) 0.6 % (0.0-2.0) Erythrocyte Sedimentation Rate 26 MM/HR (0-20) H Activated Partial Thromboplast Time 57 SEC (23-33) H 102 SEC (23-33) H 92 SEC (23-33) H Sodium Level 137 MMOL/L (136-145) 136 MMOL/L (136-145) Potassium Level 3.2 MMOL/L (3.5-5.1) L 3.0 MMOL/L (3.5-5.1) L Chloride Level 101 MMOL/L (98-107) 101 MMOL/L (98-107) Carbon Dioxide Level 20 MMOL/L (21-32) L 18 MMOL/L (21-32) L Anion Gap 17 mmol/L (5-15) H 17 mmol/L (5-15) H Blood Urea Nitrogen 49 mg/dL (7-18) H 51 mg/dL (7-18) H Creatinine 3.5 MG/DL (0.55-1.30) H 3.7 MG/DL (0.55-1.30) H Estimat Glomerular Filtration Rate 17.7 mL/min (>60) 16.6 mL/min (>60) Glucose Level 103 MG/DL (74-106) 111 MG/DL (74-106) H Lactic Acid Level 3.00 mmol/L (0.66-2.22) H 2.00 mmol/L (0.66-2.22) Uric Acid 12.7 MG/DL (2.6-7.2) H Calcium Level 7.6 MG/DL (8.5-10.1) L 7.5 MG/DL (8.5-10.1) L Phosphorus Level 5.5 MG/DL (2.5-4.9) H Magnesium Level 2.0 MG/DL (1.8-2.4) Iron Level 50 ug/dL (50-175) Total Iron Binding Capacity 154 ug/dL (250-450) L Percent Iron Saturation 32 % (15-50) Unsaturated Iron Binding 104 ug/dL (112-346) L Ferritin 697 NG/ML (8-388) H Total Bilirubin 0.9 MG/DL (0.2-1.0) Gamma Glutamyl Transpeptidase 123 U/L (5-85) H Aspartate Amino Transf (AST/SGOT) 1569 U/L (15-37) H Alanine Aminotransferase (ALT/SGPT) 1354 U/L (12-78) H Alkaline Phosphatase 105 U/L (46-116) Ammonia 58 umol/L (11-32) H Pro-B-Type Natriuretic Peptide 35820 pg/mL (0-125) H Total Protein 6.1 G/DL (6.4-8.2) L Albumin 2.6 G/DL (3.4-5.0) L Globulin 3.5 g/dL Albumin/Globulin Ratio 0.7 (1.0-2.7) L Vitamin B12 Level > 2000 PG/ML (193-986) H Folate 23.6 NG/ML (8.6-58.9) Random Vancomycin Level 30.9 ug/mL Prothrombin Time 14.8 SEC (9.30-11.50) H Prothromb Time International Ratio 1.4 (0.9-1.1) H Darnell Belcher MD February 09, 2018 18:57
[2018-02-09] MEDS: Insulin Rate Change 1 Each MISC PRN ×3 (19:12→21:59)
[2018-02-09] MEDS: Dyna-Hex 2% Top Sol 2oz TOPIC SCH (20:07)
--- NOTE | 2018-02-09 20:44 | Infectious Diseases Prog Note ---
Assessment/Plan Assessment/Plan ASSESSMENT: The patient is a 67-year-old male with, +ve blood cX : 09/28 CoNS ( m/l contaminant ) Fever, DP Leukocytosis, improving Transaminitis worsening (probably due to right-sided heart failure, also rule out chronic hepatitis.) Hepatitis C Ab + Possible UTI / cystitis. Bronchitis MRSA colonization XAVIER CAD/myocardial infarction. Hypertension. Diabetes. Anemia. Hyperlipidemia. Peripheral vascular disease. Anxiety. Degenerative joint disease. Hyperthyroidism. Dilated cardiomyopathy. GERD. Dementia PLAN: continue the patient on aztreonam and levaquin day #3 DC IV Vanco day # 2 Monitor CBC. Monitor BMP. Monitor cultures (blood, urine, sputum). Monitor chest x-ray. Hep C PCR Subjective Constitutional: Denies: no symptoms, fever, chills, fatigue, anorexia, drenching sweats, other Allergies: Coded Allergies: PENICILLINS (Verified Allergy, Unknown, 04/16/17) Subjective Afebrile Objective Vital Signs Last 24 Hour Vital Signs Date Time Temp Pulse Resp B/P (MAP) Pulse Ox O2 Delivery O2 Flow Rate FiO2 02/09/18 19:17 Nasal Cannula 2.0 28 02/09/18 19:17 100 Nasal Cannula 2.0 28 02/09/18 19:17 86 21 Nasal Cannula 2.0 28 02/09/18 19:00 86 19 103/54 100 Nasal Cannula 3.0 02/09/18 18:00 84 19 108/62 100 Nasal Cannula 3.0 02/09/18 17:00 82 23 96/66 100 Nasal Cannula 3.0 02/09/18 16:27 82 02/09/18 16:00 98.2 88 21 92/66 100 Nasal Cannula 3.0 98.2 02/09/18 15:00 85 23 96/47 100 Nasal Cannula 3.0 02/09/18 14:00 83 20 101/53 100 Nasal Cannula 3.0 02/09/18 13:00 98.6 80 19 100/62 100 Nasal Cannula 3.0 98.6 02/09/18 12:00 82 02/09/18 12:00 82 19 90/59 100 Nasal Cannula 3.0 02/09/18 11:00 81 24 89/62 100 Nasal Cannula 3.0 02/09/18 10:00 83 23 97/53 100 Nasal Cannula 3.0 02/09/18 09:00 87 23 108/58 100 Nasal Cannula 3.0 02/09/18 09:00 108/58 02/09/18 08:20 Nasal Cannula 2.0 28 02/09/18 08:20 100 Nasal Cannula 2.0 28 02/09/18 08:19 91 20 Nasal Cannula 2.0 28 02/09/18 08:00 91 19 111/71 100 Nasal Cannula 3.0 02/09/18 08:00 85 02/09/18 08:00 130/64 02/09/18 07:00 103/55 02/09/18 07:00 98.2 96 21 120/73 100 Nasal Cannula 3.0 98.2 02/09/18 06:30 87 16 110/73 100 Nasal Cannula 3.0 02/09/18 06:00 92 20 102/62 100 Nasal Cannula 3.0 02/09/18 06:00 102/62 02/09/18 05:30 89 20 114/68 100 Nasal Cannula 3.0 02/09/18 05:00 88 20 113/60 100 Nasal Cannula 3.0 02/09/18 05:00 113/60 02/09/18 04:30 92 19 89/65 100 Nasal Cannula 3.0 02/09/18 04:00 98.1 91 19 112/75 100 Nasal Cannula 3.0 98.1 02/09/18 04:00 112/75 02/09/18 04:00 91 02/09/18 03:33 108/73 02/09/18 03:30 91 19 108/73 100 Nasal Cannula 3.0 02/09/18 03:00 115/70 02/09/18 03:00 92 11 115/70 100 Nasal Cannula 3.0 02/09/18 02:30 91 20 113/57 100 Nasal Cannula 3.0 02/09/18 02:00 92 18 98/60 100 Nasal Cannula 3.0 02/09/18 02:00 98/60 02/09/18 01:30 91 20 99/63 100 Nasal Cannula 3.0 02/09/18 01:00 98 22 103/55 100 Nasal Cannula 3.0 02/09/18 01:00 103/55 02/09/18 00:30 99 22 110/62 100 Nasal Cannula 3.0 02/09/18 00:00 98.5 96 21 124/59 99 Nasal Cannula 3.0 98.5 02/09/18 00:00 110/62 02/08/18 23:30 98 22 120/59 100 Nasal Cannula 3.0 02/08/18 23:00 97 24 115/71 100 Nasal Cannula 3.0 02/08/18 23:00 115/71 02/08/18 22:30 97 22 119/66 100 Nasal Cannula 3.0 02/08/18 22:00 98 23 108/6 100 Nasal Cannula 3.0 02/08/18 22:00 108/62 02/08/18 21:00 99 22 108/74 100 Nasal Cannula 3.0 02/08/18 21:00 108/74 Height (Feet): 5 Height (Inches): 7.00 Weight (Pounds): 179 HEENT: anicteric Respiratory/Chest: normal breath sounds Cardiovascular: regular rhythm Abdomen: soft, non tender Laboratory Tests Test 02/09/18 03:55 02/09/18 09:45 02/09/18 13:00 White Blood Count 14.3 K/UL (4.8-10.8) H Red Blood Count 3.59 M/UL (4.70-6.10) L Hemoglobin 9.9 G/DL (14.2-18.0) L Hematocrit 30.2 % (42.0-52.0) L Mean Corpuscular Volume 84 FL (80-99) Mean Corpuscular Hemoglobin 27.5 PG (27.0-31.0) Mean Corpuscular Hemoglobin Concent 32.8 G/DL (32.0-36.0) Red Cell Distribution Width 13.6 % (11.6-14.8) Platelet Count 195 K/UL (150-450) Mean Platelet Volume 9.9 FL (6.5-10.1) Neutrophils (%) (Auto) 76.4 % (45.0-75.0) H Lymphocytes (%) (Auto) 14.4 % (20.0-45.0) L Monocytes (%) (Auto) 8.5 % (1.0-10.0) Eosinophils (%) (Auto) 0.1 % (0.0-3.0) Basophils (%) (Auto) 0.6 % (0.0-2.0) Erythrocyte Sedimentation Rate 26 MM/HR (0-20) H Activated Partial Thromboplast Time 57 SEC (23-33) H 102 SEC (23-33) H 92 SEC (23-33) H Sodium Level 137 MMOL/L (136-145) 136 MMOL/L (136-145) Potassium Level 3.2 MMOL/L (3.5-5.1) L 3.0 MMOL/L (3.5-5.1) L Chloride Level 101 MMOL/L (98-107) 101 MMOL/L (98-107) Carbon Dioxide Level 20 MMOL/L (21-32) L 18 MMOL/L (21-32) L Anion Gap 17 mmol/L (5-15) H 17 mmol/L (5-15) H Blood Urea Nitrogen 49 mg/dL (7-18) H 51 mg/dL (7-18) H Creatinine 3.5 MG/DL (0.55-1.30) H 3.7 MG/DL (0.55-1.30) H Estimat Glomerular Filtration Rate 17.7 mL/min (>60) 16.6 mL/min (>60) Glucose Level 103 MG/DL (74-106) 111 MG/DL (74-106) H Lactic Acid Level 3.00 mmol/L (0.66-2.22) H 2.00 mmol/L (0.66-2.22) Uric Acid 12.7 MG/DL (2.6-7.2) H Calcium Level 7.6 MG/DL (8.5-10.1) L 7.5 MG/DL (8.5-10.1) L Phosphorus Level 5.5 MG/DL (2.5-4.9) H Magnesium Level 2.0 MG/DL (1.8-2.4) Iron Level 50 ug/dL (50-175) Total Iron Binding Capacity 154 ug/dL (250-450) L Percent Iron Saturation 32 % (15-50) Unsaturated Iron Binding 104 ug/dL (112-346) L Ferritin 697 NG/ML (8-388) H Total Bilirubin 0.9 MG/DL (0.2-1.0) Gamma Glutamyl Transpeptidase 123 U/L (5-85) H Aspartate Amino Transf (AST/SGOT) 1569 U/L (15-37) H Alanine Aminotransferase (ALT/SGPT) 1354 U/L (12-78) H Alkaline Phosphatase 105 U/L (46-116) Ammonia 58 umol/L (11-32) H Troponin I 16.313 ng/mL (0.000-0.056) 15.069 ng/mL (0.000-0.056) Pro-B-Type Natriuretic Peptide 08156 pg/mL (0-125) H Total Protein 6.1 G/DL (6.4-8.2) L Albumin 2.6 G/DL (3.4-5.0) L Globulin 3.5 g/dL Albumin/Globulin Ratio 0.7 (1.0-2.7) L Vitamin B12 Level > 2000 PG/ML (193-986) H Folate 23.6 NG/ML (8.6-58.9) Random Vancomycin Level 30.9 ug/mL Prothrombin Time 14.8 SEC (9.30-11.50) H Prothromb Time International Ratio 1.4 (0.9-1.1) H Current Medications Medications (Trade) Dose Ordered Sig/Eliel Route PRN Reason Start Time Stop Time Status Last Admin Dose Admin Acetaminophen (Tylenol) 650 mg Q4H PRN ORAL T>100.5 02/07/18 18:00 03/08/18 17:59 Albuterol/ Ipratropium (Albuterol/ Ipratropium) 3 ml Q4H PRN HHN Shortness of Breath 02/07/18 18:00 02/11/18 17:59 02/08/18 12:24 Aluminum Hydroxide (Amphojel) 1,920 mg TID ORAL 02/09/18 09:00 03/10/18 17:59 02/09/18 17:45 Aspirin (ASA) 325 mg DAILY ORAL 02/09/18 09:00 03/09/18 21:59 02/09/18 09:26 Aztreonam 1 gm/ Sodium Chloride 50 ml @ 100 mls/hr Q8H IVPB 02/07/18 22:30 02/13/18 22:29 02/09/18 14:46 Chlorhexidine Gluconate (Laura-Hex 2%) 1 applic DAILY@2000 TOPIC 02/07/18 20:00 03/09/18 19:59 02/09/18 20:07 Clonidine HCl (Catapres Tab) 0.1 mg Q8H PRN ORAL SBP > 160mmHg 02/07/18 18:00 03/08/18 17:59 Dextrose (Dextrose 50%) 25 ml PRN PRN IV HYPOGLYCEMIA 02/08/18 23:00 03/10/18 22:59 Heparin Sodium/ Dextrose 500 ml @ 22.453 mls/ hr adjust per protocol IV 02/09/18 07:00 03/09/18 15:29 02/09/18 11:39 Insulin Human Regular (NovoLIN R) 5 units PRN PRN IV BS 200-299 02/08/18 23:00 03/10/18 22:59 Insulin Human Regular (NovoLIN R) 10 units PRN PRN IV BS=>300 02/08/18 23:00 03/10/18 22:59 Insulin Human Regular 100 units/ Sodium Chloride 101 ml @ 0 mls/hr Q24H IV 02/08/18 23:00 03/10/18 22:59 02/08/18 22:00 Levofloxacin 150 ml @ 100 mls/hr Q48H IVPB 02/07/18 21:00 02/14/18 20:59 02/09/18 20:08 Metoclopramide HCl (Reglan) 5 mg THREE TIMES A DAY ORAL 02/08/18 13:00 03/10/18 12:59 02/09/18 17:44 Mirtazapine (Remeron) 7.5 mg BEDTIME ORAL 02/08/18 21:00 03/10/18 20:59 02/09/18 20:07 Miscellaneous Medication (Insulin Rate Change) 1 ea PRN PRN MISC Hypoglycemia 02/07/18 14:00 03/09/18 13:59 02/09/18 20:11 Nitroglycerin (Ntg) 0.4 mg Q5MIN X 3 DOSES PRN SL Prn Chest Pain 02/07/18 17:15 03/08/18 18:44 Norepinephrine Bitartrate 4 mg/ Dextrose 250 ml @ 0 mls/hr Q24H IV 02/08/18 19:45 03/10/18 19:44 02/09/18 03:33 Ondansetron HCl (Zofran) 4 mg Q6H PRN IVP Nausea & Vomiting 02/07/18 18:45 03/08/18 18:44 Pantoprazole (Protonix) 40 mg EVERY 12 HOURS ORAL 02/08/18 21:00 03/10/18 20:59 02/09/18 20:07 Polyethylene Glycol (Miralax) 17 gm DAILYPRN PRN ORAL Constipation 02/07/18 18:45 03/08/18 18:44 Sodium Citrate (Bicitra) 30 ml TID ORAL 02/08/18 18:00 03/09/18 11:59 02/09/18 17:45 Temazepam (Restoril) 15 mg HSPRN PRN ORAL Insomnia 02/08/18 21:00 02/15/18 20:59 Josr Hinojosa MD February 09, 2018 20:44
[2018-02-10] VITALS (24 sets, daily range): BP systolic 80–106; BP diastolic 40–74
[2018-02-10] MEDS: Insulin Rate Change 1 Each MISC PRN ×7 (00:11→22:05)
[2018-02-10] MEDS: Aztreonam Inj 1 GM in NS 50 ML IVPB SCH ×3 (05:10→22:02)
[2018-02-10 05:14] LABS: BASOPHILS % (AUTO) 0.8 % (0.0-2.0); EOSINOPHILS % (AUTO) 0.9 % (0.0-3.0); HEMATOCRIT 28.2 % (42.0-52.0); HEMOGLOBIN 9.4 G/DL (14.2-18.0); LYMPHOCYTES % (AUTO) 18.9 % (20.0-45.0); MEAN CORPUSCULAR VOLUME 84 FL (80-99); MONOCYTES % (AUTO) 11.7 % (1.0-10.0); NEUTROPHILS % (AUTO) 67.8 % (45.0-75.0); PLATELET COUNT 154 K/UL (150-450); RED BLOOD COUNT 3.38 M/UL (4.70-6.10); RED CELL DISTRIBUTION WIDTH 13.4 % (11.6-14.8); WHITE BLOOD COUNT 10.9 K/UL (4.8-10.8)
[2018-02-10 05:41] LABS: CREATINE KINASE 310 U/L (26-308); GAMMA GLUTAMYL TRANSPEPTIDASE 151 U/L (5-85)
[2018-02-10 06:02] LABS: ALANINE AMINOTRANSFERASE 997 U/L (12-78); ALBUMIN 2.5 G/DL (3.4-5.0); ALBUMIN/GLOBULIN RATIO 0.7 (1.0-2.7); ALKALINE PHOSPHATASE 123 U/L (46-116); ANION GAP 18 mmol/L (5-15); ASPARTATE AMINO TRANSFERASE 2475 U/L (15-37); BILIRUBIN,TOTAL 0.8 MG/DL (0.2-1.0); BLOOD UREA NITROGEN 57 mg/dL (7-18); CALCIUM 7.5 MG/DL (8.5-10.1); CARBON DIOXIDE 20 MMOL/L (21-32); CHLORIDE 99 MMOL/L (98-107); PHOSPHORUS 5.6 MG/DL (2.5-4.9); SODIUM 136 MMOL/L (136-145)
[2018-02-10 06:03] LABS: POTASSIUM 2.7 MMOL/L (3.5-5.1)
--- NOTE | 2018-02-10 07:04 | Pulmonolgy Critical Care Note ---
Critical Care - Asmt/Plan Assessment/Plan: ASSESSMENT Non-STEMI with history of coronary artery disease Cardiomyopathy probable sepsis, POA ( leuk, fever, tachy, evidence of infection) possible UTI/cystitis Left bundle-branch block/new right pleural effusion Status post thoracentesis, 02/08 0 400 mL Diabetes mellitus type 2, out of control Diabetes ketoacidosis Diabetic nephropathy Acute renal failure on chronic renal insufficiency Dehydration Electrolyte imbalance: hyponatremia, hyperkalemia, hypokalemias PVD with right AKA Transaminitis Anemia Severe pulmonary hypertension Hypothyroidism ( low TSH) hepatitis C PLAN OF CARE Heparin drip fiscal assistant followed per fiscal assistant late for intervention, for now continue antiplatelet therapy, heparin drip and statin statins were discontinued due to rising LFT, lipid panel stable troponin trending down On beta elvie, later TL start as per cardio pain management, on nitro, add low dose MS prn Echocardiogram with EF 15-20% right ventricular systolic pressure of 89 consistent with severe pulmonary hypertension BP stable, off pressors Hepatitis panel + hep C, trend LFTs , get abd US Insulin drip as per protocol until anion gap closes, then switch to short and long-acting insulin hemoglobin A1c 9.3, not at goal, still elevated anion gap endo follows off IV fluids secondary to severe cardiomyopathy O2 HHN prn s/p tap for R pleural effusion with complete resolution-400 ml CXR post procedure - no PNT fup with CXR Antibiotics ID follows urine culture + Rebekah, influenza test negative, blood culture 1 /4 gram-positive cocci in clusters, likely contaminated as per ID Chest x-ray no acute cardiopulmonary pathology CT of the abdomen and pelvis no acute pathology monitor renal parameters and electrolytes, worse, correct electrolytes as needed, -per nephro Avoid nephrotoxics, creat rising Barrel Ribs Solderer follows Renal ultrasound revealed cholelithiasis but no hydronephrosis and normal bilateral kidney echogenicity according to undercoat sprayer patient likely has diabetic nephropathy along with acute renal failure due to dehydration bowel regimen GI prophylaxis nutritional supplements as per dietary recommendations monitor H&H transfuse when necessary, goal to keep Hgb above 8 case discussed and evaluated by supervising physician Critical Care - Objective Last 24 Hour Vital Signs Date Time Temp Pulse Resp B/P (MAP) Pulse Ox O2 Delivery O2 Flow Rate FiO2 02/10/18 07:00 81 16 100/62 100 Nasal Cannula 3.0 02/10/18 06:00 80 18 92/74 100 Nasal Cannula 3.0 02/10/18 05:00 98.5 75 19 80/40 100 Nasal Cannula 3.0 98.5 02/10/18 04:00 80 19 95/58 100 Nasal Cannula 3.0 02/10/18 04:00 77 02/10/18 03:00 80 18 91/58 100 Nasal Cannula 3.0 02/10/18 02:00 84 22 97/60 100 Nasal Cannula 3.0 02/10/18 01:00 73 21 93/56 100 Nasal Cannula 3.0 02/10/18 00:00 98.9 88 19 95/54 100 Nasal Cannula 3.0 98.9 02/10/18 00:00 84 02/09/18 23:00 87 19 96/52 100 Nasal Cannula 3.0 02/09/18 22:00 86 19 91/59 100 Nasal Cannula 3.0 02/09/18 21:00 87 20 103/55 99 Nasal Cannula 3.0 02/09/18 20:52 85 02/09/18 20:00 98.7 81 17 101/63 100 Nasal Cannula 3.0 98.7 02/09/18 19:17 Nasal Cannula 2.0 28 02/09/18 19:17 100 Nasal Cannula 2.0 28 02/09/18 19:17 86 21 Nasal Cannula 2.0 28 02/09/18 19:00 86 19 103/54 100 Nasal Cannula 3.0 02/09/18 18:00 84 19 108/62 100 Nasal Cannula 3.0 02/09/18 17:00 82 23 96/66 100 Nasal Cannula 3.0 02/09/18 16:27 82 02/09/18 16:00 98.2 88 21 92/66 100 Nasal Cannula 3.0 98.2 02/09/18 15:00 85 23 96/47 100 Nasal Cannula 3.0 02/09/18 14:00 83 20 101/53 100 Nasal Cannula 3.0 02/09/18 13:00 98.6 80 19 100/62 100 Nasal Cannula 3.0 98.6 02/09/18 12:00 82 02/09/18 12:00 82 19 90/59 100 Nasal Cannula 3.0 02/09/18 11:00 81 24 89/62 100 Nasal Cannula 3.0 02/09/18 10:00 83 23 97/53 100 Nasal Cannula 3.0 02/09/18 09:00 87 23 108/58 100 Nasal Cannula 3.0 02/09/18 09:00 108/58 02/09/18 08:20 Nasal Cannula 2.0 28 02/09/18 08:20 100 Nasal Cannula 2.0 28 02/09/18 08:19 91 20 Nasal Cannula 2.0 28 02/09/18 08:00 91 19 111/71 100 Nasal Cannula 3.0 02/09/18 08:00 85 02/09/18 08:00 130/64 Status: awake Condition: critical HEENT: atraumatic Neck: full ROM Lungs: clear Heart: HR/BP stable, other - LUE PICC intact Abdomen: soft, non-tender, active bowel sounds Decubiti: other - R AKA Accucheck: 134 Critical Care - Subjective ROS Limited/Unobtainable: Yes Interval Events: still on heparin drip Still on insulin drip Potassium 2.7 Worsening renal failure, creatinine up to 4.0 Leukocytosis resolved Complaining of intermittent CP and shortness of breath Condition: critical IV Access: PICC - LUE intact EKG Rhythm: Sinus Rhythm FI02: 28 Sputum Amount: None Drips: Heparin gtt at 15 u/kg/hr; insulin gtt at 1.5 ml/hr I&O: Intake and Output 02/09/18 02/10/18 19:00 07:00 Intake Total 250.765 ml 908.983 ml Output Total 540 ml 165 ml Balance -289.235 ml 743.983 ml Intake Oral 50 ml 400 ml IV Total 200.765 ml 508.983 ml Output Urine Total 140 ml 165 ml Other 400 ml # Bowel Movements 1 2 CXR: 02/09 No evidence of post thoracentesis pneumothorax Miriam Brizuela [employer] February 10, 2018 07:04
[2018-02-10] MEDS: Aluminum Hydroxide Gel Susp 15ml ORAL SCH ×3 (08:20→17:17)
[2018-02-10] MEDS: Sodium Citrate 30ml ORAL SCH ×3 (08:21→17:23)
[2018-02-10] MEDS: Morphine Sulfate 4mg/ml Inj IVP PRN (09:31)
[2018-02-10] MEDS: Heparin 25,000u/D5W 500ml 500 ML IV SCH (09:40)
[2018-02-10] MEDS ORDERED: Albuterol/Ipratropium 3ml neb HHN PRN (12:00)
--- NOTE | 2018-02-10 13:24 | Internal Med Progress Note ---
Subjective Date of Service: February 10, 2018 Physician Name AguirreParas Attending Physician Joni Robin MD Current Medications Medications (Trade) Dose Ordered Sig/Eliel Route PRN Reason Start Time Stop Time Status Last Admin Dose Admin Acetaminophen (Tylenol) 650 mg Q4H PRN ORAL T>100.5 02/07/18 18:00 03/08/18 17:59 Albuterol/ Ipratropium (Albuterol/ Ipratropium) 3 ml Q4H PRN HHN Shortness of Breath 02/10/18 12:00 02/14/18 11:59 Aluminum Hydroxide (Amphojel) 1,920 mg TID ORAL 02/09/18 09:00 03/10/18 17:59 02/10/18 12:20 Aspirin (ASA) 325 mg DAILY ORAL 02/09/18 09:00 03/09/18 21:59 02/10/18 08:21 Aztreonam 1 gm/ Sodium Chloride 50 ml @ 100 mls/hr Q8H IVPB 02/07/18 22:30 02/13/18 22:29 02/10/18 05:10 Chlorhexidine Gluconate (Laura-Hex 2%) 1 applic DAILY@2000 TOPIC 02/07/18 20:00 03/09/18 19:59 02/09/18 20:07 Clonidine HCl (Catapres Tab) 0.1 mg Q8H PRN ORAL SBP > 160mmHg 02/07/18 18:00 03/08/18 17:59 Dextrose (Dextrose 50%) 25 ml PRN PRN IV HYPOGLYCEMIA 02/08/18 23:00 03/10/18 22:59 Heparin Sodium/ Dextrose 500 ml @ 22.453 mls/ hr adjust per protocol IV 02/09/18 07:00 03/09/18 15:29 02/10/18 09:40 Insulin Human Regular (NovoLIN R) 5 units PRN PRN IV BS 200-299 02/08/18 23:00 03/10/18 22:59 Insulin Human Regular (NovoLIN R) 10 units PRN PRN IV BS=>300 02/08/18 23:00 03/10/18 22:59 Insulin Human Regular 100 units/ Sodium Chloride 101 ml @ 0 mls/hr Q24H IV 02/10/18 11:00 03/12/18 10:59 02/10/18 10:47 Levofloxacin 150 ml @ 100 mls/hr Q48H IVPB 02/07/18 21:00 02/14/18 20:59 02/09/18 20:08 Metoclopramide HCl (Reglan) 5 mg THREE TIMES A DAY ORAL 02/08/18 13:00 03/10/18 12:59 02/10/18 12:20 Mirtazapine (Remeron) 7.5 mg BEDTIME ORAL 02/08/18 21:00 03/10/18 20:59 02/09/18 20:07 Miscellaneous Medication (Insulin Rate Change) 1 ea PRN PRN MISC Hypoglycemia 02/07/18 14:00 03/09/18 13:59 02/10/18 06:13 Morphine Sulfate (Morphine Sulfate) 1 mg Q4H PRN IVP For Pain 02/10/18 09:15 02/17/18 09:14 02/10/18 09:31 Nitroglycerin (Ntg) 0.4 mg Q5MIN X 3 DOSES PRN SL Prn Chest Pain 02/07/18 17:15 03/08/18 18:44 Norepinephrine Bitartrate 4 mg/ Dextrose 250 ml @ 0 mls/hr Q24H IV 02/08/18 19:45 03/10/18 19:44 02/09/18 03:33 Ondansetron HCl (Zofran) 4 mg Q6H PRN IVP Nausea & Vomiting 02/07/18 18:45 03/08/18 18:44 Pantoprazole (Protonix) 40 mg EVERY 12 HOURS ORAL 02/08/18 21:00 03/10/18 20:59 02/10/18 08:21 Polyethylene Glycol (Miralax) 17 gm DAILYPRN PRN ORAL Constipation 02/07/18 18:45 03/08/18 18:44 Potassium Chloride (K-Dur) 40 meq TWICE A DAY ORAL 02/10/18 09:00 02/10/18 18:01 02/10/18 08:21 Sodium Citrate (Bicitra) 30 ml TID ORAL 02/08/18 18:00 03/09/18 11:59 02/10/18 12:21 Temazepam (Restoril) 15 mg HSPRN PRN ORAL Insomnia 02/08/18 21:00 02/15/18 20:59 Allergies: Coded Allergies: PENICILLINS (Verified Allergy, Unknown, 04/16/17) ROS Limited/Unobtainable: Yes Subjective 67 YO M admitted with chest pain. Now STEMI and CHF. Cover for Int med-Dr Robin. ICU Objective Last Vital Signs Date Time Temp Pulse Resp B/P (MAP) Pulse Ox O2 Delivery O2 Flow Rate FiO2 02/10/18 13:00 72 18 101/62 100 Nasal Cannula 3.0 02/10/18 12:00 98.6 98.6 02/10/18 07:57 28 Laboratory Tests Test 02/10/18 04:15 02/10/18 04:30 White Blood Count 10.9 K/UL (4.8-10.8) H Red Blood Count 3.38 M/UL (4.70-6.10) L Hemoglobin 9.4 G/DL (14.2-18.0) L Hematocrit 28.2 % (42.0-52.0) L Mean Corpuscular Volume 84 FL (80-99) Mean Corpuscular Hemoglobin 27.7 PG (27.0-31.0) Mean Corpuscular Hemoglobin Concent 33.2 G/DL (32.0-36.0) Red Cell Distribution Width 13.4 % (11.6-14.8) Platelet Count 154 K/UL (150-450) Mean Platelet Volume 10.9 FL (6.5-10.1) H Neutrophils (%) (Auto) 67.8 % (45.0-75.0) Lymphocytes (%) (Auto) 18.9 % (20.0-45.0) L Monocytes (%) (Auto) 11.7 % (1.0-10.0) H Eosinophils (%) (Auto) 0.9 % (0.0-3.0) Basophils (%) (Auto) 0.8 % (0.0-2.0) Erythrocyte Sedimentation Rate 32 MM/HR (0-20) H Activated Partial Thromboplast Time 79 SEC (23-33) H Sodium Level 136 MMOL/L (136-145) Potassium Level 2.7 MMOL/L (3.5-5.1) *L Chloride Level 99 MMOL/L (98-107) Carbon Dioxide Level 20 MMOL/L (21-32) L Anion Gap 18 mmol/L (5-15) H Blood Urea Nitrogen 57 mg/dL (7-18) H Creatinine 4.0 MG/DL (0.55-1.30) H Estimat Glomerular Filtration Rate 15.1 mL/min (>60) Glucose Level 73 MG/DL (74-106) L Uric Acid 13.6 MG/DL (2.6-7.2) H Calcium Level 7.5 MG/DL (8.5-10.1) L Phosphorus Level 5.6 MG/DL (2.5-4.9) H Magnesium Level 2.0 MG/DL (1.8-2.4) Total Bilirubin 0.8 MG/DL (0.2-1.0) Gamma Glutamyl Transpeptidase 151 U/L (5-85) H Aspartate Amino Transf (AST/SGOT) 2475 U/L (15-37) H Alanine Aminotransferase (ALT/SGPT) 997 U/L (12-78) H Alkaline Phosphatase 123 U/L (46-116) H Total Creatine Kinase 310 U/L (26-308) H Troponin I 10.299 ng/mL (0.000-0.056) C-Reactive Protein, Quantitative 14.6 mg/dL (0.00-0.90) H Pro-B-Type Natriuretic Peptide 534178 pg/mL (0-125) H Total Protein 6.0 G/DL (6.4-8.2) L Albumin 2.5 G/DL (3.4-5.0) L Globulin 3.5 g/dL Albumin/Globulin Ratio 0.7 (1.0-2.7) L Thyroid Stimulating Hormone (TSH) 0.108 uiU/mL (0.358-3.740) Free Thyroxine 1.27 NG/DL (0.76-1.46) Free Triiodothyronine 0.7 pg/mL (2.3-4.2) L Hepatitis C Antibody Pending Hepatitis C RNA (PCR) IUs/ml Pending Hepatitis C RNA (PCR) log IUs/ml Pending Urine Eosinophils None seen Microbiology Date/Time Source Procedure Growth Status 02/08/18 20:45 Blood Blood Culture - Preliminary NO GROWTH AFTER 24 HOURS Resulted 02/08/18 20:30 Blood Blood Culture - Preliminary NO GROWTH AFTER 24 HOURS Resulted Intake and Output 02/09/18 02/10/18 19:00 07:00 Intake Total 250.765 ml 908.983 ml Output Total 540 ml 165 ml Balance -289.235 ml 743.983 ml Intake Oral 50 ml 400 ml IV Total 200.765 ml 508.983 ml Output Urine Total 140 ml 165 ml Other 400 ml # Bowel Movements 1 2 Objective Objective GENERAL: awake, more responsive, NAD HEAD: Pupils are equal and reactive to light. Extraocular movements intact. NECK: Supple. No JVD. LUNGS: Poor air entry. + Expiratory wheezing, No rales. fair inspiratory effort. HEART: S1, S2. Distant heart sounds. No murmur. ABDOMEN: Soft, nondistended, and nontender. Positive bowel sounds. EXTREMITIES: No cyanosis, clubbing. More Edema on the left lower extremity. 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 Piccline on Left UE's. NEUROLOGIC: Cranial nerves II through XII are grossly intact. The patient is moving all the extremities. Assessment/Plan Assessment/Plan Assessment/Plan Assessment/Plan 1. Acute myocardial infarction with non-ST elevation myocardial , New Left BBB 2. DKA with Diabetic type 2, uncontrolled. 3. Metabolic Acidosis 4. Dementia. 5. Hypernatremia. 6. Hyperkalemia. 7. Dehydration. 8. Right AKA with peripheral vascular disease. 9. History of dementia. 10. Atherosclerotic heart disease with ischemic cardiomyopathy. 11. Acute kidney injury. 12. Peripheral vascular disease. 13. Hypothyroidism. 14. PCN allergy. 15. Liver shock. 16. Right-sided pleural effusion. 17. New onset atrial fibrillation-See cardiology note. PLAN: In ICU. Monitor laboratory and cultures. on heparin drip, IV hydration, Dr. Saab, Pulmonary, Critical Care. Dr. Jones, Cardiology consultation Dr. Jessica, Nephrology Consult. Code Status: Full Code as per POLST Broad-spectrum antibiotic: Levaquin and Aztreonam consider thoracocentesis. Paras Aguirre MD February 10, 2018 13:24
--- NOTE | 2018-02-10 14:20 | Nephrology Progress Note ---
Assessment/Plan Problem List: (1) Acute on chronic renal failure (2) Diabetic keto-acidosis (3) Peripheral vascular disease (4) Cardiomyopathy (5) Sepsis (6) Elevated liver enzymes Assessment Acute renal failure- Dehydration serum Cr rising ? CKD DM and Nephropathy Cardiomyopathy with low EjFx DKA AR Dementia HypoThyroidism PVD Rt AKA Plan stop statins in view of high lfts stop IV add coreg Antonio Kidney KP Negative for hydronephrosis Urine studies 2D Echo 20% EjFx ABG K supplement as needed may require HD Subjective ROS Limited/Unobtainable: No Constitutional: Reports: malaise, weakness Objective Objective Last 24 Hour Vital Signs Date Time Temp Pulse Resp B/P (MAP) Pulse Ox O2 Delivery O2 Flow Rate FiO2 02/10/18 13:00 72 18 101/62 100 Nasal Cannula 3.0 02/10/18 12:00 74 02/10/18 12:00 98.6 74 20 96/63 100 Nasal Cannula 3.0 98.6 02/10/18 11:00 70 18 99/51 100 Nasal Cannula 3.0 02/10/18 10:01 97.8 02/10/18 10:00 78 20 101/61 100 Nasal Cannula 3.0 02/10/18 09:00 79 21 106/64 100 Nasal Cannula 3.0 02/10/18 08:00 80 02/10/18 08:00 80 20 100/62 100 Nasal Cannula 3.0 02/10/18 08:00 98.2 80 22 106/64 100 Nasal Cannula 3.0 98.2 02/10/18 07:57 81 20 Nasal Cannula 2.0 28 02/10/18 07:57 100 Nasal Cannula 2.0 28 02/10/18 07:57 Nasal Cannula 2.0 28 02/10/18 07:00 81 16 100/62 100 Nasal Cannula 3.0 02/10/18 06:00 80 18 92/74 100 Nasal Cannula 3.0 02/10/18 05:00 98.5 75 19 80/40 100 Nasal Cannula 3.0 98.5 02/10/18 04:00 80 19 95/58 100 Nasal Cannula 3.0 02/10/18 04:00 77 02/10/18 03:00 80 18 91/58 100 Nasal Cannula 3.0 02/10/18 02:00 84 22 97/60 100 Nasal Cannula 3.0 02/10/18 01:00 73 21 93/56 100 Nasal Cannula 3.0 02/10/18 00:00 98.9 88 19 95/54 100 Nasal Cannula 3.0 98.9 02/10/18 00:00 84 02/09/18 23:00 87 19 96/52 100 Nasal Cannula 3.0 02/09/18 22:00 86 19 91/59 100 Nasal Cannula 3.0 02/09/18 21:00 87 20 103/55 99 Nasal Cannula 3.0 02/09/18 20:52 85 02/09/18 20:00 98.7 81 17 101/63 100 Nasal Cannula 3.0 98.7 02/09/18 19:17 Nasal Cannula 2.0 28 02/09/18 19:17 100 Nasal Cannula 2.0 28 02/09/18 19:17 86 21 Nasal Cannula 2.0 28 02/09/18 19:00 86 19 103/54 100 Nasal Cannula 3.0 02/09/18 18:00 84 19 108/62 100 Nasal Cannula 3.0 02/09/18 17:00 82 23 96/66 100 Nasal Cannula 3.0 02/09/18 16:27 82 02/09/18 16:00 98.2 88 21 92/66 100 Nasal Cannula 3.0 98.2 02/09/18 15:00 85 23 96/47 100 Nasal Cannula 3.0 Intake and Output 02/09/18 02/10/18 19:00 07:00 Intake Total 250.765 ml 908.983 ml Output Total 540 ml 165 ml Balance -289.235 ml 743.983 ml Intake Oral 50 ml 400 ml IV Total 200.765 ml 508.983 ml Output Urine Total 140 ml 165 ml Other 400 ml # Bowel Movements 1 2 Laboratory Tests 02/10/18 04:15: White Blood Count 10.9H, Red Blood Count 3.38L, Hemoglobin 9.4L, Hematocrit 28.2L, Mean Corpuscular Volume 84, Mean Corpuscular Hemoglobin 27.7, Mean Corpuscular Hemoglobin Concent 33.2, Red Cell Distribution Width 13.4, Platelet Count 154, Mean Platelet Volume 10.9H, Neutrophils (%) (Auto) 67.8, Lymphocytes (%) (Auto) 18.9L, Monocytes (%) (Auto) 11.7H, Eosinophils (%) (Auto) 0.9, Basophils (%) (Auto) 0.8, Erythrocyte Sedimentation Rate 32H, Activated Partial Thromboplast Time 79H, Sodium Level 136, Potassium Level 2.7*L, Chloride Level 99, Carbon Dioxide Level 20L, Anion Gap 18H, Blood Urea Nitrogen 57H, Creatinine 4.0H, Estimat Glomerular Filtration Rate 15.1, Glucose Level 73L, Uric Acid 13.6H, Calcium Level 7.5L, Phosphorus Level 5.6H, Magnesium Level 2.0 , Total Bilirubin 0.8, Gamma Glutamyl Transpeptidase 151H, Aspartate Amino Transf (AST/SGOT) 2475H, Alanine Aminotransferase (ALT/SGPT) 997H, Alkaline Phosphatase 123H, Total Creatine Kinase 310H, Troponin I 10.299H, C-Reactive Protein, Quantitative 14.6H, Pro-B-Type Natriuretic Peptide 140187C, Total Protein 6.0L, Albumin 2.5L, Globulin 3.5, Albumin/Globulin Ratio 0.7L, Thyroid Stimulating Hormone (TSH) 0.108L, Free Thyroxine 1.27, Free Triiodothyronine 0.7L, Hepatitis C Antibody [Pending], Hepatitis C RNA (PCR) IUs/ml [Pending], Hepatitis C RNA (PCR) log IUs/ml [Pending] 02/10/18 04:30: Urine Eosinophils None seen Height (Feet): 5 Height (Inches): 7.00 Weight (Pounds): 184 General Appearance: no apparent distress, lethargic Cardiovascular: normal rate Respiratory/Chest: decreased breath sounds Abdomen: soft LAKESHA BAR February 10, 2018 14:20
[2018-02-10] MEDS ORDERED: D5NS 1000ml IV ONE (15:08)
[2018-02-10] MEDS ORDERED: NS 275ml ONE (15:15)
[2018-02-10] MEDS ORDERED: Tubing IV Secondary IV ONE ×2 (15:15→15:19)
--- NOTE | 2018-02-10 15:15 | Infectious Diseases Prog Note ---
Assessment/Plan Assessment/Plan ASSESSMENT: The patient is a 67-year-old male with, +ve blood cX : 09/28 CoNS ( m/l contaminant ) Fever, SP Leukocytosis,SP Transaminitis worsening AST> ALT (probably due to right-sided heart failure, also rule out chronic hepatitis.) Hepatitis C Ab + Possible UTI / cystitis. 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 Penumonia 02/09 CXR: Left basilar atelectasis and patchy consolidative changes are stable. 02/09 Successful ultrasound-guided thoracentesis, yielding 400 milliliters of fluid (Cytology sent but no other labs sent ) MRSA colonization XAVIER /CKD CAD/myocardial infarction. Hypertension. Diabetes. Anemia. Hyperlipidemia. Peripheral vascular disease. Anxiety. Degenerative joint disease. Hyperthyroidism. Dilated cardiomyopathy. GERD. Dementia PLAN: continue the patient on aztreonam and levaquin day # 4 / 7 02/09 SP IV Vanco day # 2 Monitor CBC. Monitor BMP. Monitor cultures (blood sputum). Monitor chest x-ray. Hep C PCR pressors Hep drip Subjective Allergies: Coded Allergies: PENICILLINS (Verified Allergy, Unknown, 04/16/17) Subjective SOB + Afebrile Objective Vital Signs Last 24 Hour Vital Signs Date Time Temp Pulse Resp B/P (MAP) Pulse Ox O2 Delivery O2 Flow Rate FiO2 02/10/18 14:00 74 18 97/52 100 Nasal Cannula 3.0 02/10/18 13:00 72 18 101/62 100 Nasal Cannula 3.0 02/10/18 12:00 74 02/10/18 12:00 98.6 74 20 96/63 100 Nasal Cannula 3.0 98.6 02/10/18 11:00 70 18 99/51 100 Nasal Cannula 3.0 02/10/18 10:01 97.8 02/10/18 10:00 78 20 101/61 100 Nasal Cannula 3.0 02/10/18 09:00 79 21 106/64 100 Nasal Cannula 3.0 02/10/18 08:00 80 02/10/18 08:00 80 20 100/62 100 Nasal Cannula 3.0 02/10/18 08:00 98.2 80 22 106/64 100 Nasal Cannula 3.0 98.2 02/10/18 07:57 81 20 Nasal Cannula 2.0 28 02/10/18 07:57 100 Nasal Cannula 2.0 28 02/10/18 07:57 Nasal Cannula 2.0 28 02/10/18 07:00 81 16 100/62 100 Nasal Cannula 3.0 02/10/18 06:00 80 18 92/74 100 Nasal Cannula 3.0 02/10/18 05:00 98.5 75 19 80/40 100 Nasal Cannula 3.0 98.5 02/10/18 04:00 80 19 95/58 100 Nasal Cannula 3.0 02/10/18 04:00 77 02/10/18 03:00 80 18 91/58 100 Nasal Cannula 3.0 02/10/18 02:00 84 22 97/60 100 Nasal Cannula 3.0 02/10/18 01:00 73 21 93/56 100 Nasal Cannula 3.0 02/10/18 00:00 98.9 88 19 95/54 100 Nasal Cannula 3.0 98.9 02/10/18 00:00 84 02/09/18 23:00 87 19 96/52 100 Nasal Cannula 3.0 02/09/18 22:00 86 19 91/59 100 Nasal Cannula 3.0 02/09/18 21:00 87 20 103/55 99 Nasal Cannula 3.0 02/09/18 20:52 85 02/09/18 20:00 98.7 81 17 101/63 100 Nasal Cannula 3.0 98.7 02/09/18 19:17 Nasal Cannula 2.0 28 02/09/18 19:17 100 Nasal Cannula 2.0 28 02/09/18 19:17 86 21 Nasal Cannula 2.0 28 02/09/18 19:00 86 19 103/54 100 Nasal Cannula 3.0 02/09/18 18:00 84 19 108/62 100 Nasal Cannula 3.0 02/09/18 17:00 82 23 96/66 100 Nasal Cannula 3.0 02/09/18 16:27 82 02/09/18 16:00 98.2 88 21 92/66 100 Nasal Cannula 3.0 98.2 Height (Feet): 5 Height (Inches): 7.00 Weight (Pounds): 184 HEENT: mucous membranes moist Respiratory/Chest: no accessory muscle use Cardiovascular: regularly irregular Abdomen: soft, non tender Microbiology Date/Time Source Procedure Growth Status 02/08/18 20:45 Blood Blood Culture - Preliminary NO GROWTH AFTER 24 HOURS Resulted 02/08/18 20:30 Blood Blood Culture - Preliminary NO GROWTH AFTER 24 HOURS Resulted Laboratory Tests Test 02/10/18 04:15 02/10/18 04:30 White Blood Count 10.9 K/UL (4.8-10.8) H Red Blood Count 3.38 M/UL (4.70-6.10) L Hemoglobin 9.4 G/DL (14.2-18.0) L Hematocrit 28.2 % (42.0-52.0) L Mean Corpuscular Volume 84 FL (80-99) Mean Corpuscular Hemoglobin 27.7 PG (27.0-31.0) Mean Corpuscular Hemoglobin Concent 33.2 G/DL (32.0-36.0) Red Cell Distribution Width 13.4 % (11.6-14.8) Platelet Count 154 K/UL (150-450) Mean Platelet Volume 10.9 FL (6.5-10.1) H Neutrophils (%) (Auto) 67.8 % (45.0-75.0) Lymphocytes (%) (Auto) 18.9 % (20.0-45.0) L Monocytes (%) (Auto) 11.7 % (1.0-10.0) H Eosinophils (%) (Auto) 0.9 % (0.0-3.0) Basophils (%) (Auto) 0.8 % (0.0-2.0) Erythrocyte Sedimentation Rate 32 MM/HR (0-20) H Activated Partial Thromboplast Time 79 SEC (23-33) H Sodium Level 136 MMOL/L (136-145) Potassium Level 2.7 MMOL/L (3.5-5.1) *L Chloride Level 99 MMOL/L (98-107) Carbon Dioxide Level 20 MMOL/L (21-32) L Anion Gap 18 mmol/L (5-15) H Blood Urea Nitrogen 57 mg/dL (7-18) H Creatinine 4.0 MG/DL (0.55-1.30) H Estimat Glomerular Filtration Rate 15.1 mL/min (>60) Glucose Level 73 MG/DL (74-106) L Uric Acid 13.6 MG/DL (2.6-7.2) H Calcium Level 7.5 MG/DL (8.5-10.1) L Phosphorus Level 5.6 MG/DL (2.5-4.9) H Magnesium Level 2.0 MG/DL (1.8-2.4) Total Bilirubin 0.8 MG/DL (0.2-1.0) Gamma Glutamyl Transpeptidase 151 U/L (5-85) H Aspartate Amino Transf (AST/SGOT) 2475 U/L (15-37) H Alanine Aminotransferase (ALT/SGPT) 997 U/L (12-78) H Alkaline Phosphatase 123 U/L (46-116) H Total Creatine Kinase 310 U/L (26-308) H Troponin I 10.299 ng/mL (0.000-0.056) C-Reactive Protein, Quantitative 14.6 mg/dL (0.00-0.90) H Pro-B-Type Natriuretic Peptide 452043 pg/mL (0-125) H Total Protein 6.0 G/DL (6.4-8.2) L Albumin 2.5 G/DL (3.4-5.0) L Globulin 3.5 g/dL Albumin/Globulin Ratio 0.7 (1.0-2.7) L Thyroid Stimulating Hormone (TSH) 0.108 uiU/mL (0.358-3.740) Free Thyroxine 1.27 NG/DL (0.76-1.46) Free Triiodothyronine 0.7 pg/mL (2.3-4.2) L Hepatitis C Antibody Pending Hepatitis C RNA (PCR) IUs/ml Pending Hepatitis C RNA (PCR) log IUs/ml Pending Urine Eosinophils None seen Current Medications Medications (Trade) Dose Ordered Sig/Eliel Route PRN Reason Start Time Stop Time Status Last Admin Dose Admin Acetaminophen (Tylenol) 650 mg Q4H PRN ORAL T>100.5 02/07/18 18:00 03/08/18 17:59 Albuterol/ Ipratropium (Albuterol/ Ipratropium) 3 ml Q4H PRN HHN Shortness of Breath 02/10/18 12:00 02/14/18 11:59 Aluminum Hydroxide (Amphojel) 1,920 mg TID ORAL 02/09/18 09:00 03/10/18 17:59 02/10/18 12:20 Aspirin (ASA) 325 mg DAILY ORAL 5/18/18 09:00 03/09/18 21:59 02/10/18 08:21 Aztreonam 1 gm/ Sodium Chloride 50 ml @ 100 mls/hr Q8H IVPB 02/07/18 22:30 02/13/18 22:29 02/10/18 14:59 Chlorhexidine Gluconate (Laura-Hex 2%) 1 applic DAILY@2000 TOPIC 02/07/18 20:00 03/09/18 19:59 02/09/18 20:07 Clonidine HCl (Catapres Tab) 0.1 mg Q8H PRN ORAL SBP > 160mmHg 02/07/18 18:00 03/08/18 17:59 Dextrose (Dextrose 50%) 25 ml PRN PRN IV HYPOGLYCEMIA 02/08/18 23:00 03/10/18 22:59 Heparin Sodium/ Dextrose 500 ml @ 22.453 mls/ hr adjust per protocol IV 02/09/18 07:00 03/09/18 15:29 02/10/18 09:40 Insulin Human Regular (NovoLIN R) 5 units PRN PRN IV BS 200-299 02/08/18 23:00 03/10/18 22:59 Insulin Human Regular (NovoLIN R) 10 units PRN PRN IV BS=>300 02/08/18 23:00 03/10/18 22:59 Insulin Human Regular 100 units/ Sodium Chloride 101 ml @ 0 mls/hr Q24H IV 02/10/18 11:00 03/12/18 10:59 02/10/18 10:47 Levofloxacin 150 ml @ 100 mls/hr Q48H IVPB 02/07/18 21:00 02/14/18 20:59 02/09/18 20:08 Metoclopramide HCl (Reglan) 5 mg THREE TIMES A DAY ORAL 02/08/18 13:00 03/10/18 12:59 02/10/18 12:20 Mirtazapine (Remeron) 7.5 mg BEDTIME ORAL 02/08/18 21:00 03/10/18 20:59 02/09/18 20:07 Miscellaneous Medication (Insulin Rate Change) 1 ea PRN PRN MISC Hypoglycemia 02/07/18 14:00 03/09/18 13:59 02/10/18 06:13 Morphine Sulfate (Morphine Sulfate) 1 mg Q4H PRN IVP For Pain 02/10/18 09:15 02/17/18 09:14 02/10/18 09:31 Nitroglycerin (Ntg) 0.4 mg Q5MIN X 3 DOSES PRN SL Prn Chest Pain 02/07/18 17:15 03/08/18 18:44 Norepinephrine Bitartrate 4 mg/ Dextrose 250 ml @ 0 mls/hr Q24H IV 02/08/18 19:45 03/10/18 19:44 02/09/18 03:33 Ondansetron HCl (Zofran) 4 mg Q6H PRN IVP Nausea & Vomiting 02/07/18 18:45 03/08/18 18:44 Pantoprazole (Protonix) 40 mg EVERY 12 HOURS ORAL 02/08/18 21:00 03/10/18 20:59 02/10/18 08:21 Polyethylene Glycol (Miralax) 17 gm DAILYPRN PRN ORAL Constipation 02/07/18 18:45 03/08/18 18:44 Potassium Chloride (K-Dur) 40 meq TWICE A DAY ORAL 02/10/18 09:00 02/10/18 18:01 02/10/18 08:21 Sodium Citrate (Bicitra) 30 ml TID ORAL 02/08/18 18:00 03/09/18 11:59 02/10/18 12:21 Temazepam (Restoril) 15 mg HSPRN PRN ORAL Insomnia 02/08/18 21:00 02/15/18 20:59 Josr Hniojosa MD February 10, 2018 15:15
[2018-02-10] MEDS ORDERED: NS 500ML ONE (15:19)
--- NOTE | 2018-02-10 17:31 | Consultation ---
DATE OF CONSULTATION: 02/10/2018 ENDOCRINOLOGY CONSULTATION CONSULTING PHYSICIAN: Michael Goode M.D. REFERRING PHYSICIAN: Joni Robin M.D. REASON FOR CONSULTATION: Diabetes management, diabetic ketoacidosis. HISTORY OF PRESENT ILLNESS: The patient is a 67-year-old male with a past medical history of type 2 diabetes, hypertension, hypothyroidism, coronary artery disease, dementia, peripheral vascular disease. The patient presented to the hospital from nursing facility complaining of chest pain for several days. He patient was found to have an elevated CMP, troponin positive 2.7. Also, was found to be in diabetic ketoacidosis. Endocrinology was consulted in order to assist in the management of diabetes. PAST MEDICAL HISTORY: 1. Coronary artery disease. 2. Diabetes. 3. XAVIER. 4. Atherosclerotic heart disease. 5. Iron-deficiency anemia. 6. Dyslipidemia. 7. Peripheral vascular disease. 8. Anxiety disorder. 9. Chronic kidney disease. 10. Dysphagia. 11. Hypothyroidism. 12. Encephalopathy. MEDICATIONS: Reviewed and reconciled. ALLERGIES: Penicillin. SOCIAL HISTORY: Resident of a correction facility. No smoking, alcohol or drug use. FAMILY HISTORY: Noncontributory. REVIEW OF SYSTEMS: A 12-point review of systems was performed. Pertinent positives and negatives are as mentioned in the history of present illness. PHYSICAL EXAMINATION: GENERAL: The patient is awake. VITAL SIGNS: Blood pressure 110/70, pulse of 80, temperature 98.3, respiratory rate of 20. HEENT: Pupils are equal and reactive to light. Sclerae are anicteric. NECK: No JVD. HEART: Regular. LUNGS: Clear. ABDOMEN: Positive bowel sounds. EXTREMITIES: Positive for amputation. LABORATORY DATA: WBC 10.9, hemoglobin 9.4, hematocrit 20.2, and platelets of 154,000. Sodium is 136, potassium 2.7, chloride 99, bicarbonate 20, anion gap of 18, BUN 57, creatinine 4.0, glucose of 73. Uric acid 13. Troponin 15 and 10. BNP 12214. TSH of 0.093. DIAGNOSES: 1. Anion gap acidosis. 2. Diabetes, out of control. 3. Hypothyroidism. 4. Iatrogenic hyperthyroidism. 5. Cardiomyopathy. 6. Non ST-elevation myocardial infarction. PLAN: Continue insulin drip until the anion gap is closed. Glucose monitoring every hour with insulin drip adjustment. The patient's levothyroxine dosage is on hold. I will repeat the thyroid function tests, TSH, free T4, free T3, and the proper thyroid dosage will be resumed. Prior to the admission, he was on 250 mcg of levothyroxine. I will follow the patient during the hospital stay. Thank you, Dr. Robin, for the courtesy of this consultation. Michael Goode M.D. DR: EVON JOB#: [id number] CC: KELLIE
--- NOTE | 2018-02-10 17:41 | Diagnostic Imaging Report ---
EXAM: US Abdomen Complete CLINICAL HISTORY: PAIN TECHNIQUE: Real-time ultrasound of the abdomen (complete) with image documentation. COMPARISON: No relevant prior studies available. FINDINGS: Liver: No discrete mass demonstrated. Gallbladder: No gallstones or biliary ductal dilatation. Common bile duct: Unremarkable as visualized. Pancreas: Pancreas is incompletely visualized. Kidneys: Small hypoechoic focus in left kidney measuring 12 mm. Spleen: No splenomegaly. Aorta: Unremarkable. No aneurysm. Inferior vena cava: Unremarkable. Free fluid: Small amount of fluid in the upper abdomen. Pleural space: Right pleural effusion. IMPRESSION: No gallstones or biliary ductal dilatation.
--- NOTE | 2018-02-10 19:26 | Cardiology Progress Note ---
Assessment/Plan Assessment/Plan acute [place], new onc[place] of atrial fibrillation multiorgan failure, possibly due to sepsis anion gap acidosis acute liver injury, could be due to right ehart failure the patient is on supportive therapy, prognosis is poor Subjective Subjective The patient is moaning, he feels terrible has mild dyspnea, but overall very unconfortable Objective Last 24 Hour Vital Signs Date Time Temp Pulse Resp B/P (MAP) Pulse Ox O2 Delivery O2 Flow Rate FiO2 02/10/18 19:00 76 17 99/62 100 Nasal Cannula 3.0 02/10/18 18:00 75 17 92/61 100 Nasal Cannula 3.0 02/10/18 17:00 70 12 102/55 100 Nasal Cannula 3.0 02/10/18 16:00 98.4 66 12 102/64 100 Nasal Cannula 3.0 98.4 02/10/18 16:00 70 02/10/18 15:00 69 20 98/55 100 Nasal Cannula 3.0 02/10/18 14:00 74 18 97/52 100 Nasal Cannula 3.0 02/10/18 13:00 72 18 101/62 100 Nasal Cannula 3.0 02/10/18 12:00 74 02/10/18 12:00 98.6 74 20 96/63 100 Nasal Cannula 3.0 98.6 02/10/18 11:00 70 18 99/51 100 Nasal Cannula 3.0 02/10/18 10:01 97.8 02/10/18 10:00 78 20 101/61 100 Nasal Cannula 3.0 02/10/18 09:00 79 21 106/64 100 Nasal Cannula 3.0 02/10/18 08:00 80 02/10/18 08:00 80 20 100/62 100 Nasal Cannula 3.0 02/10/18 08:00 98.2 80 22 106/64 100 Nasal Cannula 3.0 98.2 02/10/18 07:57 81 20 Nasal Cannula 2.0 28 02/10/18 07:57 100 Nasal Cannula 2.0 28 02/10/18 07:57 Nasal Cannula 2.0 28 02/10/18 07:00 81 16 100/62 100 Nasal Cannula 3.0 02/10/18 06:00 80 18 92/74 100 Nasal Cannula 3.0 02/10/18 05:00 98.5 75 19 80/40 100 Nasal Cannula 3.0 98.5 02/10/18 04:00 80 19 95/58 100 Nasal Cannula 3.0 02/10/18 04:00 77 02/10/18 03:00 80 18 91/58 100 Nasal Cannula 3.0 02/10/18 02:00 84 22 97/60 100 Nasal Cannula 3.0 02/10/18 01:00 73 21 93/56 100 Nasal Cannula 3.0 02/10/18 00:00 98.9 88 19 95/54 100 Nasal Cannula 3.0 98.9 02/10/18 00:00 84 02/09/18 23:00 87 19 96/52 100 Nasal Cannula 3.0 02/09/18 22:00 86 19 91/59 100 Nasal Cannula 3.0 02/09/18 21:00 87 20 103/55 99 Nasal Cannula 3.0 02/09/18 20:52 85 02/09/18 20:00 98.7 81 17 101/63 100 Nasal Cannula 3.0 98.7 General Appearance: moderate distress EENT: PERRL/EOMI Neck: normal alignment Rhythm: Afib Cardiovascular: tachycardia Respiratory/Chest: decreased breath sounds Abdomen: non tender, soft Extremities: other - right leg previously ambultated AKA, left leg is warm without lesions Intake and Output 02/09/18 02/10/18 19:00 07:00 Intake Total 250.765 ml 908.983 ml Output Total 540 ml 165 ml Balance -289.235 ml 743.983 ml Intake Oral 50 ml 400 ml IV Total 200.765 ml 508.983 ml Output Urine Total 140 ml 165 ml Other 400 ml # Bowel Movements 1 2 Laboratory Tests Test 02/10/18 04:15 02/10/18 04:30 White Blood Count 10.9 K/UL (4.8-10.8) H Red Blood Count 3.38 M/UL (4.70-6.10) L Hemoglobin 9.4 G/DL (14.2-18.0) L Hematocrit 28.2 % (42.0-52.0) L Mean Corpuscular Volume 84 FL (80-99) Mean Corpuscular Hemoglobin 27.7 PG (27.0-31.0) Mean Corpuscular Hemoglobin Concent 33.2 G/DL (32.0-36.0) Red Cell Distribution Width 13.4 % (11.6-14.8) Platelet Count 154 K/UL (150-450) Mean Platelet Volume 10.9 FL (6.5-10.1) H Neutrophils (%) (Auto) 67.8 % (45.0-75.0) Lymphocytes (%) (Auto) 18.9 % (20.0-45.0) L Monocytes (%) (Auto) 11.7 % (1.0-10.0) H Eosinophils (%) (Auto) 0.9 % (0.0-3.0) Basophils (%) (Auto) 0.8 % (0.0-2.0) Erythrocyte Sedimentation Rate 32 MM/HR (0-20) H Activated Partial Thromboplast Time 79 SEC (23-33) H Sodium Level 136 MMOL/L (136-145) Potassium Level 2.7 MMOL/L (3.5-5.1) *L Chloride Level 99 MMOL/L (98-107) Carbon Dioxide Level 20 MMOL/L (21-32) L Anion Gap 18 mmol/L (5-15) H Blood Urea Nitrogen 57 mg/dL (7-18) H Creatinine 4.0 MG/DL (0.55-1.30) H Estimat Glomerular Filtration Rate 15.1 mL/min (>60) Glucose Level 73 MG/DL (74-106) L Uric Acid 13.6 MG/DL (2.6-7.2) H Calcium Level 7.5 MG/DL (8.5-10.1) L Phosphorus Level 5.6 MG/DL (2.5-4.9) H Magnesium Level 2.0 MG/DL (1.8-2.4) Total Bilirubin 0.8 MG/DL (0.2-1.0) Gamma Glutamyl Transpeptidase 151 U/L (5-85) H Aspartate Amino Transf (AST/SGOT) 2475 U/L (15-37) H Alanine Aminotransferase (ALT/SGPT) 997 U/L (12-78) H Alkaline Phosphatase 123 U/L (46-116) H Total Creatine Kinase 310 U/L (26-308) H Troponin I 10.299 ng/mL (0.000-0.056) C-Reactive Protein, Quantitative 14.6 mg/dL (0.00-0.90) H Pro-B-Type Natriuretic Peptide [id number] pg/mL (0-125) H Total Protein 6.0 G/DL (6.4-8.2) L Albumin 2.5 G/DL (3.4-5.0) L Globulin 3.5 g/dL Albumin/Globulin Ratio 0.7 (1.0-2.7) L Thyroid Stimulating Hormone (TSH) 0.108 uiU/mL (0.358-3.740) Free Thyroxine 1.27 NG/DL (0.76-1.46) Free Triiodothyronine 0.7 pg/mL (2.3-4.2) L Hepatitis C Antibody Pending Hepatitis C RNA (PCR) IUs/ml Pending Hepatitis C RNA (PCR) log IUs/ml Pending Urine Eosinophils None seen Microbiology Date/Time Source Procedure Growth Status 02/08/18 20:45 Blood Blood Culture - Preliminary NO GROWTH AFTER 24 HOURS Resulted 02/08/18 20:30 Blood Blood Culture - Preliminary NO GROWTH AFTER 24 HOURS Resulted Nathalie Almodovar MD February 10, 2018 19:26
[2018-02-10] MEDS: Dyna-Hex 2% Top Sol 2oz TOPIC SCH (20:23)
--- NOTE | 2018-02-10 22:54 | General Progress Note ---
Assessment/Plan Assessment/Plan encephalopathy MDD Anxiety Bee phillips Subjective Date patient seen: February 10, 2018 Neurologic/Psychiatric: Reports: depressed, emotional problems Allergies: Coded Allergies: PENICILLINS (Verified Allergy, Unknown, 04/16/17) Objective Last 24 Hour Vital Signs Date Time Temp Pulse Resp B/P (MAP) Pulse Ox O2 Delivery O2 Flow Rate FiO2 02/10/18 22:00 72 12 92/62 100 Nasal Cannula 3.0 02/10/18 21:00 73 18 99/62 100 Nasal Cannula 3.0 02/10/18 20:00 98.4 71 19 89/63 100 Nasal Cannula 3.0 98.4 02/10/18 20:00 Nasal Cannula 2.0 28 02/10/18 20:00 71 02/10/18 20:00 76 20 Nasal Cannula 2.0 28 02/10/18 20:00 98 Nasal Cannula 2.0 28 02/10/18 19:45 99/62 02/10/18 19:00 76 17 99/62 100 Nasal Cannula 3.0 02/10/18 18:00 75 17 92/61 100 Nasal Cannula 3.0 02/10/18 17:00 70 12 102/55 100 Nasal Cannula 3.0 02/10/18 16:00 98.4 66 12 102/64 100 Nasal Cannula 3.0 98.4 02/10/18 16:00 70 02/10/18 15:00 69 20 98/55 100 Nasal Cannula 3.0 02/10/18 14:00 74 18 97/52 100 Nasal Cannula 3.0 02/10/18 13:00 72 18 101/62 100 Nasal Cannula 3.0 02/10/18 12:00 74 02/10/18 12:00 98.6 74 20 96/63 100 Nasal Cannula 3.0 98.6 02/10/18 11:00 70 18 99/51 100 Nasal Cannula 3.0 02/10/18 10:01 97.8 02/10/18 10:00 78 20 101/61 100 Nasal Cannula 3.0 02/10/18 09:00 79 21 106/64 100 Nasal Cannula 3.0 02/10/18 08:00 80 02/10/18 08:00 80 20 100/62 100 Nasal Cannula 3.0 02/10/18 08:00 98.2 80 22 106/64 100 Nasal Cannula 3.0 98.2 02/10/18 07:57 81 20 Nasal Cannula 2.0 28 02/10/18 07:57 100 Nasal Cannula 2.0 28 02/10/18 07:57 Nasal Cannula 2.0 28 02/10/18 07:00 81 16 100/62 100 Nasal Cannula 3.0 02/10/18 06:00 80 18 92/74 100 Nasal Cannula 3.0 02/10/18 05:00 98.5 75 19 80/40 100 Nasal Cannula 3.0 98.5 02/10/18 04:00 80 19 95/58 100 Nasal Cannula 3.0 02/10/18 04:00 77 02/10/18 03:00 80 18 91/58 100 Nasal Cannula 3.0 02/10/18 02:00 84 22 97/60 100 Nasal Cannula 3.0 02/10/18 01:00 73 21 93/56 100 Nasal Cannula 3.0 02/10/18 00:00 98.9 88 19 95/54 100 Nasal Cannula 3.0 98.9 02/10/18 00:00 84 02/09/18 23:00 87 19 96/52 100 Nasal Cannula 3.0 Intake and Output 02/09/18 02/10/18 19:00 07:00 Intake Total 250.765 ml 908.983 ml Output Total 540 ml 165 ml Balance -289.235 ml 743.983 ml Intake Oral 50 ml 400 ml IV Total 200.765 ml 508.983 ml Output Urine Total 140 ml 165 ml Other 400 ml # Bowel Movements 1 2 Laboratory Tests 02/10/18 04:15: White Blood Count 10.9H, Red Blood Count 3.38L, Hemoglobin 9.4L, Hematocrit 28.2L, Mean Corpuscular Volume 84, Mean Corpuscular Hemoglobin 27.7, Mean Corpuscular Hemoglobin Concent 33.2, Red Cell Distribution Width 13.4, Platelet Count 154, Mean Platelet Volume 10.9H, Neutrophils (%) (Auto) 67.8, Lymphocytes (%) (Auto) 18.9L, Monocytes (%) (Auto) 11.7H, Eosinophils (%) (Auto) 0.9, Basophils (%) (Auto) 0.8, Erythrocyte Sedimentation Rate 32H, Activated Partial Thromboplast Time 79H, Sodium Level 136, Potassium Level 2.7*L, Chloride Level 99, Carbon Dioxide Level 20L, Anion Gap 18H, Blood Urea Nitrogen 57H, Creatinine 4.0H, Estimat Glomerular Filtration Rate 15.1, Glucose Level 73L, Uric Acid 13.6H, Calcium Level 7.5L, Phosphorus Level 5.6H, Magnesium Level 2.0 , Total Bilirubin 0.8, Gamma Glutamyl Transpeptidase 151H, Aspartate Amino Transf (AST/SGOT) 2475H, Alanine Aminotransferase (ALT/SGPT) 997H, Alkaline Phosphatase 123H, Total Creatine Kinase 310H, Troponin I 10.299H, C-Reactive Protein, Quantitative 14.6H, Pro-B-Type Natriuretic Peptide 215677J, Total Protein 6.0L, Albumin 2.5L, Globulin 3.5, Albumin/Globulin Ratio 0.7L, Thyroid Stimulating Hormone (TSH) 0.108L, Free Thyroxine 1.27, Free Triiodothyronine 0.7L, Hepatitis C Antibody [Pending], Hepatitis C RNA (PCR) IUs/ml [Pending], Hepatitis C RNA (PCR) log IUs/ml [Pending] 02/10/18 04:30: Urine Eosinophils None seen Height (Feet): 5 Height (Inches): 7.00 Weight (Pounds): 184 General Appearance: no apparent distress, confused Chanel Richards M.D. February 10, 2018 22:54
[2018-02-11] VITALS (24 sets, daily range): BP systolic 89–119; BP diastolic 49–92
[2018-02-11 05:46] LABS: BASOPHILS % (AUTO) 0.7 % (0.0-2.0); EOSINOPHILS % (AUTO) 1.3 % (0.0-3.0); HEMATOCRIT 28.6 % (42.0-52.0); HEMOGLOBIN 9.8 G/DL (14.2-18.0); LYMPHOCYTES % (AUTO) 15.3 % (20.0-45.0); MEAN CORPUSCULAR VOLUME 84 FL (80-99); MONOCYTES % (AUTO) 17.5 % (1.0-10.0); NEUTROPHILS % (AUTO) 65.2 % (45.0-75.0); PLATELET COUNT 159 K/UL (150-450); RED BLOOD COUNT 3.41 M/UL (4.70-6.10); RED CELL DISTRIBUTION WIDTH 13.5 % (11.6-14.8); WHITE BLOOD COUNT 12.3 K/UL (4.8-10.8)
[2018-02-11] MEDS: Aztreonam Inj 1 GM in NS 50 ML IVPB SCH (06:17)
[2018-02-11 06:21] LABS: ALANINE AMINOTRANSFERASE 887 U/L (12-78); ALBUMIN 2.5 G/DL (3.4-5.0); ALBUMIN/GLOBULIN RATIO 0.7 (1.0-2.7); ALKALINE PHOSPHATASE 144 U/L (46-116); ANION GAP 17 mmol/L (5-15); ASPARTATE AMINO TRANSFERASE 1718 U/L (15-37); BILIRUBIN,TOTAL 0.7 MG/DL (0.2-1.0); BLOOD UREA NITROGEN 64 mg/dL (7-18); CALCIUM 8.2 MG/DL (8.5-10.1); CARBON DIOXIDE 20 MMOL/L (21-32); CHLORIDE 100 MMOL/L (98-107); CREATININE 4.2 MG/DL (0.55-1.30); PHOSPHORUS 5.7 MG/DL (2.5-4.9); POTASSIUM 3.4 MMOL/L (3.5-5.1); SODIUM 137 MMOL/L (136-145)
--- NOTE | 2018-02-11 07:17 | General Progress Note ---
Assessment/Plan Problem List: (1) Hypothyroidism ICD Codes: E03.9 - Hypothyroidism, unspecified SNOMED: 32874382 (2) Sacral decubitus ulcer, stage II ICD Codes: L89.152 - Pressure ulcer of sacral region, stage 2 SNOMED: 261310805, 644968550 (3) DKA, type 1 ICD Codes: E10.10 - Type 1 diabetes mellitus with ketoacidosis without coma SNOMED: 68355122, 402772649 (4) EF 15% (5) Elevated liver enzymes ICD Codes: R74.8 - Abnormal levels of other serum enzymes SNOMED: 165601995 (6) Acute on chronic renal failure ICD Codes: N17.9 - Acute kidney failure, unspecified; N18.9 - Chronic kidney disease, unspecified SNOMED: 816841894 (7) Cardiomyopathy ICD Codes: I42.9 - Cardiomyopathy, unspecified SNOMED: 06907467 Assessment/Plan open AG is due to elevated BUN DC insulin drip start Levemir 8 units bid start Novolog 5 units ac tid stari NISS moderated scale Subjective ROS Limited/Unobtainable: Yes Allergies: Coded Allergies: PENICILLINS (Verified Allergy, Unknown, 04/16/17) Subjective events noted - interval notes reviewed remained on insulin drip rate - AG is open Objective Last 24 Hour Vital Signs Date Time Temp Pulse Resp B/P (MAP) Pulse Ox O2 Delivery O2 Flow Rate FiO2 02/11/18 06:00 74 16 98/55 100 Nasal Cannula 3.0 02/11/18 05:00 98.5 74 16 103/55 100 Nasal Cannula 3.0 98.5 02/11/18 04:00 70 16 90/49 99 Nasal Cannula 3.0 02/11/18 04:00 70 02/11/18 03:00 70 16 117/71 99 Nasal Cannula 3.0 02/11/18 02:00 70 16 111/92 99 Nasal Cannula 3.0 02/11/18 01:00 74 12 119/70 100 Nasal Cannula 3.0 02/11/18 00:00 73 02/11/18 00:00 98.2 72 12 105/66 100 Nasal Cannula 3.0 98.2 02/10/18 23:00 72 12 100/61 100 Nasal Cannula 3.0 02/10/18 22:00 72 12 92/62 100 Nasal Cannula 3.0 02/10/18 21:00 73 18 99/62 100 Nasal Cannula 3.0 02/10/18 20:00 98.4 71 19 89/63 100 Nasal Cannula 3.0 98.4 02/10/18 20:00 Nasal Cannula 2.0 28 02/10/18 20:00 71 02/10/18 20:00 76 20 Nasal Cannula 2.0 28 02/10/18 20:00 98 Nasal Cannula 2.0 28 02/10/18 19:45 99/62 02/10/18 19:00 76 17 99/62 100 Nasal Cannula 3.0 02/10/18 18:00 75 17 92/61 100 Nasal Cannula 3.0 02/10/18 17:00 70 12 102/55 100 Nasal Cannula 3.0 02/10/18 16:00 98.4 66 12 102/64 100 Nasal Cannula 3.0 98.4 02/10/18 16:00 70 02/10/18 15:00 69 20 98/55 100 Nasal Cannula 3.0 02/10/18 14:00 74 18 97/52 100 Nasal Cannula 3.0 02/10/18 13:00 72 18 101/62 100 Nasal Cannula 3.0 02/10/18 12:00 74 02/10/18 12:00 98.6 74 20 96/63 100 Nasal Cannula 3.0 98.6 02/10/18 11:00 70 18 99/51 100 Nasal Cannula 3.0 02/10/18 10:01 97.8 02/10/18 10:00 78 20 101/61 100 Nasal Cannula 3.0 02/10/18 09:00 79 21 106/64 100 Nasal Cannula 3.0 02/10/18 08:00 80 02/10/18 08:00 80 20 100/62 100 Nasal Cannula 3.0 02/10/18 08:00 98.2 80 22 106/64 100 Nasal Cannula 3.0 98.2 02/10/18 07:57 81 20 Nasal Cannula 2.0 28 02/10/18 07:57 100 Nasal Cannula 2.0 28 02/10/18 07:57 Nasal Cannula 2.0 28 Intake and Output 02/10/18 02/11/18 19:00 07:00 Intake Total 556.946 ml 361.593 ml Output Total 170 ml 260 ml Balance 386.946 ml 101.593 ml Intake Oral 180 ml 60 ml IV Total 376.946 ml 301.593 ml Output Urine Total 170 ml 260 ml # Bowel Movements 2 6 Laboratory Tests 02/11/18 04:10: White Blood Count 12.3H, Red Blood Count 3.41L, Hemoglobin 9.8L, Hematocrit 28.6L, Mean Corpuscular Volume 84, Mean Corpuscular Hemoglobin 28.8, Mean Corpuscular Hemoglobin Concent 34.2, Red Cell Distribution Width 13.5, Platelet Count 159, Mean Platelet Volume 10.5H, Neutrophils (%) (Auto) 65.2, Lymphocytes (%) (Auto) 15.3L, Monocytes (%) (Auto) 17.5H, Eosinophils (%) (Auto) 1.3, Basophils (%) (Auto) 0.7, Activated Partial Thromboplast Time 96H, Sodium Level 137, Potassium Level 3.4L, Chloride Level 100, Carbon Dioxide Level 20L, Anion Gap 17H, Blood Urea Nitrogen 64H, Creatinine 4.2H, Estimat Glomerular Filtration Rate 14.3, Glucose Level 95, Uric Acid 13.6H, Calcium Level 8.2L, Phosphorus Level 5.7H, Magnesium Level 2.2, Total Bilirubin 0.7, Aspartate Amino Transf (AST/SGOT) 1718H, Alanine Aminotransferase (ALT/SGPT) 887H, Alkaline Phosphatase 144H, C-Reactive Protein, Quantitative 12.3H, Pro-B-Type Natriuretic Peptide 78143Q, Total Protein 6.1L, Albumin 2.5L, Globulin 3.6, Albumin/Globulin Ratio 0.7L Height (Feet): 5 Height (Inches): 7.00 Weight (Pounds): 187 General Appearance: lethargic Neck: normal alignment Cardiovascular: normal rate Respiratory/Chest: decreased breath sounds Abdomen: normal bowel sounds Edema: no edema noted Arm (L), no edema noted Arm (R), no edema noted Leg (L), no edema noted Leg (R), no edema noted Pedal (L), no edema noted Pedal (R), no edema noted Generalized Objective Current Medications Medications (Trade) Dose Ordered Sig/Eliel Route PRN Reason Start Time Stop Time Status Last Admin Dose Admin Acetaminophen (Tylenol) 650 mg Q4H PRN ORAL T>100.5 02/07/18 18:00 03/08/18 17:59 Albuterol/ Ipratropium (Albuterol/ Ipratropium) 3 ml Q4H PRN HHN Shortness of Breath 02/10/18 12:00 02/14/18 11:59 Aluminum Hydroxide (Amphojel) 1,920 mg TID ORAL 02/09/18 09:00 03/10/18 17:59 02/10/18 17:17 Aspirin (ASA) 325 mg DAILY ORAL 02/09/18 09:00 03/09/18 21:59 02/10/18 08:21 Aztreonam 1 gm/ Sodium Chloride 50 ml @ 100 mls/hr Q8H IVPB 02/07/18 22:30 02/13/18 22:29 02/11/18 06:17 Chlorhexidine Gluconate (Laura-Hex 2%) 1 applic DAILY@2000 TOPIC 02/07/18 20:00 03/09/18 19:59 02/10/18 20:23 Clonidine HCl (Catapres Tab) 0.1 mg Q8H PRN ORAL SBP > 160mmHg 02/07/18 18:00 03/08/18 17:59 Dextrose (Dextrose 50%) 25 ml PRN PRN IV HYPOGLYCEMIA 02/08/18 23:00 03/10/18 22:59 Heparin Sodium/ Dextrose 500 ml @ 22.453 mls/ hr adjust per protocol IV 02/09/18 07:00 03/09/18 15:29 02/10/18 09:40 Insulin Human Regular (NovoLIN R) 5 units PRN PRN IV BS 200-299 02/08/18 23:00 03/10/18 22:59 Insulin Human Regular (NovoLIN R) 10 units PRN PRN IV BS=>300 02/08/18 23:00 03/10/18 22:59 Insulin Human Regular 100 units/ Sodium Chloride 101 ml @ 0 mls/hr Q24H IV 02/10/18 11:00 03/12/18 10:59 02/10/18 10:47 Levofloxacin 150 ml @ 100 mls/hr Q48H IVPB 02/07/18 21:00 02/14/18 20:59 02/09/18 20:08 Metoclopramide HCl (Reglan) 5 mg THREE TIMES A DAY ORAL 02/08/18 13:00 03/10/18 12:59 02/10/18 17:17 Mirtazapine (Remeron) 7.5 mg BEDTIME ORAL 02/08/18 21:00 03/10/18 20:59 02/10/18 20:51 Miscellaneous Medication (Insulin Rate Change) 1 ea PRN PRN MISC Hypoglycemia 02/07/18 14:00 03/09/18 13:59 02/10/18 22:05 Morphine Sulfate (Morphine Sulfate) 1 mg Q4H PRN IVP For Pain 02/10/18 09:15 02/17/18 09:14 02/10/18 09:31 Nitroglycerin (Ntg) 0.4 mg Q5MIN X 3 DOSES PRN SL Prn Chest Pain 02/07/18 17:15 03/08/18 18:44 Norepinephrine Bitartrate 4 mg/ Dextrose 250 ml @ 0 mls/hr Q24H IV 02/08/18 19:45 03/10/18 19:44 02/09/18 03:33 Ondansetron HCl (Zofran) 4 mg Q6H PRN IVP Nausea & Vomiting 02/07/18 18:45 03/08/18 18:44 Pantoprazole (Protonix) 40 mg EVERY 12 HOURS ORAL 02/08/18 21:00 03/10/18 20:59 02/10/18 20:51 Polyethylene Glycol (Miralax) 17 gm DAILYPRN PRN ORAL Constipation 02/07/18 18:45 03/08/18 18:44 Sodium Citrate (Bicitra) 30 ml TID ORAL 02/08/18 18:00 03/09/18 11:59 02/10/18 17:23 Temazepam (Restoril) 15 mg HSPRN PRN ORAL Insomnia 02/08/18 21:00 02/15/18 20:59 02/11/18 00:55 Item Value Date Time Bedside Blood Glucose 107 mg/dl 02/11/18 0600 Bedside Blood Glucose 127 mg/dl H 02/11/18 0200 Bedside Blood Glucose 93 mg/dl 02/10/18 2205 Bedside Blood Glucose 151 mg/dl H 02/10/18 1800 Bedside Blood Glucose 110 mg/dl 02/10/18 1400 Bedside Blood Glucose 130 mg/dl H 02/10/18 1047 CHIDI DANIELSON February 11, 2018 07:17
--- NOTE | 2018-02-11 08:00 | Pulmonolgy Critical Care Note ---
Critical Care - Asmt/Plan Assessment/Plan: ASSESSMENT Non-STEMI with history of coronary artery disease Cardiomyopathy probable sepsis, POA ( leuk, fever, tachy, evid of infection) possible UTI/cystitis Left bundle-branch block/new right pleural effusion Status post thoracentesis, 02/08 - 400 mL Diabetes mellitus type 2, out of control Diabetes ketoacidosis Diabetic nephropathy Acute renal failure on chronic renal insufficiency Dehydration Electrolyte imbalance: hyponatremia, hyperkalemia, hypokalemias PVD with right AKATransaminitis Anemia Severe pulmonary hypertension Hypothyroidism ( low TSH) hepatitis C PLAN OF CARE Heparin drip direct marketing intern followed per direct marketing intern late for intervention, for now continue antiplatelet therapy, heparin drip and statin statins were discontinued due to rising LFT, lipid panel stable troponin trending down beta elvie, later TL to be started as per cardio pain management, on nitro, added low dose MS prn Echocardiogram with EF 15-20% right ventricular systolic pressure of 89 consistent with severe pulmonary hypertension BP stable, off pressors Hepatitis panel + hep C , abd US unremarkable trend LFTs s/p Insulin drip , on short and long-acting insulin regimen now hemoglobin A1c 9.3, not at goal, endo follows off IV fluids secondary to severe cardiomyopathy O2 HHN prn s/p tap for R pleural effusion with complete resolution-400 ml CXR post procedure - no PNT CXR in am Antibiotics ID follows urine culture + Rebekah, influenza test negative, blood culture 1 /4 gram-positive cocci in clusters, likely contaminated as per ID Chest x-ray no acute cardiopulmonary pathology CT of the abdomen and pelvis no acute pathology monitor renal parameters and electrolytes, worse, correct electrolytes as needed, -per nephro Avoid nephrotoxics, creat rising Supervisor Pig Machine follows Renal ultrasound revealed cholelithiasis but no hydronephrosis and normal bilateral kidney echogenicity according to heading repairer patient likely has diabetic nephropathy along with acute renal failure due to dehydration bowel regimen GI prophylaxis nutritional supplements as per dietary recommendations monitor H&H transfuse when necessary, goal to keep Hgb above 8 case discussed and evaluated by supervising physician Critical Care - Objective Last 24 Hour Vital Signs Date Time Temp Pulse Resp B/P (MAP) Pulse Ox O2 Delivery O2 Flow Rate FiO2 02/11/18 07:31 100 Nasal Cannula 2.0 28 02/11/18 07:31 Nasal Cannula 2.0 28 02/11/18 07:30 71 20 Nasal Cannula 2.0 28 02/11/18 07:00 72 16 100/63 100 Nasal Cannula 3.0 02/11/18 06:00 74 16 98/55 100 Nasal Cannula 3.0 02/11/18 05:00 98.5 74 16 103/55 100 Nasal Cannula 3.0 98.5 02/11/18 04:00 70 16 90/49 99 Nasal Cannula 3.0 02/11/18 04:00 70 02/11/18 03:00 70 16 117/71 99 Nasal Cannula 3.0 02/11/18 02:00 70 16 111/92 99 Nasal Cannula 3.0 02/11/18 01:00 74 12 119/70 100 Nasal Cannula 3.0 02/11/18 00:00 73 02/11/18 00:00 98.2 72 12 105/66 100 Nasal Cannula 3.0 98.2 02/10/18 23:00 72 12 100/61 100 Nasal Cannula 3.0 02/10/18 22:00 72 12 92/62 100 Nasal Cannula 3.0 02/10/18 21:00 73 18 99/62 100 Nasal Cannula 3.0 02/10/18 20:00 98.4 71 19 89/63 100 Nasal Cannula 3.0 98.4 02/10/18 20:00 Nasal Cannula 2.0 28 02/10/18 20:00 71 02/10/18 20:00 76 20 Nasal Cannula 2.0 28 02/10/18 20:00 98 Nasal Cannula 2.0 28 02/10/18 19:45 99/62 02/10/18 19:00 76 17 99/62 100 Nasal Cannula 3.0 02/10/18 18:00 75 17 92/61 100 Nasal Cannula 3.0 02/10/18 17:00 70 12 102/55 100 Nasal Cannula 3.0 02/10/18 16:00 98.4 66 12 102/64 100 Nasal Cannula 3.0 98.4 02/10/18 16:00 70 02/10/18 15:00 69 20 98/55 100 Nasal Cannula 3.0 02/10/18 14:00 74 18 97/52 100 Nasal Cannula 3.0 02/10/18 13:00 72 18 101/62 100 Nasal Cannula 3.0 02/10/18 12:00 74 02/10/18 12:00 98.6 74 20 96/63 100 Nasal Cannula 3.0 98.6 02/10/18 11:00 70 18 99/51 100 Nasal Cannula 3.0 02/10/18 10:01 97.8 02/10/18 10:00 78 20 101/61 100 Nasal Cannula 3.0 02/10/18 09:00 79 21 106/64 100 Nasal Cannula 3.0 02/10/18 08:00 80 02/10/18 08:00 80 20 100/62 100 Nasal Cannula 3.0 02/10/18 08:00 98.2 80 22 106/64 100 Nasal Cannula 3.0 98.2 02/10/18 07:57 81 20 Nasal Cannula 2.0 28 02/10/18 07:57 100 Nasal Cannula 2.0 28 02/10/18 07:57 Nasal Cannula 2.0 28 Status: awake Condition: critical HEENT: atraumatic, normocephalic, other - O2 via NC Lungs: clear Heart: HR/BP stable Abdomen: soft, non-tender, active bowel sounds Extremities: other - R AKA Micro: Microbiology Date/Time Source Procedure Growth Status 02/08/18 20:45 Blood Blood Culture - Preliminary NO GROWTH AFTER 48 HOURS Resulted 02/08/18 20:30 Blood Blood Culture - Preliminary NO GROWTH AFTER 48 HOURS Resulted Accucheck: 107 Critical Care - Subjective ROS Limited/Unobtainable: Yes Interval Events: still on heparin gtt intermittent chest pain no acute resp distress , on O2 via NC pulse ox stable pro BNP with trend down rising creat-4.2 mild leukocytosis LFT with small trend down off insulin gtt per endo Condition: critical IV Access: PICC - LUE intact EKG Rhythm: Sinus Rhythm FI02: 28 Sputum Amount: None Drips: Heparin gtt at 15 u/kg/hr I&O: Intake and Output 02/10/18 02/11/18 19:00 07:00 Intake Total 556.946 ml 434.046 ml Output Total 170 ml 280 ml Balance 386.946 ml 154.046 ml Intake Oral 180 ml 60 ml IV Total 376.946 ml 374.046 ml Output Urine Total 170 ml 280 ml # Bowel Movements 2 6 Miriam Brizuela TELEVISION CABINET FINISHER February 11, 2018 08:00
[2018-02-11] MEDS: Sodium Citrate 30ml ORAL SCH ×3 (09:00→17:36)
[2018-02-11] MEDS: Aluminum Hydroxide Gel Susp 15ml ORAL SCH ×3 (09:00→17:36)
[2018-02-11] MEDS: NovoLOG Insulin Flexpen SUBQ SCH ×6 (09:03→21:29)
[2018-02-11] MEDS: Levemir Flexpen SUBQ SCH ×2 (09:03→21:27)
[2018-02-11] MEDS: Heparin 25,000u/D5W 500ml 500 ML IV SCH (09:09)
[2018-02-11] MEDS: Morphine Sulfate 4mg/ml Inj IVP PRN ×2 (12:58→22:15)
[2018-02-11] MEDS: Aztreonam 0.5gm in D5W 55ml IVPB SCH ×2 (14:15→22:12)
--- NOTE | 2018-02-11 15:19 | Internal Med Progress Note ---
Subjective Date of Service: February 11, 2018 Physician Name Aguirre,Paras Attending Physician Joni Robin MD Current Medications Medications (Trade) Dose Ordered Sig/Eliel Route PRN Reason Start Time Stop Time Status Last Admin Dose Admin Acetaminophen (Tylenol) 650 mg Q4H PRN ORAL T>100.5 02/07/18 18:00 03/08/18 17:59 Albuterol/ Ipratropium (Albuterol/ Ipratropium) 3 ml Q4H PRN HHN Shortness of Breath 02/10/18 12:00 02/14/18 11:59 Aluminum Hydroxide (Amphojel) 1,920 mg TID ORAL 02/09/18 09:00 03/10/18 17:59 02/11/18 12:21 Aspirin (ASA) 325 mg DAILY ORAL 02/09/18 09:00 03/09/18 21:59 02/11/18 08:59 Aztreonam 0.5 gm/ Dextrose 55 ml @ 110 mls/hr Q8HR IVPB 02/11/18 14:00 02/18/18 13:59 02/11/18 14:15 Chlorhexidine Gluconate (Laura-Hex 2%) 1 applic DAILY@2000 TOPIC 02/07/18 20:00 03/09/18 19:59 02/10/18 20:23 Clonidine HCl (Catapres Tab) 0.1 mg Q8H PRN ORAL SBP > 160mmHg 02/07/18 18:00 03/08/18 17:59 Dextrose (Dextrose 50%) 25 ml STAT PRN IV Hypoglycemia 02/11/18 07:30 03/13/18 07:29 Dextrose (Dextrose 50%) 50 ml STAT PRN IV Hypoglycemia 02/11/18 07:30 03/13/18 07:29 Heparin Sodium/ Dextrose 500 ml @ 19.459 mls/ hr adjust per protocol IV 02/09/18 07:00 03/09/18 15:29 02/11/18 09:09 Insulin Aspart (NovoLOG) BEFORE MEALS AND HS SUBQ 02/11/18 11:30 03/13/18 11:29 02/11/18 12:23 Insulin Aspart (NovoLOG) 4 units NOVOTIAC SUBQ 02/11/18 08:30 03/13/18 08:29 02/11/18 12:24 Insulin Detemir (Levemir) 8 units Q12HR SUBQ 02/11/18 08:30 03/13/18 08:29 02/11/18 09:03 Levofloxacin 150 ml @ 100 mls/hr Q48H IVPB 02/07/18 21:00 02/14/18 20:59 02/09/18 20:08 Metoclopramide HCl (Reglan) 5 mg THREE TIMES A DAY ORAL 02/08/18 13:00 03/10/18 12:59 02/11/18 12:21 Mirtazapine (Remeron) 7.5 mg BEDTIME ORAL 02/08/18 21:00 03/10/18 20:59 02/10/18 20:51 Morphine Sulfate (Morphine Sulfate) 1 mg Q4H PRN IVP For Pain 02/10/18 09:15 02/17/18 09:14 02/11/18 12:58 Nitroglycerin (Ntg) 0.4 mg Q5MIN X 3 DOSES PRN SL Prn Chest Pain 02/07/18 17:15 03/08/18 18:44 Norepinephrine Bitartrate 4 mg/ Dextrose 250 ml @ 0 mls/hr Q24H IV 02/08/18 19:45 03/10/18 19:44 02/09/18 03:33 Ondansetron HCl (Zofran) 4 mg Q6H PRN IVP Nausea & Vomiting 02/07/18 18:45 03/08/18 18:44 Pantoprazole (Protonix) 40 mg EVERY 12 HOURS ORAL 02/08/18 21:00 03/10/18 20:59 02/11/18 08:59 Polyethylene Glycol (Miralax) 17 gm DAILYPRN PRN ORAL Constipation 02/07/18 18:45 03/08/18 18:44 Sodium Citrate (Bicitra) 30 ml TID ORAL 02/08/18 18:00 03/09/18 11:59 02/11/18 12:21 Temazepam (Restoril) 15 mg HSPRN PRN ORAL Insomnia 02/08/18 21:00 02/15/18 20:59 02/11/18 00:55 Allergies: Coded Allergies: PENICILLINS (Verified Allergy, Unknown, 04/16/17) ROS Limited/Unobtainable: Yes Subjective 67 YO M admitted with chest pain. Now STEMI and CHF. Cover for Int med-Dr Robin. ICU Objective Last Vital Signs Date Time Temp Pulse Resp B/P (MAP) Pulse Ox O2 Delivery O2 Flow Rate FiO2 02/11/18 14:00 72 14 90/60 100 Nasal Cannula 3.0 02/11/18 13:00 98.4 98.4 02/11/18 07:31 28 Laboratory Tests Test 02/11/18 04:10 02/11/18 14:05 White Blood Count 12.3 K/UL (4.8-10.8) H Red Blood Count 3.41 M/UL (4.70-6.10) L Hemoglobin 9.8 G/DL (14.2-18.0) L Hematocrit 28.6 % (42.0-52.0) L Mean Corpuscular Volume 84 FL (80-99) Mean Corpuscular Hemoglobin 28.8 PG (27.0-31.0) Mean Corpuscular Hemoglobin Concent 34.2 G/DL (32.0-36.0) Red Cell Distribution Width 13.5 % (11.6-14.8) Platelet Count 159 K/UL (150-450) Mean Platelet Volume 10.5 FL (6.5-10.1) H Neutrophils (%) (Auto) 65.2 % (45.0-75.0) Lymphocytes (%) (Auto) 15.3 % (20.0-45.0) L Monocytes (%) (Auto) 17.5 % (1.0-10.0) H Eosinophils (%) (Auto) 1.3 % (0.0-3.0) Basophils (%) (Auto) 0.7 % (0.0-2.0) Activated Partial Thromboplast Time 96 SEC (23-33) H 70 SEC (23-33) H Sodium Level 137 MMOL/L (136-145) Potassium Level 3.4 MMOL/L (3.5-5.1) L Chloride Level 100 MMOL/L (98-107) Carbon Dioxide Level 20 MMOL/L (21-32) L Anion Gap 17 mmol/L (5-15) H Blood Urea Nitrogen 64 mg/dL (7-18) H Creatinine 4.2 MG/DL (0.55-1.30) H Estimat Glomerular Filtration Rate 14.3 mL/min (>60) Glucose Level 95 MG/DL (74-106) Uric Acid 13.6 MG/DL (2.6-7.2) H Calcium Level 8.2 MG/DL (8.5-10.1) L Phosphorus Level 5.7 MG/DL (2.5-4.9) H Magnesium Level 2.2 MG/DL (1.8-2.4) Total Bilirubin 0.7 MG/DL (0.2-1.0) Aspartate Amino Transf (AST/SGOT) 1718 U/L (15-37) H Alanine Aminotransferase (ALT/SGPT) 887 U/L (12-78) H Alkaline Phosphatase 144 U/L (46-116) H C-Reactive Protein, Quantitative 12.3 mg/dL (0.00-0.90) H Pro-B-Type Natriuretic Peptide 28538 pg/mL (0-125) H Total Protein 6.1 G/DL (6.4-8.2) L Albumin 2.5 G/DL (3.4-5.0) L Globulin 3.6 g/dL Albumin/Globulin Ratio 0.7 (1.0-2.7) L Microbiology Date/Time Source Procedure Growth Status 02/08/18 20:45 Blood Blood Culture - Preliminary NO GROWTH AFTER 48 HOURS Resulted 02/08/18 20:30 Blood Blood Culture - Preliminary NO GROWTH AFTER 48 HOURS Resulted Intake and Output 02/10/18 02/11/18 19:00 07:00 Intake Total 556.946 ml 434.046 ml Output Total 170 ml 280 ml Balance 386.946 ml 154.046 ml Intake Oral 180 ml 60 ml IV Total 376.946 ml 374.046 ml Output Urine Total 170 ml 280 ml # Bowel Movements 2 6 Objective Objective GENERAL: awake, more responsive, NAD HEAD: Pupils are equal and reactive to light. Extraocular movements intact. NECK: Supple. No JVD. LUNGS: Poor air entry. + Expiratory wheezing, No rales. fair inspiratory effort. HEART: S1, S2. Distant heart sounds. No murmur. ABDOMEN: Soft, nondistended, and nontender. Positive bowel sounds. EXTREMITIES: No cyanosis, clubbing. More Edema on the left lower extremity. 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 Piccline on Left UE's. NEUROLOGIC: Cranial nerves II through XII are grossly intact. The patient is moving all the extremities. Assessment/Plan Assessment/Plan Assessment/Plan Assessment/Plan 1. Acute myocardial infarction with non-ST elevation myocardial , New Left BBB 2. DKA with Diabetic type 2, uncontrolled. 3. Metabolic Acidosis 4. Dementia. 5. Hypernatremia. 6. Hyperkalemia. 7. Dehydration. 8. Right AKA with peripheral vascular disease. 9. History of dementia. 10. Atherosclerotic heart disease with ischemic cardiomyopathy. 11. Acute kidney injury. 12. Peripheral vascular disease. 13. Hypothyroidism. 14. PCN allergy. 15. Liver shock. 16. Right-sided pleural effusion. 17. New onset atrial fibrillation-See cardiology note. PLAN: In ICU. Monitor laboratory and cultures. on heparin drip, IV hydration, Dr. Saab, Pulmonary, Critical Care. Dr. Jones, Cardiology consultation Dr. Jessica, Nephrology Consult. Code Status: Full Code as per [facility] Broad-spectrum antibiotic: Levaquin and Aztreonam consider thoracocentesis. Paras Aguirre MD February 11, 2018 15:19
--- NOTE | 2018-02-11 15:26 | Diagnostic Imaging Report ---
EXAM: XR Chest, 1 View CLINICAL HISTORY: Shortness of breath TECHNIQUE: Frontal view of the chest. COMPARISON: Chest x-ray dated 02/09/18 FINDINGS: Lungs: There is a veil-like opacity in the lung bases, right greater than left. There are increased interstitial markings. Subsegmental atelectasis versus infiltrate in the right lung base and right perihilar region. Pleural space: There is blunting of the right costophrenic angle. No pneumothorax. Heart: Borderline enlarged. Mediastinum: Unremarkable. Bones/joints: Unremarkable. Vasculature: Curvilinear calcific lesions noted within the aortic arch. Tubes, lines and devices: Left-sided PICC line tip in the region of the right atrium. EKG leads overlie the thorax. IMPRESSION: 1. Findings suggesting small layering right pleural effusion, new compared to the prior chest x-ray. 2. Diffuse increased interstitial markings may be related to mild pulmonary vascular congestion versus a mild interstitial pneumonitis. Worsened compared to the prior chest x-ray. 3. Subsegmental atelectasis versus infiltrate in the right lung base and right perihilar region. Worsened compared to the prior chest x-ray.
--- NOTE | 2018-02-11 16:08 | Nephrology Progress Note ---
Assessment/Plan Problem List: (1) Acute on chronic renal failure (2) Diabetic keto-acidosis (3) Peripheral vascular disease (4) Cardiomyopathy (5) Sepsis (6) Elevated liver enzymes Assessment Acute renal failure- Dehydration serum Cr rising ? CKD DM and Nephropathy Cardiomyopathy with low EjFx DKA SC Dementia HypoThyroidism PVD Rt AKA Plan stop statins in view of high lfts stop IV add coreg [facility] Kidney KP Negative for hydronephrosis Urine studies 2D Echo 20% EjFx ABG K supplement as needed may require HD Subjective ROS Limited/Unobtainable: No Constitutional: Reports: malaise Objective Objective Last 24 Hour Vital Signs Date Time Temp Pulse Resp B/P (MAP) Pulse Ox O2 Delivery O2 Flow Rate FiO2 02/11/18 15:00 65 14 89/61 100 Nasal Cannula 3.0 02/11/18 14:00 72 14 90/60 100 Nasal Cannula 3.0 02/11/18 13:00 98.4 68 18 92/52 100 Nasal Cannula 3.0 98.4 02/11/18 12:00 70 02/11/18 12:00 70 14 99/65 100 Nasal Cannula 3.0 02/11/18 11:00 69 14 95/66 100 Nasal Cannula 3.0 02/11/18 10:00 75 16 103/67 100 Nasal Cannula 3.0 02/11/18 09:00 98.7 74 16 96/59 100 Nasal Cannula 3.0 98.7 02/11/18 08:00 72 02/11/18 08:00 77 16 102/66 100 Nasal Cannula 3.0 02/11/18 07:31 100 Nasal Cannula 2.0 28 02/11/18 07:31 Nasal Cannula 2.0 28 02/11/18 07:30 71 20 Nasal Cannula 2.0 28 02/11/18 07:00 72 16 100/63 100 Nasal Cannula 3.0 02/11/18 06:00 74 16 98/55 100 Nasal Cannula 3.0 02/11/18 05:00 98.5 74 16 103/55 100 Nasal Cannula 3.0 98.5 02/11/18 04:00 70 16 90/49 99 Nasal Cannula 3.0 02/11/18 04:00 70 02/11/18 03:00 70 16 117/71 99 Nasal Cannula 3.0 02/11/18 02:00 70 16 111/92 99 Nasal Cannula 3.0 02/11/18 01:00 74 12 119/70 100 Nasal Cannula 3.0 02/11/18 00:00 73 02/11/18 00:00 98.2 72 12 105/66 100 Nasal Cannula 3.0 98.2 02/10/18 23:00 72 12 100/61 100 Nasal Cannula 3.0 02/10/18 22:00 72 12 92/62 100 Nasal Cannula 3.0 02/10/18 21:00 73 18 99/62 100 Nasal Cannula 3.0 02/10/18 20:00 98.4 71 19 89/63 100 Nasal Cannula 3.0 98.4 02/10/18 20:00 Nasal Cannula 2.0 28 02/10/18 20:00 71 02/10/18 20:00 76 20 Nasal Cannula 2.0 28 02/10/18 20:00 98 Nasal Cannula 2.0 28 02/10/18 19:45 99/62 02/10/18 19:00 76 17 99/62 100 Nasal Cannula 3.0 02/10/18 18:00 75 17 92/61 100 Nasal Cannula 3.0 02/10/18 17:00 70 12 102/55 100 Nasal Cannula 3.0 Intake and Output 02/10/18 02/11/18 19:00 07:00 Intake Total 556.946 ml 434.046 ml Output Total 170 ml 280 ml Balance 386.946 ml 154.046 ml Intake Oral 180 ml 60 ml IV Total 376.946 ml 374.046 ml Output Urine Total 170 ml 280 ml # Bowel Movements 2 6 Laboratory Tests 02/11/18 04:10: White Blood Count 12.3H, Red Blood Count 3.41L, Hemoglobin 9.8L, Hematocrit 28.6L, Mean Corpuscular Volume 84, Mean Corpuscular Hemoglobin 28.8, Mean Corpuscular Hemoglobin Concent 34.2, Red Cell Distribution Width 13.5, Platelet Count 159, Mean Platelet Volume 10.5H, Neutrophils (%) (Auto) 65.2, Lymphocytes (%) (Auto) 15.3L, Monocytes (%) (Auto) 17.5H, Eosinophils (%) (Auto) 1.3, Basophils (%) (Auto) 0.7, Activated Partial Thromboplast Time 96H, Sodium Level 137, Potassium Level 3.4L, Chloride Level 100, Carbon Dioxide Level 20L, Anion Gap 17H, Blood Urea Nitrogen 64H, Creatinine 4.2H, Estimat Glomerular Filtration Rate 14.3, Glucose Level 95, Uric Acid 13.6H, Calcium Level 8.2L, Phosphorus Level 5.7H, Magnesium Level 2.2, Total Bilirubin 0.7, Aspartate Amino Transf (AST/SGOT) 1718H, Alanine Aminotransferase (ALT/SGPT) 887H, Alkaline Phosphatase 144H, C-Reactive Protein, Quantitative 12.3H, Pro-B-Type Natriuretic Peptide 02547Y, Total Protein 6.1L, Albumin 2.5L, Globulin 3.6, Albumin/Globulin Ratio 0.7L 02/11/18 14:05: Activated Partial Thromboplast Time 70H Height (Feet): 5 Height (Inches): 7.00 Weight (Pounds): 187 General Appearance: no apparent distress Cardiovascular: normal rate Respiratory/Chest: decreased breath sounds Abdomen: distended LAKESHA BAR February 11, 2018 16:08
[2018-02-11] MEDS: Dyna-Hex 2% Top Sol 2oz TOPIC SCH (19:53)
--- NOTE | 2018-02-11 23:04 | Cardiology Progress Note ---
Assessment/Plan Assessment/Plan looks better today, not so toxic as yesterday, his anion gap is less and transaminases going down, treatment of DKA in progress Subjective Subjective the patient looks better today, he is asleep, arousable, still confused, but not in such as distress Objective Last 24 Hour Vital Signs Date Time Temp Pulse Resp B/P (MAP) Pulse Ox O2 Delivery O2 Flow Rate FiO2 02/11/18 19:00 62 14 99/52 100 Nasal Cannula 3.0 02/11/18 18:49 Nasal Cannula 2.0 28 02/11/18 18:49 100 Nasal Cannula 2.0 28 02/11/18 18:49 68 20 Nasal Cannula 2.0 28 02/11/18 18:00 65 14 92/58 100 Nasal Cannula 3.0 02/11/18 17:00 98.8 68 13 103/71 100 Nasal Cannula 3.0 98.8 02/11/18 16:00 68 02/11/18 16:00 66 14 98/66 100 Nasal Cannula 3.0 02/11/18 15:00 65 14 89/61 100 Nasal Cannula 3.0 02/11/18 14:00 72 14 90/60 100 Nasal Cannula 3.0 02/11/18 13:00 98.4 68 18 92/52 100 Nasal Cannula 3.0 98.4 02/11/18 12:00 70 02/11/18 12:00 70 14 99/65 100 Nasal Cannula 3.0 02/11/18 11:00 69 14 95/66 100 Nasal Cannula 3.0 02/11/18 10:00 75 16 103/67 100 Nasal Cannula 3.0 02/11/18 09:00 98.7 74 16 96/59 100 Nasal Cannula 3.0 98.7 02/11/18 08:00 72 02/11/18 08:00 77 16 102/66 100 Nasal Cannula 3.0 02/11/18 07:31 100 Nasal Cannula 2.0 28 02/11/18 07:31 Nasal Cannula 2.0 28 02/11/18 07:30 71 20 Nasal Cannula 2.0 28 02/11/18 07:00 72 16 100/63 100 Nasal Cannula 3.0 02/11/18 06:00 74 16 98/55 100 Nasal Cannula 3.0 02/11/18 05:00 98.5 74 16 103/55 100 Nasal Cannula 3.0 98.5 02/11/18 04:00 70 16 90/49 99 Nasal Cannula 3.0 02/11/18 04:00 70 02/11/18 03:00 70 16 117/71 99 Nasal Cannula 3.0 02/11/18 02:00 70 16 111/92 99 Nasal Cannula 3.0 02/11/18 01:00 74 12 119/70 100 Nasal Cannula 3.0 02/11/18 00:00 73 02/11/18 00:00 98.2 72 12 105/66 100 Nasal Cannula 3.0 98.2 General Appearance: lethargic, other - confused EENT: PERRL/EOMI Neck: JVD - severe Rhythm: Afib Cardiovascular: tachycardia Respiratory/Chest: crackles/rales Abdomen: distended, tender Extremities: trace edema - left leg, right leg AKA, old Intake and Output 02/10/18 02/11/18 19:00 07:00 Intake Total 556.946 ml 434.046 ml Output Total 170 ml 280 ml Balance 386.946 ml 154.046 ml Intake Oral 180 ml 60 ml IV Total 376.946 ml 374.046 ml Output Urine Total 170 ml 280 ml # Bowel Movements 2 6 Laboratory Tests Test 02/11/18 04:10 02/11/18 14:05 White Blood Count 12.3 K/UL (4.8-10.8) H Red Blood Count 3.41 M/UL (4.70-6.10) L Hemoglobin 9.8 G/DL (14.2-18.0) L Hematocrit 28.6 % (42.0-52.0) L Mean Corpuscular Volume 84 FL (80-99) Mean Corpuscular Hemoglobin 28.8 PG (27.0-31.0) Mean Corpuscular Hemoglobin Concent 34.2 G/DL (32.0-36.0) Red Cell Distribution Width 13.5 % (11.6-14.8) Platelet Count 159 K/UL (150-450) Mean Platelet Volume 10.5 FL (6.5-10.1) H Neutrophils (%) (Auto) 65.2 % (45.0-75.0) Lymphocytes (%) (Auto) 15.3 % (20.0-45.0) L Monocytes (%) (Auto) 17.5 % (1.0-10.0) H Eosinophils (%) (Auto) 1.3 % (0.0-3.0) Basophils (%) (Auto) 0.7 % (0.0-2.0) Activated Partial Thromboplast Time 96 SEC (23-33) H 70 SEC (23-33) H Sodium Level 137 MMOL/L (136-145) Potassium Level 3.4 MMOL/L (3.5-5.1) L Chloride Level 100 MMOL/L (98-107) Carbon Dioxide Level 20 MMOL/L (21-32) L Anion Gap 17 mmol/L (5-15) H Blood Urea Nitrogen 64 mg/dL (7-18) H Creatinine 4.2 MG/DL (0.55-1.30) H Estimat Glomerular Filtration Rate 14.3 mL/min (>60) Glucose Level 95 MG/DL (74-106) Uric Acid 13.6 MG/DL (2.6-7.2) H Calcium Level 8.2 MG/DL (8.5-10.1) L Phosphorus Level 5.7 MG/DL (2.5-4.9) H Magnesium Level 2.2 MG/DL (1.8-2.4) Total Bilirubin 0.7 MG/DL (0.2-1.0) Aspartate Amino Transf (AST/SGOT) 1718 U/L (15-37) H Alanine Aminotransferase (ALT/SGPT) 887 U/L (12-78) H Alkaline Phosphatase 144 U/L (46-116) H C-Reactive Protein, Quantitative 12.3 mg/dL (0.00-0.90) H Pro-B-Type Natriuretic Peptide 03281 pg/mL (0-125) H Total Protein 6.1 G/DL (6.4-8.2) L Albumin 2.5 G/DL (3.4-5.0) L Globulin 3.6 g/dL Albumin/Globulin Ratio 0.7 (1.0-2.7) L Nathalie Almodovar MD February 11, 2018 23:04
[2018-02-12] VITALS (17 sets, daily range): BP systolic 90–110; BP diastolic 54–66
[2018-02-12] MEDS: Aztreonam 0.5gm in D5W 55ml IVPB SCH ×2 (05:55→13:53)
[2018-02-12] MEDS: NovoLOG Insulin Flexpen SUBQ SCH ×7 (06:30→21:00)
--- NOTE | 2018-02-12 06:35 | General Progress Note ---
Assessment/Plan Problem List: (1) Hypothyroidism ICD Codes: E03.9 - Hypothyroidism, unspecified SNOMED: 55967290 (2) Sacral decubitus ulcer, stage II ICD Codes: L89.152 - Pressure ulcer of sacral region, stage 2 SNOMED: 812728107, 195188581 (3) DKA, type 1 ICD Codes: E10.10 - Type 1 diabetes mellitus with ketoacidosis without coma SNOMED: 53534104, 287247495 (4) EF 15% (5) Elevated liver enzymes ICD Codes: R74.8 - Abnormal levels of other serum enzymes SNOMED: 854795642 (6) Acute on chronic renal failure ICD Codes: N17.9 - Acute kidney failure, unspecified; N18.9 - Chronic kidney disease, unspecified SNOMED: 097028461 (7) Cardiomyopathy ICD Codes: I42.9 - Cardiomyopathy, unspecified SNOMED: 43394828 Assessment/Plan reduce Levemir to 6 units bid reduce Novolog to 4 units ac tid continue NISS Subjective ROS Limited/Unobtainable: Yes Allergies: Coded Allergies: PENICILLINS (Verified Allergy, Unknown, 04/16/17) Subjective events noted - interval notes reviewed Objective Last 24 Hour Vital Signs Date Time Temp Pulse Resp B/P (MAP) Pulse Ox O2 Delivery O2 Flow Rate FiO2 02/12/18 06:00 71 16 98/56 100 Nasal Cannula 3.0 02/12/18 05:00 71 16 92/64 100 Nasal Cannula 3.0 02/12/18 04:00 71 15 92/62 100 Nasal Cannula 3.0 02/12/18 04:00 68 02/12/18 03:00 71 12 101/63 100 Nasal Cannula 3.0 02/12/18 02:00 71 17 96/54 100 Nasal Cannula 3.0 02/12/18 01:00 98.4 71 17 102/62 100 Nasal Cannula 3.0 98.4 02/12/18 00:00 69 02/12/18 00:00 71 17 101/63 100 Nasal Cannula 3.0 02/11/18 23:00 71 13 91/57 100 Nasal Cannula 3.0 02/11/18 22:00 72 18 108/66 100 Nasal Cannula 3.0 02/11/18 21:00 68 13 97/57 100 Nasal Cannula 3.0 02/11/18 20:00 98.5 68 17 95/57 100 Nasal Cannula 3.0 98.5 02/11/18 19:00 62 14 99/52 100 Nasal Cannula 3.0 02/11/18 18:49 Nasal Cannula 2.0 28 02/11/18 18:49 100 Nasal Cannula 2.0 28 02/11/18 18:49 68 20 Nasal Cannula 2.0 28 02/11/18 18:00 65 14 92/58 100 Nasal Cannula 3.0 02/11/18 17:00 98.8 68 13 103/71 100 Nasal Cannula 3.0 98.8 02/11/18 16:00 68 02/11/18 16:00 66 14 98/66 100 Nasal Cannula 3.0 02/11/18 15:00 65 14 89/61 100 Nasal Cannula 3.0 02/11/18 14:00 72 14 90/60 100 Nasal Cannula 3.0 02/11/18 13:00 98.4 68 18 92/52 100 Nasal Cannula 3.0 98.4 02/11/18 12:00 70 02/11/18 12:00 70 14 99/65 100 Nasal Cannula 3.0 02/11/18 11:00 69 14 95/66 100 Nasal Cannula 3.0 02/11/18 10:00 75 16 103/67 100 Nasal Cannula 3.0 02/11/18 09:00 98.7 74 16 96/59 100 Nasal Cannula 3.0 98.7 02/11/18 08:00 72 02/11/18 08:00 77 16 102/66 100 Nasal Cannula 3.0 02/11/18 07:31 100 Nasal Cannula 2.0 28 02/11/18 07:31 Nasal Cannula 2.0 28 02/11/18 07:30 71 20 Nasal Cannula 2.0 28 02/11/18 07:00 72 16 100/63 100 Nasal Cannula 3.0 Intake and Output 02/11/18 02/12/18 19:00 07:00 Intake Total 272.043 ml 402.295 ml Output Total 245 ml 265 ml Balance 27.043 ml 137.295 ml Intake Oral 0 ml 100 ml IV Total 272.043 ml 302.295 ml Output Urine Total 245 ml 265 ml # Bowel Movements 1 Laboratory Tests 02/11/18 14:05: Activated Partial Thromboplast Time 70H Height (Feet): 5 Height (Inches): 7.00 Weight (Pounds): 187 General Appearance: lethargic Neck: normal alignment Cardiovascular: regular rhythm Respiratory/Chest: decreased breath sounds Abdomen: normal bowel sounds Edema: 1+ Arm (L), 1+ Arm (R), 1+ Leg (L), 1+ Leg (R), 1+ Pedal (L), 1+ Pedal ( R), 1+ Generalized Objective Current Medications Medications (Trade) Dose Ordered Sig/Eliel Route PRN Reason Start Time Stop Time Status Last Admin Dose Admin Acetaminophen (Tylenol) 650 mg Q4H PRN ORAL T>100.5 02/07/18 18:00 03/08/18 17:59 Albuterol/ Ipratropium (Albuterol/ Ipratropium) 3 ml Q4H PRN HHN Shortness of Breath 02/10/18 12:00 02/14/18 11:59 Aluminum Hydroxide (Amphojel) 1,920 mg TID ORAL 02/09/18 09:00 03/10/18 17:59 02/11/18 12:21 Aspirin (ASA) 325 mg DAILY ORAL 02/09/18 09:00 03/09/18 21:59 02/11/18 08:59 Aztreonam 0.5 gm/ Dextrose 55 ml @ 110 mls/hr Q8HR IVPB 02/11/18 14:00 02/18/18 13:59 02/12/18 05:55 Chlorhexidine Gluconate (Laura-Hex 2%) 1 applic DAILY@2000 TOPIC 02/07/18 20:00 03/09/18 19:59 02/11/18 19:53 Clonidine HCl (Catapres Tab) 0.1 mg Q8H PRN ORAL SBP > 160mmHg 02/07/18 18:00 03/08/18 17:59 Dextrose (Dextrose 50%) 25 ml STAT PRN IV Hypoglycemia 02/11/18 07:30 03/13/18 07:29 Dextrose (Dextrose 50%) 50 ml STAT PRN IV Hypoglycemia 02/11/18 07:30 03/13/18 07:29 Heparin Sodium/ Dextrose 500 ml @ 19.459 mls/ hr adjust per protocol IV 02/09/18 07:00 03/09/18 15:29 02/11/18 09:09 Insulin Aspart (NovoLOG) BEFORE MEALS AND HS SUBQ 02/11/18 11:30 03/13/18 11:29 02/11/18 21:29 Insulin Aspart (NovoLOG) 4 units NOVOTIAC SUBQ 02/11/18 08:30 03/13/18 08:29 02/11/18 12:24 Insulin Detemir (Levemir) 8 units Q12HR SUBQ 02/11/18 08:30 03/13/18 08:29 02/11/18 21:27 Levofloxacin 150 ml @ 100 mls/hr Q48H IVPB 02/07/18 21:00 02/14/18 20:59 02/11/18 21:25 Metoclopramide HCl (Reglan) 5 mg THREE TIMES A DAY ORAL 02/08/18 13:00 03/10/18 12:59 02/11/18 12:21 Mirtazapine (Remeron) 7.5 mg BEDTIME ORAL 02/08/18 21:00 03/10/18 20:59 02/11/18 21:25 Morphine Sulfate (Morphine Sulfate) 1 mg Q4H PRN IVP For Pain 02/10/18 09:15 02/17/18 09:14 02/11/18 22:15 Nitroglycerin (Ntg) 0.4 mg Q5MIN X 3 DOSES PRN SL Prn Chest Pain 02/07/18 17:15 03/08/18 18:44 Ondansetron HCl (Zofran) 4 mg Q6H PRN IVP Nausea & Vomiting 02/07/18 18:45 03/08/18 18:44 Pantoprazole (Protonix) 40 mg EVERY 12 HOURS ORAL 02/08/18 21:00 03/10/18 20:59 02/11/18 21:25 Polyethylene Glycol (Miralax) 17 gm DAILYPRN PRN ORAL Constipation 02/07/18 18:45 03/08/18 18:44 Sodium Citrate (Bicitra) 30 ml TID ORAL 02/08/18 18:00 03/09/18 11:59 02/11/18 12:21 Temazepam (Restoril) 15 mg HSPRN PRN ORAL Insomnia 02/08/18 21:00 02/15/18 20:59 02/12/18 01:27 Item Value Date Time Bedside Blood Glucose 71 mg/dl 02/12/18 0630 Bedside Blood Glucose 139 mg/dl H 02/11/18 2129 Bedside Blood Glucose 100 mg/dl 02/11/18 1621 Bedside Blood Glucose 196 mg/dl H 02/11/18 1224 Bedside Blood Glucose 148 mg/dl H 02/11/18 0903 Bedside Blood Glucose 107 mg/dl 02/11/18 0600 Bedside Blood Glucose 127 mg/dl H 02/11/18 0200 CHIDI DANIELSON February 12, 2018 06:35
[2018-02-12 07:19] LABS: ALANINE AMINOTRANSFERASE 630 U/L (12-78); ALBUMIN 2.2 G/DL (3.4-5.0); ALKALINE PHOSPHATASE 170 U/L (46-116); ASPARTATE AMINO TRANSFERASE 883 U/L (15-37); BILIRUBIN,DIRECT 0.5 MG/DL (0.0-0.3); BILIRUBIN,TOTAL 0.7 MG/DL (0.2-1.0); PHOSPHORUS 5.1 MG/DL (2.5-4.9)
[2018-02-12 07:25] LABS: ANION GAP 16 mmol/L (5-15); BLOOD UREA NITROGEN 64 mg/dL (7-18); CALCIUM 8.1 MG/DL (8.5-10.1); CARBON DIOXIDE 20 MMOL/L (21-32); CHLORIDE 99 MMOL/L (98-107); CREATININE 3.9 MG/DL (0.55-1.30); POTASSIUM 3.4 MMOL/L (3.5-5.1); SODIUM 135 MMOL/L (136-145)
[2018-02-12 07:28] LABS: BASOPHILS % (AUTO) 0.6 % (0.0-2.0); EOSINOPHILS % (AUTO) 3.5 % (0.0-3.0); HEMATOCRIT 27.4 % (42.0-52.0); HEMOGLOBIN 9.2 G/DL (14.2-18.0); LYMPHOCYTES % (AUTO) 20.1 % (20.0-45.0); MEAN CORPUSCULAR VOLUME 83 FL (80-99); MONOCYTES % (AUTO) 19.7 % (1.0-10.0); NEUTROPHILS % (AUTO) 56.1 % (45.0-75.0); PLATELET COUNT 143 K/UL (150-450); RED BLOOD COUNT 3.29 M/UL (4.70-6.10); RED CELL DISTRIBUTION WIDTH 13.5 % (11.6-14.8); WHITE BLOOD COUNT 11.4 K/UL (4.8-10.8)
[2018-02-12] MEDS: Sodium Citrate 30ml ORAL SCH ×3 (08:19→17:12)
[2018-02-12] MEDS: Aluminum Hydroxide Gel Susp 15ml ORAL SCH ×3 (08:20→17:13)
[2018-02-12] MEDS: Morphine Sulfate 4mg/ml Inj IVP PRN ×2 (08:30→22:24)
[2018-02-12] MEDS ORDERED: Heparin 5000 units/ml inj IV ONE (08:30)
[2018-02-12] MEDS ORDERED: Levemir Flexpen SUBQ SCH (09:00)
--- NOTE | 2018-02-12 10:58 | Infectious Diseases Prog Note ---
Assessment/Plan Assessment/Plan ASSESSMENT: The patient is a 67-year-old male with, +ve blood cX : 09/28 CoNS ( m/l contaminant ) -repeat Bcx NTD Fever, SP Leukocytosis, improving Transaminitis worsening AST> ALT (probably due to right-sided heart failure, shock liver, Hep C contributing.) Hepatitis C Ab + Possible UTI / cystitis. 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 Penumonia Pleural effusion 02/11 CXR: Findings suggesting small layering right pleural effusion, new compared to the prior chest x-ray. Diffuse increased interstitial markings may be related to mild pulmonary vascular congestion versus a mild interstitial pneumonitis. Worsened compared to the prior chest x-ray. Subsegmental atelectasis versus infiltrate in the right lung base and right perihilar region. Worsened compared to the prior chest x-ray. 02/09 CXR: Left basilar atelectasis and patchy consolidative changes are stable. 02/09 Successful ultrasound-guided thoracentesis, yielding 400 milliliters of fluid (Cytology sent but no other labs sent ) MRSA colonization XAVIER /CKD CAD/myocardial infarction. Hypertension. Diabetes. Anemia. Hyperlipidemia. Peripheral vascular disease. Anxiety. Degenerative joint disease. Hyperthyroidism. Dilated cardiomyopathy. GERD. Dementia PLAN: continue the patient on aztreonam and levaquin day # 6 / 7 02/09 SP IV Vanco day # 2 Monitor CBC. Monitor BMP. Monitor cultures (blood sputum). Monitor chest x-ray. f/u Hep C PCR Subjective Allergies: Coded Allergies: PENICILLINS (Verified Allergy, Unknown, 04/16/17) Subjective afebrile leukocytosis improving repeat BCx NTD off pressors Objective Vital Signs Last 24 Hour Vital Signs Date Time Temp Pulse Resp B/P (MAP) Pulse Ox O2 Delivery O2 Flow Rate FiO2 02/12/18 09:00 77 16 102/58 100 Nasal Cannula 3.0 02/12/18 08:00 65 02/12/18 08:00 98.8 65 16 96/56 100 Nasal Cannula 3.0 98.8 02/12/18 07:00 71 16 95/55 100 Nasal Cannula 3.0 02/12/18 06:33 Nasal Cannula 2.0 28 02/12/18 06:33 72 20 Nasal Cannula 2.0 28 02/12/18 06:33 100 Nasal Cannula 2.0 28 02/12/18 06:00 71 16 98/56 100 Nasal Cannula 3.0 02/12/18 05:00 71 16 92/64 100 Nasal Cannula 3.0 02/12/18 04:00 71 15 92/62 100 Nasal Cannula 3.0 02/12/18 04:00 68 02/12/18 03:00 71 12 101/63 100 Nasal Cannula 3.0 02/12/18 02:00 71 17 96/54 100 Nasal Cannula 3.0 02/12/18 01:00 98.4 71 17 102/62 100 Nasal Cannula 3.0 98.4 02/12/18 00:00 69 02/12/18 00:00 71 17 101/63 100 Nasal Cannula 3.0 02/11/18 23:00 71 13 91/57 100 Nasal Cannula 3.0 02/11/18 22:00 72 18 108/66 100 Nasal Cannula 3.0 02/11/18 21:00 68 13 97/57 100 Nasal Cannula 3.0 02/11/18 20:00 98.5 68 17 95/57 100 Nasal Cannula 3.0 98.5 02/11/18 19:00 62 14 99/52 100 Nasal Cannula 3.0 02/11/18 18:49 Nasal Cannula 2.0 28 02/11/18 18:49 100 Nasal Cannula 2.0 28 02/11/18 18:49 68 20 Nasal Cannula 2.0 28 02/11/18 18:00 65 14 92/58 100 Nasal Cannula 3.0 02/11/18 17:00 98.8 68 13 103/71 100 Nasal Cannula 3.0 98.8 02/11/18 16:00 68 02/11/18 16:00 66 14 98/66 100 Nasal Cannula 3.0 02/11/18 15:00 65 14 89/61 100 Nasal Cannula 3.0 02/11/18 14:00 72 14 90/60 100 Nasal Cannula 3.0 02/11/18 13:00 98.4 68 18 92/52 100 Nasal Cannula 3.0 98.4 02/11/18 12:00 70 02/11/18 12:00 70 14 99/65 100 Nasal Cannula 3.0 02/11/18 11:00 69 14 95/66 100 Nasal Cannula 3.0 Height (Feet): 5 Height (Inches): 7.00 Weight (Pounds): 187 Objective GENERAL: awake, more responsive, NAD HEAD: Pupils are equal and reactive to light. Extraocular movements intact. NECK: Supple. No JVD. LUNGS: Poor air entry. + Expiratory wheezing, No rales. fair inspiratory effort. HEART: S1, S2. Distant heart sounds. No murmur. ABDOMEN: Soft, nondistended, and nontender. Positive bowel sounds. EXTREMITIES: No cyanosis, clubbing. More Edema on the left lower extremity. 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 Piccline on Left UE's. Laboratory Tests Test 02/11/18 14:05 02/12/18 05:30 Activated Partial Thromboplast Time 70 SEC (23-33) H 58 SEC (23-33) H White Blood Count 11.4 K/UL (4.8-10.8) H Red Blood Count 3.29 M/UL (4.70-6.10) L Hemoglobin 9.2 G/DL (14.2-18.0) L Hematocrit 27.4 % (42.0-52.0) L Mean Corpuscular Volume 83 FL (80-99) Mean Corpuscular Hemoglobin 28.1 PG (27.0-31.0) Mean Corpuscular Hemoglobin Concent 33.7 G/DL (32.0-36.0) Red Cell Distribution Width 13.5 % (11.6-14.8) Platelet Count 143 K/UL (150-450) L Mean Platelet Volume 10.7 FL (6.5-10.1) H Neutrophils (%) (Auto) 56.1 % (45.0-75.0) Lymphocytes (%) (Auto) 20.1 % (20.0-45.0) Monocytes (%) (Auto) 19.7 % (1.0-10.0) H Eosinophils (%) (Auto) 3.5 % (0.0-3.0) H Basophils (%) (Auto) 0.6 % (0.0-2.0) Sodium Level 135 MMOL/L (136-145) L Potassium Level 3.4 MMOL/L (3.5-5.1) L Chloride Level 99 MMOL/L (98-107) Carbon Dioxide Level 20 MMOL/L (21-32) L Anion Gap 16 mmol/L (5-15) H Blood Urea Nitrogen 64 mg/dL (7-18) H Creatinine 3.9 MG/DL (0.55-1.30) H Estimat Glomerular Filtration Rate 15.6 mL/min (>60) Glucose Level 71 MG/DL (74-106) L Uric Acid 12.8 MG/DL (2.6-7.2) H Calcium Level 8.1 MG/DL (8.5-10.1) L Phosphorus Level 5.1 MG/DL (2.5-4.9) H Magnesium Level 2.0 MG/DL (1.8-2.4) Total Bilirubin 0.7 MG/DL (0.2-1.0) Direct Bilirubin 0.5 MG/DL (0.0-0.3) H Gamma Glutamyl Transpeptidase 189 U/L (5-85) H Aspartate Amino Transf (AST/SGOT) 883 U/L (15-37) H Alanine Aminotransferase (ALT/SGPT) 630 U/L (12-78) H Alkaline Phosphatase 170 U/L (46-116) H Ammonia 42 umol/L (11-32) H Troponin I 4.388 ng/mL (0.000-0.056) C-Reactive Protein, Quantitative 11.4 mg/dL (0.00-0.90) H Pro-B-Type Natriuretic Peptide > 81974 pg/mL (0-125) H Total Protein 5.7 G/DL (6.4-8.2) L Albumin 2.2 G/DL (3.4-5.0) L Current Medications Medications (Trade) Dose Ordered Sig/Eliel Route PRN Reason Start Time Stop Time Status Last Admin Dose Admin Acetaminophen (Tylenol) 650 mg Q4H PRN ORAL T>100.5 02/07/18 18:00 03/08/18 17:59 Albuterol/ Ipratropium (Albuterol/ Ipratropium) 3 ml Q4H PRN HHN Shortness of Breath 02/10/18 12:00 02/14/18 11:59 Aluminum Hydroxide (Amphojel) 1,920 mg TID ORAL 02/09/18 09:00 03/10/18 17:59 02/12/18 08:20 Aspirin (ASA) 325 mg DAILY ORAL 02/09/18 09:00 03/09/18 21:59 02/12/18 08:19 Aztreonam 0.5 gm/ Dextrose 55 ml @ 110 mls/hr Q8HR IVPB 02/11/18 14:00 02/18/18 13:59 02/12/18 05:55 Chlorhexidine Gluconate (Laura-Hex 2%) 1 applic DAILY@2000 TOPIC 02/07/18 20:00 03/09/18 19:59 02/11/18 19:53 Clonidine HCl (Catapres Tab) 0.1 mg Q8H PRN ORAL SBP > 160mmHg 02/07/18 18:00 03/08/18 17:59 Dextrose (Dextrose 50%) 25 ml STAT PRN IV Hypoglycemia 02/11/18 07:30 03/13/18 07:29 Dextrose (Dextrose 50%) 50 ml STAT PRN IV Hypoglycemia 02/11/18 07:30 03/13/18 07:29 Heparin Sodium/ Dextrose 500 ml @ 22.453 mls/ hr adjust per protocol IV 02/09/18 07:00 03/09/18 15:29 02/11/18 09:09 Insulin Aspart (NovoLOG) BEFORE MEALS AND HS SUBQ 02/11/18 11:30 03/13/18 11:29 02/11/18 21:29 Insulin Aspart (NovoLOG) 4 units NOVOTIAC SUBQ 02/11/18 08:30 03/13/18 08:29 02/11/18 12:24 Insulin Detemir (Levemir) 6 units Q12HR SUBQ 02/12/18 09:00 03/13/18 08:29 02/12/18 08:41 Levofloxacin 150 ml @ 100 mls/hr Q48H IVPB 02/07/18 21:00 02/14/18 20:59 02/11/18 21:25 Metoclopramide HCl (Reglan) 5 mg THREE TIMES A DAY ORAL 02/08/18 13:00 03/10/18 12:59 02/12/18 08:19 Mirtazapine (Remeron) 7.5 mg BEDTIME ORAL 02/08/18 21:00 03/10/18 20:59 02/11/18 21:25 Morphine Sulfate (Morphine Sulfate) 1 mg Q4H PRN IVP For Pain 5/19/18 09:15 02/17/18 09:14 02/12/18 08:30 Nitroglycerin (Ntg) 0.4 mg Q5MIN X 3 DOSES PRN SL Prn Chest Pain 02/07/18 17:15 03/08/18 18:44 Ondansetron HCl (Zofran) 4 mg Q6H PRN IVP Nausea & Vomiting 02/07/18 18:45 03/08/18 18:44 Pantoprazole (Protonix) 40 mg EVERY 12 HOURS ORAL 02/08/18 21:00 03/10/18 20:59 02/12/18 08:20 Polyethylene Glycol (Miralax) 17 gm DAILYPRN PRN ORAL Constipation 02/07/18 18:45 03/08/18 18:44 Potassium Chloride 100 ml @ 50 mls/hr ONCE ONCE IVPB 02/12/18 09:30 02/12/18 11:29 02/12/18 08:49 Sodium Citrate (Bicitra) 30 ml TID ORAL 02/08/18 18:00 03/09/18 11:59 02/12/18 08:19 Temazepam (Restoril) 15 mg HSPRN PRN ORAL Insomnia 02/08/18 21:00 02/15/18 20:59 02/12/18 01:27 Gloria Jay M.D. February 12, 2018 10:58
--- NOTE | 2018-02-12 11:18 | Diagnostic Imaging Report ---
Indication: Dyspnea Comparison: 02/11/2018 A single view chest radiograph was obtained. Findings: Prominent central vascularity and mild cephalization noted. Right hemidiaphragm slightly obscured may be due to a small pleural effusion. Cardiomegaly is present but stable. PICC line is in good position unchanged. IMPRESSION: CHF appears stable. Suspect right pleural effusion
--- NOTE | 2018-02-12 11:27 | Nephrology Progress Note ---
Assessment/Plan Problem List: (1) Acute on chronic renal failure (2) Diabetic keto-acidosis (3) Peripheral vascular disease (4) Cardiomyopathy (5) Sepsis (6) Elevated liver enzymes Assessment Acute renal failure- Dehydration serum Cr lower today ? CKD DM and Nephropathy Cardiomyopathy with low EjFx DKA CA Dementia HypoThyroidism PVD Rt AKA Plan stop statins in view of high lfts stop IV add coreg [facility] KP Negative for hydronephrosis Urine studies 2D Echo 20% EjFx ABG K supplement as needed may require HD Subjective ROS Limited/Unobtainable: No Objective Objective Last 24 Hour Vital Signs Date Time Temp Pulse Resp B/P (MAP) Pulse Ox O2 Delivery O2 Flow Rate FiO2 02/12/18 11:00 72 16 110/65 100 Nasal Cannula 3.0 02/12/18 10:00 70 16 105/60 100 Nasal Cannula 3.0 02/12/18 09:00 77 16 102/58 100 Nasal Cannula 3.0 02/12/18 08:00 65 02/12/18 08:00 98.8 65 16 96/56 100 Nasal Cannula 3.0 98.8 02/12/18 07:00 71 16 95/55 100 Nasal Cannula 3.0 02/12/18 06:33 Nasal Cannula 2.0 28 02/12/18 06:33 72 20 Nasal Cannula 2.0 28 02/12/18 06:33 100 Nasal Cannula 2.0 28 02/12/18 06:00 71 16 98/56 100 Nasal Cannula 3.0 02/12/18 05:00 71 16 92/64 100 Nasal Cannula 3.0 02/12/18 04:00 71 15 92/62 100 Nasal Cannula 3.0 02/12/18 04:00 68 02/12/18 03:00 71 12 101/63 100 Nasal Cannula 3.0 02/12/18 02:00 71 17 96/54 100 Nasal Cannula 3.0 02/12/18 01:00 98.4 71 17 102/62 100 Nasal Cannula 3.0 98.4 02/12/18 00:00 69 02/12/18 00:00 71 17 101/63 100 Nasal Cannula 3.0 02/11/18 23:00 71 13 91/57 100 Nasal Cannula 3.0 02/11/18 22:00 72 18 108/66 100 Nasal Cannula 3.0 02/11/18 21:00 68 13 97/57 100 Nasal Cannula 3.0 02/11/18 20:00 98.5 68 17 95/57 100 Nasal Cannula 3.0 98.5 02/11/18 19:00 62 14 99/52 100 Nasal Cannula 3.0 02/11/18 18:49 Nasal Cannula 2.0 28 02/11/18 18:49 100 Nasal Cannula 2.0 28 02/11/18 18:49 68 20 Nasal Cannula 2.0 28 02/11/18 18:00 65 14 92/58 100 Nasal Cannula 3.0 02/11/18 17:00 98.8 68 13 103/71 100 Nasal Cannula 3.0 98.8 02/11/18 16:00 68 02/11/18 16:00 66 14 98/66 100 Nasal Cannula 3.0 02/11/18 15:00 65 14 89/61 100 Nasal Cannula 3.0 02/11/18 14:00 72 14 90/60 100 Nasal Cannula 3.0 02/11/18 13:00 98.4 68 18 92/52 100 Nasal Cannula 3.0 98.4 02/11/18 12:00 70 02/11/18 12:00 70 14 99/65 100 Nasal Cannula 3.0 Intake and Output 02/11/18 02/12/18 19:00 07:00 Intake Total 272.043 ml 593.508 ml Output Total 245 ml 295 ml Balance 27.043 ml 298.508 ml Intake Oral 0 ml 100 ml IV Total 272.043 ml 493.508 ml Output Urine Total 245 ml 295 ml # Bowel Movements 1 Laboratory Tests 02/11/18 14:05: Activated Partial Thromboplast Time 70H 02/12/18 05:30: Activated Partial Thromboplast Time 58H, White Blood Count 11.4H, Red Blood Count 3.29L, Hemoglobin 9.2L, Hematocrit 27.4L, Mean Corpuscular Volume 83, Mean Corpuscular Hemoglobin 28.1, Mean Corpuscular Hemoglobin Concent 33.7, Red Cell Distribution Width 13.5, Platelet Count 143L, Mean Platelet Volume 10.7H, Neutrophils (%) (Auto) 56.1, Lymphocytes (%) (Auto) 20.1, Monocytes (%) (Auto) 19.7H, Eosinophils (%) (Auto) 3.5H, Basophils (%) (Auto) 0.6, Sodium Level 135L , Potassium Level 3.4L, Chloride Level 99, Carbon Dioxide Level 20L, Anion Gap 16H, Blood Urea Nitrogen 64H, Creatinine 3.9H, Estimat Glomerular Filtration Rate 15.6, Glucose Level 71L, Uric Acid 12.8H, Calcium Level 8.1L, Phosphorus Level 5.1H, Magnesium Level 2.0, Total Bilirubin 0.7, Direct Bilirubin 0.5H, Gamma Glutamyl Transpeptidase 189H, Aspartate Amino Transf (AST/SGOT) 883H, Alanine Aminotransferase (ALT/SGPT) 630H, Alkaline Phosphatase 170H, Ammonia 42H , Troponin I 4.388H, C-Reactive Protein, Quantitative 11.4H, Pro-B-Type Natriuretic Peptide > 61029C, Total Protein 5.7L, Albumin 2.2L Height (Feet): 5 Height (Inches): 7.00 Weight (Pounds): 187 General Appearance: no apparent distress Cardiovascular: normal rate Respiratory/Chest: decreased breath sounds Abdomen: distended LAKESHA BAR February 12, 2018 11:27
--- NOTE | 2018-02-12 11:51 | Pulmonolgy Critical Care Note ---
Critical Care - Asmt/Plan Problems: (1) Diabetic keto-acidosis (2) Sepsis (3) NSTEMI (non-ST elevated myocardial infarction) (4) EF 15% (5) ATN (acute tubular necrosis) Respiratory: monitor respiratory rate, adjust FIO2, CXR Cardiac: continue pressors, continue to monitor HR/BP Renal: F/U I&O Infectious Disease: check cultures Gastrointestinal: continue feedings/current rate Endocrine: monitor blood sugar, check HgA1C, continue sliding scale insulin Hematologic: transfuse if hgb<8.5 Neurologic: PRN Ativan, PRN Morphine, keep patient comfortable Affect: PRN ativan Prophylaxis: Protonix Time Spent (Minutes): 40 Notes Reviewed: cardio, renal Discussed with: nurses, consultants, [employer] manager - Objective Last 24 Hour Vital Signs Date Time Temp Pulse Resp B/P (MAP) Pulse Ox O2 Delivery O2 Flow Rate FiO2 02/12/18 11:00 72 16 110/65 100 Nasal Cannula 3.0 02/12/18 10:00 70 16 105/60 100 Nasal Cannula 3.0 02/12/18 09:00 77 16 102/58 100 Nasal Cannula 3.0 02/12/18 08:00 65 02/12/18 08:00 98.8 65 16 96/56 100 Nasal Cannula 3.0 98.8 02/12/18 07:00 71 16 95/55 100 Nasal Cannula 3.0 02/12/18 06:33 Nasal Cannula 2.0 28 02/12/18 06:33 72 20 Nasal Cannula 2.0 28 02/12/18 06:33 100 Nasal Cannula 2.0 28 02/12/18 06:00 71 16 98/56 100 Nasal Cannula 3.0 02/12/18 05:00 71 16 92/64 100 Nasal Cannula 3.0 02/12/18 04:00 71 15 92/62 100 Nasal Cannula 3.0 02/12/18 04:00 68 02/12/18 03:00 71 12 101/63 100 Nasal Cannula 3.0 02/12/18 02:00 71 17 96/54 100 Nasal Cannula 3.0 02/12/18 01:00 98.4 71 17 102/62 100 Nasal Cannula 3.0 98.4 02/12/18 00:00 69 02/12/18 00:00 71 17 101/63 100 Nasal Cannula 3.0 02/11/18 23:00 71 13 91/57 100 Nasal Cannula 3.0 02/11/18 22:00 72 18 108/66 100 Nasal Cannula 3.0 02/11/18 21:00 68 13 97/57 100 Nasal Cannula 3.0 02/11/18 20:00 98.5 68 17 95/57 100 Nasal Cannula 3.0 98.5 02/11/18 19:00 62 14 99/52 100 Nasal Cannula 3.0 02/11/18 18:49 Nasal Cannula 2.0 28 02/11/18 18:49 100 Nasal Cannula 2.0 28 02/11/18 18:49 68 20 Nasal Cannula 2.0 28 02/11/18 18:00 65 14 92/58 100 Nasal Cannula 3.0 02/11/18 17:00 98.8 68 13 103/71 100 Nasal Cannula 3.0 98.8 02/11/18 16:00 68 02/11/18 16:00 66 14 98/66 100 Nasal Cannula 3.0 02/11/18 15:00 65 14 89/61 100 Nasal Cannula 3.0 02/11/18 14:00 72 14 90/60 100 Nasal Cannula 3.0 02/11/18 13:00 98.4 68 18 92/52 100 Nasal Cannula 3.0 98.4 02/11/18 12:00 70 02/11/18 12:00 70 14 99/65 100 Nasal Cannula 3.0 Status: awake Condition: critical HEENT: atraumatic Lungs: clear Heart: HR/BP stable Abdomen: soft, non-tender, active bowel sounds Extremities: edema Accucheck: 143 Critical Care - Subjective ROS Limited/Unobtainable: No ICU Day: 6 Condition: critical EKG Rhythm: Sinus Rhythm FI02: 28 Sputum Amount: None I&O: Intake and Output 02/11/18 02/12/18 19:00 07:00 Intake Total 272.043 ml 593.508 ml Output Total 245 ml 295 ml Balance 27.043 ml 298.508 ml Intake Oral 0 ml 100 ml IV Total 272.043 ml 493.508 ml Output Urine Total 245 ml 295 ml # Bowel Movements 1 CXR: mild chf Labs: Laboratory Tests Test 02/11/18 14:05 02/12/18 05:30 Activated Partial Thromboplast Time 70 SEC (23-33) H 58 SEC (23-33) H White Blood Count 11.4 K/UL (4.8-10.8) H Red Blood Count 3.29 M/UL (4.70-6.10) L Hemoglobin 9.2 G/DL (14.2-18.0) L Hematocrit 27.4 % (42.0-52.0) L Mean Corpuscular Volume 83 FL (80-99) Mean Corpuscular Hemoglobin 28.1 PG (27.0-31.0) Mean Corpuscular Hemoglobin Concent 33.7 G/DL (32.0-36.0) Red Cell Distribution Width 13.5 % (11.6-14.8) Platelet Count 143 K/UL (150-450) L Mean Platelet Volume 10.7 FL (6.5-10.1) H Neutrophils (%) (Auto) 56.1 % (45.0-75.0) Lymphocytes (%) (Auto) 20.1 % (20.0-45.0) Monocytes (%) (Auto) 19.7 % (1.0-10.0) H Eosinophils (%) (Auto) 3.5 % (0.0-3.0) H Basophils (%) (Auto) 0.6 % (0.0-2.0) Sodium Level 135 MMOL/L (136-145) L Potassium Level 3.4 MMOL/L (3.5-5.1) L Chloride Level 99 MMOL/L (98-107) Carbon Dioxide Level 20 MMOL/L (21-32) L Anion Gap 16 mmol/L (5-15) H Blood Urea Nitrogen 64 mg/dL (7-18) H Creatinine 3.9 MG/DL (0.55-1.30) H Estimat Glomerular Filtration Rate 15.6 mL/min (>60) Glucose Level 71 MG/DL (74-106) L Uric Acid 12.8 MG/DL (2.6-7.2) H Calcium Level 8.1 MG/DL (8.5-10.1) L Phosphorus Level 5.1 MG/DL (2.5-4.9) H Magnesium Level 2.0 MG/DL (1.8-2.4) Total Bilirubin 0.7 MG/DL (0.2-1.0) Direct Bilirubin 0.5 MG/DL (0.0-0.3) H Gamma Glutamyl Transpeptidase 189 U/L (5-85) H Aspartate Amino Transf (AST/SGOT) 883 U/L (15-37) H Alanine Aminotransferase (ALT/SGPT) 630 U/L (12-78) H Alkaline Phosphatase 170 U/L (46-116) H Ammonia 42 umol/L (11-32) H Troponin I 4.388 ng/mL (0.000-0.056) C-Reactive Protein, Quantitative 11.4 mg/dL (0.00-0.90) H Pro-B-Type Natriuretic Peptide > 15978 pg/mL (0-125) H Total Protein 5.7 G/DL (6.4-8.2) L Albumin 2.2 G/DL (3.4-5.0) L Walker Saab MD February 12, 2018 11:51
--- NOTE | 2018-02-12 12:29 | Internal Med Progress Note ---
Subjective Date of Service: February 12, 2018 Physician Name Aguirre,Paras Attending Physician Joni Robin MD Current Medications Medications (Trade) Dose Ordered Sig/Eliel Route PRN Reason Start Time Stop Time Status Last Admin Dose Admin Acetaminophen (Tylenol) 650 mg Q4H PRN ORAL T>100.5 02/07/18 18:00 03/08/18 17:59 Albuterol/ Ipratropium (Albuterol/ Ipratropium) 3 ml Q4H PRN HHN Shortness of Breath 02/10/18 12:00 02/14/18 11:59 Aluminum Hydroxide (Amphojel) 1,920 mg TID ORAL 02/09/18 09:00 03/10/18 17:59 02/12/18 08:20 Aspirin (ASA) 325 mg DAILY ORAL 02/09/18 09:00 03/09/18 21:59 02/12/18 08:19 Aztreonam 0.5 gm/ Dextrose 55 ml @ 110 mls/hr Q8HR IVPB 02/11/18 14:00 02/18/18 13:59 02/12/18 05:55 Chlorhexidine Gluconate (Laura-Hex 2%) 1 applic DAILY@2000 TOPIC 02/07/18 20:00 03/09/18 19:59 02/11/18 19:53 Clonidine HCl (Catapres Tab) 0.1 mg Q8H PRN ORAL SBP > 160mmHg 02/07/18 18:00 03/08/18 17:59 Dextrose (Dextrose 50%) 25 ml STAT PRN IV Hypoglycemia 02/11/18 07:30 03/13/18 07:29 Dextrose (Dextrose 50%) 50 ml STAT PRN IV Hypoglycemia 02/11/18 07:30 03/13/18 07:29 Heparin Sodium/ Dextrose 500 ml @ 22.453 mls/ hr adjust per protocol IV 02/09/18 07:00 03/09/18 15:29 02/11/18 09:09 Insulin Aspart (NovoLOG) BEFORE MEALS AND HS SUBQ 02/11/18 11:30 03/13/18 11:29 02/12/18 12:03 Insulin Aspart (NovoLOG) 4 units NOVOTIAC SUBQ 02/11/18 08:30 03/13/18 08:29 02/11/18 12:24 Insulin Detemir (Levemir) 6 units Q12HR SUBQ 02/12/18 09:00 03/13/18 08:29 02/12/18 08:41 Levofloxacin 150 ml @ 100 mls/hr Q48H IVPB 02/07/18 21:00 02/14/18 20:59 02/11/18 21:25 Metoclopramide HCl (Reglan) 5 mg THREE TIMES A DAY ORAL 02/08/18 13:00 03/10/18 12:59 02/12/18 08:19 Mirtazapine (Remeron) 7.5 mg BEDTIME ORAL 02/08/18 21:00 03/10/18 20:59 02/11/18 21:25 Morphine Sulfate (Morphine Sulfate) 1 mg Q4H PRN IVP For Pain 02/10/18 09:15 02/17/18 09:14 02/12/18 08:30 Nitroglycerin (Ntg) 0.4 mg Q5MIN X 3 DOSES PRN SL Prn Chest Pain 02/07/18 17:15 03/08/18 18:44 Ondansetron HCl (Zofran) 4 mg Q6H PRN IVP Nausea & Vomiting 02/07/18 18:45 03/08/18 18:44 Pantoprazole (Protonix) 40 mg EVERY 12 HOURS ORAL 02/08/18 21:00 03/10/18 20:59 02/12/18 08:20 Polyethylene Glycol (Miralax) 17 gm DAILYPRN PRN ORAL Constipation 02/07/18 18:45 03/08/18 18:44 Sodium Citrate (Bicitra) 30 ml TID ORAL 02/08/18 18:00 03/09/18 11:59 02/12/18 08:19 Temazepam (Restoril) 15 mg HSPRN PRN ORAL Insomnia 02/08/18 21:00 02/15/18 20:59 02/12/18 01:27 Allergies: Coded Allergies: PENICILLINS (Verified Allergy, Unknown, 04/16/17) ROS Limited/Unobtainable: No Constitutional: Reports: no symptoms HEENT: Reports: no symptoms Cardiovascular: Reports: no symptoms Respiratory: Reports: no symptoms Gastrointestinal/Abdominal: Reports: no symptoms Genitourinary: Reports: no symptoms Neurologic/Psychiatric: Reports: no symptoms Subjective 67 YO M admitted with chest pain. Now STEMI and CHF. Cover for Int rubio-Dr Robin. ICU Objective Last Vital Signs Date Time Temp Pulse Resp B/P (MAP) Pulse Ox O2 Delivery O2 Flow Rate FiO2 02/12/18 12:00 66 02/12/18 12:00 98.6 16 90/58 100 Nasal Cannula 3.0 98.6 02/12/18 06:33 28 Laboratory Tests Test 02/11/18 14:05 02/12/18 05:30 Activated Partial Thromboplast Time 70 SEC (23-33) H 58 SEC (23-33) H White Blood Count 11.4 K/UL (4.8-10.8) H Red Blood Count 3.29 M/UL (4.70-6.10) L Hemoglobin 9.2 G/DL (14.2-18.0) L Hematocrit 27.4 % (42.0-52.0) L Mean Corpuscular Volume 83 FL (80-99) Mean Corpuscular Hemoglobin 28.1 PG (27.0-31.0) Mean Corpuscular Hemoglobin Concent 33.7 G/DL (32.0-36.0) Red Cell Distribution Width 13.5 % (11.6-14.8) Platelet Count 143 K/UL (150-450) L Mean Platelet Volume 10.7 FL (6.5-10.1) H Neutrophils (%) (Auto) 56.1 % (45.0-75.0) Lymphocytes (%) (Auto) 20.1 % (20.0-45.0) Monocytes (%) (Auto) 19.7 % (1.0-10.0) H Eosinophils (%) (Auto) 3.5 % (0.0-3.0) H Basophils (%) (Auto) 0.6 % (0.0-2.0) Sodium Level 135 MMOL/L (136-145) L Potassium Level 3.4 MMOL/L (3.5-5.1) L Chloride Level 99 MMOL/L (98-107) Carbon Dioxide Level 20 MMOL/L (21-32) L Anion Gap 16 mmol/L (5-15) H Blood Urea Nitrogen 64 mg/dL (7-18) H Creatinine 3.9 MG/DL (0.55-1.30) H Estimat Glomerular Filtration Rate 15.6 mL/min (>60) Glucose Level 71 MG/DL (74-106) L Uric Acid 12.8 MG/DL (2.6-7.2) H Calcium Level 8.1 MG/DL (8.5-10.1) L Phosphorus Level 5.1 MG/DL (2.5-4.9) H Magnesium Level 2.0 MG/DL (1.8-2.4) Total Bilirubin 0.7 MG/DL (0.2-1.0) Direct Bilirubin 0.5 MG/DL (0.0-0.3) H Gamma Glutamyl Transpeptidase 189 U/L (5-85) H Aspartate Amino Transf (AST/SGOT) 883 U/L (15-37) H Alanine Aminotransferase (ALT/SGPT) 630 U/L (12-78) H Alkaline Phosphatase 170 U/L (46-116) H Ammonia 42 umol/L (11-32) H Troponin I 4.388 ng/mL (0.000-0.056) C-Reactive Protein, Quantitative 11.4 mg/dL (0.00-0.90) H Pro-B-Type Natriuretic Peptide > 33894 pg/mL (0-125) H Total Protein 5.7 G/DL (6.4-8.2) L Albumin 2.2 G/DL (3.4-5.0) L Intake and Output 02/11/18 02/12/18 19:00 07:00 Intake Total 272.043 ml 593.508 ml Output Total 245 ml 295 ml Balance 27.043 ml 298.508 ml Intake Oral 0 ml 100 ml IV Total 272.043 ml 493.508 ml Output Urine Total 245 ml 295 ml # Bowel Movements 1 Objective Objective GENERAL: awake, more responsive, NAD HEAD: Pupils are equal and reactive to light. Extraocular movements intact. NECK: Supple. No JVD. LUNGS: Poor air entry. + Expiratory wheezing, No rales. fair inspiratory effort. HEART: S1, S2. Distant heart sounds. No murmur. ABDOMEN: Soft, nondistended, and nontender. Positive bowel sounds. EXTREMITIES: No cyanosis, clubbing. More Edema on the left lower extremity. 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 Piccline on Left UE's. NEUROLOGIC: Cranial nerves II through XII are grossly intact. The patient is moving all the extremities. Assessment/Plan Assessment/Plan Assessment/Plan Assessment/Plan 1. Acute myocardial infarction with non-ST elevation myocardial , New Left BBB 2. DKA with Diabetic type 2, uncontrolled. 3. Metabolic Acidosis 4. Dementia. 5. Hypernatremia. 6. Hyperkalemia. 7. Dehydration. 8. Right AKA with peripheral vascular disease. 9. History of dementia. 10. Atherosclerotic heart disease with ischemic cardiomyopathy. 11. Acute kidney injury. 12. Peripheral vascular disease. 13. Hypothyroidism. 14. PCN allergy. 15. Liver shock. 16. Right-sided pleural effusion. 17. New onset atrial fibrillation-See cardiology note. PLAN: In ICU. Monitor laboratory and cultures. on heparin drip, IV hydration, Dr. Saab, Pulmonary, Critical Care. Dr. Jones, Cardiology consultation Dr. Jessica, Nephrology Consult. Code Status: Full Code as per [facility] Broad-spectrum antibiotic: Levaquin and Aztreonam consider thoracocentesis. Transfer to [facility] today Paras Aguirre MD February 12, 2018 12:29
--- NOTE | 2018-02-12 12:31 | General Progress Note ---
Assessment/Plan Assessment/Plan encephalopathy MDD Anxiety Bee [email or web address] Subjective Date patient seen: February 12, 2018 Allergies: Coded Allergies: PENICILLINS (Verified Allergy, Unknown, 04/16/17) Subjective the pt c/o anxiety. confused Tachy Objective Last 24 Hour Vital Signs Date Time Temp Pulse Resp B/P (MAP) Pulse Ox O2 Delivery O2 Flow Rate FiO2 02/12/18 12:00 66 02/12/18 12:00 98.6 60 16 90/58 100 Nasal Cannula 3.0 98.6 02/12/18 11:00 72 16 110/65 100 Nasal Cannula 3.0 02/12/18 10:00 70 16 105/60 100 Nasal Cannula 3.0 02/12/18 09:00 77 16 102/58 100 Nasal Cannula 3.0 02/12/18 08:00 65 02/12/18 08:00 98.8 65 16 96/56 100 Nasal Cannula 3.0 98.8 02/12/18 07:00 71 16 95/55 100 Nasal Cannula 3.0 02/12/18 06:33 Nasal Cannula 2.0 28 02/12/18 06:33 72 20 Nasal Cannula 2.0 28 02/12/18 06:33 100 Nasal Cannula 2.0 28 02/12/18 06:00 71 16 98/56 100 Nasal Cannula 3.0 02/12/18 05:00 71 16 92/64 100 Nasal Cannula 3.0 02/12/18 04:00 71 15 92/62 100 Nasal Cannula 3.0 02/12/18 04:00 68 02/12/18 03:00 71 12 101/63 100 Nasal Cannula 3.0 02/12/18 02:00 71 17 96/54 100 Nasal Cannula 3.0 02/12/18 01:00 98.4 71 17 102/62 100 Nasal Cannula 3.0 98.4 02/12/18 00:00 69 02/12/18 00:00 71 17 101/63 100 Nasal Cannula 3.0 02/11/18 23:00 71 13 91/57 100 Nasal Cannula 3.0 02/11/18 22:00 72 18 108/66 100 Nasal Cannula 3.0 02/11/18 21:00 68 13 97/57 100 Nasal Cannula 3.0 02/11/18 20:00 98.5 68 17 95/57 100 Nasal Cannula 3.0 98.5 5/20/18 19:00 62 14 99/52 100 Nasal Cannula 3.0 02/11/18 18:49 Nasal Cannula 2.0 28 02/11/18 18:49 100 Nasal Cannula 2.0 28 02/11/18 18:49 68 20 Nasal Cannula 2.0 28 02/11/18 18:00 65 14 92/58 100 Nasal Cannula 3.0 02/11/18 17:00 98.8 68 13 103/71 100 Nasal Cannula 3.0 98.8 02/11/18 16:00 68 02/11/18 16:00 66 14 98/66 100 Nasal Cannula 3.0 02/11/18 15:00 65 14 89/61 100 Nasal Cannula 3.0 02/11/18 14:00 72 14 90/60 100 Nasal Cannula 3.0 02/11/18 13:00 98.4 68 18 92/52 100 Nasal Cannula 3.0 98.4 Intake and Output 02/11/18 02/12/18 19:00 07:00 Intake Total 272.043 ml 593.508 ml Output Total 245 ml 295 ml Balance 27.043 ml 298.508 ml Intake Oral 0 ml 100 ml IV Total 272.043 ml 493.508 ml Output Urine Total 245 ml 295 ml # Bowel Movements 1 Laboratory Tests 02/11/18 14:05: Activated Partial Thromboplast Time 70H 02/12/18 05:30: Activated Partial Thromboplast Time 58H, White Blood Count 11.4H, Red Blood Count 3.29L, Hemoglobin 9.2L, Hematocrit 27.4L, Mean Corpuscular Volume 83, Mean Corpuscular Hemoglobin 28.1, Mean Corpuscular Hemoglobin Concent 33.7, Red Cell Distribution Width 13.5, Platelet Count 143L, Mean Platelet Volume 10.7H, Neutrophils (%) (Auto) 56.1, Lymphocytes (%) (Auto) 20.1, Monocytes (%) (Auto) 19.7H, Eosinophils (%) (Auto) 3.5H, Basophils (%) (Auto) 0.6, Sodium Level 135L , Potassium Level 3.4L, Chloride Level 99, Carbon Dioxide Level 20L, Anion Gap 16H, Blood Urea Nitrogen 64H, Creatinine 3.9H, Estimat Glomerular Filtration Rate 15.6, Glucose Level 71L, Uric Acid 12.8H, Calcium Level 8.1L, Phosphorus Level 5.1H, Magnesium Level 2.0, Total Bilirubin 0.7, Direct Bilirubin 0.5H, Gamma Glutamyl Transpeptidase 189H, Aspartate Amino Transf (AST/SGOT) 883H, Alanine Aminotransferase (ALT/SGPT) 630H, Alkaline Phosphatase 170H, Ammonia 42H , Troponin I 4.388H, C-Reactive Protein, Quantitative 11.4H, Pro-B-Type Natriuretic Peptide > 32352E, Total Protein 5.7L, Albumin 2.2L Height (Feet): 5 Height (Inches): 7.00 Weight (Pounds): 187 General Appearance: no apparent distress, alert, confused Chanel Richards M.D. February 12, 2018 12:31
--- NOTE | 2018-02-12 14:02 | Cardiology Report ---
APPROVED REPORT EKG Measurement Heart [id number] Sinus rhythm with 1st degree AV block with occasional premature ventricular complexes Lateral infarct, age undetermined Abnormal ECG
[2018-02-12] MEDS ORDERED: Heparin 25,000u/D5W 500ml 500 ML IV SCH ×2 (15:00→16:15)
[2018-02-12] MEDS ORDERED: Nitroglycerin Subl 0.4mg tab SL PRN (15:00)
[2018-02-12] MEDS ORDERED: Albuterol/Ipratropium 3ml neb HHN PRN (15:05)
[2018-02-12] MEDS ORDERED: Miralax 17gm pkt ORAL PRN (15:06)
--- NOTE | 2018-02-12 20:54 | Cardiology Progress Note ---
Assessment/Plan Assessment/Plan 1. Acute myocardial infarction with subacute presentation. 2. History of coronary artery disease. 3. Known cardiomyopathy ef previosuly 25% . 4. Pulmonary hypertension. 5. Metabolic encephalopathy. 6. Peripheral vascular disease status post amputation 7. hypotension improved 8. chf 9. Acute on chronic renal fialrue 10. New LBBB resolved 11. afib new onset 02/09/2018 bp improved s/p thoracentesis 400 cc removed keep in icu on antiplat and statin avoid coreg in setting of acute chf prognosis is guarded cr worsening continue supportive care trop trending down tel reviewed remain afib ekg reviewed qrs complex now back to normal duration no further LBBB is apparent critically ill d/w cierra gottlieb to aileen iv heparin for nwo stroke prevention may need cardioversion if converts spont would consider starting on amiod to prevent recurrence, my hope he will spont convert pressor are off at this time has wheezing is on hhn if bp improves need to consider isordil hydralazine combination as cannot take acie with renal insuf cannot used acei in light of renal insuf Subjective Cardiovascular: Denies: chest pain, lightheadedness, palpitations Subjective wants to go back to rehab center Objective Last 24 Hour Vital Signs Date Time Temp Pulse Resp B/P (MAP) Pulse Ox O2 Delivery O2 Flow Rate FiO2 02/12/18 19:50 78 20 Nasal Cannula 2.0 28 02/12/18 19:50 99 Nasal Cannula 2.0 28 02/12/18 19:50 Nasal Cannula 2.0 28 02/12/18 16:00 98.4 62 16 104/64 100 Nasal Cannula 3.0 98.4 02/12/18 16:00 67 02/12/18 14:00 60 16 110/66 100 Nasal Cannula 3.0 02/12/18 13:00 63 16 108/61 100 Nasal Cannula 3.0 02/12/18 12:00 66 02/12/18 12:00 98.6 60 16 90/58 100 Nasal Cannula 3.0 98.6 02/12/18 11:00 72 16 110/65 100 Nasal Cannula 3.0 02/12/18 10:00 70 16 105/60 100 Nasal Cannula 3.0 02/12/18 09:00 77 16 102/58 100 Nasal Cannula 3.0 02/12/18 08:00 65 02/12/18 08:00 98.8 65 16 96/56 100 Nasal Cannula 3.0 98.8 02/12/18 07:00 71 16 95/55 100 Nasal Cannula 3.0 02/12/18 06:33 Nasal Cannula 2.0 28 02/12/18 06:33 72 20 Nasal Cannula 2.0 28 02/12/18 06:33 100 Nasal Cannula 2.0 28 02/12/18 06:00 71 16 98/56 100 Nasal Cannula 3.0 02/12/18 05:00 71 16 92/64 100 Nasal Cannula 3.0 02/12/18 04:00 71 15 92/62 100 Nasal Cannula 3.0 02/12/18 04:00 68 02/12/18 03:00 71 12 101/63 100 Nasal Cannula 3.0 02/12/18 02:00 71 17 96/54 100 Nasal Cannula 3.0 02/12/18 01:00 98.4 71 17 102/62 100 Nasal Cannula 3.0 98.4 02/12/18 00:00 69 02/12/18 00:00 71 17 101/63 100 Nasal Cannula 3.0 02/11/18 23:00 71 13 91/57 100 Nasal Cannula 3.0 02/11/18 22:00 72 18 108/66 100 Nasal Cannula 3.0 02/11/18 21:00 68 13 97/57 100 Nasal Cannula 3.0 General Appearance: no apparent distress, alert Neck: supple Cardiovascular: normal rate Respiratory/Chest: lungs clear Abdomen: non tender, soft Extremities: trace edema Intake and Output 02/11/18 02/12/18 19:00 07:00 Intake Total 272.043 ml 593.508 ml Output Total 245 ml 295 ml Balance 27.043 ml 298.508 ml Intake Oral 0 ml 100 ml IV Total 272.043 ml 493.508 ml Output Urine Total 245 ml 295 ml # Bowel Movements 1 Laboratory Tests Test 02/12/18 05:30 02/12/18 15:30 White Blood Count 11.4 K/UL (4.8-10.8) H Red Blood Count 3.29 M/UL (4.70-6.10) L Hemoglobin 9.2 G/DL (14.2-18.0) L Hematocrit 27.4 % (42.0-52.0) L Mean Corpuscular Volume 83 FL (80-99) Mean Corpuscular Hemoglobin 28.1 PG (27.0-31.0) Mean Corpuscular Hemoglobin Concent 33.7 G/DL (32.0-36.0) Red Cell Distribution Width 13.5 % (11.6-14.8) Platelet Count 143 K/UL (150-450) L Mean Platelet Volume 10.7 FL (6.5-10.1) H Neutrophils (%) (Auto) 56.1 % (45.0-75.0) Lymphocytes (%) (Auto) 20.1 % (20.0-45.0) Monocytes (%) (Auto) 19.7 % (1.0-10.0) H Eosinophils (%) (Auto) 3.5 % (0.0-3.0) H Basophils (%) (Auto) 0.6 % (0.0-2.0) Activated Partial Thromboplast Time 58 SEC (23-33) H 96 SEC (23-33) H Sodium Level 135 MMOL/L (136-145) L Potassium Level 3.4 MMOL/L (3.5-5.1) L Chloride Level 99 MMOL/L (98-107) Carbon Dioxide Level 20 MMOL/L (21-32) L Anion Gap 16 mmol/L (5-15) H Blood Urea Nitrogen 64 mg/dL (7-18) H Creatinine 3.9 MG/DL (0.55-1.30) H Estimat Glomerular Filtration Rate 15.6 mL/min (>60) Glucose Level 71 MG/DL (74-106) L Uric Acid 12.8 MG/DL (2.6-7.2) H Calcium Level 8.1 MG/DL (8.5-10.1) L Phosphorus Level 5.1 MG/DL (2.5-4.9) H Magnesium Level 2.0 MG/DL (1.8-2.4) Total Bilirubin 0.7 MG/DL (0.2-1.0) Direct Bilirubin 0.5 MG/DL (0.0-0.3) H Gamma Glutamyl Transpeptidase 189 U/L (5-85) H Aspartate Amino Transf (AST/SGOT) 883 U/L (15-37) H Alanine Aminotransferase (ALT/SGPT) 630 U/L (12-78) H Alkaline Phosphatase 170 U/L (46-116) H Ammonia 42 umol/L (11-32) H Troponin I 4.388 ng/mL (0.000-0.056) C-Reactive Protein, Quantitative 11.4 mg/dL (0.00-0.90) H Pro-B-Type Natriuretic Peptide > 76651 pg/mL (0-125) H Total Protein 5.7 G/DL (6.4-8.2) L Albumin 2.2 G/DL (3.4-5.0) L Darnell Belcher MD February 12, 2018 20:54
[2018-02-12] MEDS: Dyna-Hex 2% Top Sol 2oz TOPIC SCH (21:27)
[2018-02-12] MEDS: Levemir Flexpen SUBQ SCH (21:29)
[2018-02-12] MEDS: Aztreonam Inj 0.5 GM in D5W 55 ML IVPB SCH (22:22)
[2018-02-13] VITALS: BP 103/61
[2018-02-13] MEDS ORDERED: Heparin 25,000u/D5W 500ml 500 ML IV SCH (00:30)
[2018-02-13 04:00] VITALS: BP 101/54
[2018-02-13] MEDS: Morphine Sulfate 4mg/ml Inj IVP PRN ×4 (04:16→21:03)
[2018-02-13] MEDS: Aztreonam Inj 0.5 GM in D5W 55 ML IVPB SCH ×3 (05:42→22:25)
[2018-02-13 06:08] LABS: HEMOGLOBIN 8.8 G/DL (14.2-18.0); MEAN CORPUSCULAR VOLUME 83 FL (80-99); PLATELET COUNT 140 K/UL (150-450); RED BLOOD COUNT 3.12 M/UL (4.70-6.10); RED CELL DISTRIBUTION WIDTH 13.8 % (11.6-14.8); WHITE BLOOD COUNT 13.5 K/UL (4.8-10.8)
[2018-02-13] MEDS: NovoLOG Insulin Flexpen SUBQ SCH ×7 (06:13→21:00)
[2018-02-13 06:27] LABS: ALANINE AMINOTRANSFERASE 492 U/L (12-78); ALBUMIN 2.2 G/DL (3.4-5.0); ALBUMIN/GLOBULIN RATIO 0.6 (1.0-2.7); ALKALINE PHOSPHATASE 164 U/L (46-116); ANION GAP 13 mmol/L (5-15); ASPARTATE AMINO TRANSFERASE 467 U/L (15-37); BILIRUBIN,TOTAL 0.8 MG/DL (0.2-1.0); BLOOD UREA NITROGEN 62 mg/dL (7-18); CALCIUM 8.1 MG/DL (8.5-10.1); CARBON DIOXIDE 24 MMOL/L (21-32); CHLORIDE 96 MMOL/L (98-107); CREATININE 3.5 MG/DL (0.55-1.30); POTASSIUM 3.1 MMOL/L (3.5-5.1); SODIUM 133 MMOL/L (136-145)
--- NOTE | 2018-02-13 06:27 | General Progress Note ---
Assessment/Plan Problem List: (1) Hypothyroidism ICD Codes: E03.9 - Hypothyroidism, unspecified SNOMED: 54033064 (2) Sacral decubitus ulcer, stage II ICD Codes: L89.152 - Pressure ulcer of sacral region, stage 2 SNOMED: 555360239, 062097029 (3) DKA, type 1 ICD Codes: E10.10 - Type 1 diabetes mellitus with ketoacidosis without coma SNOMED: 62314793, 311994340 (4) EF 15% (5) Elevated liver enzymes ICD Codes: R74.8 - Abnormal levels of other serum enzymes SNOMED: 375959738 (6) Acute on chronic renal failure ICD Codes: N17.9 - Acute kidney failure, unspecified; N18.9 - Chronic kidney disease, unspecified SNOMED: 324384617 (7) Cardiomyopathy ICD Codes: I42.9 - Cardiomyopathy, unspecified SNOMED: 85296543 Assessment/Plan continue Levemir 6 units bid continue Novolog 4 units ac tid continue NISS Subjective ROS Limited/Unobtainable: Yes Allergies: Coded Allergies: PENICILLINS (Verified Allergy, Unknown, 04/16/17) Subjective events noted - interval notes reviewed transferred out of ICU Objective Last 24 Hour Vital Signs Date Time Temp Pulse Resp B/P (MAP) Pulse Ox O2 Delivery O2 Flow Rate FiO2 02/13/18 04:41 67 02/13/18 00:06 71 02/13/18 00:00 97.6 63 20 103/61 97 Nasal Cannula 3.0 97.6 02/12/18 20:00 98.1 66 20 99/63 100 Nasal Cannula 3.0 98.1 02/12/18 19:50 78 20 Nasal Cannula 2.0 28 02/12/18 19:50 99 Nasal Cannula 2.0 28 02/12/18 19:50 Nasal Cannula 2.0 28 02/12/18 19:27 69 02/12/18 16:00 98.4 62 16 104/64 100 Nasal Cannula 3.0 98.4 02/12/18 16:00 67 02/12/18 14:00 60 16 110/66 100 Nasal Cannula 3.0 02/12/18 13:00 63 16 108/61 100 Nasal Cannula 3.0 02/12/18 12:00 66 02/12/18 12:00 98.6 60 16 90/58 100 Nasal Cannula 3.0 98.6 02/12/18 11:00 72 16 110/65 100 Nasal Cannula 3.0 02/12/18 10:00 70 16 105/60 100 Nasal Cannula 3.0 02/12/18 09:00 77 16 102/58 100 Nasal Cannula 3.0 02/12/18 08:00 65 02/12/18 08:00 98.8 65 16 96/56 100 Nasal Cannula 3.0 98.8 02/12/18 07:00 71 16 95/55 100 Nasal Cannula 3.0 02/12/18 06:33 Nasal Cannula 2.0 28 02/12/18 06:33 72 20 Nasal Cannula 2.0 28 02/12/18 06:33 100 Nasal Cannula 2.0 28 Intake and Output 02/12/18 02/13/18 19:00 07:00 Intake Total 338.730 ml 199.301 ml Output Total 185 ml 150 ml Balance 153.730 ml 49.301 ml Intake Oral 0 ml 50 ml IV Total 338.730 ml 149.301 ml Output Urine Total 185 ml 150 ml Laboratory Tests 02/12/18 15:30: Activated Partial Thromboplast Time 96H 02/12/18 23:40: Activated Partial Thromboplast Time 96H 02/13/18 05:00: White Blood Count 13.5H, Red Blood Count 3.12L, Hemoglobin 8.8L, Hematocrit 26.0L, Mean Corpuscular Volume 83, Mean Corpuscular Hemoglobin 28.3, Mean Corpuscular Hemoglobin Concent 34.1, Red Cell Distribution Width 13.8, Platelet Count 140L, Mean Platelet Volume 11.6H, Neutrophils (%) (Auto) , Lymphocytes (% ) (Auto) , Monocytes (%) (Auto) , Eosinophils (%) (Auto) , Basophils (%) (Auto) , Neutrophils % (Manual) [Pending], Lymphocytes % (Manual) [Pending], Platelet Estimate [Pending], Platelet Morphology [Pending], Sodium Level [Pending], Potassium Level [Pending], Chloride Level [Pending], Carbon Dioxide Level [ Pending], Blood Urea Nitrogen [Pending], Creatinine [Pending], Estimat Glomerular Filtration Rate [Pending], Glucose Level [Pending], Calcium Level [ Pending], Phosphorus Level [Pending], Magnesium Level [Pending], Total Bilirubin [Pending], Aspartate Amino Transf (AST/SGOT) [Pending], Alanine Aminotransferase (ALT/SGPT) [Pending], Alkaline Phosphatase [Pending], Troponin I [Pending], Total Protein [Pending], Albumin [Pending], Globulin [Pending] 02/13/18 06:20: Activated Partial Thromboplast Time [Pending], Prothrombin Time [Pending], Prothromb Time International Ratio [Pending] Height (Feet): 5 Height (Inches): 7.00 Weight (Pounds): 187 General Appearance: no apparent distress Neck: normal alignment Cardiovascular: normal rate Respiratory/Chest: decreased breath sounds Abdomen: normal bowel sounds Pelvis: normal external exam Edema: no edema noted Arm (L), no edema noted Arm (R), no edema noted Leg (L), no edema noted Leg (R), no edema noted Pedal (L), no edema noted Pedal (R), no edema noted Generalized Objective Current Medications Medications (Trade) Dose Ordered Sig/Eliel Route PRN Reason Start Time Stop Time Status Last Admin Dose Admin Acetaminophen (Tylenol) 650 mg Q4H PRN ORAL T>100.5 02/12/18 15:04 03/08/18 15:03 Albuterol/ Ipratropium (Albuterol/ Ipratropium) 3 ml Q4H PRN HHN Shortness of Breath 02/12/18 15:05 02/14/18 15:04 Aluminum Hydroxide (Amphojel) 1,920 mg TID ORAL 02/12/18 18:00 03/10/18 17:59 02/12/18 17:13 Aspirin (ASA) 325 mg DAILY ORAL 02/13/18 09:00 03/09/18 21:59 Aztreonam 0.5 gm/ Dextrose 55 ml @ 110 mls/hr Q8HR IVPB 02/12/18 22:00 02/18/18 23:59 02/13/18 05:42 Chlorhexidine Gluconate (Laura-Hex 2%) 1 applic DAILY@2000 TOPIC 02/12/18 20:00 03/09/18 19:59 02/12/18 21:27 Clonidine HCl (Catapres Tab) 0.1 mg Q8H PRN ORAL SBP > 160mmHg 02/12/18 15:04 03/08/18 15:03 Dextrose (Dextrose 50%) 25 ml STAT PRN IV Hypoglycemia 02/12/18 15:04 03/14/18 15:03 Dextrose (Dextrose 50%) 50 ml STAT PRN IV Hypoglycemia 02/12/18 15:04 03/14/18 15:03 Heparin Sodium/ Dextrose 500 ml @ 16.465 mls/ hr adjust per protocol IV 02/13/18 00:30 03/14/18 16:14 02/13/18 00:53 Insulin Aspart (NovoLOG) BEFORE MEALS AND HS SUBQ 02/12/18 16:30 03/13/18 11:29 02/12/18 21:00 Insulin Aspart (NovoLOG) 4 units NOVOTIAC SUBQ 02/12/18 16:50 03/13/18 08:29 02/12/18 17:42 Insulin Detemir (Levemir) 6 units Q12HR SUBQ 02/12/18 21:00 03/13/18 08:29 02/12/18 21:29 Levofloxacin 150 ml @ 100 mls/hr Q48H IVPB 02/13/18 21:00 02/14/18 23:59 Metoclopramide HCl (Reglan) 5 mg THREE TIMES A DAY ORAL 02/12/18 18:00 03/10/18 12:59 02/12/18 17:14 Mirtazapine (Remeron) 7.5 mg BEDTIME ORAL 02/12/18 21:00 03/10/18 20:59 02/12/18 21:27 Morphine Sulfate (Morphine Sulfate) 1 mg Q4H PRN IVP For Pain 02/12/18 15:05 02/17/18 15:04 02/13/18 04:16 Nitroglycerin (Ntg) 0.4 mg Q5MIN X 3 DOSES PRN SL Prn Chest Pain 02/12/18 15:00 03/08/18 18:44 Ondansetron HCl (Zofran) 4 mg Q6H PRN IVP Nausea & Vomiting 02/12/18 15:05 03/08/18 15:04 Pantoprazole (Protonix) 40 mg EVERY 12 HOURS ORAL 02/12/18 21:00 03/10/18 20:59 02/12/18 21:27 Polyethylene Glycol (Miralax) 17 gm DAILYPRN PRN ORAL Constipation 02/12/18 15:06 03/08/18 15:05 Sodium Citrate (Bicitra) 30 ml TID ORAL 02/12/18 18:00 03/09/18 11:59 02/12/18 17:12 Temazepam (Restoril) 15 mg HSPRN PRN ORAL Insomnia 02/12/18 15:06 02/15/18 15:05 Warfarin Sodium (Coumadin per pharmacy) 1 ea DAILY PRN MISC Per rx protocol 02/12/18 21:15 03/14/18 21:14 UNV Item Value Date Time Bedside Blood Glucose 76 mg/dl 02/13/18 0614 Bedside Blood Glucose 144 mg/dl H 02/12/18 2129 Bedside Blood Glucose 144 mg/dl H 02/12/18 1743 Bedside Blood Glucose 139 mg/dl H 02/12/18 1203 Bedside Blood Glucose 143 mg/dl H 02/12/18 0841 Bedside Blood Glucose 71 mg/dl 02/12/18 0630 CHIDI DANIELSON February 13, 2018 06:27
[2018-02-13 08:00] VITALS: BP 104/54
[2018-02-13 08:51] LABS: INR 1.4 (0.9-1.1)
[2018-02-13] MEDS: Levemir Flexpen SUBQ SCH ×2 (08:52→21:00)
[2018-02-13] MEDS: Aluminum Hydroxide Gel Susp 15ml ORAL SCH ×3 (08:53→17:09)
[2018-02-13] MEDS: Sodium Citrate 30ml ORAL SCH (08:53)
--- NOTE | 2018-02-13 09:37 | Infectious Diseases Prog Note ---
Assessment/Plan Assessment/Plan ASSESSMENT: The patient is a 67-year-old male with, +ve blood cX : 09/28 CoNS ( m/l contaminant ) -repeat Bcx NTD Fever, SP Leukocytosis, overall improved Transaminitis AST> ALT (probably due to right-sided heart failure, shock liver, Hep C contributing.; now improving Hepatitis C Ab +, VL pending Possible UTI / cystitis. 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 Penumonia Pleural effusion 02/13 CXR: CHF appears stable. Suspect right pleural effusion 02/11 CXR: Findings suggesting small layering right pleural effusion, new compared to the prior chest x-ray. Diffuse increased interstitial markings may be related to mild pulmonary vascular congestion versus a mild interstitial pneumonitis. Worsened compared to the prior chest x-ray. Subsegmental atelectasis versus infiltrate in the right lung base and right perihilar region. Worsened compared to the prior chest x-ray. 02/09 CXR: Left basilar atelectasis and patchy consolidative changes are stable. 02/09 Successful ultrasound-guided thoracentesis, yielding 400 milliliters of fluid (Cytology sent but no other labs sent ) MRSA colonization XAVIER /CKD CAD/myocardial infarction. Hypertension. Diabetes. Anemia. Hyperlipidemia. Peripheral vascular disease. Anxiety. Degenerative joint disease. Hyperthyroidism. Dilated cardiomyopathy. GERD. Dementia PLAN: continue the patient on aztreonam and levaquin day # 7 / 7 02/09 SP IV Vanco day # 2 Monitor CBC/CMP Monitor cultures (blood sputum). Monitor chest x-ray. f/u Hep C PCR HIV ag/ab aspiration precautions Subjective Allergies: Coded Allergies: PENICILLINS (Verified Allergy, Unknown, 04/16/17) Subjective afebrile leukocytosis slihgly increased today; overall improved repeat BCx NTD transferred out of ICU LFTs improving Objective Vital Signs Last 24 Hour Vital Signs Date Time Temp Pulse Resp B/P (MAP) Pulse Ox O2 Delivery O2 Flow Rate FiO2 02/13/18 08:00 97.4 77 19 104/54 98 Nasal Cannula 3.0 97.4 02/13/18 04:41 67 02/13/18 04:00 97.8 68 20 101/54 100 Nasal Cannula 3.0 97.8 02/13/18 00:06 71 02/13/18 00:00 97.6 63 20 103/61 97 Nasal Cannula 3.0 97.6 02/12/18 20:00 98.1 66 20 99/63 100 Nasal Cannula 3.0 98.1 02/12/18 19:50 78 20 Nasal Cannula 2.0 28 02/12/18 19:50 99 Nasal Cannula 2.0 28 02/12/18 19:50 Nasal Cannula 2.0 28 02/12/18 19:27 69 02/12/18 16:00 98.4 62 16 104/64 100 Nasal Cannula 3.0 98.4 02/12/18 16:00 67 02/12/18 14:00 60 16 110/66 100 Nasal Cannula 3.0 02/12/18 13:00 63 16 108/61 100 Nasal Cannula 3.0 02/12/18 12:00 66 02/12/18 12:00 98.6 60 16 90/58 100 Nasal Cannula 3.0 98.6 02/12/18 11:00 72 16 110/65 100 Nasal Cannula 3.0 02/12/18 10:00 70 16 105/60 100 Nasal Cannula 3.0 Height (Feet): 5 Height (Inches): 7.00 Weight (Pounds): 193 Objective GENERAL: awake, more responsive, NAD HEAD: Pupils are equal and reactive to light. Extraocular movements intact. NECK: Supple. No JVD. LUNGS: Poor air entry. + Expiratory wheezing, No rales. fair inspiratory effort. HEART: S1, S2. Distant heart sounds. No murmur. ABDOMEN: Soft, nondistended, and nontender. Positive bowel sounds. EXTREMITIES: No cyanosis, clubbing. More Edema on the left lower extremity. 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 Piccline on Left UE's. Laboratory Tests Test 02/12/18 15:30 02/12/18 23:40 02/13/18 05:00 02/13/18 06:20 Activated Partial Thromboplast Time 96 SEC (23-33) H 96 SEC (23-33) H 125 SEC (23-33) H White Blood Count 13.5 K/UL (4.8-10.8) H Red Blood Count 3.12 M/UL (4.70-6.10) L Hemoglobin 8.8 G/DL (14.2-18.0) L Hematocrit 26.0 % (42.0-52.0) L Mean Corpuscular Volume 83 FL (80-99) Mean Corpuscular Hemoglobin 28.3 PG (27.0-31.0) Mean Corpuscular Hemoglobin Concent 34.1 G/DL (32.0-36.0) Red Cell Distribution Width 13.8 % (11.6-14.8) Platelet Count 140 K/UL (150-450) L Mean Platelet Volume 11.6 FL (6.5-10.1) H Neutrophils (%) (Auto) % (45.0-75.0) Lymphocytes (%) (Auto) % (20.0-45.0) Monocytes (%) (Auto) % (1.0-10.0) Eosinophils (%) (Auto) % (0.0-3.0) Basophils (%) (Auto) % (0.0-2.0) Neutrophils % (Manual) Pending Lymphocytes % (Manual) Pending Platelet Estimate Pending Platelet Morphology Pending Sodium Level 133 MMOL/L (136-145) L Potassium Level 3.1 MMOL/L (3.5-5.1) L Chloride Level 96 MMOL/L (98-107) L Carbon Dioxide Level 24 MMOL/L (21-32) Anion Gap 13 mmol/L (5-15) Blood Urea Nitrogen 62 mg/dL (7-18) H Creatinine 3.5 MG/DL (0.55-1.30) H Estimat Glomerular Filtration Rate 17.7 mL/min (>60) Glucose Level 97 MG/DL (74-106) Calcium Level 8.1 MG/DL (8.5-10.1) L Phosphorus Level 5.0 MG/DL (2.5-4.9) H Magnesium Level 2.0 MG/DL (1.8-2.4) Total Bilirubin 0.8 MG/DL (0.2-1.0) Aspartate Amino Transf (AST/SGOT) 467 U/L (15-37) H Alanine Aminotransferase (ALT/SGPT) 492 U/L (12-78) H Alkaline Phosphatase 164 U/L (46-116) H Troponin I 2.810 ng/mL (0.000-0.056) Total Protein 5.8 G/DL (6.4-8.2) L Albumin 2.2 G/DL (3.4-5.0) L Globulin 3.6 g/dL Albumin/Globulin Ratio 0.6 (1.0-2.7) L Prothrombin Time 14.4 SEC (9.30-11.50) H Prothromb Time International Ratio 1.4 (0.9-1.1) H Current Medications Medications (Trade) Dose Ordered Sig/Eliel Route PRN Reason Start Time Stop Time Status Last Admin Dose Admin Acetaminophen (Tylenol) 650 mg Q4H PRN ORAL T>100.5 02/12/18 15:04 03/08/18 15:03 Albuterol/ Ipratropium (Albuterol/ Ipratropium) 3 ml Q4H PRN HHN Shortness of Breath 02/12/18 15:05 02/14/18 15:04 Aluminum Hydroxide (Amphojel) 1,920 mg TID ORAL 02/12/18 18:00 03/10/18 17:59 02/13/18 08:53 Aspirin (ASA) 325 mg DAILY ORAL 02/13/18 09:00 03/09/18 21:59 02/13/18 08:53 Aztreonam 0.5 gm/ Dextrose 55 ml @ 110 mls/hr Q8HR IVPB 02/12/18 22:00 02/18/18 23:59 02/13/18 05:42 Chlorhexidine Gluconate (Laura-Hex 2%) 1 applic DAILY@2000 TOPIC 02/12/18 20:00 03/09/18 19:59 02/12/18 21:27 Clonidine HCl (Catapres Tab) 0.1 mg Q8H PRN ORAL SBP > 160mmHg 02/12/18 15:04 03/08/18 15:03 Dextrose (Dextrose 50%) 25 ml STAT PRN IV Hypoglycemia 02/12/18 15:04 03/14/18 15:03 Dextrose (Dextrose 50%) 50 ml STAT PRN IV Hypoglycemia 02/12/18 15:04 03/14/18 15:03 Heparin Sodium/ Dextrose 500 ml @ 11.975 mls/ hr adjust per protocol IV 02/13/18 09:45 03/15/18 09:44 Insulin Aspart (NovoLOG) BEFORE MEALS AND HS SUBQ 02/12/18 16:30 03/13/18 11:29 02/12/18 21:00 Insulin Aspart (NovoLOG) 4 units NOVOTIAC SUBQ 02/12/18 16:50 03/13/18 08:29 02/12/18 17:42 Insulin Detemir (Levemir) 6 units Q12HR SUBQ 02/12/18 21:00 03/13/18 08:29 02/13/18 08:52 Levofloxacin 150 ml @ 100 mls/hr Q48H IVPB 02/13/18 21:00 02/14/18 23:59 Metoclopramide HCl (Reglan) 5 mg THREE TIMES A DAY ORAL 02/12/18 18:00 03/10/18 12:59 02/13/18 08:53 Mirtazapine (Remeron) 7.5 mg BEDTIME ORAL 02/12/18 21:00 03/10/18 20:59 02/12/18 21:27 Morphine Sulfate (Morphine Sulfate) 1 mg Q4H PRN IVP For Pain 02/12/18 15:05 02/17/18 15:04 02/13/18 04:16 Nitroglycerin (Ntg) 0.4 mg Q5MIN X 3 DOSES PRN SL Prn Chest Pain 02/12/18 15:00 03/08/18 18:44 Ondansetron HCl (Zofran) 4 mg Q6H PRN IVP Nausea & Vomiting 02/12/18 15:05 03/08/18 15:04 Pantoprazole (Protonix) 40 mg EVERY 12 HOURS ORAL 02/12/18 21:00 03/10/18 20:59 02/13/18 08:53 Polyethylene Glycol (Miralax) 17 gm DAILYPRN PRN ORAL Constipation 02/12/18 15:06 03/08/18 15:05 Sodium Citrate (Bicitra) 30 ml TID ORAL 02/12/18 18:00 03/09/18 11:59 02/13/18 08:53 Temazepam (Restoril) 15 mg HSPRN PRN ORAL Insomnia 02/12/18 15:06 02/15/18 15:05 Warfarin Sodium (Coumadin per pharmacy) 1 ea DAILY PRN MISC Per rx protocol 02/12/18 21:15 03/14/18 21:14 Gloria Albright M.D. February 13, 2018 09:37
[2018-02-13] MEDS: Heparin 25,000u/D5W 500ml 500 ML IV SCH ×3 (09:41→16:21)
--- NOTE | 2018-02-13 11:26 | Pulmonology Progress Note ---
Assessment/Plan Problems: (1) Atrial fibrillation (2) ATN (acute tubular necrosis) (3) NSTEMI (non-ST elevated myocardial infarction) (4) Cardiomyopathy (5) Hx of right BKA (6) Major depression (7) Sacral decubitus ulcer, stage II (8) EF 15% Assessment/Plan creatinine decreasing on Heparin drip check INR finishing abx creatinine less today. 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 Subjective ROS Limited/Unobtainable: No Constitutional: Reports: no symptoms HEENT: Repors: no symptoms Respiratory: Reports: no symptoms Allergies: Coded Allergies: PENICILLINS (Verified Allergy, Unknown, 04/16/17) Objective Last 24 Hour Vital Signs Date Time Temp Pulse Resp B/P (MAP) Pulse Ox O2 Delivery O2 Flow Rate FiO2 02/13/18 11:01 97.4 02/13/18 10:31 97.4 02/13/18 08:00 97.4 77 19 104/54 98 Nasal Cannula 3.0 97.4 02/13/18 07:58 72 02/13/18 07:45 98 Nasal Cannula 2.0 28 02/13/18 07:45 77 20 Nasal Cannula 2.0 28 02/13/18 07:45 Nasal Cannula 2.0 28 02/13/18 04:41 67 02/13/18 04:00 97.8 68 20 101/54 100 Nasal Cannula 3.0 97.8 02/13/18 00:06 71 02/13/18 00:00 97.6 63 20 103/61 97 Nasal Cannula 3.0 97.6 02/12/18 20:00 98.1 66 20 99/63 100 Nasal Cannula 3.0 98.1 02/12/18 19:50 78 20 Nasal Cannula 2.0 28 02/12/18 19:50 99 Nasal Cannula 2.0 28 02/12/18 19:50 Nasal Cannula 2.0 28 02/12/18 19:27 69 02/12/18 16:00 98.4 62 16 104/64 100 Nasal Cannula 3.0 98.4 02/12/18 16:00 67 02/12/18 14:00 60 16 110/66 100 Nasal Cannula 3.0 02/12/18 13:00 63 16 108/61 100 Nasal Cannula 3.0 02/12/18 12:00 66 02/12/18 12:00 98.6 60 16 90/58 100 Nasal Cannula 3.0 98.6 Intake and Output 02/12/18 02/13/18 19:00 07:00 Intake Total 338.730 ml 314.626 ml Output Total 185 ml 150 ml Balance 153.730 ml 164.626 ml Intake Oral 0 ml 50 ml IV Total 338.730 ml 264.626 ml Output Urine Total 185 ml 150 ml General Appearance: WD/WN HEENT: normocephalic, atraumatic Respiratory/Chest: chest wall non-tender, lungs clear Cardiovascular: normal peripheral pulses, regular rhythm Extremities: no cyanosis Skin: no rash Laboratory Tests 02/12/18 15:30: Activated Partial Thromboplast Time 96H 02/12/18 23:40: Activated Partial Thromboplast Time 96H 02/13/18 05:00: White Blood Count 13.5H, Red Blood Count 3.12L, Hemoglobin 8.8L, Hematocrit 26.0L, Mean Corpuscular Volume 83, Mean Corpuscular Hemoglobin 28.3, Mean Corpuscular Hemoglobin Concent 34.1, Red Cell Distribution Width 13.8, Platelet Count 140L, Mean Platelet Volume 11.6H, Neutrophils (%) (Auto) , Lymphocytes (% ) (Auto) , Monocytes (%) (Auto) , Eosinophils (%) (Auto) , Basophils (%) (Auto) , Differential Total Cells Counted 100, Neutrophils % (Manual) 53, Lymphocytes % (Manual) 25, Monocytes % (Manual) 17H, Eosinophils % (Manual) 4H, Basophils % (Manual) 1, Band Neutrophils 0, Nucleated Red Blood Cells 4, Platelet Estimate DecreasedL, Platelet Morphology Normal, Hypochromasia 2+, Sodium Level 133L, Potassium Level 3.1L, Chloride Level 96L, Carbon Dioxide Level 24, Anion Gap 13 , Blood Urea Nitrogen 62H, Creatinine 3.5H, Estimat Glomerular Filtration Rate 17.7, Glucose Level 97, Calcium Level 8.1L, Phosphorus Level 5.0H, Magnesium Level 2.0, Total Bilirubin 0.8, Aspartate Amino Transf (AST/SGOT) 467H, Alanine Aminotransferase (ALT/SGPT) 492H, Alkaline Phosphatase 164H, Troponin I 2.810H, Total Protein 5.8L, Albumin 2.2L, Globulin 3.6, Albumin/Globulin Ratio 0.6L 02/13/18 06:20: Activated Partial Thromboplast Time 125H, Prothrombin Time 14.4H, Prothromb Time International Ratio 1.4H Current Medications Medications (Trade) Dose Ordered Sig/Eliel Route PRN Reason Start Time Stop Time Status Last Admin Dose Admin Acetaminophen (Tylenol) 650 mg Q4H PRN ORAL T>100.5 02/12/18 15:04 03/08/18 15:03 Albuterol/ Ipratropium (Albuterol/ Ipratropium) 3 ml Q4H PRN HHN Shortness of Breath 02/12/18 15:05 02/14/18 15:04 Aluminum Hydroxide (Amphojel) 1,920 mg TID ORAL 02/12/18 18:00 03/10/18 17:59 02/13/18 08:53 Aspirin (ASA) 325 mg DAILY ORAL 02/13/18 09:00 03/09/18 21:59 02/13/18 08:53 Aztreonam 0.5 gm/ Dextrose 55 ml @ 110 mls/hr Q8HR IVPB 02/12/18 22:00 02/18/18 23:59 02/13/18 05:42 Chlorhexidine Gluconate (Laura-Hex 2%) 1 applic DAILY@2000 TOPIC 02/12/18 20:00 03/09/18 19:59 02/12/18 21:27 Clonidine HCl (Catapres Tab) 0.1 mg Q8H PRN ORAL SBP > 160mmHg 02/12/18 15:04 03/08/18 15:03 Dextrose (Dextrose 50%) 25 ml STAT PRN IV Hypoglycemia 02/12/18 15:04 03/14/18 15:03 Dextrose (Dextrose 50%) 50 ml STAT PRN IV Hypoglycemia 02/12/18 15:04 03/14/18 15:03 Heparin Sodium/ Dextrose 500 ml @ 11.975 mls/ hr adjust per protocol IV 02/13/18 09:45 03/15/18 09:44 02/13/18 09:41 Insulin Aspart (NovoLOG) BEFORE MEALS AND HS SUBQ 02/12/18 16:30 03/13/18 11:29 02/12/18 21:00 Insulin Aspart (NovoLOG) 4 units NOVOTIAC SUBQ 02/12/18 16:50 03/13/18 08:29 02/12/18 17:42 Insulin Detemir (Levemir) 6 units Q12HR SUBQ 02/12/18 21:00 03/13/18 08:29 02/13/18 08:52 Levofloxacin 150 ml @ 100 mls/hr Q48H IVPB 02/13/18 21:00 02/14/18 23:59 Metoclopramide HCl (Reglan) 5 mg THREE TIMES A DAY ORAL 02/12/18 18:00 03/10/18 12:59 02/13/18 08:53 Mirtazapine (Remeron) 7.5 mg BEDTIME ORAL 02/12/18 21:00 03/10/18 20:59 02/12/18 21:27 Morphine Sulfate (Morphine Sulfate) 1 mg Q4H PRN IVP For Pain 02/12/18 15:05 02/17/18 15:04 02/13/18 10:31 Nitroglycerin (Ntg) 0.4 mg Q5MIN X 3 DOSES PRN SL Prn Chest Pain 02/12/18 15:00 03/08/18 18:44 Ondansetron HCl (Zofran) 4 mg Q6H PRN IVP Nausea & Vomiting 02/12/18 15:05 03/08/18 15:04 Pantoprazole (Protonix) 40 mg EVERY 12 HOURS ORAL 02/12/18 21:00 03/10/18 20:59 02/13/18 08:53 Polyethylene Glycol (Miralax) 17 gm DAILYPRN PRN ORAL Constipation 02/12/18 15:06 03/08/18 15:05 Potassium Chloride (K-Dur) 40 meq TWICE A DAY ORAL 02/13/18 18:00 03/15/18 17:59 Warfarin Sodium (Coumadin per pharmacy) 1 ea DAILY PRN MISC Per rx protocol 02/12/18 21:15 03/14/18 21:14 Walker Owens MD February 13, 2018 11:26
[2018-02-13 12:00] VITALS: BP 105/54
--- NOTE | 2018-02-13 12:09 | Cardiology Progress Note ---
Assessment/Plan Assessment/Plan 1. Acute myocardial infarction with subacute presentation. 2. History of coronary artery disease. 3. Known cardiomyopathy ef previosuly 25% . 4. Pulmonary hypertension. 5. Metabolic encephalopathy. 6. Peripheral vascular disease status post amputation 7. hypotension improved 8. chf 9. Acute on chronic renal fialrue 10. New LBBB resolved 11. afib new onset 02/09/2018 bp acceptable s/p thoracentesis 400 cc removed earlier last week on antiplat and statin start coreg prognosis is guarded cr worsening continue supportive care trop trending down tel reviewed remain afib d/w cierra wyatt to couamdin iv heparin for nwo stroke prevention may need cardioversion if converts spont would consider starting on amiod to prevent recurrence, my hope he will spont convert if bp improves need to consider isordil hydralazine combination as cannot take acie with renal insuf cannot used acei in light of renal insuf has a rectal tube Subjective Cardiovascular: Denies: chest pain, lightheadedness, palpitations Respiratory: Denies: shortness of breath Gastrointestinal/Abdominal: Denies: abdominal pain Genitourinary: Denies: burning Subjective wants to go back to rehab center , is complaining why he is nto being sent back to facility today Objective Last 24 Hour Vital Signs Date Time Temp Pulse Resp B/P (MAP) Pulse Ox O2 Delivery O2 Flow Rate FiO2 02/13/18 11:01 97.4 02/13/18 10:31 97.4 02/13/18 08:00 97.4 77 19 104/54 98 Nasal Cannula 3.0 97.4 02/13/18 07:58 72 02/13/18 07:45 98 Nasal Cannula 2.0 28 02/13/18 07:45 77 20 Nasal Cannula 2.0 28 02/13/18 07:45 Nasal Cannula 2.0 28 02/13/18 04:41 67 02/13/18 04:00 97.8 68 20 101/54 100 Nasal Cannula 3.0 97.8 02/13/18 00:06 71 02/13/18 00:00 97.6 63 20 103/61 97 Nasal Cannula 3.0 97.6 02/12/18 20:00 98.1 66 20 99/63 100 Nasal Cannula 3.0 98.1 02/12/18 19:50 78 20 Nasal Cannula 2.0 28 02/12/18 19:50 99 Nasal Cannula 2.0 28 02/12/18 19:50 Nasal Cannula 2.0 28 02/12/18 19:27 69 02/12/18 16:00 98.4 62 16 104/64 100 Nasal Cannula 3.0 98.4 02/12/18 16:00 67 02/12/18 14:00 60 16 110/66 100 Nasal Cannula 3.0 02/12/18 13:00 63 16 108/61 100 Nasal Cannula 3.0 General Appearance: alert Neck: supple Cardiovascular: irregularly irregular Respiratory/Chest: lungs clear Abdomen: normal bowel sounds, non tender, soft Extremities: moderate edema Intake and Output 02/12/18 02/13/18 19:00 07:00 Intake Total 338.730 ml 314.626 ml Output Total 185 ml 150 ml Balance 153.730 ml 164.626 ml Intake Oral 0 ml 50 ml IV Total 338.730 ml 264.626 ml Output Urine Total 185 ml 150 ml Laboratory Tests Test 02/12/18 15:30 02/12/18 23:40 02/13/18 05:00 02/13/18 06:20 Activated Partial Thromboplast Time 96 SEC (23-33) H 96 SEC (23-33) H 125 SEC (23-33) H White Blood Count 13.5 K/UL (4.8-10.8) H Red Blood Count 3.12 M/UL (4.70-6.10) L Hemoglobin 8.8 G/DL (14.2-18.0) L Hematocrit 26.0 % (42.0-52.0) L Mean Corpuscular Volume 83 FL (80-99) Mean Corpuscular Hemoglobin 28.3 PG (27.0-31.0) Mean Corpuscular Hemoglobin Concent 34.1 G/DL (32.0-36.0) Red Cell Distribution Width 13.8 % (11.6-14.8) Platelet Count 140 K/UL (150-450) L Mean Platelet Volume 11.6 FL (6.5-10.1) H Neutrophils (%) (Auto) % (45.0-75.0) Lymphocytes (%) (Auto) % (20.0-45.0) Monocytes (%) (Auto) % (1.0-10.0) Eosinophils (%) (Auto) % (0.0-3.0) Basophils (%) (Auto) % (0.0-2.0) Differential Total Cells Counted 100 Neutrophils % (Manual) 53 % (45-75) Lymphocytes % (Manual) 25 % (20-45) Monocytes % (Manual) 17 % (1-10) H Eosinophils % (Manual) 4 % (0-3) H Basophils % (Manual) 1 % (0-2) Band Neutrophils 0 % (0-8) Nucleated Red Blood Cells 4 /100 WBC Platelet Estimate Decreased L Platelet Morphology Normal Hypochromasia 2+ Sodium Level 133 MMOL/L (136-145) L Potassium Level 3.1 MMOL/L (3.5-5.1) L Chloride Level 96 MMOL/L (98-107) L Carbon Dioxide Level 24 MMOL/L (21-32) Anion Gap 13 mmol/L (5-15) Blood Urea Nitrogen 62 mg/dL (7-18) H Creatinine 3.5 MG/DL (0.55-1.30) H Estimat Glomerular Filtration Rate 17.7 mL/min (>60) Glucose Level 97 MG/DL (74-106) Calcium Level 8.1 MG/DL (8.5-10.1) L Phosphorus Level 5.0 MG/DL (2.5-4.9) H Magnesium Level 2.0 MG/DL (1.8-2.4) Total Bilirubin 0.8 MG/DL (0.2-1.0) Aspartate Amino Transf (AST/SGOT) 467 U/L (15-37) H Alanine Aminotransferase (ALT/SGPT) 492 U/L (12-78) H Alkaline Phosphatase 164 U/L (46-116) H Troponin I 2.810 ng/mL (0.000-0.056) Total Protein 5.8 G/DL (6.4-8.2) L Albumin 2.2 G/DL (3.4-5.0) L Globulin 3.6 g/dL Albumin/Globulin Ratio 0.6 (1.0-2.7) L Prothrombin Time 14.4 SEC (9.30-11.50) H Prothromb Time International Ratio 1.4 (0.9-1.1) H Darnell Belcher MD February 13, 2018 12:09
--- NOTE | 2018-02-13 15:17 | Nephrology Progress Note ---
Assessment/Plan Problem List: (1) Acute on chronic renal failure (2) Diabetic keto-acidosis (3) Peripheral vascular disease (4) Cardiomyopathy (5) Sepsis (6) Elevated liver enzymes Assessment Acute renal failure- Dehydration serum Cr lower today ? CKD DM and Nephropathy Cardiomyopathy with low EjFx DKA MN Dementia HypoThyroidism PVD Rt AKA Plan stop statins in view of high lfts stop IV add coreg Antonio Kidney KP Negative for hydronephrosis Urine studies 2D Echo 20% EjFx ABG K supplement as needed may require HD Subjective ROS Limited/Unobtainable: No Constitutional: Reports: malaise, weakness Objective Objective Last 24 Hour Vital Signs Date Time Temp Pulse Resp B/P (MAP) Pulse Ox O2 Delivery O2 Flow Rate FiO2 02/13/18 14:58 98.5 02/13/18 12:53 64 105/54 02/13/18 12:00 98.5 64 20 105/54 98 Nasal Cannula 3.0 98.5 02/13/18 11:51 65 02/13/18 11:01 97.4 02/13/18 10:31 97.4 02/13/18 08:00 97.4 77 19 104/54 98 Nasal Cannula 3.0 97.4 02/13/18 07:58 72 02/13/18 07:45 98 Nasal Cannula 2.0 28 02/13/18 07:45 77 20 Nasal Cannula 2.0 28 02/13/18 07:45 Nasal Cannula 2.0 28 02/13/18 04:41 67 02/13/18 04:00 97.8 68 20 101/54 100 Nasal Cannula 3.0 97.8 02/13/18 00:06 71 02/13/18 00:00 97.6 63 20 103/61 97 Nasal Cannula 3.0 97.6 02/12/18 20:00 98.1 66 20 99/63 100 Nasal Cannula 3.0 98.1 02/12/18 19:50 78 20 Nasal Cannula 2.0 28 02/12/18 19:50 99 Nasal Cannula 2.0 28 02/12/18 19:50 Nasal Cannula 2.0 28 02/12/18 19:27 69 02/12/18 16:00 98.4 62 16 104/64 100 Nasal Cannula 3.0 98.4 02/12/18 16:00 67 Intake and Output 02/12/18 02/13/18 19:00 07:00 Intake Total 338.730 ml 414.626 ml Output Total 185 ml 150 ml Balance 153.730 ml 264.626 ml Intake Oral 0 ml 150 ml IV Total 338.730 ml 264.626 ml Output Urine Total 185 ml 150 ml Laboratory Tests 02/12/18 15:30: Activated Partial Thromboplast Time 96H 02/12/18 23:40: Activated Partial Thromboplast Time 96H 02/13/18 05:00: White Blood Count 13.5H, Red Blood Count 3.12L, Hemoglobin 8.8L, Hematocrit 26.0L, Mean Corpuscular Volume 83, Mean Corpuscular Hemoglobin 28.3, Mean Corpuscular Hemoglobin Concent 34.1, Red Cell Distribution Width 13.8, Platelet Count 140L, Mean Platelet Volume 11.6H, Neutrophils (%) (Auto) , Lymphocytes (% ) (Auto) , Monocytes (%) (Auto) , Eosinophils (%) (Auto) , Basophils (%) (Auto) , Differential Total Cells Counted 100, Neutrophils % (Manual) 53, Lymphocytes % (Manual) 25, Monocytes % (Manual) 17H, Eosinophils % (Manual) 4H, Basophils % (Manual) 1, Band Neutrophils 0, Nucleated Red Blood Cells 4, Platelet Estimate DecreasedL, Platelet Morphology Normal, Hypochromasia 2+, Sodium Level 133L, Potassium Level 3.1L, Chloride Level 96L, Carbon Dioxide Level 24, Anion Gap 13 , Blood Urea Nitrogen 62H, Creatinine 3.5H, Estimat Glomerular Filtration Rate 17.7, Glucose Level 97, Calcium Level 8.1L, Phosphorus Level 5.0H, Magnesium Level 2.0, Total Bilirubin 0.8, Aspartate Amino Transf (AST/SGOT) 467H, Alanine Aminotransferase (ALT/SGPT) 492H, Alkaline Phosphatase 164H, Troponin I 2.810H, Total Protein 5.8L, Albumin 2.2L, Globulin 3.6, Albumin/Globulin Ratio 0.6L 02/13/18 06:20: Activated Partial Thromboplast Time 125H, Prothrombin Time 14.4H, Prothromb Time International Ratio 1.4H Height (Feet): 5 Height (Inches): 7.00 Weight (Pounds): 193 General Appearance: no apparent distress Cardiovascular: normal rate Respiratory/Chest: decreased breath sounds Abdomen: soft Objective no other changes LAKESHA BAR February 13, 2018 15:17
[2018-02-13 16:00] VITALS: BP 97/56
[2018-02-13] MEDS ORDERED: Heparin 5000 units/ml inj IV ONE (17:00)
[2018-02-13] MEDS ORDERED: Warfarin Sodium 2.5mg ORAL SCH (17:00)
--- NOTE | 2018-02-13 17:45 | Internal Med Progress Note ---
Subjective Date of Service: February 13, 2018 Physician Name Paras Aguirre Attending Physician Joni Robin MD Current Medications Medications (Trade) Dose Ordered Sig/Eliel Route PRN Reason Start Time Stop Time Status Last Admin Dose Admin Acetaminophen (Tylenol) 650 mg Q4H PRN ORAL T>100.5 02/12/18 15:04 03/08/18 15:03 Albuterol/ Ipratropium (Albuterol/ Ipratropium) 3 ml Q4H PRN HHN Shortness of Breath 02/12/18 15:05 02/14/18 15:04 Aluminum Hydroxide (Amphojel) 1,920 mg TID ORAL 02/12/18 18:00 03/10/18 17:59 02/13/18 17:09 Aspirin (ASA) 325 mg DAILY ORAL 02/13/18 09:00 03/09/18 21:59 02/13/18 08:53 Aztreonam 0.5 gm/ Dextrose 55 ml @ 110 mls/hr Q8HR IVPB 02/12/18 22:00 02/18/18 23:59 02/13/18 14:18 Carvedilol (Coreg) 3.125 mg EVERY 12 HOURS ORAL 02/13/18 21:00 03/15/18 20:59 Chlorhexidine Gluconate (Laura-Hex 2%) 1 applic DAILY@2000 TOPIC 02/12/18 20:00 03/09/18 19:59 02/12/18 21:27 Clonidine HCl (Catapres Tab) 0.1 mg Q8H PRN ORAL SBP > 160mmHg 02/12/18 15:04 03/08/18 15:03 Dextrose (Dextrose 50%) 25 ml STAT PRN IV Hypoglycemia 02/12/18 15:04 03/14/18 15:03 Dextrose (Dextrose 50%) 50 ml STAT PRN IV Hypoglycemia 02/12/18 15:04 03/14/18 15:03 Heparin Sodium/ Dextrose 500 ml @ 17.962 mls/ hr adjust per protocol IV 02/13/18 17:00 03/15/18 16:59 02/13/18 16:21 Insulin Aspart (NovoLOG) BEFORE MEALS AND HS SUBQ 02/12/18 16:30 03/13/18 11:29 02/13/18 17:14 Insulin Aspart (NovoLOG) 4 units NOVOTIAC SUBQ 02/12/18 16:50 03/13/18 08:29 02/13/18 17:15 Insulin Detemir (Levemir) 6 units Q12HR SUBQ 02/12/18 21:00 03/13/18 08:29 02/13/18 08:52 Levofloxacin 150 ml @ 100 mls/hr Q48H IVPB 02/13/18 21:00 02/14/18 23:59 Metoclopramide HCl (Reglan) 5 mg THREE TIMES A DAY ORAL 02/12/18 18:00 03/10/18 12:59 02/13/18 17:08 Mirtazapine (Remeron) 7.5 mg BEDTIME ORAL 02/12/18 21:00 03/10/18 20:59 02/12/18 21:27 Morphine Sulfate (Morphine Sulfate) 1 mg Q4H PRN IVP For Pain 02/12/18 15:05 02/17/18 15:04 02/13/18 14:58 Nitroglycerin (Ntg) 0.4 mg Q5MIN X 3 DOSES PRN SL Prn Chest Pain 02/12/18 15:00 03/08/18 18:44 Pantoprazole (Protonix) 40 mg EVERY 12 HOURS ORAL 02/12/18 21:00 03/10/18 20:59 02/13/18 08:53 Potassium Chloride (K-Dur) 40 meq TWICE A DAY ORAL 02/13/18 18:00 03/15/18 17:59 02/13/18 17:08 Warfarin Sodium (Coumadin per pharmacy) 1 ea DAILY PRN MISC Per rx protocol 02/13/18 17:00 03/15/18 16:59 Warfarin Sodium (Coumadin) 2.5 mg COUMADIN ORAL 02/13/18 17:00 02/13/18 18:00 02/13/18 17:13 Allergies: Coded Allergies: PENICILLINS (Verified Allergy, Unknown, 04/16/17) ROS Limited/Unobtainable: No Constitutional: Reports: no symptoms HEENT: Reports: no symptoms Cardiovascular: Reports: no symptoms Respiratory: Reports: no symptoms Gastrointestinal/Abdominal: Reports: no symptoms Genitourinary: Reports: no symptoms Neurologic/Psychiatric: Reports: no symptoms Subjective 67 YO M admitted with chest pain. Now STEMI and CHF. Cover for Int med-Dr Robin. GAVIN Objective Last Vital Signs Date Time Temp Pulse Resp B/P (MAP) Pulse Ox O2 Delivery O2 Flow Rate FiO2 02/13/18 16:00 98.5 57 18 97/56 100 Nasal Cannula 3.0 98.5 02/13/18 07:45 28 Laboratory Tests Test 02/12/18 23:40 02/13/18 05:00 02/13/18 06:20 02/13/18 15:25 Activated Partial Thromboplast Time 96 SEC (23-33) H 125 SEC (23-33) H 39 SEC (23-33) H White Blood Count 13.5 K/UL (4.8-10.8) H Red Blood Count 3.12 M/UL (4.70-6.10) L Hemoglobin 8.8 G/DL (14.2-18.0) L Hematocrit 26.0 % (42.0-52.0) L Mean Corpuscular Volume 83 FL (80-99) Mean Corpuscular Hemoglobin 28.3 PG (27.0-31.0) Mean Corpuscular Hemoglobin Concent 34.1 G/DL (32.0-36.0) Red Cell Distribution Width 13.8 % (11.6-14.8) Platelet Count 140 K/UL (150-450) L Mean Platelet Volume 11.6 FL (6.5-10.1) H Neutrophils (%) (Auto) % (45.0-75.0) Lymphocytes (%) (Auto) % (20.0-45.0) Monocytes (%) (Auto) % (1.0-10.0) Eosinophils (%) (Auto) % (0.0-3.0) Basophils (%) (Auto) % (0.0-2.0) Differential Total Cells Counted 100 Neutrophils % (Manual) 53 % (45-75) Lymphocytes % (Manual) 25 % (20-45) Monocytes % (Manual) 17 % (1-10) H Eosinophils % (Manual) 4 % (0-3) H Basophils % (Manual) 1 % (0-2) Band Neutrophils 0 % (0-8) Nucleated Red Blood Cells 4 /100 WBC Platelet Estimate Decreased L Platelet Morphology Normal Hypochromasia 2+ Sodium Level 133 MMOL/L (136-145) L Potassium Level 3.1 MMOL/L (3.5-5.1) L Chloride Level 96 MMOL/L (98-107) L Carbon Dioxide Level 24 MMOL/L (21-32) Anion Gap 13 mmol/L (5-15) Blood Urea Nitrogen 62 mg/dL (7-18) H Creatinine 3.5 MG/DL (0.55-1.30) H Estimat Glomerular Filtration Rate 17.7 mL/min (>60) Glucose Level 97 MG/DL (74-106) Calcium Level 8.1 MG/DL (8.5-10.1) L Phosphorus Level 5.0 MG/DL (2.5-4.9) H Magnesium Level 2.0 MG/DL (1.8-2.4) Total Bilirubin 0.8 MG/DL (0.2-1.0) Aspartate Amino Transf (AST/SGOT) 467 U/L (15-37) H Alanine Aminotransferase (ALT/SGPT) 492 U/L (12-78) H Alkaline Phosphatase 164 U/L (46-116) H Troponin I 2.810 ng/mL (0.000-0.056) Total Protein 5.8 G/DL (6.4-8.2) L Albumin 2.2 G/DL (3.4-5.0) L Globulin 3.6 g/dL Albumin/Globulin Ratio 0.6 (1.0-2.7) L Prothrombin Time 14.4 SEC (9.30-11.50) H Prothromb Time International Ratio 1.4 (0.9-1.1) H Intake and Output 02/12/18 02/13/18 19:00 07:00 Intake Total 338.730 ml 414.626 ml Output Total 185 ml 150 ml Balance 153.730 ml 264.626 ml Intake Oral 0 ml 150 ml IV Total 338.730 ml 264.626 ml Output Urine Total 185 ml 150 ml Objective Objective GENERAL: awake, more responsive, NAD HEAD: Pupils are equal and reactive to light. Extraocular movements intact. NECK: Supple. No JVD. LUNGS: Poor air entry. + Expiratory wheezing, No rales. fair inspiratory effort. HEART: S1, S2. Distant heart sounds. No murmur. ABDOMEN: Soft, nondistended, and nontender. Positive bowel sounds. EXTREMITIES: No cyanosis, clubbing. More Edema on the left lower extremity. 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 Piccline on Left UE's. NEUROLOGIC: Cranial nerves II through XII are grossly intact. The patient is moving all the extremities. Assessment/Plan Assessment/Plan Assessment/Plan Assessment/Plan 1. Acute myocardial infarction with non-ST elevation myocardial , New Left BBB 2. DKA with Diabetic type 2, uncontrolled. 3. Metabolic Acidosis 4. Dementia. 5. Hypernatremia. 6. Hyperkalemia. 7. Dehydration. 8. Right AKA with peripheral vascular disease. 9. History of dementia. 10. Atherosclerotic heart disease with ischemic cardiomyopathy. 11. Acute kidney injury. 12. Peripheral vascular disease. 13. Hypothyroidism. 14. PCN allergy. 15. Liver shock. 16. Right-sided pleural effusion. 17. New onset atrial fibrillation-See cardiology note. PLAN: In [facility]. Monitor laboratory and cultures. on heparin drip, IV hydration, Dr. Saab, Pulmonary, Critical Care. Dr. Jones, Cardiology consultation Dr. Jessica, Nephrology Consult. Code Status: Full Code as per POLST Broad-spectrum antibiotic: Levaquin and Aztreonam consider thoracocentesis. Paras Aguirre MD February 13, 2018 17:45
[2018-02-13 20:00] VITALS: BP 100/57
[2018-02-13] MEDS: Dyna-Hex 2% Top Sol 2oz TOPIC SCH (21:02)
[2018-02-14] VITALS: BP 100/57
[2018-02-14] MEDS: Heparin 25,000u/D5W 500ml 500 ML IV SCH ×2 (02:44→07:47)
[2018-02-14 04:00] VITALS: BP 108/61
[2018-02-14 04:36] LABS: BASOPHILS % (AUTO) 1.1 % (0.0-2.0); EOSINOPHILS % (AUTO) 1.6 % (0.0-3.0); HEMATOCRIT 26.4 % (42.0-52.0); HEMOGLOBIN 8.7 G/DL (14.2-18.0); LYMPHOCYTES % (AUTO) 14.4 % (20.0-45.0); MEAN CORPUSCULAR VOLUME 84 FL (80-99); MONOCYTES % (AUTO) 19.9 % (1.0-10.0); NEUTROPHILS % (AUTO) 62.9 % (45.0-75.0); PLATELET COUNT 130 K/UL (150-450); RED BLOOD COUNT 3.16 M/UL (4.70-6.10); RED CELL DISTRIBUTION WIDTH 13.9 % (11.6-14.8); WHITE BLOOD COUNT 13.1 K/UL (4.8-10.8)
[2018-02-14 04:59] LABS: ALANINE AMINOTRANSFERASE 354 U/L (12-78); ALBUMIN 2.2 G/DL (3.4-5.0); ALBUMIN/GLOBULIN RATIO 0.6 (1.0-2.7); ALKALINE PHOSPHATASE 171 U/L (46-116); ANION GAP 14 mmol/L (5-15); ASPARTATE AMINO TRANSFERASE 229 U/L (15-37); BLOOD UREA NITROGEN 65 mg/dL (7-18); CALCIUM 8.2 MG/DL (8.5-10.1); CARBON DIOXIDE 20 MMOL/L (21-32); CHLORIDE 97 MMOL/L (98-107); CREATININE 3.2 MG/DL (0.55-1.30); POTASSIUM 4.4 MMOL/L (3.5-5.1); SODIUM 131 MMOL/L (136-145)
[2018-02-14 05:01] LABS: INR 1.4 (0.9-1.1)
[2018-02-14] MEDS: Aztreonam Inj 0.5 GM in D5W 55 ML IVPB SCH ×3 (05:50→22:03)
[2018-02-14] MEDS: NovoLOG Insulin Flexpen SUBQ SCH ×7 (05:52→22:02)
--- NOTE | 2018-02-14 06:29 | General Progress Note ---
Assessment/Plan Problem List: (1) Hypothyroidism ICD Codes: E03.9 - Hypothyroidism, unspecified SNOMED: 29254504 (2) Sacral decubitus ulcer, stage II ICD Codes: L89.152 - Pressure ulcer of sacral region, stage 2 SNOMED: 086324465, 434828805 (3) DKA, type 1 ICD Codes: E10.10 - Type 1 diabetes mellitus with ketoacidosis without coma SNOMED: 28934884, 924813176 (4) EF 15% (5) Elevated liver enzymes ICD Codes: R74.8 - Abnormal levels of other serum enzymes SNOMED: 697914384 (6) Acute on chronic renal failure ICD Codes: N17.9 - Acute kidney failure, unspecified; N18.9 - Chronic kidney disease, unspecified SNOMED: 527054261 (7) Cardiomyopathy ICD Codes: I42.9 - Cardiomyopathy, unspecified SNOMED: 79482863 Assessment/Plan reduce Levemir to 4 units bid continue Novolog 4 units ac tid continue NISS Subjective Allergies: Coded Allergies: PENICILLINS (Verified Allergy, Unknown, 04/16/17) All Systems: reviewed and negative except above Subjective events noted - interval notes reviewed awake - restless according to RN he's been screaming all night Objective Last 24 Hour Vital Signs Date Time Temp Pulse Resp B/P (MAP) Pulse Ox O2 Delivery O2 Flow Rate FiO2 02/14/18 05:11 61 02/14/18 04:00 97.9 63 16 108/61 100 Nasal Cannula 3.0 97.9 02/14/18 00:00 98.7 64 20 100/57 100 Nasal Cannula 3.0 98.7 02/13/18 23:59 66 02/13/18 21:00 59 100/57 02/13/18 20:52 75 20 99 Nasal Cannula 2.0 28 02/13/18 20:43 79 20 Nasal Cannula 2.0 28 02/13/18 20:42 Nasal Cannula 2.0 28 02/13/18 20:42 100 Nasal Cannula 2.0 28 02/13/18 20:42 99 28 100 Nasal Cannula 2.0 28 02/13/18 20:00 97.3 59 20 100/57 98 Nasal Cannula 3.0 97.3 02/13/18 19:07 59 02/13/18 16:00 98.5 57 18 97/56 100 Nasal Cannula 3.0 98.5 02/13/18 15:32 57 02/13/18 15:28 98.5 02/13/18 14:58 98.5 02/13/18 12:53 64 105/54 02/13/18 12:00 98.5 64 20 105/54 98 Nasal Cannula 3.0 98.5 02/13/18 11:51 65 02/13/18 10:31 97.4 02/13/18 08:00 97.4 77 19 104/54 98 Nasal Cannula 3.0 97.4 02/13/18 07:58 72 02/13/18 07:45 98 Nasal Cannula 2.0 28 02/13/18 07:45 77 20 Nasal Cannula 2.0 28 02/13/18 07:45 Nasal Cannula 2.0 28 Intake and Output 02/13/18 02/14/18 19:00 07:00 Intake Total 445.704 ml 591.589 ml Output Total 500 ml 300 ml Balance -54.296 ml 291.589 ml Intake Oral 250 ml 240 ml IV Total 195.704 ml 351.589 ml Output Urine Total 350 ml 300 ml Stool Total 150 ml Laboratory Tests 02/13/18 15:25: Activated Partial Thromboplast Time 39H 02/14/18 00:15: Activated Partial Thromboplast Time 73H 02/14/18 03:45: White Blood Count 13.1H, Red Blood Count 3.16L, Hemoglobin 8.7L, Hematocrit 26.4L, Mean Corpuscular Volume 84, Mean Corpuscular Hemoglobin 27.6, Mean Corpuscular Hemoglobin Concent 33.1, Red Cell Distribution Width 13.9, Platelet Count 130L, Mean Platelet Volume 10.7H, Neutrophils (%) (Auto) 62.9, Lymphocytes (%) (Auto) 14.4L, Monocytes (%) (Auto) 19.9H, Eosinophils (%) (Auto ) 1.6, Basophils (%) (Auto) 1.1, Prothrombin Time 14.5H, Prothromb Time International Ratio 1.4H, Sodium Level 131L, Potassium Level 4.4, Chloride Level 97L, Carbon Dioxide Level 20L, Anion Gap 14, Blood Urea Nitrogen 65H, Creatinine 3.2H, Estimat Glomerular Filtration Rate 19.6, Glucose Level 170H, Calcium Level 8.2L, Total Bilirubin 1.0, Aspartate Amino Transf (AST/SGOT) 229H , Alanine Aminotransferase (ALT/SGPT) 354H, Alkaline Phosphatase 171H, Total Protein 5.7L, Albumin 2.2L, Globulin 3.5, Albumin/Globulin Ratio 0.6L, Hepatitis A Antibody Total [Pending], Hepatitis B Surface Antibody [Pending], Hepatitis B Core Total Antibody [Pending], HIV (1&2) Antibody Rapid Negative Height (Feet): 5 Height (Inches): 7.00 Weight (Pounds): 193 General Appearance: moderate distress Neck: normal alignment Cardiovascular: normal rate Respiratory/Chest: decreased breath sounds Abdomen: normal bowel sounds Edema: 1+ Arm (L), 1+ Arm (R), 1+ Leg (L), 1+ Leg (R), 1+ Pedal (L), 1+ Pedal ( R), 1+ Generalized Objective Current Medications Medications (Trade) Dose Ordered Sig/Eliel Route PRN Reason Start Time Stop Time Status Last Admin Dose Admin Acetaminophen (Tylenol) 650 mg Q4H PRN ORAL T>100.5 02/12/18 15:04 03/08/18 15:03 Albuterol/ Ipratropium (Albuterol/ Ipratropium) 3 ml Q4H PRN HHN Shortness of Breath 02/12/18 15:05 02/14/18 15:04 02/13/18 20:42 Aluminum Hydroxide (Amphojel) 1,920 mg TID ORAL 02/12/18 18:00 03/10/18 17:59 02/13/18 17:09 Aspirin (ASA) 325 mg DAILY ORAL 02/13/18 09:00 03/09/18 21:59 02/13/18 08:53 Aztreonam 0.5 gm/ Dextrose 55 ml @ 110 mls/hr Q8HR IVPB 02/12/18 22:00 02/18/18 23:59 02/14/18 05:50 Carvedilol (Coreg) 3.125 mg EVERY 12 HOURS ORAL 02/13/18 21:00 03/15/18 20:59 Chlorhexidine Gluconate (Laura-Hex 2%) 1 applic DAILY@2000 TOPIC 02/12/18 20:00 03/09/18 19:59 02/13/18 21:02 Clonidine HCl (Catapres Tab) 0.1 mg Q8H PRN ORAL SBP > 160mmHg 02/12/18 15:04 03/08/18 15:03 Dextrose (Dextrose 50%) 25 ml STAT PRN IV Hypoglycemia 02/12/18 15:04 03/14/18 15:03 02/13/18 21:30 Dextrose (Dextrose 50%) 50 ml STAT PRN IV Hypoglycemia 02/12/18 15:04 03/14/18 15:03 Heparin Sodium/ Dextrose 500 ml @ 17.962 mls/ hr adjust per protocol IV 02/13/18 17:00 03/15/18 16:59 02/14/18 02:44 Insulin Aspart (NovoLOG) BEFORE MEALS AND HS SUBQ 02/12/18 16:30 03/13/18 11:29 02/14/18 05:52 Insulin Aspart (NovoLOG) 4 units NOVOTIAC SUBQ 02/12/18 16:50 03/13/18 08:29 02/14/18 05:52 Insulin Detemir (Levemir) 6 units Q12HR SUBQ 02/12/18 21:00 03/13/18 08:29 02/13/18 08:52 Levofloxacin 150 ml @ 100 mls/hr Q48H IVPB 02/13/18 21:00 02/14/18 23:59 02/13/18 21:13 Metoclopramide HCl (Reglan) 5 mg THREE TIMES A DAY ORAL 02/12/18 18:00 03/10/18 12:59 02/13/18 17:08 Mirtazapine (Remeron) 7.5 mg BEDTIME ORAL 02/12/18 21:00 03/10/18 20:59 02/13/18 21:03 Morphine Sulfate (Morphine Sulfate) 1 mg Q4H PRN IVP For Pain 02/12/18 15:05 02/17/18 15:04 02/13/18 21:03 Nitroglycerin (Ntg) 0.4 mg Q5MIN X 3 DOSES PRN SL Prn Chest Pain 02/12/18 15:00 03/08/18 18:44 Pantoprazole (Protonix) 40 mg EVERY 12 HOURS ORAL 02/12/18 21:00 03/10/18 20:59 02/13/18 21:02 Potassium Chloride (K-Dur) 40 meq TWICE A DAY ORAL 02/13/18 18:00 03/15/18 17:59 02/13/18 17:08 Warfarin Sodium (Coumadin per pharmacy) 1 ea DAILY PRN MISC Per rx protocol 02/13/18 17:00 03/15/18 16:59 Item Value Date Time Bedside Blood Glucose 188 mg/dl H 02/14/18 0552 Bedside Blood Glucose 54 mg/dl L 02/13/18 2130 Bedside Blood Glucose 149 mg/dl H 02/13/18 1715 Bedside Blood Glucose 131 mg/dl H 02/13/18 1221 Bedside Blood Glucose 93 mg/dl 02/13/18 0852 CHIDI DANIELSON February 14, 2018 06:29
[2018-02-14 08:00] VITALS: BP 91/55
[2018-02-14] MEDS: Aluminum Hydroxide Gel Susp 15ml ORAL SCH ×3 (08:21→17:36)
[2018-02-14] MEDS: LORazepam 0.5mg tab ORAL PRN ×2 (08:21→14:38)
[2018-02-14] MEDS: Levemir Flexpen SUBQ SCH ×2 (08:34→21:00)
--- NOTE | 2018-02-14 10:29 | Infectious Diseases Prog Note ---
Assessment/Plan Assessment/Plan ASSESSMENT: The patient is a 67-year-old male with, Bronchitis, Possible Pneumonia vs CHF Pleural effusion 02/13 CXR: CHF appears stable. Suspect right pleural effusion 02/11 CXR: Findings suggesting small layering right pleural effusion, new compared to the prior chest x-ray. Diffuse increased interstitial markings may be related to mild pulmonary vascular congestion versus a mild interstitial pneumonitis. Worsened compared to the prior chest x-ray. Subsegmental atelectasis versus infiltrate in the right lung base and right perihilar region. Worsened compared to the prior chest x-ray. 02/09 CXR: Left basilar atelectasis and patchy consolidative changes are stable. 02/09 Successful ultrasound-guided thoracentesis, yielding 400 milliliters of fluid (Cytology sent but no other labs sent ) MRSA colonization -sp cx ordered, never collected +ve blood cX : 09/28 CoNS ( m/l contaminant ) -repeat Bcx NTD Fever, SP Leukocytosis, overall improved, now stable in the 13s Transaminitis AST> ALT (probably due to right-sided heart failure, shock liver, Hep C contributing.; now improving Hepatitis C Ab +, VL pending -HIV ag/ab neg Possible UTI / cystitis. UCx : gurwinder ( Colonizer ) XAVIER /CKD CAD/myocardial infarction. Hypertension. Diabetes. Anemia. Hyperlipidemia. Peripheral vascular disease. Anxiety. Degenerative joint disease. Hyperthyroidism. Dilated cardiomyopathy. GERD. Dementia PLAN: continue the patient on aztreonam day # 8/ 10 for possible PNA 02/13 SP Levaquin #7 02/09 SP IV Vanco day # 2 Monitor CBC/CMP Monitor cultures (blood sputum). Monitor chest x-ray. f/u Hep C PCR aspiration precautions check for hep a and b immunity Subjective Allergies: Coded Allergies: PENICILLINS (Verified Allergy, Unknown, 04/16/17) Subjective afebrile leukocytosis stable at 13 repeat BCx Neg at 2L NC LFTs improving Objective Vital Signs Last 24 Hour Vital Signs Date Time Temp Pulse Resp B/P (MAP) Pulse Ox O2 Delivery O2 Flow Rate FiO2 02/14/18 08:34 Nasal Cannula 2.0 28 02/14/18 08:33 97 Nasal Cannula 2.0 28 02/14/18 08:33 68 18 Nasal Cannula 2.0 28 02/14/18 08:21 66 98/50 02/14/18 08:00 70 02/14/18 08:00 98.0 73 20 91/55 100 Nasal Cannula 3.0 98.0 02/14/18 05:11 61 02/14/18 04:00 97.9 63 16 108/61 100 Nasal Cannula 3.0 97.9 02/14/18 00:00 98.7 64 20 100/57 100 Nasal Cannula 3.0 98.7 02/13/18 23:59 66 02/13/18 21:00 59 100/57 02/13/18 20:52 75 20 99 Nasal Cannula 2.0 28 02/13/18 20:43 79 20 Nasal Cannula 2.0 28 02/13/18 20:42 Nasal Cannula 2.0 28 02/13/18 20:42 100 Nasal Cannula 2.0 28 02/13/18 20:42 99 28 100 Nasal Cannula 2.0 28 02/13/18 20:00 97.3 59 20 100/57 98 Nasal Cannula 3.0 97.3 02/13/18 19:07 59 02/13/18 16:00 98.5 57 18 97/56 100 Nasal Cannula 3.0 98.5 02/13/18 15:32 57 02/13/18 15:28 98.5 02/13/18 14:58 98.5 02/13/18 12:53 64 105/54 02/13/18 12:00 98.5 64 20 105/54 98 Nasal Cannula 3.0 98.5 02/13/18 11:51 65 02/13/18 10:31 97.4 Height (Feet): 5 Height (Inches): 7.00 Weight (Pounds): 164 Objective GENERAL: awake, more responsive, NAD HEAD: Pupils are equal and reactive to light. Extraocular movements intact. NECK: Supple. No JVD. LUNGS: Poor air entry. + Expiratory wheezing, No rales. fair inspiratory effort. HEART: S1, S2. Distant heart sounds. No murmur. ABDOMEN: Soft, nondistended, and nontender. Positive bowel sounds. EXTREMITIES: No cyanosis, clubbing. More Edema on the left lower extremity. 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 Piccline on Left UE's. Laboratory Tests Test 02/13/18 15:25 02/14/18 00:15 02/14/18 03:45 02/14/18 09:27 Activated Partial Thromboplast Time 39 SEC (23-33) H 73 SEC (23-33) H Pending White Blood Count 13.1 K/UL (4.8-10.8) H Red Blood Count 3.16 M/UL (4.70-6.10) L Hemoglobin 8.7 G/DL (14.2-18.0) L Hematocrit 26.4 % (42.0-52.0) L Mean Corpuscular Volume 84 FL (80-99) Mean Corpuscular Hemoglobin 27.6 PG (27.0-31.0) Mean Corpuscular Hemoglobin Concent 33.1 G/DL (32.0-36.0) Red Cell Distribution Width 13.9 % (11.6-14.8) Platelet Count 130 K/UL (150-450) L Mean Platelet Volume 10.7 FL (6.5-10.1) H Neutrophils (%) (Auto) 62.9 % (45.0-75.0) Lymphocytes (%) (Auto) 14.4 % (20.0-45.0) L Monocytes (%) (Auto) 19.9 % (1.0-10.0) H Eosinophils (%) (Auto) 1.6 % (0.0-3.0) Basophils (%) (Auto) 1.1 % (0.0-2.0) Prothrombin Time 14.5 SEC (9.30-11.50) H Prothromb Time International Ratio 1.4 (0.9-1.1) H Sodium Level 131 MMOL/L (136-145) L Potassium Level 4.4 MMOL/L (3.5-5.1) Chloride Level 97 MMOL/L (98-107) L Carbon Dioxide Level 20 MMOL/L (21-32) L Anion Gap 14 mmol/L (5-15) Blood Urea Nitrogen 65 mg/dL (7-18) H Creatinine 3.2 MG/DL (0.55-1.30) H Estimat Glomerular Filtration Rate 19.6 mL/min (>60) Glucose Level 170 MG/DL (74-106) H Calcium Level 8.2 MG/DL (8.5-10.1) L Total Bilirubin 1.0 MG/DL (0.2-1.0) Aspartate Amino Transf (AST/SGOT) 229 U/L (15-37) H Alanine Aminotransferase (ALT/SGPT) 354 U/L (12-78) H Alkaline Phosphatase 171 U/L (46-116) H Total Protein 5.7 G/DL (6.4-8.2) L Albumin 2.2 G/DL (3.4-5.0) L Globulin 3.5 g/dL Albumin/Globulin Ratio 0.6 (1.0-2.7) L Hepatitis A Antibody Total Pending Hepatitis B Surface Antibody Pending Hepatitis B Core Total Antibody Pending HIV (1&2) Antibody Rapid Negative (NEGATIVE) Current Medications Medications (Trade) Dose Ordered Sig/Eliel Route PRN Reason Start Time Stop Time Status Last Admin Dose Admin Acetaminophen (Tylenol) 650 mg Q4H PRN ORAL T>100.5 02/12/18 15:04 03/08/18 15:03 Albuterol/ Ipratropium (Albuterol/ Ipratropium) 3 ml Q4H PRN HHN Shortness of Breath 02/12/18 15:05 02/14/18 15:04 02/13/18 20:42 Aluminum Hydroxide (Amphojel) 1,920 mg TID ORAL 02/12/18 18:00 03/10/18 17:59 02/14/18 08:21 Aspirin (ASA) 325 mg DAILY ORAL 02/13/18 09:00 03/09/18 21:59 02/14/18 08:17 Aztreonam 0.5 gm/ Dextrose 55 ml @ 110 mls/hr Q8HR IVPB 02/12/18 22:00 02/18/18 23:59 02/14/18 05:50 Carvedilol (Coreg) 3.125 mg EVERY 12 HOURS ORAL 02/13/18 21:00 03/15/18 20:59 Chlorhexidine Gluconate (Laura-Hex 2%) 1 applic DAILY@2000 TOPIC 02/12/18 20:00 03/09/18 19:59 02/13/18 21:02 Clonidine HCl (Catapres Tab) 0.1 mg Q8H PRN ORAL SBP > 160mmHg 02/12/18 15:04 03/08/18 15:03 Dextrose (Dextrose 50%) 25 ml STAT PRN IV Hypoglycemia 02/12/18 15:04 03/14/18 15:03 02/13/18 21:30 Dextrose (Dextrose 50%) 50 ml STAT PRN IV Hypoglycemia 02/12/18 15:04 03/14/18 15:03 Heparin Sodium/ Dextrose 500 ml @ 17.962 mls/ hr adjust per protocol IV 02/13/18 17:00 03/15/18 16:59 02/14/18 07:47 Insulin Aspart (NovoLOG) BEFORE MEALS AND HS SUBQ 02/12/18 16:30 03/13/18 11:29 02/14/18 05:52 Insulin Aspart (NovoLOG) 4 units NOVOTIAC SUBQ 02/12/18 16:50 03/13/18 08:29 02/14/18 05:52 Insulin Detemir (Levemir) 4 units Q12HR SUBQ 02/14/18 09:00 03/13/18 08:29 02/14/18 08:34 Levofloxacin 150 ml @ 100 mls/hr Q48H IVPB 02/13/18 21:00 02/14/18 23:59 02/13/18 21:13 Lorazepam (Ativan) 0.5 mg Q6H PRN ORAL For Anxiety 02/14/18 08:00 02/21/18 07:59 02/14/18 08:21 Metoclopramide HCl (Reglan) 5 mg THREE TIMES A DAY ORAL 02/12/18 18:00 03/10/18 12:59 02/14/18 08:18 Mirtazapine (Remeron) 7.5 mg BEDTIME ORAL 02/12/18 21:00 03/10/18 20:59 02/13/18 21:03 Morphine Sulfate (Morphine Sulfate) 1 mg Q4H PRN IVP For Pain 02/12/18 15:05 02/17/18 15:04 02/13/18 21:03 Nitroglycerin (Ntg) 0.4 mg Q5MIN X 3 DOSES PRN SL Prn Chest Pain 02/12/18 15:00 03/08/18 18:44 Pantoprazole (Protonix) 40 mg EVERY 12 HOURS ORAL 02/12/18 21:00 03/10/18 20:59 02/14/18 08:18 Potassium Chloride (K-Dur) 40 meq TWICE A DAY ORAL 02/13/18 18:00 03/15/18 17:59 02/14/18 08:18 Warfarin Sodium (Coumadin per pharmacy) 1 ea DAILY PRN MISC Per rx protocol 02/13/18 17:00 03/15/18 16:59 Warfarin Sodium (Coumadin) 5 mg COUMADIN ONCE ORAL 02/14/18 17:00 02/14/18 17:01 Gloria Jay M.D. February 14, 2018 10:29
[2018-02-14] MEDS ORDERED: Heparin 25,000u/D5W 500ml 500 ML IV SCH ×3 (10:30→16:40)
--- NOTE | 2018-02-14 10:33 | Pulmonology Progress Note ---
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 Other option would be comfort care and end of life care Subjective ROS Limited/Unobtainable: No Constitutional: Reports: no symptoms HEENT: Repors: no symptoms Respiratory: Reports: no symptoms Allergies: Coded Allergies: PENICILLINS (Verified Allergy, Unknown, 04/16/17) Objective Last 24 Hour Vital Signs Date Time Temp Pulse Resp B/P (MAP) Pulse Ox O2 Delivery O2 Flow Rate FiO2 02/14/18 08:34 Nasal Cannula 2.0 28 02/14/18 08:33 97 Nasal Cannula 2.0 28 02/14/18 08:33 68 18 Nasal Cannula 2.0 02/14/18 08:21 66 98/50 02/14/18 08:00 70 02/14/18 08:00 98.0 73 20 91/55 100 Nasal Cannula 3.0 98.0 02/14/18 05:11 61 02/14/18 04:00 97.9 63 16 108/61 100 Nasal Cannula 3.0 97.9 02/14/18 00:00 98.7 64 20 100/57 100 Nasal Cannula 3.0 98.7 02/13/18 23:59 66 02/13/18 21:00 59 100/57 02/13/18 20:52 75 20 99 Nasal Cannula 2.0 28 02/13/18 20:43 79 20 Nasal Cannula 2.0 28 02/13/18 20:42 Nasal Cannula 2.0 28 02/13/18 20:42 100 Nasal Cannula 2.0 28 02/13/18 20:42 99 28 100 Nasal Cannula 2.0 28 02/13/18 20:00 97.3 59 20 100/57 98 Nasal Cannula 3.0 97.3 02/13/18 19:07 59 02/13/18 16:00 98.5 57 18 97/56 100 Nasal Cannula 3.0 98.5 02/13/18 15:32 57 02/13/18 15:28 98.5 02/13/18 14:58 98.5 02/13/18 12:53 64 105/54 02/13/18 12:00 98.5 64 20 105/54 98 Nasal Cannula 3.0 98.5 02/13/18 11:51 65 Intake and Output 02/13/18 02/14/18 19:00 07:00 Intake Total 445.704 ml 693.239 ml Output Total 500 ml 300 ml Balance -54.296 ml 393.239 ml Intake Oral 250 ml 240 ml IV Total 195.704 ml 453.239 ml Output Urine Total 350 ml 300 ml Stool Total 150 ml General Appearance: WD/WN HEENT: normocephalic, anicteric Respiratory/Chest: chest wall non-tender, lungs clear Cardiovascular: normal peripheral pulses, regular rhythm Abdomen: normal bowel sounds, soft, non tender Extremities: no cyanosis, no clubbing Neurologic/Psychiatric: metal baler II-XII grossly normal Lymphatic: no neck adenopathy Laboratory Tests 02/13/18 15:25: Activated Partial Thromboplast Time 39H 02/14/18 00:15: Activated Partial Thromboplast Time 73H 02/14/18 03:45: White Blood Count 13.1H, Red Blood Count 3.16L, Hemoglobin 8.7L, Hematocrit 26.4L, Mean Corpuscular Volume 84, Mean Corpuscular Hemoglobin 27.6, Mean Corpuscular Hemoglobin Concent 33.1, Red Cell Distribution Width 13.9, Platelet Count 130L, Mean Platelet Volume 10.7H, Neutrophils (%) (Auto) 62.9, Lymphocytes (%) (Auto) 14.4L, Monocytes (%) (Auto) 19.9H, Eosinophils (%) (Auto ) 1.6, Basophils (%) (Auto) 1.1, Prothrombin Time 14.5H, Prothromb Time International Ratio 1.4H, Sodium Level 131L, Potassium Level 4.4, Chloride Level 97L, Carbon Dioxide Level 20L, Anion Gap 14, Blood Urea Nitrogen 65H, Creatinine 3.2H, Estimat Glomerular Filtration Rate 19.6, Glucose Level 170H, Calcium Level 8.2L, Total Bilirubin 1.0, Aspartate Amino Transf (AST/SGOT) 229H , Alanine Aminotransferase (ALT/SGPT) 354H, Alkaline Phosphatase 171H, Total Protein 5.7L, Albumin 2.2L, Globulin 3.5, Albumin/Globulin Ratio 0.6L, Hepatitis A Antibody Total [Pending], Hepatitis B Surface Antibody [Pending], Hepatitis B Core Total Antibody [Pending], HIV (1&2) Antibody Rapid Negative 02/14/18 09:27: Activated Partial Thromboplast Time [Pending] Current Medications Medications (Trade) Dose Ordered Sig/Eliel Route PRN Reason Start Time Stop Time Status Last Admin Dose Admin Acetaminophen (Tylenol) 650 mg Q4H PRN ORAL T>100.5 02/12/18 15:04 03/08/18 15:03 Albuterol/ Ipratropium (Albuterol/ Ipratropium) 3 ml Q4H PRN HHN Shortness of Breath 02/12/18 15:05 02/14/18 15:04 02/13/18 20:42 Aluminum Hydroxide (Amphojel) 1,920 mg TID ORAL 02/12/18 18:00 03/10/18 17:59 02/14/18 08:21 Aspirin (ASA) 325 mg DAILY ORAL 02/13/18 09:00 03/09/18 21:59 02/14/18 08:17 Aztreonam 0.5 gm/ Dextrose 55 ml @ 110 mls/hr Q8HR IVPB 02/12/18 22:00 02/18/18 23:59 02/14/18 05:50 Carvedilol (Coreg) 3.125 mg EVERY 12 HOURS ORAL 02/13/18 21:00 03/15/18 20:59 Chlorhexidine Gluconate (Laura-Hex 2%) 1 applic DAILY@2000 TOPIC 02/12/18 20:00 03/09/18 19:59 02/13/18 21:02 Clonidine HCl (Catapres Tab) 0.1 mg Q8H PRN ORAL SBP > 160mmHg 02/12/18 15:04 03/08/18 15:03 Dextrose (Dextrose 50%) 25 ml STAT PRN IV Hypoglycemia 02/12/18 15:04 03/14/18 15:03 02/13/18 21:30 Dextrose (Dextrose 50%) 50 ml STAT PRN IV Hypoglycemia 02/12/18 15:04 03/14/18 15:03 Heparin Sodium/ Dextrose 500 ml @ 17.86 mls/ hr adjust per protocol IV 02/14/18 10:30 03/15/18 16:59 Insulin Aspart (NovoLOG) BEFORE MEALS AND HS SUBQ 02/12/18 16:30 03/13/18 11:29 02/14/18 05:52 Insulin Aspart (NovoLOG) 4 units NOVOTIAC SUBQ 02/12/18 16:50 03/13/18 08:29 02/14/18 05:52 Insulin Detemir (Levemir) 4 units Q12HR SUBQ 02/14/18 09:00 03/13/18 08:29 02/14/18 08:34 Lorazepam (Ativan) 0.5 mg Q6H PRN ORAL For Anxiety 02/14/18 08:00 02/21/18 07:59 02/14/18 08:21 Metoclopramide HCl (Reglan) 5 mg THREE TIMES A DAY ORAL 02/12/18 18:00 03/10/18 12:59 02/14/18 08:18 Mirtazapine (Remeron) 7.5 mg BEDTIME ORAL 02/12/18 21:00 03/10/18 20:59 02/13/18 21:03 Morphine Sulfate (Morphine Sulfate) 1 mg Q4H PRN IVP For Pain 02/12/18 15:05 02/17/18 15:04 02/13/18 21:03 Nitroglycerin (Ntg) 0.4 mg Q5MIN X 3 DOSES PRN SL Prn Chest Pain 02/12/18 15:00 03/08/18 18:44 Pantoprazole (Protonix) 40 mg EVERY 12 HOURS ORAL 02/12/18 21:00 03/10/18 20:59 02/14/18 08:18 Potassium Chloride (K-Dur) 40 meq TWICE A DAY ORAL 02/13/18 18:00 03/15/18 17:59 02/14/18 08:18 Warfarin Sodium (Coumadin per pharmacy) 1 ea DAILY PRN MISC Per rx protocol 02/13/18 17:00 03/15/18 16:59 Warfarin Sodium (Coumadin) 5 mg COUMADIN ONCE ORAL 02/14/18 17:00 02/14/18 17:01 Walker Saab MD February 14, 2018 10:33
[2018-02-14] MEDS ORDERED: Heparin 5000 units/ml inj IV SCH (11:00)
[2018-02-14 12:00] VITALS: BP 101/56
[2018-02-14] MEDS: Morphine Sulfate 4mg/ml Inj IVP PRN (13:53)
[2018-02-14 16:00] VITALS: BP 103/59
--- NOTE | 2018-02-14 16:44 | Nephrology Progress Note ---
Assessment/Plan Problem List: (1) Acute on chronic renal failure (2) Diabetic keto-acidosis (3) Peripheral vascular disease (4) Cardiomyopathy (5) Sepsis (6) Elevated liver enzymes Assessment Acute renal failure- Dehydration serum Cr lower today ? CKD DM and Nephropathy Cardiomyopathy with low EjFx DKA CO Dementia HypoThyroidism PVD Rt AKA Plan DC KCL stop statins in view of high lfts stop IV add coreg [facility] Kidney KP Negative for hydronephrosis Urine studies 2D Echo 20% EjFx ABG K supplement as needed may require HD Subjective ROS Limited/Unobtainable: No Constitutional: Reports: malaise, weakness Objective Objective Last 24 Hour Vital Signs Date Time Temp Pulse Resp B/P (MAP) Pulse Ox O2 Delivery O2 Flow Rate FiO2 02/14/18 12:00 63 02/14/18 12:00 97.7 60 20 101/56 100 Nasal Cannula 2.0 97.7 02/14/18 08:34 Nasal Cannula 2.0 28 02/14/18 08:33 97 Nasal Cannula 2.0 28 02/14/18 08:33 68 18 Nasal Cannula 2.0 28 02/14/18 08:21 66 98/50 02/14/18 08:00 70 02/14/18 08:00 98.0 73 20 91/55 100 Nasal Cannula 3.0 98.0 02/14/18 05:11 61 02/14/18 04:00 97.9 63 16 108/61 100 Nasal Cannula 3.0 97.9 02/14/18 00:00 98.7 64 20 100/57 100 Nasal Cannula 3.0 98.7 02/13/18 23:59 66 02/13/18 21:00 59 100/57 02/13/18 20:52 75 20 99 Nasal Cannula 2.0 28 02/13/18 20:43 79 20 Nasal Cannula 2.0 28 02/13/18 20:42 Nasal Cannula 2.0 28 02/13/18 20:42 100 Nasal Cannula 2.0 28 02/13/18 20:42 99 28 100 Nasal Cannula 2.0 28 02/13/18 20:00 97.3 59 20 100/57 98 Nasal Cannula 3.0 97.3 02/13/18 19:07 59 Intake and Output 02/13/18 02/14/18 19:00 07:00 Intake Total 445.704 ml 693.239 ml Output Total 500 ml 300 ml Balance -54.296 ml 393.239 ml Intake Oral 250 ml 240 ml IV Total 195.704 ml 453.239 ml Output Urine Total 350 ml 300 ml Stool Total 150 ml Laboratory Tests 02/14/18 00:15: Activated Partial Thromboplast Time 73H 02/14/18 03:45: White Blood Count 13.1H, Red Blood Count 3.16L, Hemoglobin 8.7L, Hematocrit 26.4L, Mean Corpuscular Volume 84, Mean Corpuscular Hemoglobin 27.6, Mean Corpuscular Hemoglobin Concent 33.1, Red Cell Distribution Width 13.9, Platelet Count 130L, Mean Platelet Volume 10.7H, Neutrophils (%) (Auto) 62.9, Lymphocytes (%) (Auto) 14.4L, Monocytes (%) (Auto) 19.9H, Eosinophils (%) (Auto ) 1.6, Basophils (%) (Auto) 1.1, Prothrombin Time 14.5H, Prothromb Time International Ratio 1.4H, Sodium Level 131L, Potassium Level 4.4, Chloride Level 97L, Carbon Dioxide Level 20L, Anion Gap 14, Blood Urea Nitrogen 65H, Creatinine 3.2H, Estimat Glomerular Filtration Rate 19.6, Glucose Level 170H, Calcium Level 8.2L, Total Bilirubin 1.0, Aspartate Amino Transf (AST/SGOT) 229H , Alanine Aminotransferase (ALT/SGPT) 354H, Alkaline Phosphatase 171H, Total Protein 5.7L, Albumin 2.2L, Globulin 3.5, Albumin/Globulin Ratio 0.6L, Hepatitis A Antibody Total [Pending], Hepatitis B Surface Antibody [Pending], Hepatitis B Core Total Antibody [Pending], HIV (1&2) Antibody Rapid Negative 02/14/18 09:27: Activated Partial Thromboplast Time 54H 02/14/18 14:55: Activated Partial Thromboplast Time 116H Height (Feet): 5 Height (Inches): 7.00 Weight (Pounds): 189 General Appearance: no apparent distress Cardiovascular: normal rate Respiratory/Chest: decreased breath sounds Abdomen: soft Objective no other changes LAKESHA BAR February 14, 2018 16:44
[2018-02-14] MEDS ORDERED: Warfarin Sodium 5mg ORAL ONE (17:00)
--- NOTE | 2018-02-14 19:56 | Internal Med Progress Note ---
Subjective Date of Service: February 14, 2018 Physician Name Aguirre,Paras Attending Physician Joni Robin MD Current Medications Medications (Trade) Dose Ordered Sig/Eliel Route PRN Reason Start Time Stop Time Status Last Admin Dose Admin Acetaminophen (Tylenol) 650 mg Q4H PRN ORAL T>100.5 02/12/18 15:04 03/08/18 15:03 Aluminum Hydroxide (Amphojel) 1,920 mg TID ORAL 02/12/18 18:00 03/10/18 17:59 02/14/18 17:36 Aspirin (ASA) 325 mg DAILY ORAL 02/13/18 09:00 03/09/18 21:59 02/14/18 08:17 Aztreonam 0.5 gm/ Dextrose 55 ml @ 110 mls/hr Q8HR IVPB 02/12/18 22:00 02/18/18 23:59 02/14/18 13:25 Carvedilol (Coreg) 3.125 mg EVERY 12 HOURS ORAL 02/13/18 21:00 03/15/18 20:59 Chlorhexidine Gluconate (Laura-Hex 2%) 1 applic DAILY@2000 TOPIC 02/12/18 20:00 03/09/18 19:59 02/13/18 21:02 Clonidine HCl (Catapres Tab) 0.1 mg Q8H PRN ORAL SBP > 160mmHg 02/12/18 15:04 03/08/18 15:03 Dextrose (Dextrose 50%) 25 ml STAT PRN IV Hypoglycemia 02/12/18 15:04 03/14/18 15:03 02/13/18 21:30 Dextrose (Dextrose 50%) 50 ml STAT PRN IV Hypoglycemia 02/12/18 15:04 03/14/18 15:03 Heparin Sodium/ Dextrose 500 ml @ 18.86 mls/ hr adjust per protocol IV 02/14/18 16:40 03/16/18 16:39 02/14/18 16:52 Insulin Aspart (NovoLOG) BEFORE MEALS AND HS SUBQ 02/12/18 16:30 03/13/18 11:29 02/14/18 11:11 Insulin Aspart (NovoLOG) 4 units NOVOTIAC SUBQ 02/12/18 16:50 03/13/18 08:29 02/14/18 11:14 Insulin Detemir (Levemir) 4 units Q12HR SUBQ 02/14/18 09:00 03/13/18 08:29 02/14/18 08:34 Lorazepam (Ativan) 2 mg Q6H PRN ORAL For Anxiety 02/14/18 20:00 02/21/18 19:59 Metoclopramide HCl (Reglan) 5 mg THREE TIMES A DAY ORAL 02/12/18 18:00 03/10/18 12:59 02/14/18 17:36 Mirtazapine (Remeron) 15 mg BEDTIME ORAL 02/14/18 21:00 03/16/18 20:59 Morphine Sulfate (Morphine Sulfate) 1 mg Q4H PRN IVP For Pain 02/12/18 15:05 02/17/18 15:04 02/14/18 13:53 Nitroglycerin (Ntg) 0.4 mg Q5MIN X 3 DOSES PRN SL Prn Chest Pain 02/12/18 15:00 03/08/18 18:44 Pantoprazole (Protonix) 40 mg EVERY 12 HOURS ORAL 02/12/18 21:00 03/10/18 20:59 02/14/18 08:18 Warfarin Sodium (Coumadin per pharmacy) 1 ea DAILY PRN MISC Per rx protocol 02/13/18 17:00 03/15/18 16:59 Allergies: Coded Allergies: PENICILLINS (Verified Allergy, Unknown, 04/16/17) ROS Limited/Unobtainable: No Constitutional: Reports: no symptoms HEENT: Reports: no symptoms Cardiovascular: Reports: chest pain Respiratory: Reports: no symptoms Gastrointestinal/Abdominal: Reports: no symptoms Genitourinary: Reports: no symptoms Neurologic/Psychiatric: Reports: no symptoms Subjective 67 YO M admitted with chest pain. Now STEMI and CHF. Cover for Int rubio-Dr Robin. GAVIN Objective Last Vital Signs Date Time Temp Pulse Resp B/P (MAP) Pulse Ox O2 Delivery O2 Flow Rate FiO2 02/14/18 16:00 97.5 72 24 103/59 100 Nasal Cannula 2.0 97.5 02/14/18 08:34 28 Laboratory Tests Test 02/14/18 00:15 02/14/18 03:45 02/14/18 09:27 02/14/18 14:55 Activated Partial Thromboplast Time 73 SEC (23-33) H 54 SEC (23-33) H 116 SEC (23-33) H White Blood Count 13.1 K/UL (4.8-10.8) H Red Blood Count 3.16 M/UL (4.70-6.10) L Hemoglobin 8.7 G/DL (14.2-18.0) L Hematocrit 26.4 % (42.0-52.0) L Mean Corpuscular Volume 84 FL (80-99) Mean Corpuscular Hemoglobin 27.6 PG (27.0-31.0) Mean Corpuscular Hemoglobin Concent 33.1 G/DL (32.0-36.0) Red Cell Distribution Width 13.9 % (11.6-14.8) Platelet Count 130 K/UL (150-450) L Mean Platelet Volume 10.7 FL (6.5-10.1) H Neutrophils (%) (Auto) 62.9 % (45.0-75.0) Lymphocytes (%) (Auto) 14.4 % (20.0-45.0) L Monocytes (%) (Auto) 19.9 % (1.0-10.0) H Eosinophils (%) (Auto) 1.6 % (0.0-3.0) Basophils (%) (Auto) 1.1 % (0.0-2.0) Prothrombin Time 14.5 SEC (9.30-11.50) H Prothromb Time International Ratio 1.4 (0.9-1.1) H Sodium Level 131 MMOL/L (136-145) L Potassium Level 4.4 MMOL/L (3.5-5.1) Chloride Level 97 MMOL/L (98-107) L Carbon Dioxide Level 20 MMOL/L (21-32) L Anion Gap 14 mmol/L (5-15) Blood Urea Nitrogen 65 mg/dL (7-18) H Creatinine 3.2 MG/DL (0.55-1.30) H Estimat Glomerular Filtration Rate 19.6 mL/min (>60) Glucose Level 170 MG/DL (74-106) H Calcium Level 8.2 MG/DL (8.5-10.1) L Total Bilirubin 1.0 MG/DL (0.2-1.0) Aspartate Amino Transf (AST/SGOT) 229 U/L (15-37) H Alanine Aminotransferase (ALT/SGPT) 354 U/L (12-78) H Alkaline Phosphatase 171 U/L (46-116) H Total Protein 5.7 G/DL (6.4-8.2) L Albumin 2.2 G/DL (3.4-5.0) L Globulin 3.5 g/dL Albumin/Globulin Ratio 0.6 (1.0-2.7) L Hepatitis A Antibody Total Pending Hepatitis B Surface Antibody Pending Hepatitis B Core Total Antibody Pending HIV (1&2) Antibody Rapid Negative (NEGATIVE) Intake and Output 02/13/18 02/14/18 19:00 07:00 Intake Total 445.704 ml 693.239 ml Output Total 500 ml 300 ml Balance -54.296 ml 393.239 ml Intake Oral 250 ml 240 ml IV Total 195.704 ml 453.239 ml Output Urine Total 350 ml 300 ml Stool Total 150 ml Objective Objective GENERAL: awake, more responsive, NAD HEAD: Pupils are equal and reactive to light. Extraocular movements intact. NECK: Supple. No JVD. LUNGS: Poor air entry. + Expiratory wheezing, No rales. fair inspiratory effort. HEART: S1, S2. Distant heart sounds. No murmur. ABDOMEN: Soft, nondistended, and nontender. Positive bowel sounds. EXTREMITIES: No cyanosis, clubbing. More Edema on the left lower extremity. 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 Piccline on Left UE's. NEUROLOGIC: Cranial nerves II through XII are grossly intact. The patient is moving all the extremities. Assessment/Plan Assessment/Plan Assessment/Plan Assessment/Plan 1. Acute myocardial infarction with non-ST elevation myocardial , New Left BBB 2. DKA with Diabetic type 2, uncontrolled. 3. Metabolic Acidosis 4. Dementia. 5. Hypernatremia. 6. Hyperkalemia. 7. Dehydration. 8. Right AKA with peripheral vascular disease. 9. History of dementia. 10. Atherosclerotic heart disease with ischemic cardiomyopathy. 11. Acute kidney injury. 12. Peripheral vascular disease. 13. Hypothyroidism. 14. PCN allergy. 15. Liver shock. 16. Right-sided pleural effusion. 17. New onset atrial fibrillation-See cardiology note. PLAN: In GAVIN. Monitor laboratory and cultures. on heparin drip, IV hydration, Dr. Saab, Pulmonary, Critical Care. Dr. Jones, Cardiology consultation Dr. Jessica, Nephrology Consult. Code Status: Full Code as per POL Broad-spectrum antibiotic: Levaquin and Aztreonam consider thoracocentesis. Paras Aguirre MD February 14, 2018 19:56
[2018-02-14 20:00] VITALS: BP 103/56
[2018-02-14] MEDS ORDERED: LORazepam 1mg tab ORAL PRN (20:00)
--- NOTE | 2018-02-14 20:15 | Cardiology Progress Note ---
Assessment/Plan Assessment/Plan 1. Acute myocardial infarction with subacute presentation. 2. History of coronary artery disease. 3. Known cardiomyopathy ef previosuly 25% . 4. Pulmonary hypertension. 5. Metabolic encephalopathy. 6. Peripheral vascular disease status post amputation 7. hypotension improved 8. chf 9. Acute on chronic renal fialrue 10. New LBBB resolved 11. afib new onset 02/09/2018 bp acceptable s/p thoracentesis 400 cc removed earlier last week on antiplat and statin on coreg prognosis is guarded cr worsening continue supportive care trop trending down tel reviewed remain afib swtich to couamdin iv heparin for nwo stroke prevention may need cardioversion if converts spont would consider starting on amiod to prevent recurrence, my hope he will spont convert if bp improves need to consider isordil hydralazine combination as cannot take acie with renal insuf cannot used acei in light of renal insuf has a rectal tube d/w dr goff no need for dailysis Subjective Cardiovascular: Denies: chest pain Respiratory: Reports: shortness of breath Gastrointestinal/Abdominal: Denies: black stools Subjective [facility] to [facility] all over Objective Last 24 Hour Vital Signs Date Time Temp Pulse Resp B/P (MAP) Pulse Ox O2 Delivery O2 Flow Rate FiO2 02/14/18 16:00 97.5 72 24 103/59 100 Nasal Cannula 2.0 97.5 02/14/18 16:00 66 02/14/18 12:00 63 02/14/18 12:00 97.7 60 20 101/56 100 Nasal Cannula 2.0 97.7 02/14/18 08:34 Nasal Cannula 2.0 28 02/14/18 08:33 97 Nasal Cannula 2.0 28 02/14/18 08:33 68 18 Nasal Cannula 2.0 28 02/14/18 08:21 66 98/50 02/14/18 08:00 70 02/14/18 08:00 98.0 73 20 91/55 100 Nasal Cannula 3.0 98.0 02/14/18 05:11 61 02/14/18 04:00 97.9 63 16 108/61 100 Nasal Cannula 3.0 97.9 02/14/18 00:00 98.7 64 20 100/57 100 Nasal Cannula 3.0 98.7 02/13/18 23:59 66 02/13/18 21:00 59 100/57 02/13/18 20:52 75 20 99 Nasal Cannula 2.0 28 02/13/18 20:43 79 20 Nasal Cannula 2.0 28 02/13/18 20:42 Nasal Cannula 2.0 28 02/13/18 20:42 100 Nasal Cannula 2.0 28 02/13/18 20:42 99 28 100 Nasal Cannula 2.0 28 General Appearance: no apparent distress, alert Neck: supple Cardiovascular: irregularly irregular Respiratory/Chest: lungs clear Abdomen: normal bowel sounds, non tender, soft Extremities: moderate edema Intake and Output 02/13/18 02/14/18 19:00 07:00 Intake Total 445.704 ml 693.239 ml Output Total 500 ml 300 ml Balance -54.296 ml 393.239 ml Intake Oral 250 ml 240 ml IV Total 195.704 ml 453.239 ml Output Urine Total 350 ml 300 ml Stool Total 150 ml Laboratory Tests Test 02/14/18 00:15 02/14/18 03:45 02/14/18 09:27 02/14/18 14:55 Activated Partial Thromboplast Time 73 SEC (23-33) H 54 SEC (23-33) H 116 SEC (23-33) H White Blood Count 13.1 K/UL (4.8-10.8) H Red Blood Count 3.16 M/UL (4.70-6.10) L Hemoglobin 8.7 G/DL (14.2-18.0) L Hematocrit 26.4 % (42.0-52.0) L Mean Corpuscular Volume 84 FL (80-99) Mean Corpuscular Hemoglobin 27.6 PG (27.0-31.0) Mean Corpuscular Hemoglobin Concent 33.1 G/DL (32.0-36.0) Red Cell Distribution Width 13.9 % (11.6-14.8) Platelet Count 130 K/UL (150-450) L Mean Platelet Volume 10.7 FL (6.5-10.1) H Neutrophils (%) (Auto) 62.9 % (45.0-75.0) Lymphocytes (%) (Auto) 14.4 % (20.0-45.0) L Monocytes (%) (Auto) 19.9 % (1.0-10.0) H Eosinophils (%) (Auto) 1.6 % (0.0-3.0) Basophils (%) (Auto) 1.1 % (0.0-2.0) Prothrombin Time 14.5 SEC (9.30-11.50) H Prothromb Time International Ratio 1.4 (0.9-1.1) H Sodium Level 131 MMOL/L (136-145) L Potassium Level 4.4 MMOL/L (3.5-5.1) Chloride Level 97 MMOL/L (98-107) L Carbon Dioxide Level 20 MMOL/L (21-32) L Anion Gap 14 mmol/L (5-15) Blood Urea Nitrogen 65 mg/dL (7-18) H Creatinine 3.2 MG/DL (0.55-1.30) H Estimat Glomerular Filtration Rate 19.6 mL/min (>60) Glucose Level 170 MG/DL (74-106) H Calcium Level 8.2 MG/DL (8.5-10.1) L Total Bilirubin 1.0 MG/DL (0.2-1.0) Aspartate Amino Transf (AST/SGOT) 229 U/L (15-37) H Alanine Aminotransferase (ALT/SGPT) 354 U/L (12-78) H Alkaline Phosphatase 171 U/L (46-116) H Total Protein 5.7 G/DL (6.4-8.2) L Albumin 2.2 G/DL (3.4-5.0) L Globulin 3.5 g/dL Albumin/Globulin Ratio 0.6 (1.0-2.7) L Hepatitis A Antibody Total Pending Hepatitis B Surface Antibody Pending Hepatitis B Core Total Antibody Pending HIV (1&2) Antibody Rapid Negative (NEGATIVE) Darnell Belcher MD February 14, 2018 20:15
[2018-02-14] MEDS: Dyna-Hex 2% Top Sol 2oz TOPIC SCH (21:00)
[2018-02-15] VITALS: BP 112/55
[2018-02-15 03:33] LABS: BASOPHILS % (AUTO) 0.8 % (0.0-2.0); EOSINOPHILS % (AUTO) 0.5 % (0.0-3.0); HEMATOCRIT 29.2 % (42.0-52.0); HEMOGLOBIN 9.7 G/DL (14.2-18.0); LYMPHOCYTES % (AUTO) 15.2 % (20.0-45.0); MEAN CORPUSCULAR VOLUME 83 FL (80-99); MONOCYTES % (AUTO) 17.7 % (1.0-10.0); NEUTROPHILS % (AUTO) 65.7 % (45.0-75.0); PLATELET COUNT 130 K/UL (150-450); RED BLOOD COUNT 3.51 M/UL (4.70-6.10); RED CELL DISTRIBUTION WIDTH 14.1 % (11.6-14.8); WHITE BLOOD COUNT 11.9 K/UL (4.8-10.8)
[2018-02-15 03:38] LABS: INR 1.6 (0.9-1.1)
[2018-02-15 03:42] LABS: ANION GAP 13 mmol/L (5-15); BLOOD UREA NITROGEN 68 mg/dL (7-18); CARBON DIOXIDE 22 MMOL/L (21-32); CHLORIDE 98 MMOL/L (98-107); POTASSIUM 4.6 MMOL/L (3.5-5.1); SODIUM 132 MMOL/L (136-145)
[2018-02-15 04:00] VITALS: BP 115/61
[2018-02-15 04:00] LABS: CALCIUM 8.7 MG/DL (8.5-10.1)
[2018-02-15 04:03] LABS: CREATININE 3.3 MG/DL (0.55-1.30)
[2018-02-15] MEDS ORDERED: Heparin 5000 units/ml inj IV ONE (04:15)
[2018-02-15] MEDS: Heparin 25,000u/D5W 500ml 500 ML IV SCH ×2 (04:25→04:32)
[2018-02-15] MEDS: Aztreonam Inj 0.5 GM in D5W 55 ML IVPB SCH ×3 (06:09→22:24)
[2018-02-15] MEDS: NovoLOG Insulin Flexpen SUBQ SCH ×7 (06:11→21:00)
[2018-02-15] MEDS: Morphine Sulfate 4mg/ml Inj IVP PRN (07:30)
[2018-02-15 08:00] VITALS: BP 102/60
[2018-02-15] MEDS: Aluminum Hydroxide Gel Susp 15ml ORAL SCH ×3 (08:49→17:18)
[2018-02-15] MEDS: Levemir Flexpen SUBQ SCH ×2 (08:51→21:00)
--- NOTE | 2018-02-15 10:56 | Nephrology Progress Note ---
Assessment/Plan Problem List: (1) Acute on chronic renal failure (2) Diabetic keto-acidosis (3) Peripheral vascular disease (4) Cardiomyopathy (5) Sepsis (6) Elevated liver enzymes Assessment Acute renal failure- Dehydration serum Cr lower today ? CKD DM and Nephropathy Cardiomyopathy with low EjFx DKA ME Dementia HypoThyroidism PVD Rt AKA Plan DC KCL stop statins in view of high lfts stop IV add coreg [place] Kidney KP Negative for hydronephrosis Urine studies 2D Echo 20% EjFx ABG K supplement as needed may require HD Subjective ROS Limited/Unobtainable: No Constitutional: Reports: malaise Objective Objective Last 24 Hour Vital Signs Date Time Temp Pulse Resp B/P (MAP) Pulse Ox O2 Delivery O2 Flow Rate FiO2 02/15/18 08:49 75 102/60 02/15/18 08:00 98.3 76 20 102/60 99 Nasal Cannula 2.0 98.3 02/15/18 08:00 98.3 02/15/18 08:00 84 02/15/18 07:30 98.3 02/15/18 04:00 98.3 89 29 115/61 100 Nasal Cannula 2.0 98.3 02/15/18 03:42 77 02/15/18 00:16 70 02/15/18 00:00 98.0 62 24 112/55 99 Nasal Cannula 2.0 98.0 02/14/18 21:00 64 103/56 02/14/18 20:00 98 Nasal Cannula 2.0 28 02/14/18 20:00 98.4 64 25 103/56 99 Nasal Cannula 2.0 98.4 02/14/18 20:00 Nasal Cannula 2.0 28 02/14/18 19:30 70 16 Nasal Cannula 2.0 28 02/14/18 19:18 69 02/14/18 16:00 97.5 72 24 103/59 100 Nasal Cannula 2.0 97.5 02/14/18 16:00 66 02/14/18 12:00 63 02/14/18 12:00 97.7 60 20 101/56 100 Nasal Cannula 2.0 97.7 Intake and Output 02/14/18 02/15/18 19:00 07:00 Intake Total 320.740 ml 267.58 ml Output Total 400 ml 400 ml Balance -79.260 ml -132.42 ml Intake Oral 60 ml 100 ml IV Total 260.740 ml 167.58 ml Output Urine Total 400 ml 400 ml Stool Total 0 ml 0 ml Laboratory Tests 02/14/18 14:55: Activated Partial Thromboplast Time 116H 02/15/18 03:15: Activated Partial Thromboplast Time 59H, White Blood Count 11.9H, Red Blood Count 3.51L, Hemoglobin 9.7L, Hematocrit 29.2L, Mean Corpuscular Volume 83, Mean Corpuscular Hemoglobin 27.5, Mean Corpuscular Hemoglobin Concent 33.1, Red Cell Distribution Width 14.1, Platelet Count 130L, Mean Platelet Volume 9.9, Neutrophils (%) (Auto) 65.7, Lymphocytes (%) (Auto) 15.2L, Monocytes (%) (Auto) 17.7H, Eosinophils (%) (Auto) 0.5, Basophils (%) (Auto) 0.8, Prothrombin Time 16.5H, Prothromb Time International Ratio 1.6H, Sodium Level 132L, Potassium Level 4.6, Chloride Level 98, Carbon Dioxide Level 22, Anion Gap 13, Blood Urea Nitrogen 68H, Creatinine 3.3H, Estimat Glomerular Filtration Rate 18.9, Glucose Level 138H, Calcium Level 8.7 Height (Feet): 5 Height (Inches): 7.00 Weight (Pounds): 197 General Appearance: no apparent distress Respiratory/Chest: decreased breath sounds Abdomen: soft Objective no other changes LAKESHA BAR February 15, 2018 10:56
[2018-02-15] MEDS ORDERED: traMADol 50mg tab ORAL PRN (11:00)
--- NOTE | 2018-02-15 11:32 | Pulmonology Progress Note ---
Assessment/Plan Problems: (1) Atrial fibrillation (2) ATN (acute tubular necrosis) (3) NSTEMI (non-ST elevated myocardial infarction) (4) Cardiomyopathy (5) Hx of right BKA (6) Major depression (7) Sacral decubitus ulcer, stage II (8) EF 15% Assessment/Plan renal function worsening on Heparin drip check INR finishing abx check electrolytes family meeting to discuss goal of care End stage heart disease, bed bound, heading towards [facility] dialysis. Other option would be comfort care and end of life care Subjective ROS Limited/Unobtainable: No Constitutional: Reports: no symptoms HEENT: Repors: no symptoms Respiratory: Reports: no symptoms Allergies: Coded Allergies: PENICILLINS (Verified Allergy, Unknown, 04/16/17) Objective Last 24 Hour Vital Signs Date Time Temp Pulse Resp B/P (MAP) Pulse Ox O2 Delivery O2 Flow Rate FiO2 02/15/18 08:49 75 102/60 02/15/18 08:00 98.3 76 20 102/60 99 Nasal Cannula 2.0 98.3 02/15/18 08:00 98.3 02/15/18 08:00 84 02/15/18 07:30 98.3 02/15/18 04:00 98.3 89 29 115/61 100 Nasal Cannula 2.0 98.3 02/15/18 03:42 77 02/15/18 00:16 70 02/15/18 00:00 98.0 62 24 112/55 99 Nasal Cannula 2.0 98.0 02/14/18 21:00 64 103/56 02/14/18 20:00 98 Nasal Cannula 2.0 28 02/14/18 20:00 98.4 64 25 103/56 99 Nasal Cannula 2.0 98.4 02/14/18 20:00 Nasal Cannula 2.0 28 02/14/18 19:30 70 16 Nasal Cannula 2.0 28 02/14/18 19:18 69 02/14/18 16:00 97.5 72 24 103/59 100 Nasal Cannula 2.0 97.5 02/14/18 16:00 66 02/14/18 12:00 63 02/14/18 12:00 97.7 60 20 101/56 100 Nasal Cannula 2.0 97.7 Intake and Output 02/14/18 02/15/18 19:00 07:00 Intake Total 320.740 ml 267.58 ml Output Total 400 ml 400 ml Balance -79.260 ml -132.42 ml Intake Oral 60 ml 100 ml IV Total 260.740 ml 167.58 ml Output Urine Total 400 ml 400 ml Stool Total 0 ml 0 ml General Appearance: WD/WN HEENT: normocephalic, atraumatic Respiratory/Chest: chest wall non-tender, lungs clear Cardiovascular: normal peripheral pulses, normal rate Abdomen: normal bowel sounds, soft, non tender Genitourinary: normal external genitalia Extremities: no clubbing Skin: no ulcers Neurologic/Psychiatric: no motor/sensory deficits, oriented x 3 Lymphatic: no neck adenopathy Laboratory Tests 02/14/18 14:55: Activated Partial Thromboplast Time 116H 02/15/18 03:15: Activated Partial Thromboplast Time 59H, White Blood Count 11.9H, Red Blood Count 3.51L, Hemoglobin 9.7L, Hematocrit 29.2L, Mean Corpuscular Volume 83, Mean Corpuscular Hemoglobin 27.5, Mean Corpuscular Hemoglobin Concent 33.1, Red Cell Distribution Width 14.1, Platelet Count 130L, Mean Platelet Volume 9.9, Neutrophils (%) (Auto) 65.7, Lymphocytes (%) (Auto) 15.2L, Monocytes (%) (Auto) 17.7H, Eosinophils (%) (Auto) 0.5, Basophils (%) (Auto) 0.8, Prothrombin Time 16.5H, Prothromb Time International Ratio 1.6H, Sodium Level 132L, Potassium Level 4.6, Chloride Level 98, Carbon Dioxide Level 22, Anion Gap 13, Blood Urea Nitrogen 68H, Creatinine 3.3H, Estimat Glomerular Filtration Rate 18.9, Glucose Level 138H, Calcium Level 8.7 Current Medications Medications (Trade) Dose Ordered Sig/Eliel Route PRN Reason Start Time Stop Time Status Last Admin Dose Admin Acetaminophen (Tylenol) 650 mg Q4H PRN ORAL T>100.5 02/12/18 15:04 03/08/18 15:03 Aluminum Hydroxide (Amphojel) 1,920 mg TID ORAL 02/12/18 18:00 03/10/18 17:59 02/15/18 08:49 Aspirin (ASA) 325 mg DAILY ORAL 5/22/18 09:00 03/09/18 21:59 02/15/18 08:49 Aztreonam 0.5 gm/ Dextrose 55 ml @ 110 mls/hr Q8HR IVPB 02/12/18 22:00 02/18/18 23:59 02/15/18 06:09 Carvedilol (Coreg) 3.125 mg EVERY 12 HOURS ORAL 02/13/18 21:00 03/15/18 20:59 Chlorhexidine Gluconate (Laura-Hex 2%) 1 applic DAILY@2000 TOPIC 02/12/18 20:00 03/09/18 19:59 02/14/18 21:00 Clonidine HCl (Catapres Tab) 0.1 mg Q8H PRN ORAL SBP > 160mmHg 02/12/18 15:04 03/08/18 15:03 Dextrose (Dextrose 50%) 25 ml STAT PRN IV Hypoglycemia 02/12/18 15:04 03/14/18 15:03 02/13/18 21:30 Dextrose (Dextrose 50%) 50 ml STAT PRN IV Hypoglycemia 02/12/18 15:04 03/14/18 15:03 Heparin Sodium/ Dextrose 500 ml @ 22.29 mls/ hr adjust per protocol IV 02/15/18 04:15 03/16/18 16:39 02/15/18 04:32 Insulin Aspart (NovoLOG) BEFORE MEALS AND HS SUBQ 02/12/18 16:30 03/13/18 11:29 02/15/18 06:11 Insulin Aspart (NovoLOG) 4 units NOVOTIAC SUBQ 02/12/18 16:50 03/13/18 08:29 02/15/18 06:12 Insulin Detemir (Levemir) 4 units Q12HR SUBQ 02/14/18 09:00 03/13/18 08:29 02/15/18 08:51 Lorazepam (Ativan) 2 mg Q6H PRN ORAL For Anxiety 02/14/18 20:00 02/21/18 19:59 Metoclopramide HCl (Reglan) 5 mg THREE TIMES A DAY ORAL 02/12/18 18:00 03/10/18 12:59 02/15/18 08:49 Mirtazapine (Remeron) 15 mg BEDTIME ORAL 02/14/18 21:00 03/16/18 20:59 02/14/18 21:58 Nitroglycerin (Ntg) 0.4 mg Q5MIN X 3 DOSES PRN SL Prn Chest Pain 02/12/18 15:00 03/08/18 18:44 Pantoprazole (Protonix) 40 mg EVERY 12 HOURS ORAL 02/12/18 21:00 03/10/18 20:59 02/15/18 08:49 Tramadol HCl (Ultram) 25 mg Q6H PRN ORAL pain 6 and above 02/15/18 11:00 02/22/18 10:59 Warfarin Sodium (Coumadin per pharmacy) 1 ea DAILY PRN MISC Per rx protocol 02/13/18 17:00 03/15/18 16:59 Warfarin Sodium (Coumadin) 5 mg COUMADIN ONCE ORAL 02/15/18 17:00 02/15/18 17:01 Walker Saab MD February 15, 2018 11:32
[2018-02-15] MEDS ORDERED: HEPATITIS A VACCINE IM ONE (11:45)
--- NOTE | 2018-02-15 11:48 | Infectious Diseases Prog Note ---
Assessment/Plan Assessment/Plan ASSESSMENT: The patient is a 67-year-old male with, Bronchitis, Possible Pneumonia vs CHF Pleural effusion 02/13 CXR: CHF appears stable. Suspect right pleural effusion 02/11 CXR: Findings suggesting small layering right pleural effusion, new compared to the prior chest x-ray. Diffuse increased interstitial markings may be related to mild pulmonary vascular congestion versus a mild interstitial pneumonitis. Worsened compared to the prior chest x-ray. Subsegmental atelectasis versus infiltrate in the right lung base and right perihilar region. Worsened compared to the prior chest x-ray. 02/09 CXR: Left basilar atelectasis and patchy consolidative changes are stable. 02/09 Successful ultrasound-guided thoracentesis, yielding 400 milliliters of fluid (Cytology sent but no other labs sent ) MRSA colonization -sp cx ordered, never collected +ve blood cX : 09/28 CoNS ( m/l contaminant ) -repeat Bcx Neg Fever, SP Leukocytosis, improving Transaminitis AST> ALT (probably due to right-sided heart failure, shock liver, Hep C contributing.; now improving Hepatitis C Ab +, VL pending -HIV ag/ab neg -Hep A and B not immune Possible UTI / cystitis. UCx : gurwinder ( Colonizer ) XAVIER /CKD CAD/myocardial infarction. Hypertension. Diabetes. Anemia. Hyperlipidemia. Peripheral vascular disease. Anxiety. Degenerative joint disease. Hyperthyroidism. Dilated cardiomyopathy. GERD. Dementia PLAN: continue the patient on aztreonam day # 9/ 10 for possible PNA 02/13 SP Levaquin #7 02/09 SP IV Vanco day # 2 Monitor CBC/CMP Monitor cultures (blood sputum). Monitor chest x-ray. f/u Hep C PCR aspiration precautions Hep A vaccine 1st today today; 2nd dose in 6 months Needs Hep B vaccine as outpatient Subjective Allergies: Coded Allergies: PENICILLINS (Verified Allergy, Unknown, 04/16/17) Subjective afebrile leukocytosis improving at 2L NC LFTs improving; no LFTs today Objective Vital Signs Last 24 Hour Vital Signs Date Time Temp Pulse Resp B/P (MAP) Pulse Ox O2 Delivery O2 Flow Rate FiO2 02/15/18 08:49 75 102/60 02/15/18 08:00 98.3 76 20 102/60 99 Nasal Cannula 2.0 98.3 02/15/18 08:00 98.3 02/15/18 08:00 84 02/15/18 07:30 98.3 02/15/18 04:00 98.3 89 29 115/61 100 Nasal Cannula 2.0 98.3 02/15/18 03:42 77 02/15/18 00:16 70 02/15/18 00:00 98.0 62 24 112/55 99 Nasal Cannula 2.0 98.0 02/14/18 21:00 64 103/56 02/14/18 20:00 98 Nasal Cannula 2.0 28 02/14/18 20:00 98.4 64 25 103/56 99 Nasal Cannula 2.0 98.4 02/14/18 20:00 Nasal Cannula 2.0 28 02/14/18 19:30 70 16 Nasal Cannula 2.0 28 02/14/18 19:18 69 02/14/18 16:00 97.5 72 24 103/59 100 Nasal Cannula 2.0 97.5 02/14/18 16:00 66 02/14/18 12:00 63 02/14/18 12:00 97.7 60 20 101/56 100 Nasal Cannula 2.0 97.7 Height (Feet): 5 Height (Inches): 7.00 Weight (Pounds): 197 Objective GENERAL: awake, more responsive, NAD HEAD: Pupils are equal and reactive to light. Extraocular movements intact. NECK: Supple. No JVD. LUNGS: Poor air entry. + Expiratory wheezing, No rales. fair inspiratory effort. HEART: S1, S2. Distant heart sounds. No murmur. ABDOMEN: Soft, nondistended, and nontender. Positive bowel sounds. EXTREMITIES: No cyanosis, clubbing. More Edema on the left lower extremity. 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 Piccline on Left UE's. Laboratory Tests Test 02/14/18 14:55 02/15/18 03:15 Activated Partial Thromboplast Time 116 SEC (23-33) H 59 SEC (23-33) H White Blood Count 11.9 K/UL (4.8-10.8) H Red Blood Count 3.51 M/UL (4.70-6.10) L Hemoglobin 9.7 G/DL (14.2-18.0) L Hematocrit 29.2 % (42.0-52.0) L Mean Corpuscular Volume 83 FL (80-99) Mean Corpuscular Hemoglobin 27.5 PG (27.0-31.0) Mean Corpuscular Hemoglobin Concent 33.1 G/DL (32.0-36.0) Red Cell Distribution Width 14.1 % (11.6-14.8) Platelet Count 130 K/UL (150-450) L Mean Platelet Volume 9.9 FL (6.5-10.1) Neutrophils (%) (Auto) 65.7 % (45.0-75.0) Lymphocytes (%) (Auto) 15.2 % (20.0-45.0) L Monocytes (%) (Auto) 17.7 % (1.0-10.0) H Eosinophils (%) (Auto) 0.5 % (0.0-3.0) Basophils (%) (Auto) 0.8 % (0.0-2.0) Prothrombin Time 16.5 SEC (9.30-11.50) H Prothromb Time International Ratio 1.6 (0.9-1.1) H Sodium Level 132 MMOL/L (136-145) L Potassium Level 4.6 MMOL/L (3.5-5.1) Chloride Level 98 MMOL/L (98-107) Carbon Dioxide Level 22 MMOL/L (21-32) Anion Gap 13 mmol/L (5-15) Blood Urea Nitrogen 68 mg/dL (7-18) H Creatinine 3.3 MG/DL (0.55-1.30) H Estimat Glomerular Filtration Rate 18.9 mL/min (>60) Glucose Level 138 MG/DL (74-106) H Calcium Level 8.7 MG/DL (8.5-10.1) Current Medications Medications (Trade) Dose Ordered Sig/Eliel Route PRN Reason Start Time Stop Time Status Last Admin Dose Admin Acetaminophen (Tylenol) 650 mg Q4H PRN ORAL T>100.5 02/12/18 15:04 03/08/18 15:03 Aluminum Hydroxide (Amphojel) 1,920 mg TID ORAL 02/12/18 18:00 03/10/18 17:59 02/15/18 08:49 Aspirin (ASA) 325 mg DAILY ORAL 02/13/18 09:00 03/09/18 21:59 02/15/18 08:49 Aztreonam 0.5 gm/ Dextrose 55 ml @ 110 mls/hr Q8HR IVPB 02/12/18 22:00 02/18/18 23:59 02/15/18 06:09 Carvedilol (Coreg) 3.125 mg EVERY 12 HOURS ORAL 02/13/18 21:00 03/15/18 20:59 Chlorhexidine Gluconate (Laura-Hex 2%) 1 applic DAILY@2000 TOPIC 02/12/18 20:00 03/09/18 19:59 02/14/18 21:00 Clonidine HCl (Catapres Tab) 0.1 mg Q8H PRN ORAL SBP > 160mmHg 02/12/18 15:04 03/08/18 15:03 Dextrose (Dextrose 50%) 25 ml STAT PRN IV Hypoglycemia 02/12/18 15:04 03/14/18 15:03 02/13/18 21:30 Dextrose (Dextrose 50%) 50 ml STAT PRN IV Hypoglycemia 02/12/18 15:04 03/14/18 15:03 Heparin Sodium/ Dextrose 500 ml @ 22.29 mls/ hr adjust per protocol IV 02/15/18 04:15 03/16/18 16:39 02/15/18 04:32 Insulin Aspart (NovoLOG) BEFORE MEALS AND HS SUBQ 02/12/18 16:30 03/13/18 11:29 02/15/18 06:11 Insulin Aspart (NovoLOG) 4 units NOVOTIAC SUBQ 02/12/18 16:50 03/13/18 08:29 02/15/18 06:12 Insulin Detemir (Levemir) 4 units Q12HR SUBQ 02/14/18 09:00 03/13/18 08:29 02/15/18 08:51 Lorazepam (Ativan) 2 mg Q6H PRN ORAL For Anxiety 02/14/18 20:00 02/21/18 19:59 Metoclopramide HCl (Reglan) 5 mg THREE TIMES A DAY ORAL 02/12/18 18:00 03/10/18 12:59 02/15/18 08:49 Mirtazapine (Remeron) 15 mg BEDTIME ORAL 02/14/18 21:00 03/16/18 20:59 02/14/18 21:58 Nitroglycerin (Ntg) 0.4 mg Q5MIN X 3 DOSES PRN SL Prn Chest Pain 02/12/18 15:00 03/08/18 18:44 Pantoprazole (Protonix) 40 mg EVERY 12 HOURS ORAL 02/12/18 21:00 03/10/18 20:59 02/15/18 08:49 Tramadol HCl (Ultram) 25 mg Q6H PRN ORAL pain 6 and above 02/15/18 11:00 02/22/18 10:59 Warfarin Sodium (Coumadin per pharmacy) 1 ea DAILY PRN MISC Per rx protocol 02/13/18 17:00 03/15/18 16:59 Warfarin Sodium (Coumadin) 5 mg COUMADIN ONCE ORAL 02/15/18 17:00 02/15/18 17:01 Gloria Jay M.D. February 15, 2018 11:48
[2018-02-15 12:00] VITALS: BP 112/64
[2018-02-15] MEDS ORDERED: Amiodarone 200mg tab ORAL SCH (14:00)
--- NOTE | 2018-02-15 15:11 | Cardiology Progress Note ---
Assessment/Plan Assessment/Plan 1. Acute myocardial infarction with subacute presentation. 2. History of coronary artery disease. 3. Known cardiomyopathy ef previosuly 25% . 4. Pulmonary hypertension. 5. Metabolic encephalopathy. 6. Peripheral vascular disease status post amputation 7. hypotension improved 8. chf 9. Acute on chronic renal fialrue 10. New LBBB resolved 11. afib new onset 02/09/2018 converted to sinu 02/15/2018 bp ok s/p thoracentesis 400 cc removed earlier last week on antiplat and statin on coreg prognosis is guarded cr stable continue supportive care trop trending down tel reviewed now in sinus swtich to couamdin iv heparin for nwo stroke prevention may need cardioversion started on lwo dose amio as coverted to sinus spont if bp improves need to consider isordil hydralazine combination as cannot take acie with renal insuf has a rectal tube Subjective Cardiovascular: Denies: chest pain, lightheadedness, palpitations Gastrointestinal/Abdominal: Reports: diarrhea, nausea Genitourinary: Denies: burning Subjective wants to go back to rehab center Objective Last 24 Hour Vital Signs Date Time Temp Pulse Resp B/P (MAP) Pulse Ox O2 Delivery O2 Flow Rate FiO2 02/15/18 13:03 98.3 02/15/18 12:04 98.3 02/15/18 12:00 97.5 75 20 112/64 100 Nasal Cannula 2.0 97.5 02/15/18 12:00 59 02/15/18 08:49 75 102/60 02/15/18 08:00 98.3 76 20 102/60 99 Nasal Cannula 2.0 98.3 02/15/18 08:00 98.3 02/15/18 08:00 84 02/15/18 07:30 98.3 02/15/18 04:00 98.3 89 29 115/61 100 Nasal Cannula 2.0 98.3 02/15/18 03:42 77 02/15/18 00:16 70 02/15/18 00:00 98.0 62 24 112/55 99 Nasal Cannula 2.0 98.0 02/14/18 21:00 64 103/56 02/14/18 20:00 98 Nasal Cannula 2.0 28 02/14/18 20:00 98.4 64 25 103/56 99 Nasal Cannula 2.0 98.4 02/14/18 20:00 Nasal Cannula 2.0 28 02/14/18 19:30 70 16 Nasal Cannula 2.0 28 02/14/18 19:18 69 02/14/18 16:00 97.5 72 24 103/59 100 Nasal Cannula 2.0 97.5 02/14/18 16:00 66 General Appearance: alert Neck: supple Cardiovascular: normal rate, regular rhythm Respiratory/Chest: lungs clear, normal breath sounds Abdomen: normal bowel sounds, non tender, soft Extremities: no swelling Intake and Output 02/14/18 02/15/18 19:00 07:00 Intake Total 320.740 ml 267.58 ml Output Total 400 ml 400 ml Balance -79.260 ml -132.42 ml Intake Oral 60 ml 100 ml IV Total 260.740 ml 167.58 ml Output Urine Total 400 ml 400 ml Stool Total 0 ml 0 ml Laboratory Tests Test 02/15/18 03:15 White Blood Count 11.9 K/UL (4.8-10.8) H Red Blood Count 3.51 M/UL (4.70-6.10) L Hemoglobin 9.7 G/DL (14.2-18.0) L Hematocrit 29.2 % (42.0-52.0) L Mean Corpuscular Volume 83 FL (80-99) Mean Corpuscular Hemoglobin 27.5 PG (27.0-31.0) Mean Corpuscular Hemoglobin Concent 33.1 G/DL (32.0-36.0) Red Cell Distribution Width 14.1 % (11.6-14.8) Platelet Count 130 K/UL (150-450) L Mean Platelet Volume 9.9 FL (6.5-10.1) Neutrophils (%) (Auto) 65.7 % (45.0-75.0) Lymphocytes (%) (Auto) 15.2 % (20.0-45.0) L Monocytes (%) (Auto) 17.7 % (1.0-10.0) H Eosinophils (%) (Auto) 0.5 % (0.0-3.0) Basophils (%) (Auto) 0.8 % (0.0-2.0) Prothrombin Time 16.5 SEC (9.30-11.50) H Prothromb Time International Ratio 1.6 (0.9-1.1) H Activated Partial Thromboplast Time 59 SEC (23-33) H Sodium Level 132 MMOL/L (136-145) L Potassium Level 4.6 MMOL/L (3.5-5.1) Chloride Level 98 MMOL/L (98-107) Carbon Dioxide Level 22 MMOL/L (21-32) Anion Gap 13 mmol/L (5-15) Blood Urea Nitrogen 68 mg/dL (7-18) H Creatinine 3.3 MG/DL (0.55-1.30) H Estimat Glomerular Filtration Rate 18.9 mL/min (>60) Glucose Level 138 MG/DL (74-106) H Calcium Level 8.7 MG/DL (8.5-10.1) Darnell Belcher MD February 15, 2018 15:11
[2018-02-15 16:00] VITALS: BP 106/59
[2018-02-15] MEDS ORDERED: Warfarin Sodium 5mg ORAL SCH (17:00)
[2018-02-15] MEDS ORDERED: Warfarin Sodium 5mg ORAL ONE (17:00)
--- NOTE | 2018-02-15 18:19 | General Progress Note ---
Assessment/Plan Problem List: (1) Hypothyroidism ICD Codes: E03.9 - Hypothyroidism, unspecified SNOMED: 99442867 (2) Sacral decubitus ulcer, stage II ICD Codes: L89.152 - Pressure ulcer of sacral region, stage 2 SNOMED: 891106946, 954764794 (3) DKA, type 1 ICD Codes: E10.10 - Type 1 diabetes mellitus with ketoacidosis without coma SNOMED: 14750800, 594343159 (4) EF 15% (5) Elevated liver enzymes ICD Codes: R74.8 - Abnormal levels of other serum enzymes SNOMED: 407434350 (6) Acute on chronic renal failure ICD Codes: N17.9 - Acute kidney failure, unspecified; N18.9 - Chronic kidney disease, unspecified SNOMED: 601656382 (7) Cardiomyopathy ICD Codes: I42.9 - Cardiomyopathy, unspecified SNOMED: 59914944 Assessment/Plan continue Levemir 4 units bid continue Novolog 4 units ac tid continue NISS Subjective ROS Limited/Unobtainable: Yes Allergies: Coded Allergies: PENICILLINS (Verified Allergy, Unknown, 04/16/17) Subjective events noted - interval notes reviewed awake - restless Objective Last 24 Hour Vital Signs Date Time Temp Pulse Resp B/P (MAP) Pulse Ox O2 Delivery O2 Flow Rate FiO2 02/15/18 13:03 98.3 02/15/18 12:04 98.3 02/15/18 12:00 97.5 75 20 112/64 100 Nasal Cannula 2.0 97.5 02/15/18 12:00 59 02/15/18 08:49 75 102/60 02/15/18 08:00 98.3 76 20 102/60 99 Nasal Cannula 2.0 98.3 02/15/18 08:00 98.3 02/15/18 08:00 84 02/15/18 07:30 98.3 02/15/18 04:00 98.3 89 29 115/61 100 Nasal Cannula 2.0 98.3 02/15/18 03:42 77 02/15/18 00:16 70 02/15/18 00:00 98.0 62 24 112/55 99 Nasal Cannula 2.0 98.0 02/14/18 21:00 64 103/56 02/14/18 20:00 98 Nasal Cannula 2.0 28 02/14/18 20:00 98.4 64 25 103/56 99 Nasal Cannula 2.0 98.4 02/14/18 20:00 Nasal Cannula 2.0 28 02/14/18 19:30 70 16 Nasal Cannula 2.0 28 02/14/18 19:18 69 Intake and Output 02/14/18 02/15/18 19:00 07:00 Intake Total 320.740 ml 267.58 ml Output Total 400 ml 400 ml Balance -79.260 ml -132.42 ml Intake Oral 60 ml 100 ml IV Total 260.740 ml 167.58 ml Output Urine Total 400 ml 400 ml Stool Total 0 ml 0 ml Laboratory Tests 02/15/18 03:15: White Blood Count 11.9H, Red Blood Count 3.51L, Hemoglobin 9.7L, Hematocrit 29.2L, Mean Corpuscular Volume 83, Mean Corpuscular Hemoglobin 27.5, Mean Corpuscular Hemoglobin Concent 33.1, Red Cell Distribution Width 14.1, Platelet Count 130L, Mean Platelet Volume 9.9, Neutrophils (%) (Auto) 65.7, Lymphocytes ( %) (Auto) 15.2L, Monocytes (%) (Auto) 17.7H, Eosinophils (%) (Auto) 0.5, Basophils (%) (Auto) 0.8, Prothrombin Time 16.5H, Prothromb Time International Ratio 1.6H, Activated Partial Thromboplast Time 59H, Sodium Level 132L, Potassium Level 4.6, Chloride Level 98, Carbon Dioxide Level 22, Anion Gap 13, Blood Urea Nitrogen 68H, Creatinine 3.3H, Estimat Glomerular Filtration Rate 18.9, Glucose Level 138H, Calcium Level 8.7 02/15/18 16:40: Activated Partial Thromboplast Time 128H, C-Reactive Protein, Quantitative [ Pending] Height (Feet): 5 Height (Inches): 7.00 Weight (Pounds): 197 General Appearance: agitated Neck: normal alignment Cardiovascular: regular rhythm Respiratory/Chest: decreased breath sounds Abdomen: normal bowel sounds Edema: 1+ Arm (L), 1+ Arm (R), 1+ Leg (L), 1+ Leg (R), 1+ Pedal (L), 1+ Pedal ( R), 1+ Generalized Objective Current Medications Medications (Trade) Dose Ordered Sig/Eliel Route PRN Reason Start Time Stop Time Status Last Admin Dose Admin Acetaminophen (Tylenol) 650 mg Q4H PRN ORAL T>100.5 02/12/18 15:04 03/08/18 15:03 Aluminum Hydroxide (Amphojel) 1,920 mg TID ORAL 02/12/18 18:00 03/10/18 17:59 02/15/18 17:18 Amiodarone HCl (Cordarone) 200 mg DAILY ORAL 02/16/18 09:00 03/18/18 08:59 Aspirin (ASA) 325 mg DAILY ORAL 02/13/18 09:00 03/09/18 21:59 02/15/18 08:49 Aztreonam 0.5 gm/ Dextrose 55 ml @ 110 mls/hr Q8HR IVPB 02/12/18 22:00 02/18/18 23:59 02/15/18 14:38 Carvedilol (Coreg) 3.125 mg EVERY 12 HOURS ORAL 02/13/18 21:00 03/15/18 20:59 Chlorhexidine Gluconate (Laura-Hex 2%) 1 applic DAILY@2000 TOPIC 02/12/18 20:00 03/09/18 19:59 02/14/18 21:00 Clonidine HCl (Catapres Tab) 0.1 mg Q8H PRN ORAL SBP > 160mmHg 02/12/18 15:04 03/08/18 15:03 Dextrose (Dextrose 50%) 25 ml STAT PRN IV Hypoglycemia 02/12/18 15:04 03/14/18 15:03 02/13/18 21:30 Dextrose (Dextrose 50%) 50 ml STAT PRN IV Hypoglycemia 02/12/18 15:04 03/14/18 15:03 Heparin Sodium/ Dextrose 500 ml @ 17.146 mls/ hr adjust per protocol IV 02/15/18 19:30 03/17/18 19:29 Hepatitis A Vaccine Inactivated (Havrix) 1,440 units ONCE ONCE IM 02/15/18 11:45 02/15/18 11:46 UNV Insulin Aspart (NovoLOG) BEFORE MEALS AND HS SUBQ 02/12/18 16:30 03/13/18 11:29 02/15/18 17:20 Insulin Aspart (NovoLOG) 4 units NOVOTIAC SUBQ 02/12/18 16:50 03/13/18 08:29 02/15/18 17:21 Insulin Detemir (Levemir) 4 units Q12HR SUBQ 02/14/18 09:00 03/13/18 08:29 02/15/18 08:51 Lorazepam (Ativan) 2 mg Q6H PRN ORAL For Anxiety 02/14/18 20:00 02/21/18 19:59 Metoclopramide HCl (Reglan) 5 mg THREE TIMES A DAY ORAL 02/12/18 18:00 03/10/18 12:59 02/15/18 17:18 Mirtazapine (Remeron) 15 mg BEDTIME ORAL 02/14/18 21:00 03/16/18 20:59 02/14/18 21:58 Nitroglycerin (Ntg) 0.4 mg Q5MIN X 3 DOSES PRN SL Prn Chest Pain 02/12/18 15:00 03/08/18 18:44 Pantoprazole (Protonix) 40 mg EVERY 12 HOURS ORAL 02/12/18 21:00 03/10/18 20:59 02/15/18 08:49 Tramadol HCl (Ultram) 25 mg Q6H PRN ORAL pain 6 and above 02/15/18 11:00 02/22/18 10:59 02/15/18 12:04 Warfarin Sodium (Coumadin per pharmacy) 1 ea DAILY PRN MISC Per rx protocol 02/13/18 17:00 03/15/18 16:59 Warfarin Sodium (Coumadin) 5 mg COUMADIN ORAL 02/15/18 17:00 02/15/18 19:00 02/15/18 17:23 Item Value Date Time Bedside Blood Glucose 165 mg/dl H 02/15/18 1721 Bedside Blood Glucose 110 mg/dl 02/15/18 1121 Bedside Blood Glucose 136 mg/dl H 02/15/18 0851 Bedside Blood Glucose 192 mg/dl H 02/15/18 0612 Bedside Blood Glucose 123 mg/dl H 02/14/18 2202 CHIDI DANIELSON February 15, 2018 18:19
[2018-02-15] MEDS ORDERED: Heparin 25,000u/D5W 500ml 500 ML IV SCH (19:30)
--- NOTE | 2018-02-15 19:49 | Internal Med Progress Note ---
Subjective Date of Service: February 15, 2018 Physician Name Paras Aguirre Attending Physician Joni Robin MD Current Medications Medications (Trade) Dose Ordered Sig/Eliel Route PRN Reason Start Time Stop Time Status Last Admin Dose Admin Acetaminophen (Tylenol) 650 mg Q4H PRN ORAL T>100.5 02/12/18 15:04 03/08/18 15:03 Aluminum Hydroxide (Amphojel) 1,920 mg TID ORAL 02/12/18 18:00 03/10/18 17:59 02/15/18 17:18 Amiodarone HCl (Cordarone) 200 mg DAILY ORAL 02/16/18 09:00 03/18/18 08:59 Aspirin (ASA) 325 mg DAILY ORAL 02/13/18 09:00 03/09/18 21:59 02/15/18 08:49 Aztreonam 0.5 gm/ Dextrose 55 ml @ 110 mls/hr Q8HR IVPB 02/12/18 22:00 02/18/18 23:59 02/15/18 14:38 Carvedilol (Coreg) 3.125 mg EVERY 12 HOURS ORAL 02/13/18 21:00 03/15/18 20:59 Chlorhexidine Gluconate (Laura-Hex 2%) 1 applic DAILY@2000 TOPIC 02/12/18 20:00 03/09/18 19:59 02/14/18 21:00 Clonidine HCl (Catapres Tab) 0.1 mg Q8H PRN ORAL SBP > 160mmHg 02/12/18 15:04 03/08/18 15:03 Dextrose (Dextrose 50%) 25 ml STAT PRN IV Hypoglycemia 02/12/18 15:04 03/14/18 15:03 02/13/18 21:30 Dextrose (Dextrose 50%) 50 ml STAT PRN IV Hypoglycemia 02/12/18 15:04 03/14/18 15:03 Heparin Sodium/ Dextrose 500 ml @ 17.146 mls/ hr adjust per protocol IV 02/15/18 19:30 03/17/18 19:29 02/15/18 19:18 Hepatitis A Vaccine Inactivated (Havrix) 1,440 units ONCE ONCE IM 02/15/18 11:45 02/15/18 11:46 UNV Insulin Aspart (NovoLOG) BEFORE MEALS AND HS SUBQ 02/12/18 16:30 03/13/18 11:29 02/15/18 17:20 Insulin Aspart (NovoLOG) 4 units NOVOTIAC SUBQ 02/12/18 16:50 03/13/18 08:29 02/15/18 17:21 Insulin Detemir (Levemir) 4 units Q12HR SUBQ 02/14/18 09:00 03/13/18 08:29 02/15/18 08:51 Lorazepam (Ativan) 2 mg Q6H PRN ORAL For Anxiety 02/14/18 20:00 02/21/18 19:59 Metoclopramide HCl (Reglan) 5 mg THREE TIMES A DAY ORAL 02/12/18 18:00 03/10/18 12:59 02/15/18 17:18 Mirtazapine (Remeron) 15 mg BEDTIME ORAL 02/14/18 21:00 03/16/18 20:59 02/14/18 21:58 Nitroglycerin (Ntg) 0.4 mg Q5MIN X 3 DOSES PRN SL Prn Chest Pain 02/12/18 15:00 03/08/18 18:44 Pantoprazole (Protonix) 40 mg EVERY 12 HOURS ORAL 02/12/18 21:00 03/10/18 20:59 02/15/18 08:49 Tramadol HCl (Ultram) 25 mg Q6H PRN ORAL pain 6 and above 02/15/18 11:00 02/22/18 10:59 02/15/18 12:04 Warfarin Sodium (Coumadin per pharmacy) 1 ea DAILY PRN MISC Per rx protocol 02/13/18 17:00 03/15/18 16:59 Allergies: Coded Allergies: PENICILLINS (Verified Allergy, Unknown, 04/16/17) ROS Limited/Unobtainable: No Constitutional: Reports: no symptoms HEENT: Reports: no symptoms Cardiovascular: Reports: no symptoms Respiratory: Reports: no symptoms Gastrointestinal/Abdominal: Reports: no symptoms Genitourinary: Reports: no symptoms Neurologic/Psychiatric: Reports: no symptoms Subjective 67 YO M admitted with chest pain. Now STEMI and CHF. Cover for Int rubio-Dr Robin. GAVIN Objective Last Vital Signs Date Time Temp Pulse Resp B/P (MAP) Pulse Ox O2 Delivery O2 Flow Rate FiO2 02/15/18 16:00 69 02/15/18 16:00 96.3 24 106/59 95 Nasal Cannula 2.0 96.3 02/14/18 20:00 28 Laboratory Tests Test 02/15/18 03:15 02/15/18 16:40 White Blood Count 11.9 K/UL (4.8-10.8) H Red Blood Count 3.51 M/UL (4.70-6.10) L Hemoglobin 9.7 G/DL (14.2-18.0) L Hematocrit 29.2 % (42.0-52.0) L Mean Corpuscular Volume 83 FL (80-99) Mean Corpuscular Hemoglobin 27.5 PG (27.0-31.0) Mean Corpuscular Hemoglobin Concent 33.1 G/DL (32.0-36.0) Red Cell Distribution Width 14.1 % (11.6-14.8) Platelet Count 130 K/UL (150-450) L Mean Platelet Volume 9.9 FL (6.5-10.1) Neutrophils (%) (Auto) 65.7 % (45.0-75.0) Lymphocytes (%) (Auto) 15.2 % (20.0-45.0) L Monocytes (%) (Auto) 17.7 % (1.0-10.0) H Eosinophils (%) (Auto) 0.5 % (0.0-3.0) Basophils (%) (Auto) 0.8 % (0.0-2.0) Prothrombin Time 16.5 SEC (9.30-11.50) H Prothromb Time International Ratio 1.6 (0.9-1.1) H Activated Partial Thromboplast Time 59 SEC (23-33) H 128 SEC (23-33) H Sodium Level 132 MMOL/L (136-145) L Potassium Level 4.6 MMOL/L (3.5-5.1) Chloride Level 98 MMOL/L (98-107) Carbon Dioxide Level 22 MMOL/L (21-32) Anion Gap 13 mmol/L (5-15) Blood Urea Nitrogen 68 mg/dL (7-18) H Creatinine 3.3 MG/DL (0.55-1.30) H Estimat Glomerular Filtration Rate 18.9 mL/min (>60) Glucose Level 138 MG/DL (74-106) H Calcium Level 8.7 MG/DL (8.5-10.1) C-Reactive Protein, Quantitative 6.6 mg/dL (0.00-0.90) H Intake and Output 02/14/18 02/15/18 19:00 07:00 Intake Total 320.740 ml 267.58 ml Output Total 400 ml 400 ml Balance -79.260 ml -132.42 ml Intake Oral 60 ml 100 ml IV Total 260.740 ml 167.58 ml Output Urine Total 400 ml 400 ml Stool Total 0 ml 0 ml Objective Objective GENERAL: awake, more responsive, NAD HEAD: Pupils are equal and reactive to light. Extraocular movements intact. NECK: Supple. No JVD. LUNGS: Poor air entry. + Expiratory wheezing, No rales. fair inspiratory effort. HEART: S1, S2. Distant heart sounds. No murmur. ABDOMEN: Soft, nondistended, and nontender. Positive bowel sounds. EXTREMITIES: No cyanosis, clubbing. More Edema on the left lower extremity. 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 Piccline on Left UE's. NEUROLOGIC: Cranial nerves II through XII are grossly intact. The patient is moving all the extremities. Assessment/Plan Assessment/Plan Assessment/Plan Assessment/Plan 1. Acute myocardial infarction with non-ST elevation myocardial , New Left BBB 2. DKA with Diabetic type 2, uncontrolled. 3. Metabolic Acidosis 4. Dementia. 5. Hypernatremia. 6. Hyperkalemia. 7. Dehydration. 8. Right AKA with peripheral vascular disease. 9. History of dementia. 10. Atherosclerotic heart disease with ischemic cardiomyopathy. 11. Acute kidney injury. 12. Peripheral vascular disease. 13. Hypothyroidism. 14. PCN allergy. 15. Liver shock. 16. Right-sided pleural effusion. 17. New onset atrial fibrillation-See cardiology note. PLAN: In GAVIN. Monitor laboratory and cultures. on heparin drip, IV hydration, Dr. Saab, Pulmonary, Critical Care. Dr. Jones, Cardiology consultation Dr. Jessica, Nephrology Consult. Code Status: Full Code as per POLST Broad-spectrum antibiotic: Levaquin and Aztreonam consider thoracocentesis. Paras Aguirre MD February 15, 2018 19:49
[2018-02-15 20:00] VITALS: BP 119/68
[2018-02-15] MEDS: Dyna-Hex 2% Top Sol 2oz TOPIC SCH (21:55)
[2018-02-16] VITALS: BP 100/59
[2018-02-16] MEDS ORDERED: Heparin 25,000u/D5W 500ml 500 ML IV SCH ×2 (01:45→11:10)
[2018-02-16] MEDS ORDERED: Heparin 5000 units/ml inj IV SCH (01:45)
[2018-02-16 04:00] VITALS: BP 117/75
[2018-02-16 06:04] LABS: INR 2.1 (0.9-1.1)
[2018-02-16] MEDS: Aztreonam Inj 0.5 GM in D5W 55 ML IVPB SCH ×3 (06:05→21:21)
[2018-02-16 06:25] LABS: BASOPHILS % (AUTO) 0.6 % (0.0-2.0); EOSINOPHILS % (AUTO) 1.4 % (0.0-3.0); HEMATOCRIT 28.6 % (42.0-52.0); HEMOGLOBIN 9.1 G/DL (14.2-18.0); MEAN CORPUSCULAR VOLUME 84 FL (80-99); MONOCYTES % (AUTO) 14.7 % (1.0-10.0); NEUTROPHILS % (AUTO) 63.4 % (45.0-75.0); PLATELET COUNT 131 K/UL (150-450); RED BLOOD COUNT 3.42 M/UL (4.70-6.10); RED CELL DISTRIBUTION WIDTH 14.4 % (11.6-14.8); WHITE BLOOD COUNT 11.9 K/UL (4.8-10.8)
[2018-02-16] MEDS: NovoLOG Insulin Flexpen SUBQ SCH ×5 (06:29→21:00)
[2018-02-16 06:34] LABS: ALANINE AMINOTRANSFERASE 247 U/L (12-78); ALBUMIN 2.4 G/DL (3.4-5.0); ALBUMIN/GLOBULIN RATIO 0.6 (1.0-2.7); ALKALINE PHOSPHATASE 165 U/L (46-116); ANION GAP 14 mmol/L (5-15); ASPARTATE AMINO TRANSFERASE 94 U/L (15-37); BILIRUBIN,TOTAL 1.1 MG/DL (0.2-1.0); BLOOD UREA NITROGEN 68 mg/dL (7-18); CALCIUM 8.8 MG/DL (8.5-10.1); CARBON DIOXIDE 20 MMOL/L (21-32); CHLORIDE 99 MMOL/L (98-107); CREATININE 2.9 MG/DL (0.55-1.30); PHOSPHORUS 4.2 MG/DL (2.5-4.9); POTASSIUM 4.3 MMOL/L (3.5-5.1); SODIUM 133 MMOL/L (136-145)
--- NOTE | 2018-02-16 06:37 | General Progress Note ---
Assessment/Plan Problem List: (1) Hypothyroidism ICD Codes: E03.9 - Hypothyroidism, unspecified SNOMED: 70656689 (2) Sacral decubitus ulcer, stage II ICD Codes: L89.152 - Pressure ulcer of sacral region, stage 2 SNOMED: 406257795, 336372841 (3) DKA, type 1 ICD Codes: E10.10 - Type 1 diabetes mellitus with ketoacidosis without coma SNOMED: 96677080, 951978296 (4) EF 15% (5) Elevated liver enzymes ICD Codes: R74.8 - Abnormal levels of other serum enzymes SNOMED: 835664956 (6) Acute on chronic renal failure ICD Codes: N17.9 - Acute kidney failure, unspecified; N18.9 - Chronic kidney disease, unspecified SNOMED: 843275121 (7) Cardiomyopathy ICD Codes: I42.9 - Cardiomyopathy, unspecified SNOMED: 51834520 Assessment/Plan continue Levemir 4 units bid DC Novolog 4 units ac tid continue NISS Subjective ROS Limited/Unobtainable: Yes Allergies: Coded Allergies: PENICILLINS (Verified Allergy, Unknown, 04/16/17) Subjective events noted - interval notes reviewed hypoglycemia last night Objective Last 24 Hour Vital Signs Date Time Temp Pulse Resp B/P (MAP) Pulse Ox O2 Delivery O2 Flow Rate FiO2 02/16/18 04:00 97.4 70 15 117/75 100 Nasal Cannula 2.0 97.4 02/16/18 00:00 59 02/16/18 00:00 98.0 69 14 100/59 100 Nasal Cannula 2.0 98.0 02/15/18 21:56 64 119/68 02/15/18 21:04 Nasal Cannula 2.0 28 02/15/18 21:04 96 Nasal Cannula 2.0 28 02/15/18 20:00 98.2 64 14 119/68 96 Nasal Cannula 2.0 98.2 02/15/18 20:00 75 02/15/18 16:00 69 02/15/18 16:00 96.3 70 24 106/59 95 Nasal Cannula 2.0 96.3 02/15/18 13:03 98.3 02/15/18 12:04 98.3 02/15/18 12:00 97.5 75 20 112/64 100 Nasal Cannula 2.0 97.5 02/15/18 12:00 59 02/15/18 08:49 75 102/60 02/15/18 08:00 98.3 76 20 102/60 99 Nasal Cannula 2.0 98.3 02/15/18 08:00 98.3 02/15/18 08:00 84 02/15/18 07:30 98.3 Intake and Output 02/15/18 02/16/18 19:00 07:00 Intake Total 321.28 ml Output Total 350 ml Balance -28.72 ml Intake Oral 60 ml IV Total 261.28 ml Output Urine Total 350 ml Laboratory Tests 02/15/18 16:40: Activated Partial Thromboplast Time 128H, C-Reactive Protein, Quantitative 6.6H 02/16/18 00:40: Activated Partial Thromboplast Time 63H 02/16/18 04:15: White Blood Count 11.9H, Red Blood Count 3.42L, Hemoglobin 9.1L, Hematocrit 28.6L, Mean Corpuscular Volume 84, Mean Corpuscular Hemoglobin 26.6L, Mean Corpuscular Hemoglobin Concent 31.8L, Red Cell Distribution Width 14.4, Platelet Count 131L, Mean Platelet Volume 9.8, Neutrophils (%) (Auto) 63.4, Lymphocytes (%) (Auto) 20.0, Monocytes (%) (Auto) 14.7H, Eosinophils (%) (Auto) 1.4, Basophils (%) (Auto) 0.6, Prothrombin Time 22.1H, Prothromb Time International Ratio 2.1H, Sodium Level 133L, Potassium Level 4.3, Chloride Level 99, Carbon Dioxide Level 20L, Anion Gap 14, Blood Urea Nitrogen 68H, Creatinine 2.9H, Estimat Glomerular Filtration Rate 21.9, Glucose Level 90, Uric Acid 9.9H, Calcium Level 8.8, Phosphorus Level 4.2, Magnesium Level 1.9, Total Bilirubin 1.1H, Direct Bilirubin [Pending], Aspartate Amino Transf (AST/ SGOT) 94H, Alanine Aminotransferase (ALT/SGPT) 247H, Alkaline Phosphatase 165H, Pro-B-Type Natriuretic Peptide 63088K, Total Protein 6.3L, Albumin 2.4L, Globulin 3.9, Albumin/Globulin Ratio 0.6L Height (Feet): 5 Height (Inches): 7.00 Weight (Pounds): 197 General Appearance: no apparent distress Neck: normal alignment Cardiovascular: normal rate Respiratory/Chest: decreased breath sounds Abdomen: normal bowel sounds Edema: no edema noted Arm (L), no edema noted Arm (R), no edema noted Leg (L), no edema noted Leg (R), no edema noted Pedal (L), no edema noted Pedal (R), no edema noted Generalized Objective Current Medications Medications (Trade) Dose Ordered Sig/Eliel Route PRN Reason Start Time Stop Time Status Last Admin Dose Admin Acetaminophen (Tylenol) 650 mg Q4H PRN ORAL T>100.5 02/12/18 15:04 03/08/18 15:03 Aluminum Hydroxide (Amphojel) 1,920 mg TID ORAL 02/12/18 18:00 03/10/18 17:59 02/15/18 17:18 Amiodarone HCl (Cordarone) 200 mg DAILY ORAL 02/16/18 09:00 03/18/18 08:59 Aspirin (ASA) 325 mg DAILY ORAL 02/13/18 09:00 03/09/18 21:59 02/15/18 08:49 Aztreonam 0.5 gm/ Dextrose 55 ml @ 110 mls/hr Q8HR IVPB 02/12/18 22:00 02/18/18 23:59 02/16/18 06:05 Carvedilol (Coreg) 3.125 mg EVERY 12 HOURS ORAL 02/13/18 21:00 03/15/18 20:59 02/15/18 21:56 Chlorhexidine Gluconate (Laura-Hex 2%) 1 applic DAILY@2000 TOPIC 02/12/18 20:00 03/09/18 19:59 02/15/18 21:55 Clonidine HCl (Catapres Tab) 0.1 mg Q8H PRN ORAL SBP > 160mmHg 02/12/18 15:04 03/08/18 15:03 Dextrose (Dextrose 50%) 25 ml STAT PRN IV Hypoglycemia 02/12/18 15:04 03/14/18 15:03 02/13/18 21:30 Dextrose (Dextrose 50%) 50 ml STAT PRN IV Hypoglycemia 02/12/18 15:04 03/14/18 15:03 02/15/18 22:12 Heparin Sodium/ Dextrose 500 ml @ 20.575 mls/ hr adjust per protocol IV 02/16/18 01:45 03/17/18 19:29 02/16/18 02:23 Hepatitis A Vaccine Inactivated (Havrix) 1,440 units ONCE ONCE IM 02/15/18 11:45 02/15/18 11:46 UNV Insulin Aspart (NovoLOG) BEFORE MEALS AND HS SUBQ 02/12/18 16:30 03/13/18 11:29 02/16/18 06:29 Insulin Aspart (NovoLOG) 4 units NOVOTIAC SUBQ 02/12/18 16:50 03/13/18 08:29 02/16/18 06:34 Insulin Detemir (Levemir) 4 units Q12HR SUBQ 02/14/18 09:00 03/13/18 08:29 02/15/18 08:51 Lorazepam (Ativan) 2 mg Q6H PRN ORAL For Anxiety 02/14/18 20:00 02/21/18 19:59 Metoclopramide HCl (Reglan) 5 mg THREE TIMES A DAY ORAL 02/12/18 18:00 03/10/18 12:59 02/15/18 17:18 Mirtazapine (Remeron) 15 mg BEDTIME ORAL 02/14/18 21:00 03/16/18 20:59 02/15/18 21:55 Nitroglycerin (Ntg) 0.4 mg Q5MIN X 3 DOSES PRN SL Prn Chest Pain 02/12/18 15:00 03/08/18 18:44 Pantoprazole (Protonix) 40 mg EVERY 12 HOURS ORAL 02/12/18 21:00 03/10/18 20:59 02/15/18 21:55 Tramadol HCl (Ultram) 25 mg Q6H PRN ORAL pain 6 and above 02/15/18 11:00 02/22/18 10:59 02/15/18 12:04 Warfarin Sodium (Coumadin per pharmacy) 1 ea DAILY PRN MISC Per rx protocol 02/13/18 17:00 03/15/18 16:59 Item Value Date Time Bedside Blood Glucose 174 mg/dl H 02/16/18 0634 Bedside Blood Glucose 33 mg/dl L 02/15/18 2212 Bedside Blood Glucose 165 mg/dl H 02/15/18 1721 Bedside Blood Glucose 110 mg/dl 02/15/18 1121 Bedside Blood Glucose 136 mg/dl H 02/15/18 0851 Bedside Blood Glucose 192 mg/dl H 02/15/18 0612 CHIDI DANIELSON February 16, 2018 06:37
[2018-02-16 06:40] LABS: BILIRUBIN,DIRECT 0.5 MG/DL (0.0-0.3)
[2018-02-16 08:00] VITALS: BP 127/65
[2018-02-16] MEDS: Aluminum Hydroxide Gel Susp 15ml ORAL SCH ×3 (08:11→17:57)
[2018-02-16] MEDS: Levemir Flexpen SUBQ SCH ×2 (08:15→21:22)
[2018-02-16] MEDS ORDERED: Amiodarone 200mg tab ORAL SCH (09:00)
--- NOTE | 2018-02-16 10:44 | Infectious Diseases Prog Note ---
Assessment/Plan Assessment/Plan ASSESSMENT: The patient is a 67-year-old male with, Bronchitis, Possible Pneumonia vs CHF Pleural effusion 02/13 CXR: CHF appears stable. Suspect right pleural effusion 02/11 CXR: Findings suggesting small layering right pleural effusion, new compared to the prior chest x-ray. Diffuse increased interstitial markings may be related to mild pulmonary vascular congestion versus a mild interstitial pneumonitis. Worsened compared to the prior chest x-ray. Subsegmental atelectasis versus infiltrate in the right lung base and right perihilar region. Worsened compared to the prior chest x-ray. 02/09 CXR: Left basilar atelectasis and patchy consolidative changes are stable. 02/09 Successful ultrasound-guided thoracentesis, yielding 400 milliliters of fluid (Cytology sent but no other labs sent ) MRSA colonization -sp cx ordered, never collected +ve blood cX : 09/28 CoNS ( m/l contaminant ) -repeat Bcx Neg Fever, SP Leukocytosis, improving Transaminitis AST> ALT (probably due to right-sided heart failure, shock liver, Hep C contributing.; now improving Hepatitis C Ab +, VL pending -HIV ag/ab neg -Hep A and B not immune Possible UTI / cystitis. UCx : gurwinder ( Colonizer ) XAVIER /CKD CAD/myocardial infarction. Hypertension. Diabetes. Anemia. Hyperlipidemia. Peripheral vascular disease. Anxiety. Degenerative joint disease. Hyperthyroidism. Dilated cardiomyopathy. GERD. Dementia PLAN: continue the patient on aztreonam day # 10/ 10 for possible PNA 02/13 SP Levaquin #7 02/09 SP IV Vanco day # 2 Monitor CBC/CMP Monitor cultures (blood sputum). Monitor chest x-ray. f/u Hep C PCR aspiration precautions due for Hep A vaccine; will hold for now as patient on anticoagulant Needs Hep B vaccine as outpatient Subjective Allergies: Coded Allergies: PENICILLINS (Verified Allergy, Unknown, 04/16/17) Subjective afebrile leukocytosis stable at 11 at 2L NC LFTs improving Objective Vital Signs Last 24 Hour Vital Signs Date Time Temp Pulse Resp B/P (MAP) Pulse Ox O2 Delivery O2 Flow Rate FiO2 02/16/18 09:00 66 02/16/18 08:12 71 117/75 02/16/18 08:00 97.2 81 20 127/65 98 Nasal Cannula 2.0 97.2 02/16/18 04:00 97.4 70 15 117/75 100 Nasal Cannula 2.0 97.4 02/16/18 04:00 71 02/16/18 00:00 59 02/16/18 00:00 98.0 69 14 100/59 100 Nasal Cannula 2.0 98.0 02/15/18 21:56 64 119/68 02/15/18 21:04 Nasal Cannula 2.0 28 02/15/18 21:04 96 Nasal Cannula 2.0 28 02/15/18 20:00 98.2 64 14 119/68 96 Nasal Cannula 2.0 98.2 02/15/18 20:00 75 02/15/18 16:00 69 02/15/18 16:00 96.3 70 24 106/59 95 Nasal Cannula 2.0 96.3 02/15/18 13:03 98.3 02/15/18 12:04 98.3 02/15/18 12:00 97.5 75 20 112/64 100 Nasal Cannula 2.0 97.5 02/15/18 12:00 59 Height (Feet): 5 Height (Inches): 7.00 Weight (Pounds): 198 Objective GENERAL: awake, more responsive, NAD HEAD: Pupils are equal and reactive to light. Extraocular movements intact. NECK: Supple. No JVD. LUNGS: Poor air entry. + Expiratory wheezing, No rales. fair inspiratory effort. HEART: S1, S2. Distant heart sounds. No murmur. ABDOMEN: Soft, nondistended, and nontender. Positive bowel sounds. EXTREMITIES: No cyanosis, clubbing. More Edema on the left lower extremity. 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 Piccline on Left UE's. Laboratory Tests Test 02/15/18 16:40 02/16/18 00:40 02/16/18 04:15 02/16/18 08:30 Activated Partial Thromboplast Time 128 SEC (23-33) H 63 SEC (23-33) H 112 SEC (23-33) H C-Reactive Protein, Quantitative 6.6 mg/dL (0.00-0.90) H White Blood Count 11.9 K/UL (4.8-10.8) H Red Blood Count 3.42 M/UL (4.70-6.10) L Hemoglobin 9.1 G/DL (14.2-18.0) L Hematocrit 28.6 % (42.0-52.0) L Mean Corpuscular Volume 84 FL (80-99) Mean Corpuscular Hemoglobin 26.6 PG (27.0-31.0) L Mean Corpuscular Hemoglobin Concent 31.8 G/DL (32.0-36.0) L Red Cell Distribution Width 14.4 % (11.6-14.8) Platelet Count 131 K/UL (150-450) L Mean Platelet Volume 9.8 FL (6.5-10.1) Neutrophils (%) (Auto) 63.4 % (45.0-75.0) Lymphocytes (%) (Auto) 20.0 % (20.0-45.0) Monocytes (%) (Auto) 14.7 % (1.0-10.0) H Eosinophils (%) (Auto) 1.4 % (0.0-3.0) Basophils (%) (Auto) 0.6 % (0.0-2.0) Prothrombin Time 22.1 SEC (9.30-11.50) H Prothromb Time International Ratio 2.1 (0.9-1.1) H Sodium Level 133 MMOL/L (136-145) L Potassium Level 4.3 MMOL/L (3.5-5.1) Chloride Level 99 MMOL/L (98-107) Carbon Dioxide Level 20 MMOL/L (21-32) L Anion Gap 14 mmol/L (5-15) Blood Urea Nitrogen 68 mg/dL (7-18) H Creatinine 2.9 MG/DL (0.55-1.30) H Estimat Glomerular Filtration Rate 21.9 mL/min (>60) Glucose Level 90 MG/DL (74-106) Uric Acid 9.9 MG/DL (2.6-7.2) H Calcium Level 8.8 MG/DL (8.5-10.1) Phosphorus Level 4.2 MG/DL (2.5-4.9) Magnesium Level 1.9 MG/DL (1.8-2.4) Total Bilirubin 1.1 MG/DL (0.2-1.0) H Direct Bilirubin 0.5 MG/DL (0.0-0.3) H Aspartate Amino Transf (AST/SGOT) 94 U/L (15-37) H Alanine Aminotransferase (ALT/SGPT) 247 U/L (12-78) H Alkaline Phosphatase 165 U/L (46-116) H Pro-B-Type Natriuretic Peptide 56807 pg/mL (0-125) H Total Protein 6.3 G/DL (6.4-8.2) L Albumin 2.4 G/DL (3.4-5.0) L Globulin 3.9 g/dL Albumin/Globulin Ratio 0.6 (1.0-2.7) L Current Medications Medications (Trade) Dose Ordered Sig/Eliel Route PRN Reason Start Time Stop Time Status Last Admin Dose Admin Acetaminophen (Tylenol) 650 mg Q4H PRN ORAL T>100.5 02/12/18 15:04 03/08/18 15:03 Aluminum Hydroxide (Amphojel) 1,920 mg TID ORAL 02/12/18 18:00 03/10/18 17:59 02/16/18 08:11 Amiodarone HCl (Cordarone) 200 mg DAILY ORAL 02/16/18 09:00 03/18/18 08:59 Aspirin (ASA) 325 mg DAILY ORAL 02/13/18 09:00 03/09/18 21:59 02/16/18 08:11 Aztreonam 0.5 gm/ Dextrose 55 ml @ 110 mls/hr Q8HR IVPB 02/12/18 22:00 02/18/18 23:59 02/16/18 06:05 Carvedilol (Coreg) 3.125 mg EVERY 12 HOURS ORAL 02/13/18 21:00 03/15/18 20:59 02/16/18 08:12 Chlorhexidine Gluconate (Laura-Hex 2%) 1 applic DAILY@2000 TOPIC 02/12/18 20:00 03/09/18 19:59 02/15/18 21:55 Clonidine HCl (Catapres Tab) 0.1 mg Q8H PRN ORAL SBP > 160mmHg 02/12/18 15:04 03/08/18 15:03 Dextrose (Dextrose 50%) 25 ml STAT PRN IV Hypoglycemia 02/12/18 15:04 03/14/18 15:03 02/13/18 21:30 Dextrose (Dextrose 50%) 50 ml STAT PRN IV Hypoglycemia 02/12/18 15:04 03/14/18 15:03 02/15/18 22:12 Heparin Sodium/ Dextrose 500 ml @ 20.575 mls/ hr adjust per protocol IV 02/16/18 01:45 03/17/18 19:29 02/16/18 02:23 Hepatitis A Vaccine Inactivated (Havrix) 1,440 units ONCE ONCE IM 02/15/18 11:45 02/15/18 11:46 UNV Insulin Aspart (NovoLOG) BEFORE MEALS AND HS SUBQ 02/12/18 16:30 03/13/18 11:29 02/16/18 06:29 Insulin Detemir (Levemir) 4 units Q12HR SUBQ 02/14/18 09:00 03/13/18 08:29 02/16/18 08:15 Lorazepam (Ativan) 2 mg Q6H PRN ORAL For Anxiety 02/14/18 20:00 02/21/18 19:59 02/16/18 08:11 Metoclopramide HCl (Reglan) 5 mg THREE TIMES A DAY ORAL 02/12/18 18:00 03/10/18 12:59 02/16/18 08:12 Mirtazapine (Remeron) 15 mg BEDTIME ORAL 02/14/18 21:00 03/16/18 20:59 02/15/18 21:55 Nitroglycerin (Ntg) 0.4 mg Q5MIN X 3 DOSES PRN SL Prn Chest Pain 02/12/18 15:00 03/08/18 18:44 Pantoprazole (Protonix) 40 mg EVERY 12 HOURS ORAL 02/12/18 21:00 03/10/18 20:59 02/16/18 08:12 Tramadol HCl (Ultram) 25 mg Q6H PRN ORAL pain 6 and above 02/15/18 11:00 02/22/18 10:59 02/15/18 12:04 Warfarin Sodium (Coumadin per pharmacy) 1 ea DAILY PRN MISC Per rx protocol 02/13/18 17:00 03/15/18 16:59 Warfarin Sodium (Coumadin) 2.5 mg COUMADIN ORAL 02/16/18 17:00 02/16/18 20:00 Gloria Jay M.D. February 16, 2018 10:44
--- NOTE | 2018-02-16 11:41 | Nephrology Progress Note ---
Assessment/Plan Problem List: (1) Acute on chronic renal failure (2) Diabetic keto-acidosis (3) Peripheral vascular disease (4) Cardiomyopathy (5) Sepsis (6) Elevated liver enzymes Assessment Acute renal failure- Dehydration serum Cr lower today ? CKD DM and Nephropathy Cardiomyopathy with low EjFx DKA MN Dementia HypoThyroidism PVD Rt AKA Plan DC KCL stop statins in view of high lfts stop IV add coreg [facility] Kidney KP Negative for hydronephrosis Urine studies 2D Echo 20% EjFx ABG K supplement as needed no need for HD Subjective ROS Limited/Unobtainable: No Constitutional: Reports: malaise, weakness Objective Objective Last 24 Hour Vital Signs Date Time Temp Pulse Resp B/P (MAP) Pulse Ox O2 Delivery O2 Flow Rate FiO2 02/16/18 09:00 66 02/16/18 08:12 71 117/75 02/16/18 08:00 97.2 81 20 127/65 98 Nasal Cannula 2.0 97.2 02/16/18 04:00 97.4 70 15 117/75 100 Nasal Cannula 2.0 97.4 02/16/18 04:00 71 02/16/18 00:00 59 02/16/18 00:00 98.0 69 14 100/59 100 Nasal Cannula 2.0 98.0 02/15/18 21:56 64 119/68 02/15/18 21:04 Nasal Cannula 2.0 28 02/15/18 21:04 96 Nasal Cannula 2.0 28 02/15/18 20:00 98.2 64 14 119/68 96 Nasal Cannula 2.0 98.2 02/15/18 20:00 75 02/15/18 16:00 69 02/15/18 16:00 96.3 70 24 106/59 95 Nasal Cannula 2.0 96.3 02/15/18 13:03 98.3 02/15/18 12:04 98.3 02/15/18 12:00 97.5 75 20 112/64 100 Nasal Cannula 2.0 97.5 02/15/18 12:00 59 Intake and Output 02/15/18 02/16/18 19:00 07:00 Intake Total 321.28 ml Output Total 350 ml 450 ml Balance -28.72 ml -450 ml Intake Oral 60 ml IV Total 261.28 ml Output Urine Total 350 ml 450 ml Laboratory Tests 02/15/18 16:40: Activated Partial Thromboplast Time 128H, C-Reactive Protein, Quantitative 6.6H 02/16/18 00:40: Activated Partial Thromboplast Time 63H 02/16/18 04:15: White Blood Count 11.9H, Red Blood Count 3.42L, Hemoglobin 9.1L, Hematocrit 28.6L, Mean Corpuscular Volume 84, Mean Corpuscular Hemoglobin 26.6L, Mean Corpuscular Hemoglobin Concent 31.8L, Red Cell Distribution Width 14.4, Platelet Count 131L, Mean Platelet Volume 9.8, Neutrophils (%) (Auto) 63.4, Lymphocytes (%) (Auto) 20.0, Monocytes (%) (Auto) 14.7H, Eosinophils (%) (Auto) 1.4, Basophils (%) (Auto) 0.6, Prothrombin Time 22.1H, Prothromb Time International Ratio 2.1H, Sodium Level 133L, Potassium Level 4.3, Chloride Level 99, Carbon Dioxide Level 20L, Anion Gap 14, Blood Urea Nitrogen 68H, Creatinine 2.9H, Estimat Glomerular Filtration Rate 21.9, Glucose Level 90, Uric Acid 9.9H, Calcium Level 8.8, Phosphorus Level 4.2, Magnesium Level 1.9, Total Bilirubin 1.1H, Direct Bilirubin 0.5H, Aspartate Amino Transf (AST/SGOT) 94H, Alanine Aminotransferase (ALT/SGPT) 247H, Alkaline Phosphatase 165H, Pro-B- Type Natriuretic Peptide [id number], Total Protein 6.3L, Albumin 2.4L, Globulin 3.9 , Albumin/Globulin Ratio 0.6L 02/16/18 08:30: Activated Partial Thromboplast Time 112H Height (Feet): 5 Height (Inches): 7.00 Weight (Pounds): 198 General Appearance: no apparent distress Objective no other changes LAKESHA BAR February 16, 2018 11:41
--- NOTE | 2018-02-16 11:45 | Pulmonology Progress Note ---
Assessment/Plan Problems: (1) Atrial fibrillation Assessment & Plan: resolved, sinus now (2) ATN (acute tubular necrosis) (3) NSTEMI (non-ST elevated myocardial infarction) (4) Cardiomyopathy (5) Hx of right BKA (6) Major depression (7) Sacral decubitus ulcer, stage II (8) EF 15% Assessment/Plan renal function better dcHeparin finishing abx check electrolytes End stage heart disease, bed bound, heading towards [facility]iary dialysis. Other option would be comfort care and end of life care discharge to skilled nursing prognosis is poor and pt is at high risk of short term readmission Subjective ROS Limited/Unobtainable: No Constitutional: Reports: no symptoms HEENT: Repors: no symptoms Respiratory: Reports: no symptoms Allergies: Coded Allergies: PENICILLINS (Verified Allergy, Unknown, 04/16/17) Objective Last 24 Hour Vital Signs Date Time Temp Pulse Resp B/P (MAP) Pulse Ox O2 Delivery O2 Flow Rate FiO2 02/16/18 09:00 66 02/16/18 08:12 71 117/75 02/16/18 08:00 97.2 81 20 127/65 98 Nasal Cannula 2.0 97.2 02/16/18 04:00 97.4 70 15 117/75 100 Nasal Cannula 2.0 97.4 02/16/18 04:00 71 02/16/18 00:00 59 02/16/18 00:00 98.0 69 14 100/59 100 Nasal Cannula 2.0 98.0 02/15/18 21:56 64 119/68 02/15/18 21:04 Nasal Cannula 2.0 28 02/15/18 21:04 96 Nasal Cannula 2.0 28 02/15/18 20:00 98.2 64 14 119/68 96 Nasal Cannula 2.0 98.2 02/15/18 20:00 75 02/15/18 16:00 69 02/15/18 16:00 96.3 70 24 106/59 95 Nasal Cannula 2.0 96.3 02/15/18 13:03 98.3 02/15/18 12:04 98.3 02/15/18 12:00 97.5 75 20 112/64 100 Nasal Cannula 2.0 97.5 02/15/18 12:00 59 Intake and Output 02/15/18 02/16/18 19:00 07:00 Intake Total 321.28 ml Output Total 350 ml 450 ml Balance -28.72 ml -450 ml Intake Oral 60 ml IV Total 261.28 ml Output Urine Total 350 ml 450 ml General Appearance: WD/WN HEENT: normocephalic, atraumatic Respiratory/Chest: chest wall non-tender, normal breath sounds, no respiratory distress Cardiovascular: normal peripheral pulses, normal rate Abdomen: normal bowel sounds, soft, non tender Genitourinary: normal external genitalia Extremities: no clubbing Skin: no ulcers Laboratory Tests 02/15/18 16:40: Activated Partial Thromboplast Time 128H, C-Reactive Protein, Quantitative 6.6H 02/16/18 00:40: Activated Partial Thromboplast Time 63H 02/16/18 04:15: White Blood Count 11.9H, Red Blood Count 3.42L, Hemoglobin 9.1L, Hematocrit 28.6L, Mean Corpuscular Volume 84, Mean Corpuscular Hemoglobin 26.6L, Mean Corpuscular Hemoglobin Concent 31.8L, Red Cell Distribution Width 14.4, Platelet Count 131L, Mean Platelet Volume 9.8, Neutrophils (%) (Auto) 63.4, Lymphocytes (%) (Auto) 20.0, Monocytes (%) (Auto) 14.7H, Eosinophils (%) (Auto) 1.4, Basophils (%) (Auto) 0.6, Prothrombin Time 22.1H, Prothromb Time International Ratio 2.1H, Sodium Level 133L, Potassium Level 4.3, Chloride Level 99, Carbon Dioxide Level 20L, Anion Gap 14, Blood Urea Nitrogen 68H, Creatinine 2.9H, Estimat Glomerular Filtration Rate 21.9, Glucose Level 90, Uric Acid 9.9H, Calcium Level 8.8, Phosphorus Level 4.2, Magnesium Level 1.9, Total Bilirubin 1.1H, Direct Bilirubin 0.5H, Aspartate Amino Transf (AST/SGOT) 94H, Alanine Aminotransferase (ALT/SGPT) 247H, Alkaline Phosphatase 165H, Pro-B- Type Natriuretic Peptide [id number], Total Protein 6.3L, Albumin 2.4L, Globulin 3.9 , Albumin/Globulin Ratio 0.6L 02/16/18 08:30: Activated Partial Thromboplast Time 112H Current Medications Medications (Trade) Dose Ordered Sig/Eliel Route PRN Reason Start Time Stop Time Status Last Admin Dose Admin Acetaminophen (Tylenol) 650 mg Q4H PRN ORAL T>100.5 02/12/18 15:04 03/08/18 15:03 Aluminum Hydroxide (Amphojel) 1,920 mg TID ORAL 02/12/18 18:00 03/10/18 17:59 02/16/18 08:11 Amiodarone HCl (Cordarone) 200 mg DAILY ORAL 02/16/18 09:00 03/18/18 08:59 Aspirin (ASA) 325 mg DAILY ORAL 02/13/18 09:00 03/09/18 21:59 02/16/18 08:11 Aztreonam 0.5 gm/ Dextrose 55 ml @ 110 mls/hr Q8HR IVPB 02/12/18 22:00 02/18/18 23:59 02/16/18 06:05 Carvedilol (Coreg) 3.125 mg EVERY 12 HOURS ORAL 02/13/18 21:00 03/15/18 20:59 02/16/18 08:12 Chlorhexidine Gluconate (Laura-Hex 2%) 1 applic DAILY@2000 TOPIC 02/12/18 20:00 03/09/18 19:59 02/15/18 21:55 Clonidine HCl (Catapres Tab) 0.1 mg Q8H PRN ORAL SBP > 160mmHg 02/12/18 15:04 03/08/18 15:03 Dextrose (Dextrose 50%) 25 ml STAT PRN IV Hypoglycemia 02/12/18 15:04 03/14/18 15:03 02/13/18 21:30 Dextrose (Dextrose 50%) 50 ml STAT PRN IV Hypoglycemia 02/12/18 15:04 03/14/18 15:03 02/15/18 22:12 Heparin Sodium/ Dextrose 500 ml @ 16.169 mls/ hr adjust per protocol IV 02/16/18 11:10 03/18/18 11:09 02/16/18 11:33 Hepatitis A Vaccine Inactivated (Havrix) 1,440 units ONCE ONCE IM 02/15/18 11:45 02/15/18 11:46 UNV Insulin Aspart (NovoLOG) BEFORE MEALS AND HS SUBQ 02/12/18 16:30 03/13/18 11:29 02/16/18 06:29 Insulin Detemir (Levemir) 4 units Q12HR SUBQ 02/14/18 09:00 03/13/18 08:29 02/16/18 08:15 Lorazepam (Ativan) 2 mg Q6H PRN ORAL For Anxiety 02/14/18 20:00 02/21/18 19:59 02/16/18 08:11 Metoclopramide HCl (Reglan) 5 mg THREE TIMES A DAY ORAL 02/12/18 18:00 03/10/18 12:59 02/16/18 08:12 Mirtazapine (Remeron) 15 mg BEDTIME ORAL 02/14/18 21:00 03/16/18 20:59 02/15/18 21:55 Nitroglycerin (Ntg) 0.4 mg Q5MIN X 3 DOSES PRN SL Prn Chest Pain 02/12/18 15:00 03/08/18 18:44 Pantoprazole (Protonix) 40 mg EVERY 12 HOURS ORAL 02/12/18 21:00 03/10/18 20:59 02/16/18 08:12 Tramadol HCl (Ultram) 25 mg Q6H PRN ORAL pain 6 and above 02/15/18 11:00 02/22/18 10:59 02/15/18 12:04 Warfarin Sodium (Coumadin per pharmacy) 1 ea DAILY PRN MISC Per rx protocol 02/13/18 17:00 03/15/18 16:59 Warfarin Sodium (Coumadin) 2.5 mg COUMADIN ORAL 02/16/18 17:00 02/16/18 20:00 Walker Saab MD February 16, 2018 11:45
[2018-02-16 12:00] VITALS: BP 114/56
[2018-02-16 16:00] VITALS: BP 131/71
[2018-02-16] MEDS ORDERED: Warfarin Sodium 2.5mg ORAL SCH (17:00)
--- NOTE | 2018-02-16 17:45 | Cardiology Progress Note ---
Assessment/Plan Assessment/Plan 1. Acute myocardial infarction with subacute presentation. 2. History of coronary artery disease. 3. Known cardiomyopathy ef previosuly 25% . 4. Pulmonary hypertension. 5. Metabolic encephalopathy. 6. Peripheral vascular disease status post amputation 7. hypotension improved 8. chf 9. Acute on chronic renal fialrue 10. New LBBB resolved 11. afib new onset 02/09/2018 converted to sinu 02/15/2018 bp ok s/p thoracentesis 400 cc removed earlier last week on antiplat and statin on coreg cr stable continue supportive care trop trending down tel reviewed now in sinus swtich to couamdin iv heparin for nwo stroke prevention started on low dose amio as coverted to sinus spont start on isordil and if stabel hydralazie d/sw dr vaughn ok to dc to snf form cv opoint of view to tele Subjective Respiratory: Reports: shortness of breath Gastrointestinal/Abdominal: Denies: abdominal pain Subjective wants to go back to rehab center , wants someone to come pick him up to take him back to snf Objective Last 24 Hour Vital Signs Date Time Temp Pulse Resp B/P (MAP) Pulse Ox O2 Delivery O2 Flow Rate FiO2 02/16/18 16:00 63 02/16/18 16:00 96.8 69 12 131/71 100 Nasal Cannula 2.0 96.8 02/16/18 12:00 60 02/16/18 12:00 97.0 58 16 114/56 100 Nasal Cannula 2.0 97.0 02/16/18 09:00 66 02/16/18 08:12 71 117/75 02/16/18 08:00 97.2 81 20 127/65 98 Nasal Cannula 2.0 97.2 02/16/18 04:00 97.4 70 15 117/75 100 Nasal Cannula 2.0 97.4 02/16/18 04:00 71 02/16/18 00:00 59 02/16/18 00:00 98.0 69 14 100/59 100 Nasal Cannula 2.0 98.0 02/15/18 21:56 64 119/68 02/15/18 21:04 Nasal Cannula 2.0 28 02/15/18 21:04 96 Nasal Cannula 2.0 28 02/15/18 20:00 98.2 64 14 119/68 96 Nasal Cannula 2.0 98.2 02/15/18 20:00 75 General Appearance: no apparent distress, alert Neck: supple Cardiovascular: regular rhythm Respiratory/Chest: decreased breath sounds Abdomen: normal bowel sounds, non tender, soft Extremities: moderate edema Intake and Output 02/15/18 02/16/18 19:00 07:00 Intake Total 321.28 ml Output Total 350 ml 450 ml Balance -28.72 ml -450 ml Intake Oral 60 ml IV Total 261.28 ml Output Urine Total 350 ml 450 ml Laboratory Tests Test 02/16/18 00:40 02/16/18 04:15 02/16/18 08:30 Activated Partial Thromboplast Time 63 SEC (23-33) H 112 SEC (23-33) H White Blood Count 11.9 K/UL (4.8-10.8) H Red Blood Count 3.42 M/UL (4.70-6.10) L Hemoglobin 9.1 G/DL (14.2-18.0) L Hematocrit 28.6 % (42.0-52.0) L Mean Corpuscular Volume 84 FL (80-99) Mean Corpuscular Hemoglobin 26.6 PG (27.0-31.0) L Mean Corpuscular Hemoglobin Concent 31.8 G/DL (32.0-36.0) L Red Cell Distribution Width 14.4 % (11.6-14.8) Platelet Count 131 K/UL (150-450) L Mean Platelet Volume 9.8 FL (6.5-10.1) Neutrophils (%) (Auto) 63.4 % (45.0-75.0) Lymphocytes (%) (Auto) 20.0 % (20.0-45.0) Monocytes (%) (Auto) 14.7 % (1.0-10.0) H Eosinophils (%) (Auto) 1.4 % (0.0-3.0) Basophils (%) (Auto) 0.6 % (0.0-2.0) Prothrombin Time 22.1 SEC (9.30-11.50) H Prothromb Time International Ratio 2.1 (0.9-1.1) H Sodium Level 133 MMOL/L (136-145) L Potassium Level 4.3 MMOL/L (3.5-5.1) Chloride Level 99 MMOL/L (98-107) Carbon Dioxide Level 20 MMOL/L (21-32) L Anion Gap 14 mmol/L (5-15) Blood Urea Nitrogen 68 mg/dL (7-18) H Creatinine 2.9 MG/DL (0.55-1.30) H Estimat Glomerular Filtration Rate 21.9 mL/min (>60) Glucose Level 90 MG/DL (74-106) Uric Acid 9.9 MG/DL (2.6-7.2) H Calcium Level 8.8 MG/DL (8.5-10.1) Phosphorus Level 4.2 MG/DL (2.5-4.9) Magnesium Level 1.9 MG/DL (1.8-2.4) Total Bilirubin 1.1 MG/DL (0.2-1.0) H Direct Bilirubin 0.5 MG/DL (0.0-0.3) H Aspartate Amino Transf (AST/SGOT) 94 U/L (15-37) H Alanine Aminotransferase (ALT/SGPT) 247 U/L (12-78) H Alkaline Phosphatase 165 U/L (46-116) H Pro-B-Type Natriuretic Peptide 03752 pg/mL (0-125) H Total Protein 6.3 G/DL (6.4-8.2) L Albumin 2.4 G/DL (3.4-5.0) L Globulin 3.9 g/dL Albumin/Globulin Ratio 0.6 (1.0-2.7) L Darnell Belcher MD February 16, 2018 17:45
--- NOTE | 2018-02-16 19:31 | Internal Med Progress Note ---
Subjective Date of Service: February 16, 2018 Physician Name Paras Aguirre Attending Physician Joni Robin MD Current Medications Medications (Trade) Dose Ordered Sig/Eliel Route PRN Reason Start Time Stop Time Status Last Admin Dose Admin Acetaminophen (Tylenol) 650 mg Q4H PRN ORAL T>100.5 02/12/18 15:04 03/08/18 15:03 Aluminum Hydroxide (Amphojel) 1,920 mg TID ORAL 02/12/18 18:00 03/10/18 17:59 02/16/18 17:57 Amiodarone HCl (Cordarone) 200 mg DAILY ORAL 02/16/18 09:00 03/18/18 08:59 Aspirin (ASA) 325 mg DAILY ORAL 02/13/18 09:00 03/09/18 21:59 02/16/18 08:11 Aztreonam 0.5 gm/ Dextrose 55 ml @ 110 mls/hr Q8HR IVPB 02/12/18 22:00 02/18/18 23:59 02/16/18 13:19 Carvedilol (Coreg) 3.125 mg EVERY 12 HOURS ORAL 02/13/18 21:00 03/15/18 20:59 02/16/18 08:12 Chlorhexidine Gluconate (Laura-Hex 2%) 1 applic DAILY@2000 TOPIC 02/12/18 20:00 03/09/18 19:59 02/15/18 21:55 Clonidine HCl (Catapres Tab) 0.1 mg Q8H PRN ORAL SBP > 160mmHg 02/12/18 15:04 03/08/18 15:03 Dextrose (Dextrose 50%) 25 ml STAT PRN IV Hypoglycemia 02/12/18 15:04 03/14/18 15:03 02/13/18 21:30 Dextrose (Dextrose 50%) 50 ml STAT PRN IV Hypoglycemia 02/12/18 15:04 03/14/18 15:03 02/15/18 22:12 Hepatitis A Vaccine Inactivated (Havrix) 1,440 units ONCE ONCE IM 02/15/18 11:45 02/15/18 11:46 UNV Insulin Aspart (NovoLOG) BEFORE MEALS AND HS SUBQ 02/12/18 16:30 03/13/18 11:29 02/16/18 17:59 Insulin Detemir (Levemir) 4 units Q12HR SUBQ 02/14/18 09:00 03/13/18 08:29 02/16/18 08:15 Isosorbide Dinitrate (Isordil) 10 mg Q12HR ORAL 02/16/18 18:00 03/18/18 17:59 02/16/18 17:57 Mirtazapine (Remeron) 15 mg BEDTIME ORAL 02/14/18 21:00 03/16/18 20:59 02/15/18 21:55 Nitroglycerin (Ntg) 0.4 mg Q5MIN X 3 DOSES PRN SL Prn Chest Pain 02/12/18 15:00 03/08/18 18:44 Pantoprazole (Protonix) 40 mg EVERY 12 HOURS ORAL 02/12/18 21:00 03/10/18 20:59 02/16/18 08:12 Quetiapine Fumarate (SEROquel) 25 mg Q4H PRN ORAL For Anxiety 02/16/18 14:33 03/18/18 14:32 02/16/18 17:56 Tramadol HCl (Ultram) 25 mg Q6H PRN ORAL pain 6 and above 02/15/18 11:00 02/22/18 10:59 02/15/18 12:04 Warfarin Sodium (Coumadin per pharmacy) 1 ea DAILY PRN MISC Per rx protocol 02/13/18 17:00 03/15/18 16:59 Warfarin Sodium (Coumadin) 2.5 mg COUMADIN ORAL 02/16/18 17:00 02/16/18 20:00 02/16/18 17:57 Allergies: Coded Allergies: PENICILLINS (Verified Allergy, Unknown, 04/16/17) ROS Limited/Unobtainable: No Constitutional: Reports: no symptoms HEENT: Reports: no symptoms Cardiovascular: Reports: chest pain Respiratory: Reports: no symptoms Gastrointestinal/Abdominal: Reports: no symptoms Genitourinary: Reports: no symptoms Neurologic/Psychiatric: Reports: no symptoms Subjective 67 YO M admitted with chest pain. Now STEMI and CHF. Cover for Garett bergeron-Dr Robin. G[facility] Objective Last Vital Signs Date Time Temp Pulse Resp B/P (MAP) Pulse Ox O2 Delivery O2 Flow Rate FiO2 02/16/18 17:57 131/71 02/16/18 16:00 63 02/16/18 16:00 96.8 12 100 Nasal Cannula 2.0 96.8 02/15/18 21:04 28 Laboratory Tests Test 02/16/18 00:40 02/16/18 04:15 02/16/18 08:30 Activated Partial Thromboplast Time 63 SEC (23-33) H 112 SEC (23-33) H White Blood Count 11.9 K/UL (4.8-10.8) H Red Blood Count 3.42 M/UL (4.70-6.10) L Hemoglobin 9.1 G/DL (14.2-18.0) L Hematocrit 28.6 % (42.0-52.0) L Mean Corpuscular Volume 84 FL (80-99) Mean Corpuscular Hemoglobin 26.6 PG (27.0-31.0) L Mean Corpuscular Hemoglobin Concent 31.8 G/DL (32.0-36.0) L Red Cell Distribution Width 14.4 % (11.6-14.8) Platelet Count 131 K/UL (150-450) L Mean Platelet Volume 9.8 FL (6.5-10.1) Neutrophils (%) (Auto) 63.4 % (45.0-75.0) Lymphocytes (%) (Auto) 20.0 % (20.0-45.0) Monocytes (%) (Auto) 14.7 % (1.0-10.0) H Eosinophils (%) (Auto) 1.4 % (0.0-3.0) Basophils (%) (Auto) 0.6 % (0.0-2.0) Prothrombin Time 22.1 SEC (9.30-11.50) H Prothromb Time International Ratio 2.1 (0.9-1.1) H Sodium Level 133 MMOL/L (136-145) L Potassium Level 4.3 MMOL/L (3.5-5.1) Chloride Level 99 MMOL/L (98-107) Carbon Dioxide Level 20 MMOL/L (21-32) L Anion Gap 14 mmol/L (5-15) Blood Urea Nitrogen 68 mg/dL (7-18) H Creatinine 2.9 MG/DL (0.55-1.30) H Estimat Glomerular Filtration Rate 21.9 mL/min (>60) Glucose Level 90 MG/DL (74-106) Uric Acid 9.9 MG/DL (2.6-7.2) H Calcium Level 8.8 MG/DL (8.5-10.1) Phosphorus Level 4.2 MG/DL (2.5-4.9) Magnesium Level 1.9 MG/DL (1.8-2.4) Total Bilirubin 1.1 MG/DL (0.2-1.0) H Direct Bilirubin 0.5 MG/DL (0.0-0.3) H Aspartate Amino Transf (AST/SGOT) 94 U/L (15-37) H Alanine Aminotransferase (ALT/SGPT) 247 U/L (12-78) H Alkaline Phosphatase 165 U/L (46-116) H Pro-B-Type Natriuretic Peptide 25654 pg/mL (0-125) H Total Protein 6.3 G/DL (6.4-8.2) L Albumin 2.4 G/DL (3.4-5.0) L Globulin 3.9 g/dL Albumin/Globulin Ratio 0.6 (1.0-2.7) L Intake and Output 02/15/18 02/16/18 19:00 07:00 Intake Total 321.28 ml Output Total 350 ml 450 ml Balance -28.72 ml -450 ml Intake Oral 60 ml IV Total 261.28 ml Output Urine Total 350 ml 450 ml Objective Objective GENERAL: awake, more responsive, NAD HEAD: Pupils are equal and reactive to light. Extraocular movements intact. NECK: Supple. No JVD. LUNGS: Poor air entry. + Expiratory wheezing, No rales. fair inspiratory effort. HEART: S1, S2. Distant heart sounds. No murmur. ABDOMEN: Soft, nondistended, and nontender. Positive bowel sounds. EXTREMITIES: No cyanosis, clubbing. More Edema on the left lower extremity. 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 Piccline on Left UE's. NEUROLOGIC: Cranial nerves II through XII are grossly intact. The patient is moving all the extremities. Assessment/Plan Assessment/Plan Assessment/Plan Assessment/Plan 1. Acute myocardial infarction with non-ST elevation myocardial , New Left BBB 2. DKA with Diabetic type 2, uncontrolled. 3. Metabolic Acidosis 4. Dementia. 5. Hypernatremia. 6. Hyperkalemia. 7. Dehydration. 8. Right AKA with peripheral vascular disease. 9. History of dementia. 10. Atherosclerotic heart disease with ischemic cardiomyopathy. 11. Acute kidney injury. 12. Peripheral vascular disease. 13. Hypothyroidism. 14. PCN allergy. 15. Liver shock. 16. Right-sided pleural effusion. 17. New onset atrial fibrillation-See cardiology note. PLAN: In [facility]. Monitor laboratory and cultures. on heparin drip, IV hydration, Dr. Saab, Pulmonary, Critical Care. Dr. Jones, Cardiology consultation Dr. Jessica, Nephrology Consult. Code Status: Full Code as per POL Broad-spectrum antibiotic: Levaquin and Aztreonam consider thoracocentesis. Transfer to Tele today Paras Aguirre MD February 16, 2018 19:31
[2018-02-16 20:00] VITALS: BP 103/63
[2018-02-16] MEDS: Dyna-Hex 2% Top Sol 2oz TOPIC SCH (21:20)
--- NOTE | 2018-02-16 22:34 | Cardiology Report ---
APPROVED REPORT EKG Measurement Heart [id number] Sinus rhythm with 1st degree AV block Possible Lateral infarct, age undetermined Abnormal ECG
[2018-02-17] VITALS: BP 120/70
--- NOTE | 2018-02-17 00:15 | Progress Note ---
DATE: 02/16/2018 SUBJECTIVE: The patient continues to be agitated, has been uncooperative, pulling out his intravenous access, confused, disoriented, has waxing and waning consciousness. MENTAL STATUS EXAM: The patient is confused. Mood is agitated. Affect is flat. Thought process, there is a paucity of thought content. Thought content, no suicidal or homicidal ideation. ASSESSMENT: 1. Encephalopathy. 2. Agitation. PLAN: 1. Reglan was discontinued per Dr. Saab. Started on Seroquel as needed. 2. Continue the Remeron. Discussed with the patient's nurse. Chanel Richards M.D. DR: CONRAD JOB#: [id number] CC:
--- NOTE | 2018-02-17 01:00 | Progress Note ---
DATE: 02/15/2018 SUBJECTIVE: The patient has been agitated, not engaged during the evaluation, confused, . He has waxing and waning consciousness. The patient was ordered antipsychotics, however, not able to prescribe the medications as the patient is on Reglan. MENTAL STATUS EXAMINATION: The patient is confused and disoriented. Mood is agitated. Affect is flat. Thought process is disorganized. Thought content, delusional. Cognition is impaired. ASSESSMENT: 1. Encephalopathy. 2. Psychosis. PLAN: We will continue current medication, Remeron. Chanel Richards M.D. DR: REENA JOB#: [id number] CC:
[2018-02-17 04:00] VITALS: BP 110/55
[2018-02-17] MEDS: Aztreonam Inj 0.5 GM in D5W 55 ML IVPB SCH (05:19)
[2018-02-17 05:54] LABS: INR 2.2 (0.9-1.1)
[2018-02-17 05:57] LABS: ANION GAP 10 mmol/L (5-15); BLOOD UREA NITROGEN 59 mg/dL (7-18); CALCIUM 8.5 MG/DL (8.5-10.1); CARBON DIOXIDE 24 MMOL/L (21-32); CHLORIDE 99 MMOL/L (98-107); CREATININE 2.5 MG/DL (0.55-1.30); POTASSIUM 3.8 MMOL/L (3.5-5.1); SODIUM 133 MMOL/L (136-145)
[2018-02-17 06:05] LABS: BASOPHILS % (AUTO) 0.6 % (0.0-2.0); HEMATOCRIT 25.6 % (42.0-52.0); HEMOGLOBIN 8.2 G/DL (14.2-18.0); LYMPHOCYTES % (AUTO) 26.1 % (20.0-45.0); MEAN CORPUSCULAR VOLUME 84 FL (80-99); MONOCYTES % (AUTO) 14.6 % (1.0-10.0); NEUTROPHILS % (AUTO) 56.8 % (45.0-75.0); PLATELET COUNT 112 K/UL (150-450); RED BLOOD COUNT 3.05 M/UL (4.70-6.10); RED CELL DISTRIBUTION WIDTH 14.8 % (11.6-14.8); WHITE BLOOD COUNT 8.6 K/UL (4.8-10.8)
[2018-02-17] MEDS: NovoLOG Insulin Flexpen SUBQ SCH (06:48)
[2018-02-17] MEDS ORDERED: HEPATITIS A VACCINE IM ONE (07:30)
[2018-02-17 08:00] VITALS: BP 117/67
[2018-02-17] MEDS ORDERED: Nitroglycerin Subl 0.4mg tab SL PRN (08:00)
[2018-02-17] MEDS ORDERED: Amiodarone 200mg tab ORAL SCH (09:00)
[2018-02-17] MEDS ORDERED: traMADol 50mg tab ORAL PRN (09:00)
[2018-02-17] MEDS ORDERED: Levemir Flexpen SUBQ SCH (09:00)
--- NOTE | 2018-02-17 10:41 | Nephrology Progress Note ---
Assessment/Plan Problem List: (1) Acute on chronic renal failure (2) Diabetic keto-acidosis (3) Peripheral vascular disease (4) Cardiomyopathy (5) Sepsis (6) Elevated liver enzymes Assessment Acute renal failure- Dehydration serum Cr lower ? CKD underlying DM and Nephropathy Cardiomyopathy with low EjFx DKA MS Dementia HypoThyroidism PVD Rt AKA Plan DC KCL stop statins in view of high lfts stop IV add coreg [place] Kidney PK Negative for hydronephrosis Urine studies 2D Echo 20% EjFx ABG K supplement as needed no need for HD Subjective ROS Limited/Unobtainable: No Constitutional: Reports: malaise Objective Objective Last 24 Hour Vital Signs Date Time Temp Pulse Resp B/P (MAP) Pulse Ox O2 Delivery O2 Flow Rate FiO2 02/17/18 09:30 117/67 02/17/18 09:29 94 117/67 02/17/18 08:00 96.6 94 19 117/67 97 Nasal Cannula 96.6 02/17/18 04:00 75 02/17/18 04:00 97.5 80 12 110/55 100 Nasal Cannula 2.0 97.5 02/17/18 00:00 80 02/17/18 00:00 97.8 80 12 120/70 100 Nasal Cannula 2.0 97.8 02/16/18 21:24 62 103/63 02/16/18 20:00 97.5 66 12 103/63 100 Nasal Cannula 2.0 97.5 02/16/18 20:00 62 02/16/18 19:40 44 02/16/18 17:57 131/71 02/16/18 16:00 63 02/16/18 16:00 96.8 69 12 131/71 100 Nasal Cannula 2.0 96.8 02/16/18 12:00 60 02/16/18 12:00 97.0 58 16 114/56 100 Nasal Cannula 2.0 97.0 Intake and Output 02/16/18 02/17/18 19:00 07:00 Intake Total 255.521 ml 410 ml Output Total 550 ml 500 ml Balance -294.479 ml -90 ml Intake Oral 300 ml IV Total 255.521 ml 110 ml Output Urine Total 550 ml 500 ml Laboratory Tests 02/17/18 03:30: White Blood Count 8.6, Red Blood Count 3.05L, Hemoglobin 8.2L, Hematocrit 25.6L , Mean Corpuscular Volume 84, Mean Corpuscular Hemoglobin 26.7L, Mean Corpuscular Hemoglobin Concent 31.9L, Red Cell Distribution Width 14.8, Platelet Count 112L, Mean Platelet Volume 9.4, Neutrophils (%) (Auto) 56.8, Lymphocytes (%) (Auto) 26.1, Monocytes (%) (Auto) 14.6H, Eosinophils (%) (Auto) 2.0, Basophils (%) (Auto) 0.6, Prothrombin Time 23.3H, Prothromb Time International Ratio 2.2H, Sodium Level 133L, Potassium Level 3.8, Chloride Level 99, Carbon Dioxide Level 24, Anion Gap 10, Blood Urea Nitrogen 59H, Creatinine 2.5H, Estimat Glomerular Filtration Rate 26.0, Glucose Level 107H, Calcium Level 8.5 Height (Feet): 5 Height (Inches): 7.00 Weight (Pounds): 196 General Appearance: no apparent distress Objective no other changes LAKESHA BAR February 17, 2018 10:41
[2018-02-17] MEDS: Aluminum Hydroxide Gel Susp 15ml ORAL SCH ×2 (10:52→12:39)
[2018-02-17] MEDS ORDERED: Tubing IV Secondary IV ONE ×3 (11:03→11:10)
[2018-02-17] MEDS ORDERED: NS 500ML ONE ×2 (11:04→11:10)
[2018-02-17] MEDS ORDERED: NS 275ml ONE (11:10)
[2018-02-17] MEDS ORDERED: NovoLOG Insulin Flexpen SUBQ SCH (11:30)
[2018-02-17 12:00] VITALS: BP 110/50
--- NOTE | 2018-02-17 12:32 | Pulmonology Progress Note ---
Assessment/Plan Problems: (1) Atrial fibrillation Assessment & Plan: resolved, sinus now (2) ATN (acute tubular necrosis) (3) NSTEMI (non-ST elevated myocardial infarction) (4) Cardiomyopathy (5) Hx of right BKA (6) Major depression (7) Sacral decubitus ulcer, stage II (8) EF 15% Assessment/Plan wbc is normal now renal function better dcHeparin on eliquis finishing abx check electrolytes End stage heart disease, bed bound, heading towards [facility]. Other option would be comfort care and end of life care discharge to [facility] today prognosis is poor and pt is at high risk of short term readmission Subjective ROS Limited/Unobtainable: No Interval Events: awake, comfortable, confused Constitutional: Reports: no symptoms HEENT: Repors: no symptoms Allergies: Coded Allergies: PENICILLINS (Verified Allergy, Unknown, 04/16/17) Objective Last 24 Hour Vital Signs Date Time Temp Pulse Resp B/P (MAP) Pulse Ox O2 Delivery O2 Flow Rate FiO2 02/17/18 09:30 117/67 02/17/18 09:29 94 117/67 02/17/18 08:00 96.6 94 19 117/67 97 Nasal Cannula 96.6 02/17/18 04:00 75 02/17/18 04:00 97.5 80 12 110/55 100 Nasal Cannula 2.0 97.5 02/17/18 00:00 80 02/17/18 00:00 97.8 80 12 120/70 100 Nasal Cannula 2.0 97.8 02/16/18 21:24 62 103/63 02/16/18 20:00 97.5 66 12 103/63 100 Nasal Cannula 2.0 97.5 02/16/18 20:00 62 02/16/18 19:40 44 02/16/18 17:57 131/71 02/16/18 16:00 63 02/16/18 16:00 96.8 69 12 131/71 100 Nasal Cannula 2.0 96.8 Intake and Output 02/16/18 02/17/18 19:00 07:00 Intake Total 255.521 ml 410 ml Output Total 550 ml 500 ml Balance -294.479 ml -90 ml Intake Oral 300 ml IV Total 255.521 ml 110 ml Output Urine Total 550 ml 500 ml General Appearance: WD/WN Respiratory/Chest: chest wall non-tender, lungs clear Cardiovascular: normal peripheral pulses, normal rate Abdomen: normal bowel sounds, soft, non tender Genitourinary: normal external genitalia Extremities: no cyanosis Laboratory Tests 02/17/18 03:30: White Blood Count 8.6, Red Blood Count 3.05L, Hemoglobin 8.2L, Hematocrit 25.6L , Mean Corpuscular Volume 84, Mean Corpuscular Hemoglobin 26.7L, Mean Corpuscular Hemoglobin Concent 31.9L, Red Cell Distribution Width 14.8, Platelet Count 112L, Mean Platelet Volume 9.4, Neutrophils (%) (Auto) 56.8, Lymphocytes (%) (Auto) 26.1, Monocytes (%) (Auto) 14.6H, Eosinophils (%) (Auto) 2.0, Basophils (%) (Auto) 0.6, Prothrombin Time 23.3H, Prothromb Time International Ratio 2.2H, Sodium Level 133L, Potassium Level 3.8, Chloride Level 99, Carbon Dioxide Level 24, Anion Gap 10, Blood Urea Nitrogen 59H, Creatinine 2.5H, Estimat Glomerular Filtration Rate 26.0, Glucose Level 107H, Calcium Level 8.5 Current Medications Medications (Trade) Dose Ordered Sig/Eliel Route PRN Reason Start Time Stop Time Status Last Admin Dose Admin Acetaminophen (Tylenol) 650 mg Q4H PRN ORAL T>100.5 02/17/18 10:00 03/08/18 09:59 Aluminum Hydroxide (Amphojel) 1,920 mg TID ORAL 02/17/18 09:00 03/10/18 17:59 02/17/18 10:52 Amiodarone HCl (Cordarone) 200 mg DAILY ORAL 02/17/18 09:00 03/18/18 08:59 02/17/18 09:30 Aspirin (ASA) 325 mg DAILY ORAL 02/17/18 09:00 03/09/18 21:59 02/17/18 09:28 Aztreonam 0.5 gm/ Dextrose 55 ml @ 110 mls/hr Q8HR IVPB 02/17/18 14:00 02/18/18 13:59 Carvedilol (Coreg) 3.125 mg EVERY 12 HOURS ORAL 02/17/18 09:00 03/15/18 20:59 02/17/18 09:29 Chlorhexidine Gluconate (Laura-Hex 2%) 1 applic DAILY@2000 TOPIC 02/17/18 20:00 03/09/18 19:59 Clonidine HCl (Catapres Tab) 0.1 mg Q8H PRN ORAL SBP > 160mmHg 02/17/18 09:00 03/08/18 08:59 Dextrose (Dextrose 50%) 25 ml STAT PRN IV Hypoglycemia 02/17/18 09:00 03/14/18 08:59 Dextrose (Dextrose 50%) 50 ml STAT PRN IV Hypoglycemia 02/17/18 09:00 03/14/18 08:59 Hepatitis A Vaccine Inactivated (Havrix) 1,440 units ONCE ONCE IM 02/17/18 07:30 02/18/19 11:46 UNV Insulin Aspart (NovoLOG) BEFORE MEALS AND HS SUBQ 02/17/18 11:30 03/13/18 11:29 Insulin Detemir (Levemir) 4 units Q12HR SUBQ 02/17/18 09:00 03/13/18 08:29 02/17/18 09:38 Isosorbide Dinitrate (Isordil) 10 mg Q12HR ORAL 02/17/18 09:00 03/18/18 17:59 02/17/18 09:30 Mirtazapine (Remeron) 15 mg BEDTIME ORAL 02/17/18 21:00 03/16/18 20:59 Nitroglycerin (Ntg) 0.4 mg Q5MIN X 3 DOSES PRN SL Prn Chest Pain 02/17/18 08:00 03/08/18 07:59 Pantoprazole (Protonix) 40 mg EVERY 12 HOURS ORAL 02/17/18 09:00 03/10/18 20:59 02/17/18 09:30 Quetiapine Fumarate (SEROquel) 25 mg Q4H PRN ORAL For Anxiety 02/17/18 09:00 03/18/18 08:59 02/17/18 09:29 Tramadol HCl (Ultram) 25 mg Q6H PRN ORAL pain 6 and above 02/17/18 09:00 02/22/18 08:59 Warfarin Sodium (Coumadin per pharmacy) 1 ea DAILY PRN MISC Per rx protocol 02/17/18 09:00 03/15/18 16:59 Warfarin Sodium (Coumadin) 2.5 mg COUMADIN ONCE ORAL 02/17/18 17:00 02/17/18 17:01 Walker Saab MD February 17, 2018 12:32
[2018-02-17] MEDS ORDERED: Aztreonam Inj 0.5 GM in D5W 55 ML IVPB SCH (14:00)
--- NOTE | 2018-02-17 16:59 | Internal Med Progress Note ---
Subjective Date of Service: February 17, 2018 Physician Name Paras Aguirre Attending Physician Joni Robin MD Allergies: Coded Allergies: PENICILLINS (Verified Allergy, Unknown, 04/16/17) ROS Limited/Unobtainable: No Constitutional: Reports: no symptoms HEENT: Reports: no symptoms Cardiovascular: Reports: no symptoms Respiratory: Reports: no symptoms Gastrointestinal/Abdominal: Reports: no symptoms Genitourinary: Reports: no symptoms Neurologic/Psychiatric: Reports: no symptoms Subjective 67 YO M admitted with chest pain. Now STEMI and CHF. Cover for Int med-Dr Robin. Await transfer to [facility] Objective Last Vital Signs Date Time Temp Pulse Resp B/P (MAP) Pulse Ox O2 Delivery O2 Flow Rate FiO2 02/17/18 12:00 97.9 96 18 110/50 95 Room Air 97.9 02/17/18 04:00 2.0 02/15/18 21:04 28 Laboratory Tests Test 02/17/18 03:30 White Blood Count 8.6 K/UL (4.8-10.8) Red Blood Count 3.05 M/UL (4.70-6.10) L Hemoglobin 8.2 G/DL (14.2-18.0) L Hematocrit 25.6 % (42.0-52.0) L Mean Corpuscular Volume 84 FL (80-99) Mean Corpuscular Hemoglobin 26.7 PG (27.0-31.0) L Mean Corpuscular Hemoglobin Concent 31.9 G/DL (32.0-36.0) L Red Cell Distribution Width 14.8 % (11.6-14.8) Platelet Count 112 K/UL (150-450) L Mean Platelet Volume 9.4 FL (6.5-10.1) Neutrophils (%) (Auto) 56.8 % (45.0-75.0) Lymphocytes (%) (Auto) 26.1 % (20.0-45.0) Monocytes (%) (Auto) 14.6 % (1.0-10.0) H Eosinophils (%) (Auto) 2.0 % (0.0-3.0) Basophils (%) (Auto) 0.6 % (0.0-2.0) Prothrombin Time 23.3 SEC (9.30-11.50) H Prothromb Time International Ratio 2.2 (0.9-1.1) H Sodium Level 133 MMOL/L (136-145) L Potassium Level 3.8 MMOL/L (3.5-5.1) Chloride Level 99 MMOL/L (98-107) Carbon Dioxide Level 24 MMOL/L (21-32) Anion Gap 10 mmol/L (5-15) Blood Urea Nitrogen 59 mg/dL (7-18) H Creatinine 2.5 MG/DL (0.55-1.30) H Estimat Glomerular Filtration Rate 26.0 mL/min (>60) Glucose Level 107 MG/DL (74-106) H Calcium Level 8.5 MG/DL (8.5-10.1) Intake and Output 02/16/18 02/17/18 19:00 07:00 Intake Total 255.521 ml 410 ml Output Total 550 ml 500 ml Balance -294.479 ml -90 ml Intake Oral 300 ml IV Total 255.521 ml 110 ml Output Urine Total 550 ml 500 ml Objective Objective GENERAL: awake, more responsive, NAD HEAD: Pupils are equal and reactive to light. Extraocular movements intact. NECK: Supple. No JVD. LUNGS: Poor air entry. + Expiratory wheezing, No rales. fair inspiratory effort. HEART: S1, S2. Distant heart sounds. No murmur. ABDOMEN: Soft, nondistended, and nontender. Positive bowel sounds. EXTREMITIES: No cyanosis, clubbing. More Edema on the left lower extremity. 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 Piccline on Left UE's. NEUROLOGIC: Cranial nerves II through XII are grossly intact. The patient is moving all the extremities. Assessment/Plan Assessment/Plan Assessment/Plan Assessment/Plan 1. Acute myocardial infarction with non-ST elevation myocardial , New Left BBB 2. DKA with Diabetic type 2, uncontrolled. 3. Metabolic Acidosis 4. Dementia. 5. Hypernatremia. 6. Hyperkalemia. 7. Dehydration. 8. Right AKA with peripheral vascular disease. 9. History of dementia. 10. Atherosclerotic heart disease with ischemic cardiomyopathy. 11. Acute kidney injury. 12. Peripheral vascular disease. 13. Hypothyroidism. 14. PCN allergy. 15. Liver shock. 16. Right-sided pleural effusion. 17. New onset atrial fibrillation-See cardiology note. PLAN: In [facility]. Monitor laboratory and cultures. on heparin drip, IV hydration, Dr. Saab, Pulmonary, Critical Care. Dr. Jones, Cardiology consultation Dr. Jessica, Nephrology Consult. Code Status: Full Code as per POLST Broad-spectrum antibiotic: Levaquin and Aztreonam consider thoracocentesis. Discharge to [facility] today Paras Aguirre MD February 17, 2018 16:59
[2018-02-17] MEDS ORDERED: Warfarin Sodium 2.5mg ORAL ONE (17:00)
[2018-02-17] MEDS ORDERED: Dyna-Hex 2% Top Sol 2oz TOPIC SCH (20:00)
--- NOTE | 2018-02-18 09:49 | Discharge Summary ---
Discharge Summary Hospital Course Date of Admission February 06, 2018 at 17:59 Date of Discharge February 17, 2018 at 16:04 Admitting Diagnosis SEPSIS, ELEVATED TROPONIN HPI Ankit Feliciano is a 67 year old male who was admitted on February 06, 2018 at 17:59 for Sepsis, Elevated Troponin Hospital Course dc summary #[id number] Discharge Medications Continued Medications: Apixaban (Eliquis) 5 Mg Tablet 5 MG PO EVERY 12 HOURS, TAB (This prescription has been renewed) Atorvastatin Calcium* (Atorvastatin Calcium*) 40 Mg Tablet 40 MG ORAL BEDTIME, TAB (This prescription has been renewed) Clonidine Hcl* (Catapres*) 0.1 Mg Tablet 0.1 MG ORAL EVERY 8 HOURS, TAB (This prescription has been renewed) Digoxin* (Digoxin*) 250 Mcg Tablet 0.25 MG ORAL DAILY for for heart, TAB (This prescription has been renewed) Duloxetine Hcl* (Cymbalta*) 60 Mg Capsule.dr 60 MG ORAL DAILY, CAP (This prescription has been renewed) Furosemide* (Lasix*) 20 Mg Tablet 20 MG ORAL DAILY, TAB (This prescription has been renewed) Gabapentin* (Gabapentin*) 300 Mg Capsule 300 MG ORAL THREE TIMES A DAY, CAP 0 Refills (This prescription has been renewed ) Insulin Detemir (Levemir Flexpen) 100 Unit/1 Ml Insuln.pen 14 SUBQ Q12HR, #300 UNITS 0 Refills (This prescription has been renewed) Insulin Regular, Human (Humulin R) 100 Unit/1 Ml Vial 0 SUBQ PRN for Sliding scale, VIAL (This prescription has been renewed) Levothyroxine Sodium* (Levothyroxine Sodium*) 125 Mcg Tablet 250 MCG ORAL DAILY, TAB (This prescription has been renewed) Take in the morning on an empty stomach, at least 30 minutes before food. Mirtazapine* (Mirtazapine*) 15 Mg Tablet 30 MG ORAL BEDTIME, TAB (This prescription has been renewed) Vitamin B Complex & Vit C No.3 (B Complex With Vitamin C) 1 Each Capsule 1 TAB ORAL DAILY for supplement, #30 TAB 0 Refills (This prescription has been renewed) Discharge Condition Upon Discharge: stable Discharge Disposition Patient was discharged to [facility] (04) Miriam Brizuela NP February 18, 2018 09:49
--- NOTE | 2018-02-19 09:45 | Discharge Summary 2 SIG ---
DATE OF ADMISSION: 02/06/2018 DATE OF DISCHARGE: 02/17/2018 REASON FOR ADMISSION: 67-year-old male with past medical history of cardiomyopathy, coronary artery disease, chronic kidney disease, right above-knee amputation, diabetes, hypertension, presented from the senior care facility for complaint of chest pain and generalized body pain. Upon evaluation, the patient was febrile 101.8, tachycardic 120s. Laboratory workup revealed WBC of 13, sodium 129, potassium 5.4, and blood sugar 470. Lactic acid 2.8. Troponin was elevated 2.741. BUN 23 and creatinine 1.2. Chest x-ray revealed no acute cardiopulmonary pathology. EKG showed sinus tachycardia. No acute ischemic changes and evidence of left bundle-branch block. The patient was given aspirin, Plavix, and Lovenox. The patient was septic on presentation with tachycardia, fever, leukocytosis, and elevated lactic acid. The patient was started on aggressive IV fluids, pancultured, abnd started on empiric antibiotics. Blood sugar was out of control with blood glucose being over 400. The patient was given insulin. CT of the abdomen and pelvis revealed no acute intra-abdominal pathology. Urinalysis revealed pyuria and positive for leukocyte esterase with few bacteria. The patient was admitted to ICU with diagnosis of sepsis; non-STEMI; diabetes mellitus, type 2, uncontrolled; hyponatremia; possible UTI. CONSULTANTS: 1. Informatics Physician, Darnell Belcher M.D. 2. Middleware Administrator/clerk specialist, Walker Saab M.D. 3. Asbestos Cloth Inspector, Krzysztof Jessica M.D. 4. Boat Finisher, Michael Goode M.D. 5. Infectious Disease specialist, Josr Hinojosa M.D. 6. Psychiatrist, Chanel Richards M.D. HOSPITAL COURSE: The patient was initially admitted to ICU. The patient was started on heparin drip. Informatics Physician closely followed. Per sheet metal worker apprentice, the patient has acute myocardial infarct with subacute presentation. Per sheet metal worker apprentice, it was late for immediate acute intervention.Informatics Physician recommended to continue antiplatelet therapy, heparin drip and statin initially. Due to the rising LFTs, statin was discontinued. Lipid panel was stable. Serial troponin were trended. The patient was started on beta-elvie. Echocardiogram revealed ejection fraction of 15 to 20% with right ventricular systolic pressure of 89 consistent with severe pulmonary hypertension. The patient initially was on pressors. The patient was able to be weaned off pressors as blood pressure stabilized. Initially, for anti-failure medication sheet metal worker apprentice planned to start TL inhibitor. However, the patient developed renal failure. The patient was started on Imdur with plan to add Hydralazine later. Heparin drip eventually was discontinued, continue with antiplatelet therapy, anti-failure medications and anticoagulation at the senior care [facility]. The patient developed atrial fibrillation, new-onset on 02/09/2018, subsequently converted to sinus rhythm on 02/15/2018. The patient was on amiodarone for rate control and then switched to digoxin. The patient was on anticoagulation with Coumadin and was discharged on anticoagulation for CVA prophylaxis with Eliquis. Left bundle-branch block resolved. Blood pressure stable. Chest x-ray showed right pleural effusion. The patient has subsequently undergone thoracentesis of right pleural effusion on 02/08/2018, which yielded 400 mL of pleural fluid. Pathology of pleural fluid revealed no evidence of malignant cells. Chest x-ray post thoracentesis showed no evidence of pneumothorax. Supplemental oxygen provided as needed to keep pulse oximetry above 92%. Pulmonary toilet was provided as needed. Infectious Disease specialist followed. Urine culture revealed Rebekah, influenza screen test was negative. Blood culture initially 09/28 showed gram-positive cocci in clusters, likely contamination as per ID. Repeated blood cultures were negative. Chest x-ray revealed no acute cardiopulmonary pathology. CT of the abdomen and pelvis revealed no acute intra-abdominal pathology. The patient was on empiric antibiotics. The patient likely had bronchitis, antitussive provided as needed. The patient status post antibiotic treatment. ID specialist recommended to observed the patient off antibiotics. Leukocytosis resolved. The patient afebrile. Asbestos Cloth Inspector closely followed. Renal parameters, electrolytes were closely monitored. Electrolytes corrected as needed. Nephrotoxins were avoided. Creatinine initially was rising. Asbestos Cloth Inspector was closely followed. Renal ultrasound revealed cholelithiasis, but no hydronephrosis and normal bilateral kidney echogenicity. According to p d driver, the patient likely had diabetic nephropathy along with acute renal failure due to dehydration. After reaching the plateau of 4.2, creatinine started slowly to trend down, and on discharge day, creatinine down to 2.5. Asbestos Cloth Inspector recommended close monitoring of renal parameters as outpatient. No need for hemodialysis at current time. Boat Finisher closely followed. The patient initially was on insulin drip. Hemoglobin A1c 9.3, not at goal. [id number], the patient was transitioned to long acting Levemir twice a day and premeal NovoLog along with a sliding scale. The patient had evidence of hypoglycemia and NovoLog premeal was discontinued. The patient to be continued on long acting Levemir twice a day and sliding scale of insulin as needed. The patient needs further optimization of anti-glycemic regimen as outpatient. The patient initially was on the IV fluids, which were stopped secondary to severe cardiomyopathy. The patient was noted to have elevated liver enzymes on 2017, AST 523 and ALT 147. Abdominal ultrasound revealed no gallstones or biliary ductal dilatation. LFT and bilirubin were closely monitored. Hepatitis panel revealed evidence of hepatitis C infection. HIV test was negative. Statin was discontinued secondary to rising LFTs. LFTs reached peak, then started to slowly trend down. Prior to discharge, AST down to 94, ALT down to 247, and total bilirubin 1.1, direct bilirubin 0.5. The patient clinically improved. The patient was transferred to [facility] for further management and stabilization. Pain management was addressed, and pain was controlled. Bowel regimen instituted, GI prophylaxis provided. Hemoglobin and hematocrit were closely monitored with goal to keep hemoglobin above 8. No need for transfusion. Nutritional supplements provided as per medical services coordinator's recommendations. The patient was stable for discharge to senior care facility. According to critical resident care technician, the patient had overall a poor prognosis and was at high risk for short-term readmission, given end stage heart disease, bed-bound status, renal failure, and recent non-STEMI. FINAL DIAGNOSES: 1. Acute myocardial infarction with subacute presentation, non-STEMI. 2. Cardiomyopathy (ejection fraction 15%). 3. Sepsis. 4. Possible urinary tract infection/cystitis. 5. Possible pneumonia, status post treatment. 6. Bronchitis. 7. Right pleural effusion, status post thoracentesis. 8. New-onset of left bundle-branch block, resolved. 9. Atrial fibrillation, new onset (converted to sinus rhythm). 10. Diabetic ketoacidosis, resolved. 11. Diabetes mellitus, type 2 out of control. 12. Diabetic nephropathy. 13. Acute renal failure due to acute tubular necrosis on chronic renal insufficiency. 14. Dehydration. 15. Electrolyte imbalance (hyponatremia and hypokalemia). 16. PVD with right AKA. 17. Transaminitis. 18. Anemia. 19. Severe pulmonary hypertension. 20. Hypothyroidism. 21. Hepatitis C. 22. Congestive heart failure. DISCHARGE MEDICATIONS: See medication reconciliation list. DISCHARGE INSTRUCTIONS: The patient was discharged to senior care facility. Follow up with the healthcare provider at the facility. Joni Robin M.D. Miriam AlexandreCabrini Medical Centerdorothy NMannPMann DR: RADHA JOB#: [id number] CC: KELLIE
== END 2018-02-17 16:04 | DRG 871 ==
LOC: EDBD 16:42 → EMR 17:23 → EDBEDREQ 17:37 → 2W 17:59 → EDBEDREQSVC 18:04 → EDBEDREQ 18:04 → ICU 02-07 12:55 → 2W 02-12 15:10 → 2E 02-17 06:57
PROC: 02HV33Z Insertion of Infusion Device into Superior Vena Cava, Percutaneous Approach (ICD-10-PCS; principal; 2018-02-07)
PROC: B548ZZA Ultrasonography of Superior Vena Cava, Guidance (ICD-10-PCS; principal; 2018-02-07)
PROC: 0W993ZZ Drainage of Right Pleural Cavity, Percutaneous Approach (ICD-10-PCS; 2018-02-09)
DX: A41.9 Sepsis, unspecified organism (principal); I21.4 Non-ST elevation (NSTEMI) myocardial infarction; E11.10 Type 2 diabetes mellitus with ketoacidosis without coma; N17.0 Acute kidney failure with tubular necrosis; G93.41 Metabolic encephalopathy; R57.0 Cardiogenic shock; J18.9 Pneumonia, unspecified organism; K72.00 Acute and subacute hepatic failure without coma; N39.0 Urinary tract infection, site not specified; E87.1 Hypo-osmolality and hyponatremia; I13.0 Hypertensive heart and chronic kidney disease with heart failure and stage 1 through stage 4 chronic kidney disease, or unspecified chronic kidney disease; I42.0 Dilated cardiomyopathy; J90 Pleural effusion, not elsewhere classified; E11.65 Type 2 diabetes mellitus with hyperglycemia; E11.21 Type 2 diabetes mellitus with diabetic nephropathy; I25.10 Atherosclerotic heart disease of native coronary artery without angina pectoris; F03.90 Unspecified dementia, unspecified severity, without behavioral disturbance, psychotic disturbance, mood disturbance, and anxiety; E86.0 Dehydration; E87.5 Hyperkalemia; Z89.611 Acquired absence of right leg above knee; I73.9 Peripheral vascular disease, unspecified; E03.9 Hypothyroidism, unspecified; I25.2 Old myocardial infarction; E11.22 Type 2 diabetes mellitus with diabetic chronic kidney disease; N18.9 Chronic kidney disease, unspecified; I50.9 Heart failure, unspecified; F41.9 Anxiety disorder, unspecified; F32.9 Major depressive disorder, single episode, unspecified; R13.10 Dysphagia, unspecified; J40 Bronchitis, not specified as acute or chronic; I27.20 Pulmonary hypertension, unspecified; I44.7 Left bundle-branch block, unspecified; I48.91 Unspecified atrial fibrillation; Z79.01 Long term (current) use of anticoagulants; K21.9 Gastro-esophageal reflux disease without esophagitis; L89.152 Pressure ulcer of sacral region, stage 2; B19.20 Unspecified viral hepatitis C without hepatic coma; Z74.01 Bed confinement status
CPT/HCPCS: 36415; 36569; 36600; 71045; 74177; 76700; 76770; 76937; 76942; 80048; 80053; 80061; 80076; 80202; 81003; 82140; 82248; 82465; 82550; 82553; 82607; 82728; 82746; 82803; 82962; 82977; 83036; 83540; 83550; 83605; 83735; 83880; 84100; 84439; 84443; 84481; 84484; 84550; 85007; 85025; 85610; 85651; 85730; 86140; 86703; 86704; 86705; 86708; 86709; 86710; 86803; 86850; 86900; 86901; 86920; 87040; 87081; 87086; 87181; 87340; 87517; 87522; 89050; 93005; 93306; 94640; 94664; 94760; 99285; J1815; J2405; J2765; J7620; J8499; S5561